=== PATIENT | female | born 1995 | race Caucasian/White ===

== ENCOUNTER 2020-03-20 12:20 | Emergency (ER) | payer BC, SELFPAY ==
[2020-03-20 13:05] VITALS: BP 133/74; PULSE 72; RESP 18; TEMP 36.8; O2SAT 98; BMI 31.7
--- NOTE | 2020-03-20 13:59 | HMH.EDUTC ---
[facility] [place] Clinical Impression: Encounter for laboratory testing for COVID-19 virus Disposition: Home, Self-Care Condition on Discharge: Good Instructions: DI for COVID-19 (Suspected or Confirmed ), COVID-19 Viral Test, COVID-19: Testing and Tracing, Preventing the Spread of Coronavirus Discharge Instructions, Vitamin D, Vitamin C (Ascorbic Acid), Zinc Additional Instructions: *Monitor Temp, Over the counter Motrin or Tylenol as directed/as needed Tylenol every 4 hours and Motrin every 6 hours (as long as your family doctor has told you that you can take it) for fever or pain. and straight to ER if unable to lower temp less than 101.0 after medication given *Warm salt water gargles may help to soothe the throat *Throat Lozenges *Warm fluids like tea with honey may help to soothe the throat *Sleep elevated *Humidifier/Vaporizer *Bromfed may cause drowsiness. Know how it effects you (your child) before driving, caring for small child, or sending your child to school. Not other antihistamines/allergy medications while taking bromfed Follow up IMMEDIATELY for new or worsening symptoms or no Noticeable improvement over the next 48-72 hours. 911 for difficulty breathing or swallowing You were tested for today for COVID19 your test result should be back in the next 24-48 hours, you may call to the [facility] to see if your test results are back in the next 48 hours [phone] [facility] hours are 9am-9pm You was given a handout with instructions for Self Quarantine and Self isolation for while you wait on test results and what to do if they are positive If you are positive the Health Dept will be contacting you also Prescriptions: Brompheniramine/Pseudoephed/Dm [Bromfed Dm Cough Syrup] 5 - 10 ml PO Q46H PRN #150 ml PRN Reason: Cough Transmission Status: Pending to [id number] Referrals: PCP,No [Primary Care Provider] - As needed Forms: Work/School Release Time of Disposition: 14:03 Medical Decision Making - Michael Inquiry Pt receiving controlled substance: No Michael was queried for this patient: No Vital Signs: 03/20/20 13:05 Temperature 98.2 F Temperature Source Oral Pulse Rate [Left Brachial] 72 Respiratory Rate 18 Blood Pressure [Right Arm] 133/74 Blood Pressure Mean [Right Arm] 93 Blood Pressure Source [Right Arm] Automatic Cuff Blood Pressure Position [Right Arm] Sitting 02 Sat by Pulse Oximetry 98 Oxygen Delivery Method Room Air Orders (Tests/Meds): ORDERS Category Date Time Status Covid-19 Nasal PCR ([facility]) Routine Lab 03/20/20 13:00 Received [facility] [place] HPI - General Stated complaint: needs retest/covid Time Seen by Provider: 03/20/20 13:59 Mode of Arrival: Ambulatory Source of Information: Patient Limitations: No Limitations Description of Symptoms (Recalled from Triage Doc. by RN): PATIENT REQUESTING COVID TEST. SHE STATES SHE TESTED POSITIVE YESTERDAY, BUT WANTS RE-TESTED HEENT Symptoms (Recalled from RN notes): No Resp Symptoms (Recalled from RN notes): No Skin Symptoms (Recalled from RN notes): No MS Symptoms (Recalled from RN notes): No Functional Status (Recalled from RN notes): WNL - History of Present Illness Provider Complaint: Patient state that she needs to be tested for COVID States that she was tested yesterday and they emailed her and told her that it was negative and then called her last night and told her it was positive State that she talked with her PCP and they recommended that she come in and get retested again - Related Data Home Medications Medication Instructions Recorded Confirmed metronidazole 500 mg tablet PO 7 Days #14 tab 06/05/18 06/05/18 norgestimate 0.25 mg-ethinyl PO 84 Days #84 tab 06/05/18 06/05/18 estradiol 35 mcg tablet topiramate 25 mg tablet PO 30 Days #240 tab 06/05/18 06/05/18 Previous Rx's Medication Instructions Recorded Brompheniramine/Pseudoephed/Dm 5 - 10 ml PO Q46H PRN #150 ml 03/20/20 [Bromfed Dm Cough Syrup] All
[2020-03-20 14:09] VITALS: BP 133/74; PULSE 72; RESP 18; TEMP 36.8; O2SAT 98
[2020-03-21 10:55] LABS: Covid-19 Nasal PCR Sendout P&C POSITIVE
--- NOTE | 2020-03-21 11:09 | PC.NURSE ---
PATIENT NOTIFIED OF POSITIVE COVID TEST AT THIS TIME
== END 2020-03-20 14:10 | disposition home or self-care (01) ==
PROVIDERS: Emergency Provider Nurse Practitioner
DX: U07.1 COVID-19 (principal)
CPT/HCPCS: 99201; U0004

== ENCOUNTER 2020-10-03 00:28 | Emergency (ER) | payer BC, SELFPAY ==
[2020-10-03 00:29] VITALS: BP 96/75; RESP 18; TEMP 36.6; O2SAT 96; BMI 35.4
[2020-10-03 00:41] VITALS: BMI 25.8
--- NOTE | 2020-10-03 00:45 | CT_ITS ---
PROCEDURE INFORMATION: Exam: CT Abdomen And Pelvis With Contrast Exam date and time: 10/03/2020 12:45 AM Age: 25 years old Clinical indication: Abdominal pain; Patient HX: Rlq pain. N/v/d TECHNIQUE: Imaging protocol: Computed tomography of the abdomen and pelvis with contrast. Radiation optimization: All CT scans at this facility use at least one of these dose optimization techniques: automated exposure control; mA and/or kV adjustment per patient size (includes targeted exams where dose is matched to clinical indication); or iterative reconstruction. Contrast material: ISOVUE; Contrast volume: 75 ml; Contrast route: IV; COMPARISON: No relevant prior studies available. FINDINGS: Lungs: There is minimal dependent atelectasis within the lung bases. Heart: The visualized cardiac chambers appear normal. Liver: Mild hepatic steatosis. Gallbladder and bile ducts: Unremarkable without gallstones. No intra or extrahepatic ductal dilation. Pancreas: No peripancreatic inflammatory infiltration or fluid. No ductal dilation. Spleen: No splenomegaly or splenic mass. Adrenal glands: Normal. No mass. Kidneys and ureters: No nephrolithiasis, ureterolithiasis or hydronephrosis. Stomach and bowel: There is mild scattered diverticulosis but no diverticulitis identified. Appendix: No evidence of appendicitis. No appendicolith. Intraperitoneal space: No free fluid, free air or focal inflammatory infiltration. Vasculature: Punctate phleboliths are incidentally noted in the pelvis. Lymph nodes: No enlarged lymph nodes within the retroperitoneal space or mesentery. Urinary bladder: There is a punctate 1 mm calcification which appears to be lying within the bladder as seen on series 3, image 127. This may be a recently passed stone Reproductive: There is a hyperdense 2.8 cm left ovarian cyst (Hounsfield units: 22.4). The right ovary and uterus are grossly unremarkable. Bones/joints: Unremarkable. No acute fracture. No osteolytic or blastic bone lesions. Soft tissues: Paraspinous and extracorporeal soft tissues are unremarkable. IMPRESSION: 1. Punctate calcification within the dependent urinary bladder which may represent a recently passed stone.. 2. No evidence of appendicitis. 3. Diverticulosis without convincing evidence of diverticulitis. 4. Slightly hyperdense left ovarian cyst suggestive of a hemorrhagic cyst.
[2020-10-03 00:50] LABS: Basophils # 0.2 K/mm3 (0-0.2); Basophils % 1.3 % (0.1-2.0); Eosinophils # 2.3 K/mm3 (0.0-0.4); Eosinophils % 14.3 % (0.1-12.0); Hematocrit 37.4 % (37.0-47.0); Lymphocytes # 6.4 K/mm3 (0.7-4.5); Mean Corpuscular HGB Conc 34.7 g/dL (31.8-35.4); Mean Corpuscular Volume 86.5 fl (81-99); Mean Platelet Volume 8.4 fl (7.4-10.4); Monocytes # 0.8 K/mm3 (0.1-1.0); Neutrophils # 6.6 K/mm3 (1.8-7.8); Neutrophils % 40.4 % (37.0-80.0); Platelet Count 252 K/mm3 (142-424); Red Blood Count 4.33 M/mm3 (4.20-5.40); Red Cell Distribution Width 13.2 % (11.5-17.5); White Blood Count 16.3 K/mm3 (4.8-10.8)
[2020-10-03 01:02] LABS: Chloride 107 mmol/L (98-107); Sodium 141 mmol/L (136-145)
[2020-10-03 01:05] LABS: Alanine Aminotransferase 33 U/L (12-78); Albumin Level 4.4 g/dl (3.5-5.0); Albumin/Globulin Ratio 1.5 (1.1-1.8); Alkaline Phosphatase 94 U/L (38-126); Aspartate Amino Transferase 54 U/L (14-36); Bilirubin,Total 0.4 mg/dl (0.2-1.3); Blood Urea Nitrogen 12 mg/dl (7-17); Carbon Dioxide 24 mmol/L (22.0-30.0); Creatinine Clearance Estimated 136 mL/min (50-200); Estimated Glomerular Filt Rate 88 ml/min (>60); GFR (African American) 107 ML/MIN (>60); Globulin 2.9 g/dL (1.3-3.2); Total Protein,Serum 7.3 g/dl (6.3-8.2)
[2020-10-03 01:06] LABS: Calcium 9.4 mg/dl (8.4-10.2); Glucose 112 mg/dl (74-100); Lipase 111 U/L (23-300)
[2020-10-03 01:14] LABS: HCG Qualitative, Serum Negative (Negative)
--- NOTE | 2020-10-03 01:27 | HMH.EDGENADL ---
ED Disposition Clinical Impression: Kidney stone on right side, Acute abdominal pain Disposition: Home, Self-Care Condition on Discharge: Good Instructions: DI for Acute Abdominal Pain, DI for Kidney Stones Additional Instructions: You have been evaluated for right flank and lower abdominal pain. Appears that you recently passed a kidney stone. Please take anti-inflammatories like Tylenol and Motrin. Take Zofran for nausea. Follow-up with your primary care doctor. Return to the emergency department for any new or worsening symptoms. Prescriptions: Ondansetron [Zofran 4mg ODT] 4 mg PO Q6 PRN #12 tab PRN Reason: Nausea And Vomiting Transmission Status: Pending to [phone] Referrals: Provider,Referral, [Primary Care Provider] - Time of Disposition: 03:44 - Critical Care Critical Care Time: No Attestation: On 10/03/20, the high probability of a clinically significant, sudden or life threatening deterioration of the following system(s) required my full and direct attention, intervention and personal management. The time I documented below is in addition to time spent performing reported procedures but includes the following listed in this critical care notation. Medical Decision Making - Medical Records Medical records reviewed: Yes: I reviewed the patient's medical records. - Michael Inquiry Pt receiving controlled substance: No Vital Signs: 10/03/20 00:29 10/03/20 02:37 Temperature 97.9 F Temperature Source Oral Pulse Rate 83 Respiratory Rate 18 Blood Pressure 100/58 L Blood Pressure [Right Arm] 96/75 L Blood Pressure Mean [Right Arm] 82 02 Sat by Pulse Oximetry 96 100 Oxygen Delivery Method Room Air - Lab Data Lab Results 10/03/20 00:40: WBC 16.3 H, RBC 4.33, Hgb 13.0, Hct 37.4, MCV 86.5, MCH 30.0, MCHC 34.7, RDW 13.2, Plt Count 252, MPV 8.4, Neut % (Auto) 40.4, Lymph % (Auto) 39.0, [place] % (Auto) 5.0, Eos % (Auto) 14.3 H, Baso % (Auto) 1.3, Neut # (Auto) 6.6, Lymph # (Auto) 6.4 H, [place] # (Auto) 0.8, Eos # (Auto) 2.3 H, Baso # (Auto) 0.2 10/03/20 00:40: Sodium 141, Potassium 4.0, Chloride 107, Carbon Dioxide 24, Anion Gap 14.0, BUN 12, Creatinine 0.80, Estimated Creat Clear 136, Estimated GFR 88, Est GFR ( Amer) 107, Glucose 112 H, Calcium 9.4, Total Bilirubin 0.4, AST 54 H, ALT 33, Alkaline Phosphatase 94, Total Protein 7.3, Albumin 4.4, Globulin 2.9, Albumin/Globulin Ratio 1.5 10/03/20 00:40: Lipase 111 10/03/20 00:52: Serum HCG, Qual Negative 10/03/20 03:15: Urine Color Yellow, Urine Appearance Clear, Urine pH 7.0, Ur Specific [place] 1.010, Urine Protein Negative, Urine Glucose (UA) Negative, Urine Ketones Negative, Urine Blood 1+, Urine Nitrate Negative, Urine Bilirubin Negative, Urine Urobilinogen 0.2, Ur Leukocyte Esterase Negative Result diagrams: 10/03/20 00:40 10/03/20 00:40 Orders (Tests/Meds): ED MEDICATIONS Generic Name Dose Route Start Last Admin Trade Name Freq PRN Reason Stop Dose Admin Sodium Chloride 500 mls @ 999 mls/hr 10/03/20 00:45 10/03/20 00:43 Sod Chlor 0.9% 1000ml Bag IV 10/03/20 01:15 999 mls/hr .Q31M OSVALDO Administration Discontinued Medications Generic Name Dose Route Start Last Admin Trade Name Freq PRN Reason Stop Dose Admin Iopamidol 75 ml 10/03/20 02:06 10/03/20 02:07 Iopamidol-370 (76%);100ml Bottle IV 10/03/20 02:07 75 ml ONCE ONE Administration Ketorolac Tromethamine 15 mg 10/03/20 01:19 10/03/20 01:19 Ketorolac 30mg/Ml Vial IV 10/03/20 01:20 15 mg ONCE ONE Administration Ondansetron HCl 4 mg 10/03/20 00:41 10/03/20 01:18 Ondansetron 4mg/2ml Vial IV 10/03/20 00:42 4 mg ONCE ONE Administration Ondansetron HCl 4 mg 10/03/20 01:37 10/03/20 01:41 Ondansetron 4mg/2ml Vial IV 10/03/20 01:38 4 mg ONCE ONE Administration Sodium Chloride 10 ml 10/03/20 02:06 10/03/20 02:07 Sodium Chloride 0.9% 10ml Syr (Rad Only) IV 10/03/20 02:07 10 ml ONCE ONE Admini
--- NOTE | 2020-10-03 01:41 | PC.NURSE ---
pt requesting water to drink to clear mouth where she has been vomiting. mouth swab given
[2020-10-03 01:48] LABS: MANUAL DIFFERENTIAL MANUAL DIFFERENTIAL (MANUAL DIFF)
[2020-10-03 02:37] VITALS: BP 100/58; PULSE 83; O2SAT 100
[2020-10-03 03:21] LABS: Microscopic, Urine URINE MICROSCOPIC (MICROSCOPIC)
[2020-10-03 03:22] LABS: Appearance,Urine CLEAR (Clear); Bilirubin,Urine Negative (Negative); Blood, Urine 1+ (Negative); Color,Urine YELLOW (Yellow); Glucose,Urine (UA) Negative (Negative); Ketones,Urine Negative (Negative); Leukocyte Esterase,Urine Negative (Negative); Nitrate,Urine Negative (Negative); Protein,Urine Negative (Negative); Urobilinogen,Urine 0.2 EU/dl (0.2)
[2020-10-03 03:47] VITALS: BP 99/48; PULSE 78; RESP 15; TEMP 36.6; O2SAT 99
[2020-10-03 05:34] LABS: Eosinophils % 20 % (0-3); Lymphocytes % 34 % (10-50); Monocytes % 8 % (2-9); Neutrophils % 38 % (42-76); Nucleated Red Blood Cells 4; Total Cells Counted 100
[2020-10-03 05:35] LABS: Platelet Estimate Normal
[2020-10-03 05:36] LABS: Hypochromasia 2+
== END 2020-10-03 03:56 | disposition home or self-care (01) ==
PROVIDERS: Emergency Provider Emergency Medicine
DX: N20.0 Calculus of kidney (principal)
CPT/HCPCS: 74177; 80053; 81001; 83690; 84703; 85007; 85025; 96365; 96375; 96376; 99282; 99283; J2405; Q9967

== ENCOUNTER 2020-11-27 18:56 | Emergency (ER) | payer BC, SELFPAY ==
[2020-11-27 22:10] VITALS: BP 145/82; PULSE 77; RESP 18; TEMP 36.8; O2SAT 97; BMI 35.4
[2020-11-27 22:22] VITALS: BP 141/71; PULSE 81; RESP 18; TEMP 36.9; O2SAT 98
--- NOTE | 2020-11-27 22:45 | HMH.EDUTC ---
[facility] [place] Disposition Clinical Impression: Encounter for laboratory testing for COVID-19 virus Disposition: Home, Self-Care Condition on Discharge: Good Instructions: DI for COVID-19 (Suspected or Confirmed ), Coronavirus Disease 2019, Preventing the Spread of Coronavirus Discharge Instructions Additional Instructions: *Monitor Temp, Over the counter Motrin or Tylenol as directed/as needed Tylenol every 4 hours and Motrin every 6 hours (as long as your family doctor has told you that you can take it) for fever or pain. and straight to ER if unable to lower temp less than 101.0 after medication given Follow up IMMEDIATELY for new or worsening symptoms or no Noticeable improvement over the next 48-72 hours. 911 for difficulty breathing or swallowing You were tested for today for COVID19 your test result should be back in the next 24-48 hours, you may call to the [facility] to see if your test results are back in the next 48 hours [phone] [facility] hours are 9am-9pm You was given a handout with instructions for Self Quarantine and Self isolation for while you wait on test results and what to do if they are positive If you are positive the Health Dept will be contacting you also Make sure to take your Vitamins Vit. C Vit D and Zinc if you can take them Referrals: Mee Matt MD [Primary Care Provider] - As needed Forms: Work/School Release Medical Decision Making - Michael Inquiry Pt receiving controlled substance: No Michael was queried for this patient: No Vital Signs: 11/27/20 22:10 Temperature 98.3 F Temperature Source Oral Pulse Rate [Right] 77 Respiratory Rate 18 Blood Pressure [Right Arm] 145/82 H Blood Pressure Mean [Right Arm] 103 02 Sat by Pulse Oximetry 97 Oxygen Delivery Method Room Air Orders (Tests/Meds): ORDERS Category Date Time Status Covid-19 Nasal PCR ([facility]) Routine Lab 11/27/20 22:14 Received [facility] [place] HPI - General Stated complaint: covid test Time Seen by Provider: 11/27/20 22:45 Mode of Arrival: Family Vehicle Source of Information: Patient Limitations: No Limitations Description of Symptoms (Recalled from Triage Doc. by RN): Patient reports exposure to COVID and wants a COVID test. HEENT Symptoms (Recalled from RN notes): No Resp Symptoms (Recalled from RN notes): No Skin Symptoms (Recalled from RN notes): No MS Symptoms (Recalled from RN notes): No Functional Status (Recalled from RN notes): na - History of Present Illness Provider Complaint: Patient states that she was recently around several coworkers that tested positive for COVID States that she is not having any symptoms but wanted to get tested due to close exposure - Related Data Home Medications Medication Instructions Recorded Confirmed Zinc 50 mg PO BID 10/03/20 10/03/20 Previous Rx's Medication Instructions Recorded Ondansetron [Zofran 4mg ODT] 4 mg PO Q6 PRN #12 tab 10/03/20 Allergies Allergy/AdvReac Type Severity Reaction Status Date / Time No Known Allergies Allergy Verified 03/20/20 13:17 - Worker's Comp Is this a Worker's Comp case?: No Is this an H Worker's Comp?: No Is this a [place] Worker's Comp?: No [facility] History - Hepatitis A Screen Drug use history?: No High risk sexual behaviors?: No History of sexually transmitted infection?: No Currently employed?: No Childcare worker?: No Do you have indoor plumbing?: Yes Do you have electricity?: Yes Attestation statement:: This patient has been screened for Hepatitis A risk factors. I have reviewed the patient's past medical history: Yes Medical History: Reports:: Migraine Laterality Cases: Bilateral: Myringotomy (Ear Tubes), Tonsillectomy - Social History Smoking Status: Never smoker Alcohol Intake: never Occupational Status: other Housing: house Household Members: family Family Hx:: Non-contributory ROS Obtained: Yes All systems reviewed & no additional complaints, Yes Systems reviewed as appropriate & no additional com
== END 2020-11-27 23:55 | disposition home or self-care (01) ==
PROVIDERS: Emergency Provider Nurse Practitioner; PCP Internal Medicine
DX: Z20.822 Contact with and (suspected) exposure to COVID-19 (principal)
CPT/HCPCS: 99202; G0463; U0003

== ENCOUNTER → 2021-04-17 10:23 | Outpatient (CLI) | payer BC, SELFPAY | PROVIDERS: Visit Provider Nurse Practitioner | DX: Z20.822 Contact with and (suspected) exposure to COVID-19 (principal) | CPT/HCPCS: C9803; U0003; U0005 ==

== ENCOUNTER → 2021-04-27 15:44 | Outpatient (CLI) | payer BC, SELFPAY | PROVIDERS: Visit Provider Nurse Practitioner | DX: Z20.822 Contact with and (suspected) exposure to COVID-19 (principal) | CPT/HCPCS: C9803; U0003; U0005 ==

== ENCOUNTER 2024-07-19 12:51 | Outpatient (CLI) | payer OTHER, SELFPAY ==
--- NOTE | 2024-07-19 13:00 | US_ITS ---
PROCEDURE: US OB >= 14 WEEKS FETUS CLINICAL INDICATION: schedule for 4 weeks; 20wk anatomy COMPARISON: No exams were available for comparison FINDINGS: Transabdominal sonographic images of the pelvis were obtained. From her established due date she is 19 weeks 6 days. Single viable intrauterine gestation. Cephalic position. Placenta: Anteriorplacenta grade 1. There is an average amount of fluid. The cervix appears satisfactory. Closed and measuring 3.07 cm in length. Complete survey performed and was unremarkable on the submitted images as in PACS. No discrete anomalies identified on survey imaging by technologist. Active fetus. Three-vessel cord with satisfactory umbilical cord insertion. 4- chamber heart noted. Situs, aortic arch, LVOT, RVOT, three-vessel view appear normal. Survey of brain & ventricles Unremarkable. Cerebellum, thalamus, choroid plexus, cisterna magna appear normal. Face and neck survey unremarkable. Profile, nasion, lips and nose appeared normal. Diaphragm and chest views unremarkable. Abdomen: Both kidneys noted and unremarkable. Stomach and bladder noted and satisfactory. Spine: Survey of the spine satisfactory with no anomalies identified nor imaged. Cervical, thoracic, lower spine appear normal. Both arms and legs noted. Amniotic Fluid: Adequate. MVP 3.47 cm Measurements: Average ultrasound age 19weeks 6days. Estimated due date by ultrasound age 0912/07/2024. Estimated weight 309g BPD = 20weeks 0 days HC = 19weeks 6days AC = 19weeks 2days FL = 20weeks 2days Growth Percentile= 38 Heart Rate = 152bpm Cerebellum = 19weeks Humerus = 20weeks 1day HC/AC is 1.25 FL/BPD is 0.71 FL/AC is 0.24 IMPRESSION: 1. Viable fetus in the cephalic presentation with an anterior placenta grade 1. 2. The fluid is within normal limits with an MVP 3.47 cm. 3. Anatomical scan appears normal. 4. biometry is consistent with the dates. Dictated by: Crispin Marks MD 07/19/2024 17:33 Crispin Marks MD in OV 07/19/2024 17:33
== END 2024-07-19 23:59 | disposition home or self-care (01) ==
LOC: RAD 12:53
PROVIDERS: PCP Family Medicine; Visit Provider Obstetrics & Gynecology
DX: Z36.3 Encounter for antenatal screening for malformations (principal); Z3A.19 19 weeks gestation of pregnancy
CPT/HCPCS: 76805

== ENCOUNTER 2024-08-06 08:01 | Emergency (ER) | payer OTHER, SELFPAY ==
--- NOTE | 2024-08-06 08:15 | PC.NURSE ---
unable to get a quality heart tone with portable doppler. MD aware and is ordering POCUS
[2024-08-06 08:21] VITALS: BP 132/76; PULSE 91; RESP 17; TEMP 37; O2SAT 98; BMI 34.2
--- NOTE | 2024-08-06 08:23 | PC.NURSE ---
at bedside for POCUS
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
[2024-08-06 08:39] VITALS: BP 132/76; PULSE 91; RESP 17; TEMP 37; O2SAT 98
== END 2024-08-06 08:40 | disposition home or self-care (01) ==
PROVIDERS: Emergency Provider Student in an Organized Health Care Education/Training Program; PCP Family Medicine
DX: O9A.212 Injury, poisoning and certain other consequences of external causes complicating pregnancy, second trimester (principal); R07.89 Other chest pain; V49.40XA Driver injured in collision with unspecified motor vehicles in traffic accident, initial encounter; Z3A.22 22 weeks gestation of pregnancy
CPT/HCPCS: 99284

== ENCOUNTER 2024-08-27 10:55 | Outpatient (CLI) | payer OTHER, SELFPAY ==
[2024-08-27 11:02] VITALS: BMI 34.9
[2024-08-27 11:17] VITALS: BP 122/69; PULSE 82; RESP 17; TEMP 36.8; O2SAT 98; BMI 34.9
[2024-08-27 11:21] LABS: Microscopic, Urine URINE MICROSCOPIC (MICROSCOPIC)
[2024-08-27 11:23] LABS: Appearance,Urine CLEAR (Clear); Bilirubin,Urine Negative (Negative); Blood, Urine Negative (Negative); Color,Urine YELLOW (Yellow); Glucose,Urine (UA) Negative (Negative); Ketones,Urine Negative (Negative); Leukocyte Esterase,Urine Negative (Negative); Nitrate,Urine Negative (Negative); PH,Urine 7.5 (5.0-8.5); Protein,Urine Negative (Negative); Urobilinogen,Urine 0.2 EU/dl (0.2)
[2024-08-27 11:31] LABS: Bacteria,Urine Trace /lpf; WBC,Urine Occasional #/hpf (0-3)
[2024-08-27] MEDS: ACETAMINOPHEN 325MG TAB 650 MG PO (11:44)
[2024-08-27] MEDS: LACTATED RINGERS 1000ML 1,000 ML 999 ML IV (11:45)
== END 2024-08-27 13:30 | disposition home or self-care (01) ==
LOC: OBOUT 10:57 → OB 10:58
PROVIDERS: PCP Family Medicine; Visit Provider Nurse Practitioner Obstetrics & Gynecology
DX: Z34.92 Encounter for supervision of normal pregnancy, unspecified, second trimester (principal); Z3A.24 24 weeks gestation of pregnancy
CPT/HCPCS: 81001; 96360; 99212; G0463; J7120

== ENCOUNTER 2024-09-14 10:40 | Outpatient (CLI) | payer OTHER, SELFPAY ==
--- NOTE | 2024-09-14 10:45 | US_ITS ---
PROCEDURE: US OB FOLLOW UP CLINICAL INDICATION: GDM and Growth COMPARISON: US US OB >= 14 WEEKS FETUS from 07/19/2024 FINDINGS: Transabdominal sonographic images of the pelvis were obtained. The following parameters are obtained: From her established due date she is 28weeks 0 days Viable fetus in the cephalic presentation with an anterior placenta grade 1. heart rate: 142bpm bpm. Average ultrasound age 28 weeks 3 days Estimated weight 1154 grams, 2 lb 9 oz BPD: 29weeks 1day, 73 percentile HC: 28weeks 4days, 33 percentile AC: 28weeks 2days, 48 percentile FL: 27weeks 2days, 17 percentile HC/AC: 1.09 FL/BPD: 0.7 FL/AC: 0.21 Growth percentile: 36 Amniotic fluid: MVP 5.37 cm No obvious anomalies evident. Stomach, bladder, kidneys, three-vessel cord, four chamber heart appear normal. IMPRESSION: 1. Viable fetus in the cephalic presentation with an anterior placenta grade 1. 2. The fluid is within normal limits with an MVP 5.37 cm. 3. There has been good interval growth with the fetus currently 36 percentile. No evidence of accelerated growth. 4. Limited anatomical scan appears normal. 5. Fetus is active. Dictated by: Crispin Marks MD 09/15/2024 04:09 Crispin Marks MD in OV 09/15/2024 04:09
--- OUTSIDE RECORDS SUMMARY | 2024-09-14 10:45 | XMS_ITS | Clinical Summary ---
Author Organization Healthcare Address [address] [place] [address] Care Team Providers Care Hand Umbrella Tipper Name Role Phone Mee Matt MD Primary Care Provider [phone] Allergies No known active allergies Medications * This document contains information received from the source organization and may not represent a complete record from that organization. topiramate (Topamax) 100 MG tablet Take 1 tablet (100 mg total) by mouth 2 (two) times a day. 30 tablet 6 09/11/2021 Active Active Problems Problem Noted Date Diagnosed Date Migraine without aura and wi thout status migrainosus, not intractable 11/03/2020 Chronic daily headache 10/28/2020 Immunizations Immunization Administration Dates Next Due DTaP, Unspecified 02/29/2000,01/09/1998,06/04/18 98 HPV 9-Valent 10/28/2017,08/26/2017 HPV, Unspecified 10/28/2017,08/26/2017 Hep A, Adult 03/14/2019,01/18/2018 Hep B, Adolescent or Pediatric 06/04/1997 Hep B, adult 06/21/2017 HiB, unspecified 06/04/1997 IPV 02/29/2000 Influenza, Unspecified 06/14/2017 Influenza, injectable, quadr ivalent, preservative free 02/21/2019,01/12/2018,01/26/2016 MMR 02/29/2000,06/04/1997 OPV 06/04/1997 Tdap 05/03/2016 Family History Medical History Relation Name Comments Hyperlipidemia Father Diabetes Maternal Grandmother Cardiac disorder Mother Diabetes Mother Heart attack Mother Hypertension Mother Valvular heart disease Mother Heart attack Paternal Grandfather Relation Name Status Comments Father Maternal Grandmother Mother Paternal Grandfather Social History Tobacco Use Types Packs/Day Years Used Date Smoking Tobacco: Never Smokeless Tobacco: Never Tobacco Cessation:Counseling Given: Not Answered Alcohol Use Standard Drinks/Week Comments Yes 0 (1 standard drink = 0.6 oz pure alcohol) Alcoholic Drinks/day: Social alcohol use 1 to 2 PHQ-2 Answer Date Recorded Patient Health Questionnaire-2 Score 0 09/17/2022 PHQ-2A Answer Date Recorded Patient Health Questionnaire-2 Score 0 09/17/2022 Comments No Sex and Gender Information Value Date Recorded Sex Assigned at Not on file Legal Sex Female 6:02 PM EDT Gender Identity Not on file Sexual Orientation Not on file Last Filed Vital Signs Vital Sign Reading Time Taken Comments Blood Pressure 135/78 09/17/2022 9:18 AM EDT Pulse 81 09/17/2022 9:18 AM EDT Temperature 36.7 C (98 F) 02/12/2022 10:57 AM EST Respiratory Rate 18 09/17/2022 9:18 AM EDT Oxygen Saturation 98% 09/17/2022 9:18 AM EDT Inhaled Oxygen Concentration - - Weight 97.8 kg (215 lb 9.8 oz) 09/17/2022 9:18 A M EDT Height 175.3 cm (5' 9 ) 09/17/2022 9:18 AM EDT Body Mass Index 31.84 09/17/2022 9:18 AM EDT Plan of Treatment Health Maintenance Due Date Last Done Comments [facility]-Infant/Child/Adol SDOH Screenings 1996 [facility]-IPV Vaccines (3 of 3 - 4-dose series) 08/28/2000 02/29/2000, 06/04/1997 [facility]-Varicella Vaccines (1 of 2 - 13+ 2-dose series) 02/15/2009 [facility]- SDOH Screenings 02/15/2014 [facility]-Adult SDOH Screenings 02/15/2014 [facility]-Hepatitis B Vaccines (3 of 3 - 3-dose series) 08/16/2017 06/21/2017, 06/04/1997 HPV Vaccines (3 - 3-dose series) 02/26/2018 10/28/2017, 10/28/2017, 08/26/2017, Additional history exists [facility]-Depression Screening 09/18/2023 09/17/2022 [id number] Vaccine ( season) 2023 [facility]-Influenza Vaccine (Season Ended) 2024 02/21/2019, 01/12/2018, 06/14/2017, Additional history exists [facility]-Pap Smear 09/17/2025 09/17/2022, 09/2021, 07/10/2020, Additional history exists [facility]-DTaP,Tdap,and Td Vaccines (5 - Td or Tdap) 05/03/2026 05/03/2016, 02/29/2000, 01/09/1998, Additional history exists [facility]-Zoster Vaccines (1 of 2) 02/15/2046 [facility]-HIB Vaccines Completed 06/04/1997 [facility]-Hepatitis A Vaccines Aged Out 03/14/2019, 01/02 No longer eligible based on patient's age to complete this topic [facility]-HIV Screening Completed 09/17/2022, , 12/17/2016 [facility]-Hepatitis C Screening Completed 09/17/2022, [facility]-Obesity Intervention Completed 023, 02/12/2022, 02/12/2022, Additional history exists [facility]-Pneumococcal Vaccine: Pediatrics (0 to 5 Years) and At-Risk Patients (6 to 49 Years) Aged Out No longer eligible based on patient's age to complete this topic [facility]-Rotavirus Vaccines Aged Out No lo nger eligible based on patient's age to complete this topic Procedures Procedure Name Priority Date/Time Associated Diagnosis Comments ACUTE HEPATITIS PANEL Routine 09/17/2022 10:22 AM EDT Routine screening for STI (sexually transmitted infection) HIV 1/2 ANTIBODY/ANTIGEN SCREEN WITH REFLEX TO HIV I/II DIFFERENTIATION Routine 09/17/2022 10:22 AM EDT Routine screening for STI (sexually transmitted infection) PAP TEST - CYTOLOGY Routine 09/17/2022 9 :47 AM EDT Well woman exam Mild dysplasia of cervix (THOR I) from Last 3 Months or Most Recently Relevant to Health Maintenance Results * HIV 1 & 2 Antibody/Antigen Screen (09/17/2022 10:22 AM EDT) Pathologist [facility] HIV 1 & 2 Antibody/Antigen Screen Non Reactive Non Reactive 09/17/2022 11:53 AM EDT [facility] Comment:Screening for HIV 1 & 2 antibodies, and P24 antigen is NONREACTIVE. No confirmatory testing is required. Blood Venous blood specimen / Unknown Venipuncture / Unknown 09/17/2022 10:22 AM EDT 09/17/2022 10:22 AM EDT Karma Stevenson APRN LAB BLOOD ORDERABLES Final Re sult Performing Organization Address [facility] Co de Phone Number [facility] [address] [place] [address] * Acute Hepatitis Panel (09/17/2022 10:22 AM EDT) [facility] Hepatitis B Surf Antigen Negative Negative 09/17/2022 2:38 PM EDT [facility] Hepatitis C Antibody Negative Negative 09/17/2022 2:38 PM EDT [facility] Hepatitis A Antibody IgM Negative Negative 09/17/2022 2:38 PM EDT [facility] Hepatitis B Core Antibody IgM Negative Negative 09/17/2022 2:38 PM EDT [facility] Blood Venous blood specimen / Unknown Venipuncture / Unknown 09/17/2022 10:22 AM EDT 09/17/2022 10:22 AM EDT Karma Stevenson APRN LAB BLOOD ORDERABLES Final Re sult Performing Organization Address [facility] Co de Phone Number [facility] [address] [place] [address] * Pap Test (09/17/2022 9:47 AM EDT) [facility] Case Report Cytology Case: [id number] Authorizing Provider: Karma Stevenson APRN Collected: 09/17/2022 0947 Ordering Location: Medical Office Building Received: 09/17/2022 1310 Obstetrics and Gynecology First Screen: Oh Squires Rescreen: So Yang Specimen: ThinPrep Pap Test, Liquid-Based Cervical/Vaginal 10/04/2022 10:27 AM EDT [facility] Interpretation NEGATIVE FOR INTRAEPITHELIAL LESION OR MALIGNANCY 10/04/2022 10:27 AM EDT [facility] at 1026 EDT Other Findings Shift in reji suggestive of bacterial vaginosis. 10/04/2022 10:27 AM EDT [facility] Specimen Adequacy Satisfactory for evaluation; endocervical/chin sformation zone component present. Slide imaged by the ThinPrep Imaging system and selected 22 arango reviewed then full manual screening. 10/04/2022 10:27 AM EDT [facility] Cervical cytology is a screening test primarily for squamous cancers and precursors and has associated false negative and positive results. New technologies such as liquid based sampling may decrease but will not eliminate all false negative results. Regular screening and follow-up of unexplained clinical signs and symptoms are recommended to minimize false negative results. Please see the ASCCP website (www.asccp.org)fo r followup recommendations. If HPV testing was requested, correlation with the results is suggested (please call Microbiology at [phone] for results). 10/04/2022 10:27 AM EDT [facility] Menstrual Status Cyclic 10/05/19 10:27 AM EDT [facility] History of Hysterectomy Not Applicable 10/04/2022 10:27 AM EDT [facility] Contraceptive History Not Applicable 10/04/2022 10:27 AM EDT [facility] Screening Type Previous or Suspected Abnormality 10/04/2022 10:27 AM EDT [facility] HPV Testing Requested? Request HPV Testing Regardless of Pap Test Findings 10/04/2022 10:27 AM EDT [facility] Infection History Human Papillomavirus 10/04/2022 10:27 AM EDT [facility] Previous Cancer History No 10/04/2022 10:27 AM EDT [facility] Previous or Suspected Abnormality Previous Abnormal Pap 10/04/2022 10:27 AM EDT [facility] Clinical Information Z01.419 - Well woman exam [ICD-10-CM] N87.0 - Mild dysplasia of cervix (THOR I) [ICD-10-CM] 10/04/2022 10:27 AM EDT [facility] Last Menstrual Period 09/02/2022 10/04/2022 10:27 AM EDT [facility] Swab Vaginal and cervical cytologic material / Unknown Non-blood Collection / Unknown 09/17/2022 9:47 AM EDT 09/17/2022 1:10 PM EDT us Karma Gottlieb Graham [employer]OYEE [employer]PERATIONS EXAMINER LAB CYTOLOGY ORDERABLES Final Result [facility] [address] [place] [address] from Last 3 Months or Most Recently Relevant to Health Maintenance Insurance Care Teams Hand Umbrella Tipper Relationship Specialty Start Date End Date Mee Matt MD [address] [facility] [address] [place] [address] PCP - General 08/15/20
--- OUTSIDE RECORDS SUMMARY | 2024-09-14 10:45 | XMS_ITS | Patient Health Record ---
Author Organization [facility] Address [address] [place] [address] Care Team Providers Care Janitor Caretaker Name Role Phone Mee García Unavailable [phone] Reason For Referral No Information Social History Sex Assigned At : Social History Observation Description Sex Assigned At Female Social History Sexual History: Social Info Question Answer Notes Sexual History Had sex in the past 12 months (vaginal, oral, or anal)? Yes Drugs/Alcohol: Social Info Question Answer Notes Drugs Have you used drugs other than those for medical reasons in the past 12 months? No Alcohol Screen Did you have a drink containing alcohol in the past year? Yes Points 0 Interpretation Negative Tobacco Use: Social Info Question Answer Notes Tobacco Use/Smoking Are you a former smoker Tobacco use other than smoking: Are you an other tobac co user? No Encounters Encounter Location Date Provider Diagnosis [facility] [address] [place] [address] 05/04/2024 Mee García Early stage of Z34.90 Assessments Encounter Date Diagnosis (ICD Code) Assessment Notes Treatment Notes Treatment Clinical Notes Section Notes 05/04/2024 Early stage of (ICD-10 - Z34.90) Plan Of Treatment Future Test Test Name Order Date *US OB Complete Transabdominal/Vaginal 0 05/04/2024 Insurance Providers Payer Name Payer Address Payer Phone Subscriber Number Group Number Insured Name Patient Relationship to Insured Coverage Start Date Coverage End Date [facility] [address] [place], [place] [id number] Sena Robles Self - patient is the insured
== END 2024-09-14 23:59 | disposition home or self-care (01) ==
LOC: RAD 10:40
PROVIDERS: PCP Family Medicine; Visit Provider Obstetrics & Gynecology
DX: O24.419 Gestational diabetes mellitus in pregnancy, unspecified control (principal); O99.213 Obesity complicating pregnancy, third trimester; E66.9 Obesity, unspecified; Z87.898 Personal history of other specified conditions; Z3A.28 28 weeks gestation of pregnancy
CPT/HCPCS: 76816

== ENCOUNTER 2024-09-14 13:55 | Outpatient (CLI) | payer OTHER, SELFPAY ==
--- OUTSIDE RECORDS SUMMARY | 2024-09-14 13:57 | XMS_ITS | Clinical Summary ---
Author Organization Healthcare Address [address] [place] [address] Care Team Providers Care Production Zone Leader Name Role Phone Mee Matt MD Primary Care Provider [phone] Allergies No known active allergies Medications * [...] Additional history exists [facility]-Depression Screening 09/18/2023 09/17/2022 [id number] Vaccine ( season) 2023 [facility]-Influenza Vaccine (Season [...] Antibody/Antigen Screen (09/17/2022 10:22 AM EDT) Pathologist [facility] HIV 1 & 2 Antibody/Antigen Screen Non Reactive Non Reactive 09/17/2022 11:53 AM EDT [facility] Comment:Screening for HIV 1 & 2 antibodies, and P24 antigen is NONREACTIVE. No confirmatory testing is required. Blood Venous blood specimen / Unknown Venipuncture / Unknown 09/17/2022 10:22 AM EDT 09/17/2022 10:22 AM EDT Karma Stevenson APRN LAB BLOOD ORDERABLES Final Re sult Performing Organization Address [facility] Co de Phone Number [facility] [address] [place] [address] * Acute Hepatitis Panel (09/17/2022 10:22 AM EDT) [facility] Hepatitis B Surf Antigen Negative Negative 09/17/2022 2:38 PM EDT [facility] Hepatitis C Antibody Negative Negative 09/17/2022 2:38 PM EDT [facility] Hepatitis A Antibody IgM Negative Negative 09/17/2022 2:38 PM EDT [facility] Hepatitis B Core Antibody IgM Negative Negative 09/17/2022 2:38 PM EDT [facility] Blood Venous blood specimen / Unknown Venipuncture / Unknown 09/17/2022 10:22 AM EDT 09/17/2022 10:22 AM EDT Karma Stevenson APRN LAB BLOOD ORDERABLES Final Re sult Performing Organization Address [facility] Co de Phone Number [facility] [address] [place] [address] * Pap Test (09/17/2022 9:47 AM EDT) [facility] Case Report Cytology Case: [id number] Authorizing Provider: Karma Stevenson APRN Collected: 09/17/2022 0947 Ordering Location: Medical Office Building Received: 09/17/2022 1310 Obstetrics and Gynecology First Screen: Oh Squires Rescreen: So Yang Specimen: ThinPrep Pap Test, Liquid-Based Cervical/Vaginal 10/04/2022 10:27 AM EDT [facility] Interpretation NEGATIVE FOR INTRAEPITHELIAL LESION OR MALIGNANCY 10/04/2022 10:27 AM EDT [facility] at 1026 EDT Other Findings Shift in reji suggestive of bacterial vaginosis. 10/04/2022 10:27 AM EDT [facility] Specimen Adequacy Satisfactory for evaluation; endocervical/chin sformation zone component present. Slide imaged by the ThinPrep Imaging system and selected 22 arango reviewed then full manual screening. 10/04/2022 10:27 AM EDT [facility] Cervical cytology is a [...] results is suggested (please call Microbiology at [phone] for results). 10/04/2022 10:27 AM EDT [facility] Menstrual Status Cyclic 10/05/19 10:27 AM EDT [facility] History of Hysterectomy Not Applicable 10/04/2022 10:27 AM EDT [facility] Contraceptive History Not Applicable 10/04/2022 10:27 AM EDT [facility] Screening Type Previous or Suspected Abnormality 10/04/2022 10:27 AM EDT [facility] HPV Testing Requested? Request HPV Testing Regardless of Pap Test Findings 10/04/2022 10:27 AM EDT [facility] Infection History Human Papillomavirus 10/04/2022 10:27 AM EDT [facility] Previous Cancer History No 10/04/2022 10:27 AM EDT [facility] Previous or Suspected Abnormality Previous Abnormal Pap 10/04/2022 10:27 AM EDT [facility] Clinical Information Z01.419 - Well woman exam [ICD-10-CM] N87.0 - Mild dysplasia of cervix (THOR I) [ICD-10-CM] 10/04/2022 10:27 AM EDT [facility] Last Menstrual Period 09/02/2022 10/04/2022 10:27 AM EDT [facility] Swab Vaginal and cervical cytologic material / Unknown Non-blood Collection / Unknown 09/17/2022 9:47 AM EDT 09/17/2022 1:10 PM EDT us Karma Gottlieb Graham [employer] S[employer]ICER LAB CYTOLOGY ORDERABLES Final Result [facility] [address] [place] [address] from Last 3 Months or Most Recently Relevant to Health Maintenance Insurance Care Teams Production Zone Leader Relationship Specialty Start Date End Date Mee Matt MD [address] [facility] [address] [place] [address] PCP - General 08/15/20
[2024-09-14 15:00] LABS: Basophils # 0.1 K/mm3 (0-0.2); Basophils % 0.4 % (0.1-2.0); Eosinophils # 0.1 Kmm3 (0.0-0.4); Eosinophils % 0.6 % (0.1-12.0); Hematocrit 35.7 % (37.0-47.0); Hemoglobin 11.8 g/dL (12.2-16.2); Immature Granulocytes % 0.8 %; Lymphocytes # 2.3 K/mm3 (0.7-4.5); Mean Corpuscular HGB Conc 33.1 g/dL (31.8-35.4); Mean Corpuscular Hemoglobin 29.9 pg (27.0-31.2); Mean Corpuscular Volume 90.4 fl (81-99); Mean Platelet Volume 11.9 fl (7.4-10.4); Monocytes # 0.8 K/mm3 (0.1-1.0); Monocytes % 5.9 % (1.7-9.3); Neutrophils # 9.5 K/mm3 (1.8-7.8); Neutrophils % 74.3 % (37.0-80.0); Nucleated Red Blood Cells # 0 10^3/uL; Nucleated Red Blood Cells % 0 %; Platelet Count 231 K/mm3 (142-424); Red Blood Count 3.95 M/mm3 (4.20-5.40); Red Cell Distribution Width 13.4 % (11.5-17.5); Red Cell Distribution Width-SD 44.3 fL; White Blood Count 12.8 K/mm3 (4.8-10.8)
[2024-09-15 05:13] LABS: RPR W/RFX Titers Nonreactive (Nonreactive)
== END 2024-09-14 23:59 | disposition home or self-care (01) ==
LOC: LAB 13:55
PROVIDERS: PCP Family Medicine; Visit Provider Obstetrics & Gynecology
DX: O99.210 Obesity complicating pregnancy, unspecified trimester (principal); O24.419 Gestational diabetes mellitus in pregnancy, unspecified control; Z3A.00 Weeks of gestation of pregnancy not specified
CPT/HCPCS: 36415; 85025; 86592

== ENCOUNTER 2024-10-12 09:09 | Outpatient (CLI) | payer OTHER, SELFPAY ==
--- OUTSIDE RECORDS SUMMARY | 2024-10-12 09:12 | XMS_ITS | Patient Health Record ---
Author Organization [facility] Address [address] [place] [address] Care Team Providers Care Spool Hauler Name Role Phone Mee García Unavailable [phone] Reason For Referral No Information Social History [...] No Encounters Encounter Location Date Provider Diagnosis [facility] [address] [place] [address] 05/04/2024 Mee García Early stage of Z34.90 [...] Insured Coverage Start Date Coverage End Date [facility] [address] [place], [place] [id number] Sena Robles Self - patient is the insured
--- OUTSIDE RECORDS SUMMARY | 2024-10-12 09:13 | XMS_ITS | Clinical Summary ---
Author Organization Healthcare Address [address] [place] [address] Care Team Providers Care Mitten Stitcher Name Role Phone Mee Matt MD Primary Care Provider [phone] Allergies No known active allergies Medications * [...] Additional history exists [facility]-Depression Screening 09/18/2023 09/17/2022 [id number] Vaccine ( season) 2023 [facility]-Influenza Vaccine (#1) 12/03/202402/21, 01/12/2018, 06/14/2017, Additional history exists [facility]-Pap Smear [...] Antibody/Antigen Screen (09/17/2022 10:22 AM EDT) Pathologist [facility] HIV 1 & 2 Antibody/Antigen Screen Non Reactive Non Reactive 09/17/2022 11:53 AM EDT [facility] Comment:Screening for HIV 1 & 2 antibodies, and P24 antigen is NONREACTIVE. No confirmatory testing is required. Blood Venous blood specimen / Unknown Venipuncture / Unknown 09/17/2022 10:22 AM EDT 09/17/2022 10:22 AM EDT Karma Stevenson APRN LAB BLOOD ORDERABLES Final Re sult Performing Organization Address [facility] Co de Phone Number [facility] [address] [place] [address] * Acute Hepatitis Panel (09/17/2022 10:22 AM EDT) [facility] Hepatitis B Surf Antigen Negative Negative 09/17/2022 2:38 PM EDT [facility] Hepatitis C Antibody Negative Negative 09/17/2022 2:38 PM EDT [facility] Hepatitis A Antibody IgM Negative Negative 09/17/2022 2:38 PM EDT [facility] Hepatitis B Core Antibody IgM Negative Negative 09/17/2022 2:38 PM EDT [facility] Blood Venous blood specimen / Unknown Venipuncture / Unknown 09/17/2022 10:22 AM EDT 09/17/2022 10:22 AM EDT Karma Stevenson APRN LAB BLOOD ORDERABLES Final Re sult Performing Organization Address [facility] Co de Phone Number [facility] [address] [place] [address] * Pap Test (09/17/2022 9:47 AM EDT) [facility] Case Report Cytology Case: [id number] Authorizing Provider: Karma Stevenson APRN Collected: 09/17/2022 0947 Ordering Location: Medical Office Building Received: 09/17/2022 1310 Obstetrics and Gynecology First Screen: Oh Squires Rescreen: So Yang Specimen: ThinPrep Pap Test, Liquid-Based Cervical/Vaginal 10/04/2022 10:27 AM EDT [facility] Interpretation NEGATIVE FOR INTRAEPITHELIAL LESION OR MALIGNANCY 10/04/2022 10:27 AM EDT [facility] at 1026 EDT Other Findings Shift in reji suggestive of bacterial vaginosis. 10/04/2022 10:27 AM EDT [facility] Specimen Adequacy Satisfactory for evaluation; endocervical/chin sformation zone component present. Slide imaged by the ThinPrep Imaging system and selected 22 arango reviewed then full manual screening. 10/04/2022 10:27 AM EDT [facility] Cervical cytology is a screening test [...] results is suggested (please call Microbiology at [phone] for results). 10/04/2022 10:27 AM EDT [facility] Menstrual Status Cyclic 10/05/19 10:27 AM EDT [facility] History of Hysterectomy Not Applicable 10/04/2022 10:27 AM EDT [facility] Contraceptive History Not Applicable 10/04/2022 10:27 AM EDT [facility] Screening Type Previous or Suspected Abnormality 10/04/2022 10:27 AM EDT [facility] HPV Testing Requested? Request HPV Testing Regardless of Pap Test Findings 10/04/2022 10:27 AM EDT [facility] Infection History Human Papillomavirus 10/04/2022 10:27 AM EDT [facility] Previous Cancer History No 10/04/2022 10:27 AM EDT [facility] Previous or Suspected Abnormality Previous Abnormal Pap 10/04/2022 10:27 AM EDT [facility] Clinical Information Z01.419 - Well woman exam [ICD-10-CM] N87.0 - Mild dysplasia of cervix (THOR I) [ICD-10-CM] 10/04/2022 10:27 AM EDT [facility] Last Menstrual Period 09/02/2022 10/04/2022 10:27 AM EDT [facility] Swab Vaginal and cervical cytologic material / Unknown Non-blood Collection / Unknown 09/17/2022 9:47 AM EDT 09/17/2022 1:10 PM EDT us Karma Gottlieb Graham STATISTICS MANAGER LAB CYTOLOGY ORDERABLES Final Result [facility] [address] [place] [address] from Last 3 Months or Most Recently Relevant to Health Maintenance Insurance Care Teams Mitten Stitcher Relationship Specialty Start Date End Date Mee Matt MD [address] [place] [address] PCP - General 08/15/20
--- NOTE | 2024-10-12 09:15 | US_ITS ---
PROCEDURE: US OB FOLLOW UP CLINICAL INDICATION: GDM, Class A2 COMPARISON: US US OB >= 14 WEEKS FETUS from 07/19/2024 US US OB FOLLOW UP from 09/14/2024 FINDINGS: Transabdominal sonographic images of the pelvis were obtained. The following parameters are obtained: From her established due date she is 32weeks 0 days Viable fetus in the cephalic presentation with an anterior placenta grade 2. The cervix measures 3.62 cm heart rate: 130bpm bpm. Average ultrasound age 32 weeks 5 days Estimated weight 1976 grams, 4 lb 6 oz BPD: 33weeks 0 days, 68 percentile HC: 32weeks 2days, 18 percentile AC: 32weeks 2days, 54 percentile FL: 33weeks 0 days, 62 percentile HC/AC: 1.04 FL/BPD: 0.78 FL/AC: 0.23 Growth percentile: 54 Amniotic fluid index: 9.01cm MVP 3.86 cm No obvious anomalies evident. profile seen, stomach, bladder, kidneys, three-vessel cord, four chamber heart appear normal. IMPRESSION: 1. Viable fetus in the cephalic presentation with an anterior placenta grade 2. 2. The fluid is within normal limits with an amniotic fluid index 9.01 cm, MVP 3.86 cm. 3. There has been good interval growth with the fetus currently 54th percentile. 4. Limited anatomical scan appears normal. Dictated by: Crispin Marks MD 10/13/2024 08:23 Crispin Marks MD in OV 10/13/2024 08:23
== END 2024-10-12 23:59 | disposition home or self-care (01) ==
LOC: RAD 09:10
PROVIDERS: PCP Family Medicine; Visit Provider Obstetrics & Gynecology
DX: O24.419 Gestational diabetes mellitus in pregnancy, unspecified control (principal); Z3A.32 32 weeks gestation of pregnancy; O99.213 Obesity complicating pregnancy, third trimester; E66.9 Obesity, unspecified
CPT/HCPCS: 76816

== ENCOUNTER 2024-10-19 12:56 | Outpatient (CLI) | payer OTHER, SELFPAY ==
--- OUTSIDE RECORDS SUMMARY | 2024-05-17 10:11 | XMS_ITS | Encounter Summary ---
Author Organization [facility] Address [address] [place] [address] Care Team Providers Care Base Ply Hand Name Role Phone Elisa Valdes DO Primary Care Provider +1- [phone] Reason for Referral * Diagnostic Imaging (Routine) - Closed Specialty Diagnoses / Procedures Referred By Contac t Referred To Contact Radiology Diagnoses Encounter to determine viability of , single or unspecified fetus Procedures US Ob Transvaginal Napoleon Mcginnis MD [address] [place] [address] Phone: tel: fax: [facility] Phone: tel: Referral ID Status Reason Start Date Expiration Date Visits Re quested Visits Authorized [id number] Closed 05/10/2024 05/10/2025 1 1 Reason for Visit * Consultation (Routine) - Closed Specialty Diagnoses / Procedures Referred By Contact Referred To Contact Obstetrics and Gynecology Diagnoses Referring, [place] [address] [facility] [address] [place] [address] Phone: tel: fax: Referral ID Status Reason Start Date Expiration Date Visits Re quested Visits Authorized [id number] Closed 04/25/2024 04/25/2025 1 1 Encounter Details Date Type Department Care Team (Latest Contact Info) Description 05/17/2024 9:11 AM EST Hospital Encounter [facility] [phone] Encounter to determine viability of , single [...] as of this encounter Plan of Treatment Upcoming Encounters Date Type Department Care Team (Late st Contact Info) Description 10/26/2024 8:00 AM EDT Office Visit [facility] [address] [facility] [address] [place] [address] 10/26/2024 8:00 AM EDT Appointment [facility] [address] [place] [address] documented as of this encounter Procedures Procedure [...] EST PAT NAME: SENA BENOIT MED REC#: [id number] DA: 1995 PAT GEND: F PAT TYPE: O EXAM ANIRUDH: [id number] REF PHYS NAPOLEON MCGINNIS Indication ======== viability [...] in the menstrual and sonographic dating criteria Inflatable Buildings Laminator: Ekaterina Gaston RDMS Physician: Napoleon Mcginnis MD Electronically signed by: Napoleon Mcginnis MD at: 14:08 Procedure Note Napoleon Mcginnis MD - 05/17/2024 PAT NAME: SENA BENOIT [facility] REC#: [id number] DA: 1995 PAT GEND: F PAT TYPE: O EXAM ANIRUDH: [id number] REF PHYS NAPOLEON MCGINNIS Indication ======== viability [...] GA10 w + 6 d Assigned VINICIUS:12/07/2024 [id number] d Assessment Gestational sac:visualized Location:intrauterine Yolk sac:visualized Embryo:visualized CRL39.0 mm 10w 6d 22% Hadlock Cardiac activity:present [id number] bpm 93% Nicolaides Placenta:Too early to evaluate [...] discrepancy in the menstrual andsonographic dating criteria Inflatable Buildings Laminator: Ekaterina Gaston RDIA Physician: Napoleon Mcginnis MD Electronically signed by: Napoleon Mcginnis MD at: 14:08 us Napoleon Mcginnis MD [facility] US ORDERABLES Final Result documented in this encounter Visit Diagnoses Diagnosis Encounter to determine viability of , single or unspecified fetus documented in this encounter Care Teams Base Ply Hand Relationship Specialty Start Date End Date Elisa Valdes DO [address] [facility] [place] [address] PCP - General Family Medicine 01/09/21 documented as of this encounter
--- OUTSIDE RECORDS SUMMARY | 2024-09-20 12:50 | XMS_ITS | Encounter Summary ---
Author Organization [facility] yste Address [address] [place] [address] Care Team Providers Care Switch Inspector Name Role Phone KeishaElisa DO Primary Care Provider [phone] Encounter Details Date Type Department Care Team (Late st Contact Info) Description 09/20/2024 12:50 PM EDT - 09/20/2024 11:59 PM EDT Hospital Encounter [facility] DIABETES ED [address] [place] [phone] Tye Leung MD [address] [place] [address] Discharge Disposition: Home or Self Care Social [...] by mouth Daily. 30 tablet 2 05/17/2024 NovoLIN N ReliOn 100 UNIT/ML injection Inject 5 Units under the skin into the appropriate area as directed Every Night. 09/06/2024 Vit-Fe Fumarate-FA ( vitamin 27-0.8) 27-0.8 MG tablet tablet Take by mouth Daily. documented as of this encounter Consult Notes * Gilbert Souza RN - 09/20/2024 1:00 PM EDT Patient attended their scheduled 2 hour diabetes education visit. Please see media tab for assessment and notes if you use [employer]. If you are not an [employer] user a copy of patient's assessment and notes will be sent per routine. Thank you. documented in this encounter Plan of Treatment Upcoming Encounters Date Type Department Care Team (Late st Contact Info) Description 10/26/2024 8:00 AM EDT Office Visit [facility] [address] [facility] [address] [place] [address] 10/26/2024 8:00 AM EDT Appointment [facility] [address] [place] [address] documented as of this encounter Visit Diagnoses Not on filedocumented in this encounter Care Teams Switch Inspector Relationship Specialty Start Date End Date Elisa Valdes DO [address] [place] [address] PCP - General Family Medicine 10/8/21 documented as of this encounter
--- OUTSIDE RECORDS SUMMARY | 2024-09-27 13:48 | XMS_ITS | Encounter Summary ---
[facility] Address [address] [place] [address] Care Team Providers Care Dental Equipment Technician Name Role Phone Elisa Valdes DO Primary Care Provider [phone]- [phone] Reason for Referral * Diagnostic Imaging (Routine) - Closed Specialty Diagnoses / Procedures Referred By Contac t Referred To Contact Radiology Diagnoses Gestational diabetes mellitus (GDM) in third trimester, gestational diabetes method of control unspecified Obesity in , antepartum Procedures [facility] Diagnostic [place] Gabriella Daniels DO [address] [place] [address] Phone: tel: fax: [facility] US PER DIAG CTR [address] [place] [address] Phone: tel: Referral ID Status Reason Start Date Expiration Date Visits Re quested Visits Authorized [id number] Closed 09/12/2024 12/12/2025 1 1 Reason for Visit * Diagnostic Imaging (Routine) - Closed Specialty Diagnoses / Procedures Referred By Contac t Referred To Contact Radiology Diagnoses Gestational diabetes mellitus (GDM) in third trimester, gestational diabetes method of control unspecified Obesity in , antepartum Procedures [facility] Diagnostic [place] Gabriella Daniels DO [address] [place] [address] Phone: tel: fax: [facility] US PER DIAG CTR [address] [place] [address] Phone: tel: Referral ID Status Reason Start Date Expiration Date Visits Re quested Visits Authorized [id number] Closed 09/12/2024 12/12/2025 1 1 Encounter Details Date Type Department Care Team (Latest Contact Info) Description 09/27/2024 1:48 PM EDT - 09/27/2024 11:59 PM EDT Hospital Encounter [facility] PER DIAG CTR [address] [place] [address] aGbriella Daniels DO [address] [facility] [address] [place] [address] Gestational diabetes mellitus (GDM) in third trimester, [...] Description 10/26/2024 8:00 AM EDT Office Visit [facility] [address] [facility] [address] [place] [address] 10/26/2024 8:00 AM EDT Appointment [facility] PER DIAG CTR [address] [place] [address] documented as of this encounter Procedures Procedure Name Priority Date/Time Associated Diagnosis Comments [facility] Routine 09/27/2024 2:43 PM EDT Gestational diabetes mellitus (GDM) in third trimester, gestational diabetes method of control unspecified Obesity in , antepartum documented in this encounter Results * [facility] (09/27/2024 2:43 PM EDT) Anatomical Region Laterality Modality Ultrasound 09/27/2024 2:12 PM EDT Narrative 09/27/2024 2:55 PM EDT PAT NAME: SENA BENOIT MED REC#: [id number] DA: [id number] PAT GEND: F PAT TYPE: O EXAM ANIRUDH: [id number] REF PHYS GABRIELLA DANIELS Comparison Studies There [...] EFW (oz) 3 oz EFW by: Hadlock (MXI-UT-GH-FL) Extended Tibia 49.5 mm 29w 5d 46% Rut Fibula 46.7 mm 28w 6d 29% Rut Foot 58.1 mm 29% Chitty Radius 43.7 mm 30w 5d 58% Rut Ulna 46.1 mm 29w 3d 23% Rut Cav. septi pel. tr 8.4 mm Hair Spinner 8.0 mm CM 8.7 mm 90% Nicolaides [...] normal IVC: normal 3-vessel view: Appears normal 8-edzzws-rynawzf view: Appears normal Cardiac axis: Normal Rt [...] view: Appears normal 3-vessel view: Appears normal 3-tggqqb-ceutmsm view: Appears normal Aortic arch view: Appears [...] 4 week follow up Coding ====== Description: 65658-36 Detailed Ultrasound Description: 82187-26 Echo 2D, heart - initial Description: 03618-94 Doppler echo color flow Bow String Maker: Lisset Hyatt RDMS Physician: Tye Leung MD, FACOG Electronically signed by: Tye Leung MD, FACOG at: 15:38 Procedure Note Tye Leung MD - 09/27/2024 PAT NAME: SENA BENOIT MED REC#: [id number] DA: [id number] PAT GEND: F PAT TYPE: O EXAM ANIRUDH: [id number] REF PHYS GABRIELLA DANIELS Comparison Studies There are no relevant prior studies to which this study is beingcompared Patient Status Outpatient Indication ======== GDM diagnosed at 18 weeks, Obesity History ====== General History Axbefn101 cm Height (ft)5 ft Height (in)8 in Previous Outcomes Gravida1 Maternal Assessment Mrhnfq530 cm Height (ft)5 ft Height (in)8 in Adhjea411 kg Weight (lb)240 lb BMI36.84 kg/m Method ======= Transabdominal ultrasound examination. View: Adequate view ========= Almodovar . Number of fetuses: 1 Dating ====== LMP on:03/13/2024 GA by [email or web address] w + 2 d VINICIUS by LMP:12/18/2024 GA by prior [email or web address] w + 6 d VINICIUS by prior [...] GA29 w + 6 d Assigned VINICIUS:12/07/2024 hxpsni225 d Biometry Standard BPD77.6 mm 31w 1d 77% Hadlock OFD94.6 mm 30w 4d 68% Rut HC279.2 mm 30w 4d 35% Hadlock Cerebellum tr36.1 mm 29w 6d 41% Hill AC257.9 mm 30w 0d 48% Hadlock Femur54.3 mm 28w 5d 10% Hadlock Cdurkag24.9 mm 30w 6d 76% Rut HC / AC1.08 EFW1,439 g 29w 2d 32% Hadlock EFW (lb)3 lb EFW (oz)3 oz EFW by:Hadlock (UJM-BE-JN-FL) Extended Tibia49.5 mm 29w 5d 46% Rut Chjpus74.7 mm 28w 6d 29% Rut Foot58.1 mm 29% Chitty Tizfaz61.7 mm 30w 5d 58% Rut Ulna46.1 mm 29w 3d 23% Rut Cav. septi pel. tr8.4 mm Vp8.0 mm CM8.7 mm 90% Nicolaides Nasal bone8.7 mm Head / Face / Neck Cephalic index0.82 79% Nicolaides Thorax / Lungs Thoracic rkka122.3 mm 10% [place] Thoracic area30.2 cm ThC / AC0.76 Heart / Great Vessels Cardiac axis52 Cardiac intg779.6 mm Cardiac area10.3 cm CC / ThC0.59 [...] / HC0.19 FL / AC0.21 Other Structures OOS703 bpm General Evaluation Cardiac activity present. FHR [...] view:Appears normal SVC:normal IVC:normal 3-vessel view:Appears normal 1-qfhssi-yhoigta view:Appears normal Cardiac axis:Normal Rt lung:Appears normal [...] normal RVOT view:Appears normal 3-vessel view:Appears normal 9-frupni-igetkoj view:Appears normal Aortic arch view:Appears normal Ductal [...] pulmonary artery B and M-Mode Measurements Thoracic mysj697.3 mm 10% [place] Thoracic area30.2 cm ThC / AC0.76 Cardiac axis52 Cardiac uffu390.6 mm Cardiac area10.3 cm CC / ThC0.59 [...] Recommendation 4 week follow up Coding ====== Description:54168-95 Detailed Ultrasound Description:60505-96 Echo 2D, heart - initial Description:80000-32 Doppler echo color flow Bow String Maker: Lisset Hyatt RDMS Physician: Tye Leung MD, [...] complication documented in this encounter Care Teams Dental Equipment Technician Relationship Specialty Start Date End Date Elisa [place] [address] PCP - General Family Medicine 01/09/21 documented as of this encounter
--- OUTSIDE RECORDS SUMMARY | 2024-09-27 14:00 | XMS_ITS | Encounter Summary ---
Author Organization [facility] Address [address] [place] [address] Care Team Providers Care Consulting Application Engineer Name Role Phone Elisa Valdes DO Primary Care Provider +1- [phone] Reason for Referral * Diagnostic Imaging (Routine) - Authorized Specialty Diagnoses / Procedures Referred By Contac t Referred To Contact Radiology Diagnoses Insulin controlled gestational diabetes mellitus (GDM) in third trimester Procedures [facility] Rodney Leung MD [address] [facility] [address] [place] [address] Phone: tel: fax: [facility] US PER DIAG CTR [address] [place] [address] Phone: tel: Referral ID Status Reason Start Date Expiration Date V isits Requested Visits Authorized [id number] Authorized 09/27/2024 12/27/2025 1 1 Reason for Visit * Reason Comments GDM; obesity Encounter Details Date Type Department Care Team (Late st Contact Info) Description 09/27/2024 2:00 PM EDT Office Visit [facility] MATERNAL MEDICINE [address] [facility] [address] [place] [address] Rodney Leung MD [address] [facility] [address] [place] [address] Insulin controlled gestational diabetes mellitus [...] MD - 09/27/2024 2:14 PM EDTAssociated Problem(s): GDM (gestational diabetes mellitus), class A1 GLUCOSE MONITORING Target plasma blood glucose values [...] NPH at night previously prescribed by primary PLODDER OPERATOR. Will continue NPH at this time though [...] Medicine Consult Note Date: 09/27/2024 Name: Sena Robles : 1995 Referring Provider: Gabriella Daniels DO Chief Complaint GDM; obesity Subjective History of Present Illness: Sena Robles is a 29 y.o. 29w6d who presents [...] Impression: See Viewpoint Assessment and Plan Sena Robles is a 29 y.o. 29w6d who presents [...] NPH at night previously prescribed by primary PLODDER OPERATOR. Will continue NPH at this time though [...] [facility]S. Rodney Leung MD, FACOG Maternal Medicine, [facility] documented in this encounter Plan of Treatment Upcoming Encounters Date Type Department Care Team (Late st Contact Info) Description 10/26/2024 8:00 AM EDT Office Visit [facility] MATERNAL MEDICINE [address] [facility] [address] [place] [address] 10/26/2024 8:00 AM EDT Appointment [facility] PER DIAG CTR [address] [facility] [address] Scheduled Orders Name Type Priority Associated Diagnoses Orde r Schedule [facility] Imaging Routine Insulin controlled gestational diabetes mellitus (GDM) in third trimester Expected: 10/26/2024 (Approximate), Expires: 09/27/2025 documented as of this encounter Visit Diagnoses Diagnosis Insulin controlled gestational diabetes mellitus (GDM) in third trimester- Primary documented in this encounter Care Teams Consulting Application Engineer Relationship Specialty Start Date End Date Elisa Valdes DO [address] [place] [address] PCP - General Family Medicine 01/09/21 documented as of this encounter
--- OUTSIDE RECORDS SUMMARY | 2024-10-01 11:30 | XMS_ITS | Encounter Summary ---
[facility] Address [address] [place] [address] Care Team Providers Care Wood Stainer Name Role Phone Elisa Valdes DO Primary Care Provider +1- [phone] Encounter Details Date Type Department Care Team (Latest Contact Info) Description 10/01/2024 11:30 AM EDT - 10/01/2024 11:59 PM EDT Hospital Encounter [facility] DIABETES ED [address] [facility] [address] [place] [address] Discharge Disposition: Home or Self Care Social [...] as of this encounter Consult Notes * Elizabeth Armendariz RD LD CDE - 10/01/2024 11:30 AM EDTSummary: Phone follow up call for GDM Approximately 15 minute phone call with patient for follow up on GDM education class. Patient seeing Dr. Leung for diabetes management, states she is taking 5 units of insulin at night and on CGMS device for tracking blood glucose. She states she has planned communication with provider tomorrow asshe has had some hypoglycemia which they are aware of she said, advised to communicate, also encouraged her to clarify when she is to take her insulin, she states she will. Encouraged meals and snacks, encouraged evening snack and mid-sleep snack for hypo prevention until can speak with MD. No education needs verbalized today, see full note in Media tab in [facility] after chart processing. SCHUYLER Ramirez RD MSED BCADM MLDE documented in this encounter Plan of Treatment Upcoming Encounters Date Type Department Care Team (Late st Contact Info) Description 10/26/2024 8:00 AM EDT Office Visit [facility] MATERNAL MEDICINE [address] [place] [address] 10/26/2024 8:00 AM EDT Appointment [facility] US PER DIAG CTR [address] [place] [address] documented as of this encounter Visit Diagnoses Not on filedocumented in this encounter Care Teams Wood Stainer Relationship Specialty Start Date End Date Elisa Valdes DO [address] [place] [address] PCP - General Family Medicine 01/09/21 documented as of this encounter
--- NOTE | 2024-10-19 13:00 | US_ITS ---
PROCEDURE: US OB BIOPHYSICAL PROFILE CLINICAL INDICATION: GDM.Class A2 COMPARISON: US US OB >= 14 WEEKS FETUS from 07/19/2024 US US OB FOLLOW UP from 09/14/2024 US US OB FOLLOW UP from 10/12/2024 FINDINGS: Transabdominal sonographic images of the uterus were obtained. From her established due date she is 33weeks 0 days. The following parameters are obtained: Viable Fetus in the cephalic presentation with an anterior placenta grade 2. Cervix measures 3.54 cm Measurements: heart Rate = 104bpm Amniotic fluid index: 10.12cm, MVP 3.82 cm Qualitative AFV:2 Breathing movements: 2 Gross Body Movements: 2 Tone: 2 Biophysical profile score: 8 No obvious anomalies evident.Kidneys, profile, stomach, bladder, three-vessel cord appear normal. IMPRESSION: 1. Viable fetus in the cephalic presentation with anterior placenta grade 2. 2. The fluid is within normal limits with an amniotic fluid index 10.12 cm, MVP 3.82 cm. 3. Biophysical profile is 8/8 with good breathing movement and movement seen. 4. Limited anatomical scan appears normal. Dictated by: Crispin Marks MD 10/20/2024 06:40 Crispin Marks MD in OV 10/20/2024 06:40
--- OUTSIDE RECORDS SUMMARY | 2024-10-19 13:00 | XMS_ITS | Clinical Summary ---
Author Organization [facility] Address [address] [place] [address] Care Team Providers Care Dry Chain Operator Name Role Phone Mee Matt MD Primary Care Provider [phone] Allergies No known active allergies Medications * [...] Additional history exists [facility]-Depression Screening 09/18/2023 09/17/2022 [id number] Vaccine ( season) 2023 [facility]-Influenza Vaccine (#1) [...] Screen (09/17/2022 10:22 AM EDT) Pathologist [facility] HIV 1 & 2 Antibody/Antigen Screen Non Reactive Non Reactive 09/17/2022 11:[address] [facility] Comment:Screening for HIV 1 & 2 antibodies, and P24 antigen is NONREACTIVE. No confirmatory testing is required. Blood Venous blood specimen / Unknown Venipuncture / Unknown 09/17/2022 10:22 AM EDT 09/17/2022 10:22 AM EDT Karma Stevenson APRN LAB BLOOD ORDERABLES Final Re sult Performing Organization Address [facility] Co de Phone Number [facility] [address] [place] [address] * Acute Hepatitis Panel (09/17/2022 10:22 AM EDT) [facility] Hepatitis B Surf Antigen Negative Negative 09/17/2022 2:[address] [facility] Hepatitis C Antibody Negative Negative 09/17/2022 2:[address] [facility] Hepatitis A Antibody IgM Negative Negative 09/17/2022 2:[address] [facility] Hepatitis B Core Antibody IgM Negative Negative 09/17/2022 2:[address] [facility] Blood Venous blood specimen / Unknown Venipuncture / Unknown 09/17/2022 10:22 AM EDT 09/17/2022 10:22 AM EDT Karma Stevenson APRN LAB BLOOD ORDERABLES Final Re sult Performing Organization Address [facility] Co de Phone Number [facility] [address] [place] [address] * Pap Test (09/17/2022 9:47 AM EDT) [facility] Case Report Cytology Case: [id number] Authorizing Provider: Karma Stevenson APRN Collected: 09/17/2022 0947 Ordering Location: Medical Office Building Received: 09/17/2022 1310 Obstetrics and Gynecology First Screen: Oh Squires Rescreen: So Yang Specimen: ThinPrep Pap Test, Liquid-Based Cervical/Vaginal 10/04/2022 10:[address] [facility] Interpretation NEGATIVE FOR INTRAEPITHELIAL LESION OR MALIGNANCY 10/04/2022 10:[address] [facility] at 1026 EDT Other Findings Shift in reji suggestive of bacterial vaginosis. 10/04/2022 10:[address] [facility] Specimen Adequacy Satisfactory for evaluation; endocervical/chin sformation zone component present. Slide imaged by the ThinPrep Imaging system and selected 22 arango reviewed then full manual screening. 10/04/2022 10:[address] [facility] Cervical cytology is a screening test [...] results is suggested (please call Microbiology at [phone] for results). 10/04/2022 10:[address] [facility] Menstrual Status Cyclic 10/05/19 10:[address] [facility] History of Hysterectomy Not Applicable 10/04/2022 10:[address] [facility] Contraceptive History Not Applicable 10/04/2022 10:[address] [facility] Screening Type Previous or Suspected Abnormality 10/04/2022 10:[address] [facility] HPV Testing Requested? Request HPV Testing Regardless of Pap Test Findings 10/04/2022 10:[address] [facility] Infection History Human Papillomavirus 10/04/2022 10:[address] [facility] Previous Cancer History No 10/04/2022 10:[address] [facility] Previous or Suspected Abnormality Previous Abnormal Pap 10/04/2022 10:[address] [facility] Clinical Information Z01.419 - Well woman exam [ICD-10-CM] N87.0 - Mild dysplasia of cervix (THOR I) [ICD-10-CM] 10/04/2022 10:[address] [facility] Last Menstrual Period 09/02/2022 10/04/2022 10:27 AM EDT [facility] Swab Vaginal and cervical cytologic material / Unknown Non-blood Collection / Unknown 09/17/2022 9:47 AM EDT 09/17/2022 1:10 PM EDT us Karma Gottlieb Graham TECHNICAL SUPPORT PROFESSIONAL LAB CYTOLOGY ORDERABLES Final Result [facility] [address] [place] [address] from Last 3 Months or Most Recently Relevant to Health Maintenance Insurance Care Teams Dry Chain Operator Relationship Specialty Start Date End Date Mee Matt MD [address] [facility] [address] [place] [address] PCP - General 08/15/20
--- OUTSIDE RECORDS SUMMARY | 2024-10-19 13:00 | XMS_ITS | Encounter Summary ---
Author Organization [facility] Address [address] [place] [address] Care Team Providers Care Recovery Specialist Name Role Phone Keisha Elisasalome Sue DO Primary Care Provider [phone] Reason for Visit * Reason Onset Date Comments Advice Only 10/12/2024 Encounter Details Date Type Department Care Team (Late st Contact Info) Description 10/12/2024 Telephone [facility] MATERNAL MEDICINE [address] [facility] [address] [place] [phone] Mell Silvestre, strike operations officer Only Social History Tobacco Use Types Packs/Day Years [...] on file documented as of this encounter Miscellaneous Notes * Telephone Encounter - Mell Silvestre, RN - 10/12/2024 8:45 AM EDT Patient called reporting she is having low blood sugars overnight. She reports readings in the 60s and a few in the 50s. Patient is asleep during these episodes. She reports she had a grilled chickensalad for dinner so she did not eat any carbs. She sked if she is required to eat 60g of carbs withdinner. Discussed with Dr. Awad. Informed patient she is not required to eat 60g of carbs, butwe do recommend eating some. Also suggested patient eat a high protein snack before bed. Patient states she usually does that and did so last night as well. Advised her to be sure she is eating at least a few carbs with dinner. Patient verbalized understanding. Instructed patient to reach back out if she has other concerns or if the hypoglycemia continues to occur. documented in this encounter Plan of Treatment Upcoming Encounters Date Type Department Care Team (Late st Contact Info) Description 10/26/2024 8:00 AM EDT Office Visit [facility]NAL MEDICINE [address] [facility] [address] [place] [address] 10/26/2024 8:00 AM EDT Appointment [facility] [address] [place] [phone] documented as of this encounter Visit Diagnoses Not on filedocumented in this encounter Care Teams Recovery Specialist Relationship Specialty Start Date End Date Elisa Valdes DO [address] [place] [address] PCP - General Family Medicine 01/09/21 documented as of this encounter
--- OUTSIDE RECORDS SUMMARY | 2024-10-19 13:00 | XMS_ITS | Encounter Summary ---
Author Organization [facility] Address [address] [place] [address] Care Team Providers Care Program Mgr Name Role Phone Keisha Elisa Linette MONGE Primary Care Provider [phone]- [phone] Encounter Details Date Type Department Care Team (Late st Contact Info) Description 09/26/2024 Telephone [facility] MATERNAL MEDICINE [address] [facility] [address] [place] [address] Mell Silvestre, RN Social History Tobacco Use Types Packs/Day Years [...] Telephone Encounter - Mell Silvestre, RN - 09/26/2024 11:27 AM EDT Called [facility] [place] [facility] OB and left voicemail requesting NIPT results if done. Fax number given in voicemail. documented in this encounter Plan of Treatment Upcoming Encounters Date Type Department Care Team (Late st Contact Info) Description 10/26/2024 8:00 AM EDT Office Visit [facility] MATERNAL MEDICINE [address] [place] [address] 10/26/2024 8:00 AM EDT Appointment [facility] [address] [place] [address] documented as of this encounter Visit Diagnoses Not on filedocumented in this encounter Care Teams Program Mgr Relationship Specialty Start Date End Date Elisa Valdes DO [address] [place] [address] PCP - General Family Medicine 01/09/21 documented as of this encounter
--- OUTSIDE RECORDS SUMMARY | 2024-10-19 13:00 | XMS_ITS | Encounter Summary ---
Author Organization [facility] Address [address] [place] [address] Care Team Providers Care Furnace Unloader Name Role Phone Elisa Valdes DO Primary Care Provider [phone] Encounter Details Date Type Department Care Team (Latest Contact Info) Description 09/20/2024 Travel Social History Tobacco Use Types Packs/Day Years [...] Description 10/26/2024 8:00 AM EDT Office Visit [facility] MATERNAL MEDICINE [address] [facility] [address] [place] [address] 10/26/2024 8:00 AM EDT Appointment [facility] [address] [place] [address] documented as of this encounter Visit Diagnoses Not on filedocumented in this encounter Care Teams Furnace Unloader Relationship Specialty Start Date End Date Elisa Valdes DO [address] [place], [place] [id number] PCP - General Family Medicine 01/09/21 documented as of this encounter
--- OUTSIDE RECORDS SUMMARY | 2024-10-19 13:00 | XMS_ITS | Clinical Summary ---
Author Organization [facility] Address [address] [place] [address] Care Team Providers Care Boiler Water Tester Name Role Phone Keisha Elisa Linette MONGE Primary Care Provider Allergies No known active allergies Medications Vit-Fe Fumarate-FA ( vitamin 27-0.8) 27-0.8 MG tablet tablet Take by mouth Daily. Active docusate sodium (Colace) 100 MG capsule Take 1 capsule by mouth 2 (Two) Times a Day. 60 capsule 1 5 Active Additional Information Patient not taking.Reported on 09/27/2024 magnesium oxide (MAG-OX) 400 MG tablet Take 1 tablet by mouth Daily. 30 tablet 2 5 Active Additional Information Patient not taking.Reported on 09/27/2024 cetirizine (zyrTEC) 10 MG tabletIndicatio ns:Viral URI with cough Take 1 tablet by mouth Daily. 30 tablet 1 Active fluticasone (FLONASE) 50 MCG/ACT nasal sprayIndication s:Viral URI with cough Administer 2 sprays into the nostril(s) as directed by provider Daily. 15.8 g 5 Active Additional Information Patient not taking.Reported on 09/27/2024 Continuous Glucose Sensor (FreeStyle Dania 3 Plus Sensor) USE DIRECTED AND CHANGE EVERY 15 DAYS Active NovoLIN N ReliOn 100 UNIT/ML injection Inject 5 Units under the skin into the appropriate area as directed Every Night. 5 Active Active Problems Problem Noted Date Diagnosed Date GDM (gestational diabetes mellitus), class A1 Assessment & Plan (09/27/2024 2:36 PM EDT): GLUCOSE MONITORING Target plasma blood glucose values [...] metformin or insulin therapy. We discussed insulin treatment as the gold standard. MATERNAL RISKS Insulin resistance [...] obesity. Glycemic control is important to reducing these risks. morbidities among infants of diabetic mothers include [...] NPH at night previously prescribed by primary THIRD RAIL INSTALLER. Will continue NPH at this time though will likely transition to Lantus for better control. We will add to [...] of type 2 DM in the future. THOR I (cervical intraepithelial neoplasia I) Prediabetes 05/17/2024 Periodic headache syndrome, not intractable 05/05 Estimated Date of Delivery Comme nts Yes 12/07/2024 Based on Ultraso und Encounters Date Type Department Care Team Description 10/12/2024 Telephone [facility] MATERNAL MEDICINE [address] [place] [phone] Mell Silvestre, reed maker Only 10/01/2024 11:30 AM EDT - 10/01/2024 11:59 PM EDT Hospital Encounter [facility] [address] [place] [address] Discharge Disposition: Home or Self Care 10/01/2024 Telephone [facility] MATERNAL MEDICINE [address] [facility] [facility] [place] [phone] Georgia Booth, RN Med Management 10/01/2024 Travel 09/27/2024 2:00 PM EDT Office Visit [facility] MATERNAL MEDICINE [address] [place] [phone] Tye Leung MD Insulin controlled gestational diabetes mellitus (GDM) in third trimester (Primary Dx) 09/27/2024 1:48 PM EDT - 09/27/2024 11:59 PM EDT Hospital Encounter [facility] DI[facility] [address] [place] [address] Gabriella Daniels DO Gestational diabetes mellitus (GDM) in third trimester, gestational diabetes method of control unspecified; Obesity in , antepartum Discharge Disposition: Home or Self Care 09/27/2024 Documentation [facility] MATERNAL MEDICINE [address] [facility] [place] [address] Alanna Walker RN 09/27/2024 Travel 09/26/2024 Telephone [facility] MATERNAL MEDICINE [address] [place] [address] Mell Silvestre RN 09/20/2024 12:50 PM EDT - 09/20/2024 11:59 PM EDT Hospital Encounter [facility] [address] [place] [address] Leung, Tye Greer MD Discharge Disposition: Home or Self Care 09/20/2024 Travel from Last 3 Months Immunizations Immunization Administration Dates Next Due DTaP, Unspecified 02/29/2000,01/09/1998,06/04/18 98 Flu Vaccine Quad PF >36MO 02/21/2019,01/12/2018, 01/26/2016 HPV, Unspecified 10/28/2017,08/26/2017 Hep B, Adolescent or Pediatric 06/04/1997 Hepatitis A 03/14/2019,01/18/2018 Hepatitis B Adult/Adolescent IM 06/21/2017 HiB 06/04/1997 IPV 02/29/2000 Influenza, Unspecified 06/14/2017 MMR 02/29/2000,06/04/1997 OPV 06/04/1997 Tdap 05/03/2016 Family History Medical History Relation Name Comments Hypertension Father Abiodun Diabetes Mother Kera Heart attack Mother Kera Breast cancer Neg Hx Colon cancer Neg Hx Osteoporosis Neg Hx Ovarian cancer Neg Hx Uterine cancer Neg Hx Relation Name Status Comments Father Abiodun Mother Kera Social History Tobacco Use Types Packs/Day Years Used Date Smoking Tobacco: Never Smokeless Tobacco: Never Tobacco Cessation:Counseling Given: No Alcohol Use Standard Drinks/Week Comments Not Currently [...] Pressure 125/63 09/27/2024 2:06 PM EDT Pulse 77 07/03/2024 10:30 AM EDT Temperature 36.6 C (97.8 F) 07/03/2024 10:30 AM EDT Respiratory Rate 16 07/03/2024 10:30 AM EDT Oxygen Saturation 98% 07/03/2024 10:30 AM EDT Inhaled Oxygen Concentration - - Weight 109 kg (240 lb) 09/27/2024 2:06 PM EDT Height 172.7 cm (5' 8 ) 09/27/2024 2:08 PM EDT Body Mass Index 36.49 09/27/2024 2:06 PM EDT Plan of Treatment Upcoming Encounters Date Type Department Care Team (Late st Contact Info) Description 10/26/2024 8:00 AM EDT Office Visit [facility] MAT[facility]NAL MEDICINE [address] [facility] [address] [place] [address] 10/26/2024 8:00 AM EDT Appointment [facility] [address] [place] [address] Health Maintenance Due Date Last Done Comments Annual Gynecologic Pelvic and Breast Exam 1996 PAP SMEAR 02/15/2017 COVID-19 Vaccine ( season) 2023 ANNUAL PHYSICAL 07/07/2024 07/08/2023, 06/22/2022 INFLUENZA VACCINE 01/02/2025 02/21/2019, , 06/14/2017, Additional history exists TDAP/TD VACCINES (2 - Td or Tdap) 05/03/2026 05/03/2016 CHLAMYDIA SCREENING Discontinued 05/17/2024, 03/15/2023, 09/17/2022, Additional history exists HEPATITIS C SCREENING Completed 05/17/2024 , 03/15/2023, 09/17/2022 Pneumococcal Vaccine 0-49 Aged Out No longer eligible based on patient's age to complete this topic RSV Vaccine - Adults (No Doses Required) Completed Procedures Procedure Name Priority Date/Time Associated Diagnosis Comments SCANNED - IMAGING 10/12/2024 [facility] Routine 09/27/2024 2:43 PM EDT Gestational diabetes mellitus (GDM) in third trimester, gestational diabetes method of control unspecified Obesity in , antepartum SCANNED - LABS 09/14/2024 SCANNED - LABS 09/14/2024 SCANNED - IMAGING 09/14/2024 SCANNED - LABS 08/27/2024 HEPATITIS C ANTIBODY Routine 05/17/2024 11:41 AM EST Encounter for supervision of low-risk , antepartum ONESWAB Routine 05/17/2024 Encounter for supervision of low-risk , antepartum from Last 3 Months or Most Recently Relevant to Health Maintenance Results * IMAGING SCANNED (10/12/2024) Only the most recent of2 resultswithin the time period is included. Anatomical Region Laterality Modality Radiographic Donna ging Elisa Valdes DO IMG DIAGNOSTIC IMAGING ORDE NAZARIO Final Result * [facility] (09/27/2024 2:43 PM EDT) Anatomical Region Laterality Modality Ultrasound 09/27/2024 2:12 PM EDT Narrative 09/27/2024 2:55 PM EDT PAT NAME: SENA BENOIT MED REC#: [id number] DA: [id number] PAT GEND: F PAT TYPE: O EXAM ANIRUDH: [id number] REF PHYS GABRIELLA DANIELS Comparison Studies There [...] EFW (oz) 3 oz EFW by: Hadlock ([id number]) Extended Tibia 49.5 mm 29w 5d 46% Rut Fibula 46.7 mm 28w 6d 29% Rut Foot 58.1 mm 29% Chitty Radius 43.7 mm 30w 5d 58% Rut Ulna 46.1 mm 29w 3d 23% Rut Cav. septi pel. tr 8.4 mm Boat Repairer 8.0 mm CM 8.7 mm 90% Nicolaides [...] normal IVC: normal 3-vessel view: Appears normal 2-cmfigs-oaynqlo view: Appears normal Cardiac axis: Normal Rt [...] view: Appears normal 3-vessel view: Appears normal 9-tirsav-pzthpwz view: Appears normal Aortic arch view: Appears [...] 4 week follow up Coding ====== Description: 10568-28 Detailed Ultrasound Description: 31751-60 Echo 2D, heart - initial Description: 78295-02 Doppler echo color flow Carburizing Furnace Operator: Lisset Hyatt RDMS Physician: Tye Leung MD, FACOG Electronically signed by: Tye Leung MD, FACOG at: 15:38 Procedure Note Tye Leung MD - 09/27/2024 PAT NAME: SENA BENOIT MED REC#: [id number] DA: [id number] PAT GEND: F PAT TYPE: O EXAM ANIRUDH: [id number] REF PHYS GABRIELLA DANIELS Comparison Studies There are no relevant prior studies to which this study is beingcompared Patient Status Outpatient Indication ======== GDM diagnosed at 18 weeks, Obesity History ====== General History Zxkpor921 cm Height (ft)5 ft Height (in)8 in Previous Outcomes Gravida1 Maternal Assessment Lkwjfw495 cm Height (ft)5 ft Height (in)8 in Cmonuk643 kg Weight (lb)240 lb BMI36.84 kg/m Method ======= Transabdominal ultrasound examination. View: Adequate view ========= Almodovar . Number of fetuses: 1 Dating ====== LMP on:03/13/2024 GA by LMP28 w + 2 d VINICIUS by LMP:12/18/2024 GA by prior proojufxvw67 w + 6 d VINICIUS by prior [...] GA29 w + 6 d Assigned VINICIUS:12/07/2024 [id number] d Biometry Standard BPD77.6 mm 31w 1d 77% Hadlock OFD94.6 mm 30w 4d 68% Rut HC279.2 mm 30w 4d 35% Hadlock Cerebellum tr36.1 mm 29w 6d 41% Hill AC257.9 mm 30w 0d 48% Hadlock Femur54.3 mm 28w 5d 10% Hadlock Xbrjgvm85.9 mm 30w 6d 76% Rut HC / AC1.08 EFW1,439 g 29w 2d 32% Hadlock EFW (lb)3 lb EFW (oz)3 oz EFW by:Hadlock ([id number]) Extended Tibia49.5 mm 29w 5d 46% Rut Oesufq25.7 mm 28w 6d 29% Rut Foot58.1 mm 29% Chitty Yyohvo12.7 mm 30w 5d 58% Rut Ulna46.1 mm 29w 3d 23% Rut Cav. septi pel. tr8.4 mm Vp8.0 mm CM8.7 mm 90% Nicolaides Nasal bone8.7 mm Head / Face / Neck Cephalic index0.82 79% Nicolaides Thorax / Lungs Thoracic ahaq518.3 mm 10% [place] Thoracic area30.2 cm ThC / AC0.76 Heart / Great Vessels Cardiac axis52 Cardiac lggb560.6 mm Cardiac area10.3 cm CC / ThC0.59 [...] / HC0.19 FL / AC0.21 Other Structures UQK947 bpm General Evaluation Cardiac activity present. FHR [...] view:Appears normal SVC:normal IVC:normal 3-vessel view:Appears normal 7-mjybwd-blttmvx view:Appears normal Cardiac axis:Normal Rt lung:Appears normal [...] normal RVOT view:Appears normal 3-vessel view:Appears normal 4-cnpenm-vhlagbz view:Appears normal Aortic arch view:Appears normal Ductal [...] pulmonary artery B and M-Mode Measurements Thoracic webv681.3 mm 10% [place] Thoracic area30.2 cm ThC / AC0.76 Cardiac axis52 Cardiac exgh601.6 mm Cardiac area10.3 cm CC / ThC0.59 [...] Recommendation 4 week follow up Coding ====== Description:48679-23 Detailed Ultrasound Description:84214-76 Echo 2D, heart - initial Description:68786-69 Doppler echo color flow Carburizing Furnace Operator: Lisset Hyatt RDWV Physician: Tye Leung MD, FACOG Electronically signed by: Tye Leung MD, FACOG at: 15:38 Gabriella Daniels DO [facility] US ORDERABLES Edited Resul t - Final * LABS SCANNED (09/14/2024) Only the most recent of3 resultswithin the time period is included. Elisa Valdes DO LAB BLOOD ORDERABLES Final Result * Hepatitis C Antibody (05/17/2024 11:41 AM EST) Hepatitis C Ab Non-Reacti ve Non-Reacti ve 05/17/2024 2:42 PM EST [facility] Blood Venipuncture / Unknown 05/17/2024 11:41 AM EST 05/17/2024 11:44 AM EST Melody Ordonez MD LAB BLOOD ORDERABLES Final Resul t [facility]
[address] [place] [address], [place] [phone] * OneSwab - Kit, Vagina (05/17/2024) Kit Vaginal structure / Unknown us Melody Ordonez MD MICROBIOLOGY - GENERAL ORDERABLE S Final Result [facility] [address] [place] [address] from Last 3 Months or Most Recently Relevant to Health Maintenance Insurance [facility] [id number] [facility] Care Teams Boiler Water Tester Relationship Specialty Start Date End Date Elisa Valdes DO [address] [place] [address] PCP - General Family Medicine 01/09/21
--- OUTSIDE RECORDS SUMMARY | 2024-10-19 13:00 | XMS_ITS | Encounter Summary ---
Author Organization [facility] Address [address] [place] [address] Care Team Providers Care International Trade Specialist Name Role Phone Elisa Valdes DO Primary Care Provider [phone]- [phone] Encounter Details Date Type Department Care Team (Latest Contact Info) Description 09/27/2024 Travel Social History Tobacco Use Types Packs/Day [...] Description 10/26/2024 8:00 AM EDT Office Visit [facility] MAT[facility]INE [address] [facility] [address] [place] [address] 10/26/2024 8:00 AM EDT Appointment [facility] DI[facility] [address] [place] [address] documented as of this encounter Visit Diagnoses Not on filedocumented in this encounter Care Teams International Trade Specialist Relationship Specialty Start Date End Date Elisa Valdes DO [address] [place], [place] [id number] PCP - General Family Medicine 01/09/21 documented as of this encounter
--- OUTSIDE RECORDS SUMMARY | 2024-10-19 13:00 | XMS_ITS | Encounter Summary ---
Author Organization [facility] Address [address] [place] [address] Care Team Providers Care Skin Specialist Name Role Phone Elisa Valdes DO Primary Care Provider [phone]- [phone] Encounter Details Date Type Department Care Team (Latest Contact Info) Description 10/01/2024 Travel Social History Tobacco Use Types Packs/Day [...] Description 10/26/2024 8:00 AM EDT Office Visit [facility] MAT[facility]ICINE [address] [facility] [address] [place] [address] 10/26/2024 8:00 AM EDT Appointment [facility] [address] [place] [address] documented as of this encounter Visit Diagnoses Not on filedocumented in this encounter Care Teams Skin Specialist Relationship Specialty Start Date End Date Elisa Valdes DO [address] [place], [place] [id number] PCP - General Family Medicine 01/09/21 documented as of this encounter
--- OUTSIDE RECORDS SUMMARY | 2024-10-19 13:00 | XMS_ITS | Encounter Summary ---
Author Organization [facility] Address [address] [place] [address] Care Team Providers Care Burglar Alarm Inspector Name Role Phone KeishaElisa inman Linette MONGE Primary Care Provider [phone]- [phone] Encounter Details Date Type Department Care Team (Late st Contact Info) Description 09/27/2024 Documentation [facility] MATERNAL MEDICINE [address] [facility] [address] [place] [address] Alanna Walker, RN Social History Tobacco Use Types Packs/Day [...] on file documented as of this encounter Progress Notes * Alanna Walker RN - 09/27/2024 3:08 PM EDT Spoke with patient in person. Diabetic folder given and reviewed. Informed patient email has been sent to accept our clinic to share through [employer] App. Instructed patient to keep log until we can seeher data. Reviewed folder with office hours, how to contact, how to send in blood sugar log and when to keep if Dania sensor fails. Reviewed diet the importance of protein with meals and snacks. Patient voices understanding. Alanna Walker RN documented in this encounter Plan of Treatment Upcoming Encounters Date Type Department Care Team (Late st Contact Info) Description 10/26/2024 8:00 AM EDT Office Visit [facility]NAL MEDICINE [address] [facility] [address] [place] [address] 10/26/2024 8:00 AM EDT Appointment [facility] [address] [place] [address] documented as of this encounter Visit Diagnoses Not on filedocumented in this encounter Care Teams Burglar Alarm Inspector Relationship Specialty Start Date End Date Elisa Valdes DO [address] [place] [address] PCP - General Family Medicine 01/09/21 documented as of this encounter
--- OUTSIDE RECORDS SUMMARY | 2024-10-19 13:00 | XMS_ITS | Encounter Summary ---
Author Organization [facility] Address [address] [place] [address] Care Team Providers Care Wall Mirror Department Supervisor Name Role Phone Keisha Elisa Linette MONGE Primary Care Provider [phone]- [phone] Reason for Visit * Reason Onset Date Comments Med Management 10/01/2024 Encounter Details Date Type Department Care Team (Late st Contact Info) Description 10/01/2024 Telephone [facility] MATERNAL MEDICINE [address] [facility] [address] [place] [address] Georgia Booth, RN Med Management Social History Tobacco Use Types Packs/Day Years [...] encounter Miscellaneous Notes * Telephone Encounter - Georgia Booth RN - 10/01/2024 11:49 AM EDT Pt called to see if there is a certain time she should be taking her evening insulin. States right now she is taking it around 2100 and has had a couple of glucose drops during the night. She had herdiabetic nutrition consult earlier today. Pt state she will plan on continuing to take her NPH at 2100 and wait to see if Dr Awad recommends any adjustments once she reviews this week's glucose log. Pt states she is eating a good protein snack at bedtime. documented in this encounter Plan of Treatment Upcoming Encounters Date Type Department Care Team (Late st Contact Info) Description 10/26/2024 8:00 AM EDT Office Visit [facility] MATERNAL MEDICINE [address] [facility] [address] [place] [address] 10/26/2024 8:00 AM EDT Appointment [facility] [address] [place] [address] documented as of this encounter Visit Diagnoses Not on filedocumented in this encounter Care Teams Wall Mirror Department Supervisor Relationship Specialty Start Date End Date Elisa Valdes DO [address] [place] [address] PCP - General Family Medicine 01/09/21 documented as of this encounter
--- OUTSIDE RECORDS SUMMARY | 2024-10-19 13:00 | XMS_ITS | Patient Health Record ---
Author Organization [facility] Address [address] [place] [address] Care Team Providers Care Quality Assurance Coach Name Role Phone Mee García Unavailable [phone] Reason For Referral No Information Social History [...] No Encounters Encounter Location Date Provider Diagnosis [facility] [address] [place] [address] 05/04/2024 Mee García Early stage of Z34.90 [...] Insured Coverage Start Date Coverage End Date [facility] [address] [place], [place] [id number] Sena Robles Self - patient is the insured
== END 2024-10-19 23:59 | disposition home or self-care (01) ==
LOC: RAD 12:57
PROVIDERS: PCP Obstetrics & Gynecology; Visit Provider Obstetrics & Gynecology
DX: O24.419 Gestational diabetes mellitus in pregnancy, unspecified control (principal); O99.213 Obesity complicating pregnancy, third trimester; Z3A.33 33 weeks gestation of pregnancy
CPT/HCPCS: 76819

== ENCOUNTER 2024-11-02 12:52 | Outpatient (CLI) | payer OTHER, SELFPAY ==
--- OUTSIDE RECORDS SUMMARY | 2024-05-17 10:11 | XMS_ITS | Encounter Summary ---
Author Organization [facility] Address [address] [place] [address] Care Team Providers Care Potash Flaker Name Role Phone Elisa Valdes DO Primary Care Provider [phone] Reason for Referral * Diagnostic Imaging (Routine) - Closed Specialty Diagnoses / Procedures Referred By Contac t Referred To Contact Radiology Diagnoses Encounter to determine viability of , single or unspecified fetus Procedures US Ob Transvaginal Napoleon Mcginnis MD [address] [place] [address] Phone: tel: fax: [facility] Phone: tel: Referral ID Status Reason Start Date Expiration Date Visits Re quested Visits Authorized [id number] Closed 05/10/2024 05/10/2025 1 1 Reason for Visit * Consultation (Routine) - Closed Specialty Diagnoses / Procedures Referred By Contact Referred To Contact Obstetrics and Gynecology Diagnoses Referring, [place] [address] [facility] [address] [place] [address] Phone: tel: fax: Referral ID Status Reason Start Date Expiration Date Visits Re quested Visits Authorized [id number] Closed 04/25/2024 04/25/2025 1 1 Encounter Details Date Type Department Care Team (Latest Contact Info) Description 05/17/2024 9:11 AM EST Hospital Encounter [facility] [place] [phone] Encounter to determine viability of , single [...] EST PAT NAME: SENA BENOIT MED REC#: [id number] DA: [id number] PAT GEND: F PAT TYPE: O EXAM ANIRUDH: [id number] REF PHYS NAPOLEON MCGINNIS Indication ======== viability [...] by U/S 10 w + 6 d VIINCIUS by U/S: 12/07/2024 Assigned: based on ultrasound [...] in the menstrual and sonographic dating criteria Stamping Die Maker: Ekaterina Gaston RDMS Physician: Napoleon Mcginnis MD Electronically signed by: Napoleon Mcginnis MD at: 14:08 Procedure Note Napoleon Mcginnis MD - 05/17/2024 PAT NAME: SENA BENOIT MED REC#: [id number] DA: 1995 PAT GEND: F PAT TYPE: O EXAM ANIRUDH: [id number] REF PHYS NAPOLEON MCGINNIS Indication ======== viability [...] GA10 w + 6 d Assigned VINICIUS:12/07/2024 d Assessment Gestational sac:visualized Location:intrauterine Yolk sac:visualized Embryo:visualized CRL39.0 mm 10w 6d 22% Hadlock Cardiac activity:present JGL112 bpm 93% Nicolaides Placenta:Too early to evaluate [...] discrepancy in the menstrual andsonographic dating criteria Stamping Die Maker: Ekaterina Gaston RDMS Physician: Napoleon Mcginnis MD Electronically signed by: Napoleon Mcginnis MD at: 14:08 us Napoleon Mcginnis MD IMG US ORDERABLES Final Result documented in this encounter Visit Diagnoses Diagnosis Encounter to determine viability of , single or unspecified fetus documented in this encounter Care Teams Potash Flaker Relationship Specialty Start Date End Date Elisa Valdes DO [address] [place] [address] PCP - General Family Medicine 01/09/21 documented as of this encounter
--- OUTSIDE RECORDS SUMMARY | 2024-09-20 12:50 | XMS_ITS | Encounter Summary ---
Author Organization [facility] yste Address [address] [place] [address] Care Team Providers Care Manager Story Name Role Phone KeishaElisa DO Primary Care Provider [phone] Encounter Details Date Type Department Care Team (Late st Contact Info) Description 09/20/2024 12:50 PM EDT - 09/20/2024 11:59 PM EDT Hospital Encounter [facility] DIABETES ED [address] [place] [phone] Tye Leung MD [address] [place] [address] Discharge Disposition: Home or Self Care Social [...] for assessment and notes if you use [employer]. If you are not an [employer] user a copy of patient's assessment and notes will be sent per routine. Thank you. documented in this encounter Plan of Treatment Not on file documented as of this encounter Visit Diagnoses Not on filedocumented in this encounter Care Teams Manager Story Relationship Specialty Start Date End Date Elisa [place] [address] PCP - General Family Medicine 01/09/21 documented as of this encounter
--- OUTSIDE RECORDS SUMMARY | 2024-09-27 13:48 | XMS_ITS | Encounter Summary ---
[facility] Address [address] [place] [address] Care Team Providers Care Flash Developer Name Role Phone Elisa Valdes DO Primary Care Provider [phone]- [phone] Reason for Referral * Diagnostic Imaging (Routine) - Closed Specialty Diagnoses / Procedures Referred By Contac t Referred To Contact Radiology Diagnoses Gestational diabetes mellitus (GDM) in third trimester, gestational diabetes method of control unspecified Obesity in , antepartum Procedures [facility] [place] Gabriella Daniels DO [address] [place] [address] Phone: tel: fax: [facility] US PER DIAG CTR [address] [place] [address] Phone: tel: Referral ID Status Reason Start Date Expiration Date Visits Re quested Visits Authorized [id number] Closed 09/12/2024 12/12/2025 1 1 Reason for Visit * Diagnostic Imaging (Routine) - Closed Specialty Diagnoses / Procedures Referred By Contac t Referred To Contact Radiology Diagnoses Gestational diabetes mellitus (GDM) in third trimester, gestational diabetes method of control unspecified Obesity in , antepartum Procedures [facility] Diagnostic [place] Gabriella Daniels DO [address] [place] [address] Phone: tel: fax: [facility] US PER DIAG CTR [address] [place] [address] Phone: tel: Referral ID Status Reason Start Date Expiration Date Visits Re quested Visits Authorized [id number] Closed 09/12/2024 12/12/2025 1 1 Encounter Details Date Type Department Care Team (Latest Contact Info) Description 09/27/2024 1:48 PM EDT - 09/27/2024 11:59 PM EDT Hospital Encounter [facility] PER DIAG CTR [address] [place] [address] Gabriella Daniels DO [address] [place] [address] Gestational diabetes mellitus (GDM) in third trimester, [...] mouth Daily. documented as of this encounter Plan of Treatment Not on file documented as of this encounter Procedures Procedure Name Priority Date/Time Associated Diagnosis Comments [facility] Routine 09/27/2024 2:43 PM EDT Gestational diabetes mellitus (GDM) in third trimester, gestational diabetes method of control unspecified Obesity in , antepartum documented in this encounter Results * [facility] (09/27/2024 2:43 PM EDT) Anatomical Region Laterality Modality Ultrasound 09/27/2024 2:12 PM EDT Narrative 09/27/2024 2:55 PM EDT PAT NAME: SENA BENOIT MED REC#: [id number] DA: [id number] PAT GEND: F PAT TYPE: O EXAM ANIRUDH: [id number] REF PHYS GABRIELLA DANIELS Comparison Studies There [...] EFW (oz) 3 oz EFW by: Hadlock (GEV-UI-AC-FL) Extended Tibia 49.5 mm 29w 5d 46% Rut Fibula 46.7 mm 28w 6d 29% Rut Foot 58.1 mm 29% Chitty Radius 43.7 mm 30w 5d 58% Rut Ulna 46.1 mm 29w 3d 23% Rut Cav. septi pel. tr 8.4 mm Switcher 8.0 mm CM 8.7 mm 90% Nicolaides [...] normal IVC: normal 3-vessel view: Appears normal 8-uawlij-ltbrsqz view: Appears normal Cardiac axis: Normal Rt [...] view: Appears normal 3-vessel view: Appears normal 8-bdyvbw-hqkaeah view: Appears normal Aortic arch view: Appears [...] by: Dane MV annulus diast Zscore by: Daen PV annulus syst Zscore by: Dane AoV [...] 4 week follow up Coding ====== Description: 57732-57 Detailed Ultrasound Description: 03173-37 Echo 2D, heart - initial Description: 44541-82 Doppler echo color flow Nutrition Partner: Lisset Hyatt RDMS Physician: Tye Leung MD, FACOG Electronically signed by: Tye Leung MD, FACOG at: 15:38 Procedure Note Tye Leung MD - 09/27/2024 PAT NAME: SENA BENOIT MED REC#: [id number] DA: [id number] PAT GEND: F PAT TYPE: O EXAM ANIRUDH: [id number] REF PHYS GABRIELLA DANIELS Comparison Studies There are no relevant prior studies to which this study is beingcompared Patient Status Outpatient Indication ======== GDM diagnosed at 18 weeks, Obesity History ====== General History Xkcmrm229 cm Height (ft)5 ft Height (in)8 in Previous Outcomes Gravida1 Maternal Assessment Tisogr588 cm Height (ft)5 ft Height (in)8 in Ditlvn493 kg Weight (lb)240 lb BMI36.84 kg/m Method ======= Transabdominal ultrasound examination. View: Adequate view ========= Almodovar . Number of fetuses: 1 Dating ====== LMP on:03/13/2024 GA by [id number] w + 2 d VINICIUS by LMP:12/18/2024 GA by prior [id number] w + 6 d VINICIUS by prior [...] GA29 w + 6 d Assigned VINICIUS:12/07/2024 d Biometry Standard BPD77.6 mm 31w 1d 77% Hadlock OFD94.6 mm 30w 4d 68% Rut HC279.2 mm 30w 4d 35% Hadlock Cerebellum tr36.1 mm 29w 6d 41% Hill AC257.9 mm 30w 0d 48% Hadlock Femur54.3 mm 28w 5d 10% Hadlock Cnfeuoy25.9 mm 30w 6d 76% Rut HC / AC1.08 EFW1,439 g 29w 2d 32% Hadlock EFW (lb)3 lb EFW (oz)3 oz EFW by:Hadlock (ERW-BI-QG-FL) Extended Tibia49.5 mm 29w 5d 46% Rut Hhrjdk32.7 mm 28w 6d 29% Rut Foot58.1 mm 29% Chitty Rkvfwp22.7 mm 30w 5d 58% Rut Ulna46.1 mm 29w 3d 23% Rut Cav. septi pel. tr8.4 mm Vp8.0 mm CM8.7 mm 90% Nicolaides Nasal bone8.7 mm Head / Face / Neck Cephalic index0.82 79% Nicolaides Thorax / Lungs Thoracic caur979.3 mm 10% [place] Thoracic area30.2 cm ThC / AC0.76 Heart / Great Vessels Cardiac axis52 Cardiac mgxp045.6 mm Cardiac area10.3 cm CC / ThC0.59 [...] / HC0.19 FL / AC0.21 Other Structures TIF351 bpm General Evaluation Cardiac activity present. FHR [...] view:Appears normal SVC:normal IVC:normal 3-vessel view:Appears normal 6-tivipo-heoeast view:Appears normal Cardiac axis:Normal Rt lung:Appears normal [...] normal RVOT view:Appears normal 3-vessel view:Appears normal 4-pbbzgj-oxjpaal view:Appears normal Aortic arch view:Appears normal Ductal [...] pulmonary artery B and M-Mode Measurements Thoracic migx226.3 mm 10% [place] Thoracic area30.2 cm ThC / AC0.76 Cardiac axis52 Cardiac fvnr811.6 mm Cardiac area10.3 cm CC / ThC0.59 [...] Recommendation 4 week follow up Coding ====== Description:22995-43 Detailed Ultrasound Description:64272-57 Echo 2D, heart - initial Description:03385-08 Doppler echo color flow Nutrition Partner: Lisset Hyatt RDMS Physician: Tye Leung MD, [...] complication documented in this encounter Care Teams Flash Developer Relationship Specialty Start Date End Date Elisa Valdes DO [address] [place] [address] PCP - General Family Medicine 01/09/21 documented as of this encounter
--- OUTSIDE RECORDS SUMMARY | 2024-09-27 14:00 | XMS_ITS | Encounter Summary ---
Author Organization [facility] Address [address] [place] [address] Care Team Providers Care Supervisor Motorcycle Repair [employer] Name Role Phone Elisa Valdes DO Primary Care Provider +1- [phone] Reason for Referral * Diagnostic Imaging (Routine) - Closed Specialty Diagnoses / Procedures Referred By Contac t Referred To Contact Radiology Diagnoses Insulin controlled gestational diabetes mellitus (GDM) in third trimester Procedures [facility] Rodney Leung MD [address] [facility] [address] [place] [address] Phone: tel: fax: [facility] US PER DIAG CTR [address] [place] [address] Phone: tel: Referral ID Status Reason Start Date Expiration Date Visits Re quested Visits Authorized [id number] Closed 09/27/2024 12/27/2025 1 1 Reason for Visit * Reason Comments GDM; obesity Encounter Details Date Type Department Care Team (Late st Contact Info) Description 09/27/2024 2:00 PM EDT Office Visit [facility] MATERNAL MEDICINE [address] [facility] [address] [place] [address] Rodney Leung MD [address] [facility] [address] [place] [address] Insulin controlled gestational diabetes mellitus [...] documented in this encounter Progress Notes * Rodnye Leung MD - 09/27/2024 2:14 PM EDTAssociated [...] NPH at night previously prescribed by primary CHOCOLATE TEMPERER. Will continue NPH at this time though [...] NPH at night previously prescribed by primary CHOCOLATE TEMPERER. Will continue NPH at this time though [...] [facility]. Rodney Leung MD, FACOG Maternal Medicine, [facility] documented in this encounter Plan of Treatment Not on file documented as of this encounter Results * [facility] (10/26/2024 8:24 AM EDT) Anatomical Region Laterality Modality Ultrasound 10/26/2024 8:09 AM EDT Narrative 10/26/2024 8:36 AM EDT PAT NAME: SENA BENOIT MED REC#: [id number] DA: [id number] PAT GEND: F PAT TYPE: O EXAM ANIRUDH: [id number] REF PHYS GABRIELLA DANIELS Comparison Studies The [...] EFW (oz) 2 oz EFW by: Hadlock (RUT-RU-EP-FL) Extended Cav. septi pel. tr 5.6 mm [...] delivery. Twice weekly testing. Coding ======= Description: 87238-97 Follow Up Ultrasound Description: 05787-33 BPP without NST Adobe Developer: Arin Pryor RDMS Physician: Rodney Leung MD, FACOG Electronically signed by: Rodney Leung MD, FACOG at: 08:36 Procedure Note Rodney Leung MD - 10/26/2024 PAT NAME: SENA BENOIT MED REC#: [id number] DA: 1995 PAT GEND: F PAT TYPE: O EXAM ANIRUDH: [id number] REF PHYS GABRIELLA DANIELS Comparison Studies The findings of this study are compared to the prior ultrasound studydated 09/27/24 Patient Status Outpatient Indication ======== Gestational diabetes. Obesity BMI 36. Maternal Assessment Yvjctm157 cm Height (ft)5 ft Height (in)8 in Bvmywd428 kg Weight (lb)239 lb BMI36.64 kg/m Method ======= Transabdominal ultrasound examination. View: Adequate view ========= Almodovar . Number of fetuses: 1 Dating ====== LMP on:03/13/2024 GA by LMP32 w + 3 d VINICIUS by LMP:12/18/2024 Method of dating:based on stated VINICIUS GA by prior xtsukrhcvx38 w + 0 d VINICIUS by prior assessment:12/07/2024 Ultrasound examination on:10/26/2024 GA by U/S based upon:AC, BPD, Femur, HC GA by U/S34 w + 4 d VINICIUS by U/S:12/03/2024 Previous dating:based on ultrasound (CRL), selected on 05/17/2024 Agreed VINICIUS of previous datin12/07/2024 Assigned:based on stated VINICIUS, selected on 10/26/2024 Assigned GA34 w + 0 d Assigned VINICIUS:12/07/2024 cemqok400 d Biometry Standard BPD85.5 mm 34w 3d 61% Hadlock IDA302.8 mm 38w 3d 98% Rut HC321.9 mm 36w 2d 74% Hadlock Cerebellum tr46.0 mm 35w 0d 50% Hill AC291.8 mm 33w 1d 29% Hadlock Femur66.9 mm 34w 3d 52% Hadlock Jlzbbmf49.5 mm 34w 4d 73% Rut HC / AC1.10 EFW2,320 g 33w 5d 43% Hadlock EFW (lb)5 lb EFW (oz)2 oz EFW by:Hadlock (HHM-OU-ML-FL) Extended Cav. septi pel. tr5.6 mm CM8.9 mm 85% Nicolaides Head / Face / Neck Cephalic index0.76 9% Nicolaides Extremities / Bony Struc FL / BPD0.78 FL / HC0.21 FL / AC0.23 Other Structures FVE117 bpm General Evaluation Cardiac activity present. FHR [...] week delivery. Twice weekly testing. Coding ======= Description:34476-72 Follow Up Ultrasound Description:94274-39 BPP without NST Adobe Developer: Arin Pryor RDMS Physician: Rodney Leung MD, FACOG Electronically signed by: Rodney Leung MD, FACOG at: 08:36 us Rodney Leung MD IMG US ORDERABLES Final Result documented in this encounter Visit Diagnoses Diagnosis Insulin controlled gestational diabetes mellitus (GDM) in third trimester- Primary Insulin controlled gestational diabetes mellitus (GDM) in third trimester documented in this encounter Care Teams Supervisor Motorcycle Repair Shop Relationship Specialty Start Date End Date Elisa Valdes DO [address] [place] [address] PCP - General Family Medicine 01/09/21 documented as of this encounter
--- OUTSIDE RECORDS SUMMARY | 2024-10-01 11:30 | XMS_ITS | Encounter Summary ---
[facility] [address] [place] [address] Care Team Providers Care Lead Oracle Developer Name Role Phone Elisa Valdes DO Primary Care Provider +1- [phone] Encounter Details Date Type Department Care Team (Latest Contact Info) Description 10/01/2024 11:30 AM EDT - 10/01/2024 11:59 PM EDT Hospital Encounter [facility] DIABETES ED [address] [facility] [address] [place] [address] Discharge Disposition: Home or Self Care Social [...] see full note in Media tab in [facility] after chart processing. SCHUYLER Ramirez RD MSED BCADM MLDE documented in this encounter Plan of Treatment Not on file documented as of this encounter Visit Diagnoses Not on filedocumented in this encounter Care Teams Lead Oracle Developer Relationship Specialty Start Date End Date Elisa Valdes DO [address] [place] [address] PCP - General Family Medicine 01/09/21 documented as of this encounter
--- OUTSIDE RECORDS SUMMARY | 2024-10-26 08:00 | XMS_ITS | Encounter Summary ---
Author Organization [facility] Address [address] [place] [address] Care Team Providers Care Tinter Photograph Name Role Phone Keisha Elisa Linette MONGE Primary Care Provider [phone]- [phone] Reason for Visit * Reason Comments GDM; obesity; pre-diabetes prior to preg yi Encounter Details Date Type Department Care Team (Late st Contact Info) Description 10/26/2024 8:00 AM EDT Office Visit [facility] [address] [place] [address] [place] [id number] Tye Leung MD [address] [place] [address] Insulin controlled gestational diabetes mellitus (GDM) in [...] Sign Reading Time Taken Comments Blood Pressure 122/60 10/26/2024 8:05 AM EDT Pulse - - Temperature - - Respiratory Rate - - Oxygen Saturation - - Inhaled Oxygen Concentration - - Weight 109 kg (239 lb 12.8 oz) 10/26/2024 8:05 A M EDT Height - - Body Mass Index 36.46 09/27/2024 2:08 PM EDT documented in this encounter Progress Notes * Tye Leung MD - 10/26/2024 8:21 AM EDTAssociated Problem(s): Insulin controlled gestational diabetes mellitus (GDM) in third trimester Patient presents for follow-up growth ultrasound secondary to gestational diabetes. Glucose values were reviewed this week with increase of long-acting insulin to 6 units at night. Today's ultrasoundshows normal growth with normal amniotic fluid. Given overall good control would recommend deliveryduring the 38th or 39th week of . Recommend continue twice-weekly testing in your office. * Mell Silvestre RN - 10/26/2024 8:00 AM EDT Patient denies any leaking of fluid, vaginal bleeding, or contractions. NIPT declined. Patient reports next follow-up appointment with Dr. Daneils's office is 10/30. * Tye Leung MD - 10/26/2024 8:00 AM EDT Maternal/ Medicine Consult Note Date: 10/26/2024 Name: Sena Robles : 1995 Referring Provider: Gabriella Daniels DO Chief Complaint GDM; obesity; pre-diabetes prior to Subjective History of Present Illness: Sena Robles is a 29 y.o. 34w0d who presents today for gestational diabetes VINICIUS: Estimated Date of Delivery: 12/07/24 ROS: Otherwise Noted in HPI Current Outpatient Medications: Continuous Glucose Sensor (FreeStyle Dania 3 Plus Sensor), USE DIRECTED AND CHANGE EVERY 15 DAYS, Disp: , Rfl: NovoLIN N ReliOn 100 UNIT/ML injection, Inject 6 Units under the skin into the appropriate area as directed Every Night., Disp: , Rfl: Vit-Fe Fumarate-FA ( vitamin 27-0.8) 27-0.8 MG tablet tablet, Take by mouth Daily., Disp: , Rfl: cetirizine (zyrTEC) 10 MG tablet, Take 1 tablet by mouth Daily. (Patient not taking: Reported on 10/26/2024), Disp: 30 tablet, Rfl: 1 docusate sodium (Colace) 100 MG capsule, Take 1 capsule by mouth 2 (Two) Times a Day. (Patient not taking: Reported on 10/26/2024), Disp: 60 capsule, Rfl: 1 fluticasone (FLONASE) 50 MCG/ACT nasal spray, Administer 2 sprays into the nostril(s) as directed by provider Daily. (Patient not taking: Reported on 10/26/2024), Disp: 15.8 g, Rfl: 0 magnesium oxide (MAG-OX) 400 MG tablet, Take 1 tablet by mouth Daily. (Patient not taking: Reportedon 10/26/2024), Disp: 30 tablet, Rfl: 2 Objective Vital Signs BP 122/60 Wt 109 kg (239 lb 12.8 oz) LMP 03/13/2024 (Exact Date) Estimated body mass index is 36.46 kg/m?? as calculated from the following: Height as of 09/27/24: 172.7 cm (68 ). Weight as of this encounter: 109 kg (239 lb 12.8 oz). Ultrasound Impression: See Viewpoint Assessment and Plan Sena Robles is a 29 y.o. 34w0d who presents today for gestational diabetes Diagnoses and all orders for this visit: 1. Insulin controlled gestational diabetes mellitus (GDM) in third trimester (Primary) Assessment & Plan: Patient presents for follow-up growth ultrasound secondary to gestational diabetes. Glucose values were reviewed this week with increase of long-acting insulin to 6 units at night. Today's ultrasoundshows normal growth with normal amniotic fluid. Given overall good control would recommend deliveryduring the 38th or 39th week of . Recommend continue twice-weekly testing in your office. Follow Up No follow-ups on file. I spent 10 minutes caring for the patient on the [...] other procedures such as amniocentesis or CVS. Tye Leung MD, FACOG Maternal Medicine, [facility] [place] documented in this encounter Plan of Treatment Not on file documented as of this encounter Visit Diagnoses Diagnosis Insulin controlled gestational diabetes mellitus (GDM) in third trimester- Primary documented in this encounter Care Teams Tinter Photograph Relationship Specialty Start Date End Date Elisa Valdes DO [address] [place] [address] PCP - General Family Medicine 01/09/21 documented as of this encounter
--- OUTSIDE RECORDS SUMMARY | 2024-10-26 08:00 | XMS_ITS | Encounter Summary ---
Author Organization [facility] Address [address] [place] [id number] Care Team Providers Care Patient Support Associate Name Role Phone Elisa Valdes DO Primary Care Provider [phone]- [phone] Reason for Referral * Diagnostic Imaging (Routine) - Closed Specialty Diagnoses / Procedures Referred By Contac t Referred To Contact Radiology Diagnoses Insulin controlled gestational diabetes mellitus (GDM) in third trimester Procedures [facility] [place] Tye Leung MD [address] [place] [address] Phone: tel: fax: [facility] [address] [place] [address] Phone: tel: Referral ID Status Reason Start Date Expiration Date Visits Re quested Visits Authorized [id number] Closed 09/27/2024 12/27/2025 1 1 Reason for Visit * Diagnostic Imaging (Routine) - Closed Specialty Diagnoses / Procedures Referred By Contac t Referred To Contact Radiology Diagnoses Insulin controlled gestational diabetes mellitus (GDM) in third trimester Procedures [facility] Diagnostic [place] Tye Leung MD [address] [place] [address] Phone: tel: fax: [facility] [address] [facility] [place] [address] Phone: tel: Referral ID Status Reason Start Date Expiration Date Visits Re quested Visits Authorized [id number] Closed 09/27/2024 12/27/2025 1 1 Encounter Details Date Type Department Care Team (Late st Contact Info) Description 10/26/2024 8:00 AM EDT - 10/26/2024 11:59 PM EDT Hospital Encounter [facility] [address] [place] [id number] Tye Leung MD [address] [place] [address] Insulin controlled gestational diabetes mellitus (GDM) in [...] Procedure Name Priority Date/Time Associated Diagnosis Comments [facility] Routine 10/26/2024 8:24 AM EDT Insulin controlled gestational diabetes mellitus (GDM) in third trimester documented in this encounter Results * [facility] (10/26/2024 8:24 AM EDT) Anatomical Region Laterality Modality Ultrasound 10/26/2024 8:09 AM EDT Narrative 10/26/2024 8:36 AM EDT PAT NAME: SENA BENOIT MED REC#: [id number] DA: [id number] PAT GEND: F PAT TYPE: O EXAM ANIRUDH: [id number] REF PHYS KAROLINA ORTIZ Comparison Studies The [...] EFW (oz) 2 oz EFW by: Hadlock (PSY-QN-XM-FL) Extended Cav. septi pel. tr 5.6 mm [...] delivery. Twice weekly testing. Coding ======= Description: 26807-31 Follow Up Ultrasound Description: 18160-55 BPP without NST Felled Seam Operator Chainstitch: Arin Pryor RDMS Physician: Tye Leung MD, FACOG Electronically signed by: Tye Leung MD, FACOG at: 08:36 Procedure Note Tye Leung MD - 10/26/2024 PAT NAME: SENA BENOIT MED REC#: [id number] DA: [id number] PAT GEND: F PAT TYPE: O EXAM ANIRUDH: [id number] REF PHYS QIANKAROLINA JORDAN Comparison Studies The findings of this study are compared to the prior ultrasound studydated 09/27/24 Patient Status Outpatient Indication ======== Gestational diabetes. Obesity BMI 36. Maternal Assessment Cbwkgl715 cm Height (ft)5 ft Height (in)8 in Pfadse806 kg Weight (lb)239 lb BMI36.64 kg/m Method [...] GA34 w + 0 d Assigned VINICIUS:12/07/2024 [id number] d Biometry Standard BPD85.5 mm 34w 3d 61% Hadlock GNK278.8 mm 38w 3d 98% Rut HC321.9 mm 36w 2d 74% Hadlock Cerebellum tr46.0 mm 35w 0d 50% Hill AC291.8 mm 33w 1d 29% Hadlock Femur66.9 mm 34w 3d 52% Hadlock Knszivr37.5 mm 34w 4d 73% Rut HC / AC1.10 EFW2,320 g 33w 5d 43% Hadlock EFW (lb)5 lb EFW (oz)2 oz EFW by:Hadlock (UGT-LS-CZ-FL) Extended Cav. septi pel. tr5.6 mm CM8.9 mm 85% Nicolaides Head / Face / Neck Cephalic index0.76 9% Nicolaides Extremities / Bony Struc FL / BPD0.78 FL / HC0.21 FL / AC0.23 Other Structures JQP559 bpm General Evaluation Cardiac activity present. FHR [...] movements 2: tone 2: Amniotic fluid volume 8 Biophysical profile score Consultation / Office Visit Office note to follow Impression Today's exam reveals a SIUP in cephalic presentation with biometryconsistent with dates. Limited anatomic survey appears normal. TheAFI and BPP are normal. Recommendation 38 or 39 week delivery. Twice weekly testing. Coding ======= Description:41972-74 Follow Up Ultrasound Description:22427-60 BPP without NST Felled Seam Operator Chainstitch: Arin Pryor RDMS Physician: Tye Leung MD, FACOG Electronically signed by: Tye Leung MD, FACOG at: 08:36 us Tye Leung MD IMG US ORDERABLES Final Result documented in this encounter Visit Diagnoses Diagnosis Insulin controlled gestational diabetes mellitus (GDM) in third trimester documented in this encounter Care Teams Patient Support Associate Relationship Specialty Start Date End Date Elisa Valdes DO [address] [place] [address] PCP - General Family Medicine 01/09/21 documented as of this encounter
--- OUTSIDE RECORDS SUMMARY | 2024-11-02 12:56 | XMS_ITS | Encounter Summary ---
Author Organization [facility] Address [address] [place] [address] Care Team Providers Care Procedures Tech Name Role Phone Keisha Elisasalome Sue DO Primary Care Provider +1- [phone] Reason for Visit * Reason Onset Date Comments Advice Only 10/12/2024 Encounter Details Date Type Department Care Team (Late st Contact Info) Description 10/12/2024 Telephone [facility] MATERNAL MEDICINE [address] [facility] [address] [place] [address] Mell Silvestre, monotype setter Only Social History Tobacco Use Types Packs/Day [...] on filedocumented in this encounter Care Teams Procedures Tech Relationship Specialty Start Date End Date Elisa Valdes DO [address] [place] [address] PCP - General Family Medicine 01/09/21 documented as of this encounter
--- OUTSIDE RECORDS SUMMARY | 2024-11-02 12:56 | XMS_ITS | Clinical Summary ---
Author Organization [facility] Address [address] [place] [address] Care Team Providers Care Physics Faculty Member Name Role Phone Keisha Elisasalome Sue DO Primary Care Provider Allergies No known active allergies Medications Vit-Fe Fumarate-FA ( vitamin 27-0.8) 27-0.8 MG tablet tablet Take by mouth Daily. Active docusate sodium (Colace) 100 MG capsule Take 1 capsule by mouth 2 (Two) Times a Day. 60 capsule 1 Active Additional Information Patient not taking.Reported on 10/26/2024 magnesium oxide (MAG-OX) 400 MG tablet Take 1 tablet by mouth Daily. 30 tablet 2 Active Additional Information Patient not taking.Reported on 10/26/2024 cetirizine (zyrTEC) 10 MG tabletIndicatio ns:Viral URI with cough Take 1 tablet by mouth Daily. 30 tablet 1 Active Additional Information Patient not taking.Reported on 10/26/2024 fluticasone (FLONASE) 50 MCG/ACT nasal sprayIndication s:Viral URI with cough Administer 2 sprays into the nostril(s) as directed by provider Daily. 15.8 g 5 Active Additional Information Patient not taking.Reported on 10/26/2024 Continuous Glucose Sensor (FreeStyle Dania 3 Plus Sensor) USE DIRECTED AND CHANGE EVERY 15 DAYS Active NovoLIN N ReliOn 100 UNIT/ML injection Inject 6 Units under the skin into the appropriate area as directed Every Night. Active Active Problems Problem Noted Date Diagnosed Date Insulin controlled gestation al diabetes mellitus (GDM) in third trimester 09/12/2024 Assessment & Plan (10/26/2024 8:35 AM EDT): Patient presents for follow-up growth ultrasound secondary to gestational diabetes. Glucose values were reviewed this week with increase of long-acting insulin to 6 units at night. Today's ultrasound shows normal growth with normal amniotic fluid. Given overall good control would recommend delivery during the 38th or 39th week of . Recommend continue twice-weekly testing in your office. Assessment & Plan (09/27/2024 2:36 PM EDT): [...] NPH at night previously prescribed by primary BARREL CUTTER. Will continue NPH at this time though [...] Encounters Date Type Department Care Team Description 10/26/2024 8:00 AM EDT - 10/26/2024 11:59 PM EDT [facility] [address] [place] [address] Tey Leung MD Insulin controlled gestational diabetes mellitus (GDM) in third trimester Discharge Disposition: Home or Self Care 10/26/2024 8:00 AM EDT Office Visit [facility] MATERNAL MEDICINE [address] [facility] [address] [place] [address] Tye Leung MD Insulin controlled gestational diabetes mellitus (GDM) in third trimester (Primary Dx) 10/26/2024 Travel 10/25/2024 Medication Therapy Management [facility]ERNAL MEDICINE [address] [facility] [address] [place] [phone] Abiola Awad MD 10/12/2024 Telephone [facility] MATERNAL MEDICINE [address] [facility] [address] [place] [address] Mell Silvestre, transfer iron operator Only 10/01/2024 11:30 AM EDT - 10/01/2024 11:59 PM EDT Hospital Encounter [facility] DIABETES ED [address] [facility] [address] [place] [phone] Discharge Disposition: Home or Self Care 10/01/2024 Telephone [facility] MATERNAL MEDICINE [address] [facility] [address] [place] [address] Georgia Booth, JORDIN Med Management 10/01/2024 Travel 09/27/2024 2:00 PM EDT Office Visit [facility] MATERNAL MEDICINE [address] [facility] [address] [place] [phone] Tye Leung MD Insulin controlled gestational diabetes mellitus (GDM) in third trimester (Primary Dx) 09/27/2024 1:48 PM EDT - 09/27/2024 11:59 PM EDT Hospital Encounter [facility] US PER DIAG CTR [address] [place] [phone] Gabriella Daniels DO Gestational diabetes mellitus (GDM) in third trimester, gestational diabetes method of control unspecified; Obesity in , antepartum Discharge Disposition: Home or Self Care 09/27/2024 Documentation [facility] MATERNAL MEDICINE [address] [facility] [address] [place] [address] Alanna Walker RN 09/27/2024 Travel 09/26/2024 Telephone [facility] MATERNAL MEDICINE [address] [facility] [address] [place] [address] Mell Silvestre RN 09/20/2024 12:50 PM EDT - 09/20/2024 11:59 PM EDT Hospital Encounter [facility] ED [address] [facility] [address] [place] [address] Tye Leung MD Discharge Disposition: Home or Self Care [...] Pressure 122/60 10/26/2024 8:05 AM EDT Pulse 77 07/03/2024 10:30 AM EDT Temperature 36.6 C (97.8 F) 07/03/2024 10:30 AM EDT Respiratory Rate 16 07/03/2024 10:30 AM EDT Oxygen Saturation 98% 07/03/2024 10:30 AM EDT Inhaled Oxygen Concentration - - Weight 109 kg (239 lb 12.8 oz) 10/26/2024 8:05 A M EDT Height 172.7 cm (5' 8 ) 09/27/2024 2:08 PM EDT Body Mass Index 36.46 09/27/2024 2:08 PM EDT Plan of Treatment Health Maintenance Due [...] Procedure Name Priority Date/Time Associated Diagnosis Comments [facility] Routine 10/26/2024 8:24 AM EDT Insulin controlled gestational diabetes mellitus (GDM) in third trimester SCANNED - IMAGING 10/12/2024 [facility] Routine 09/27/2024 2:43 PM [...] Recently Relevant to Health Maintenance Results * [facility] (10/26/2024 8:24 AM EDT) Only the most recent of2 resultswithin the time period is included. Anatomical Region Laterality Modality Ultrasound 10/26/2024 8:09 AM EDT Narrative 10/26/2024 8:36 AM EDT PAT NAME: SENA BENOIT MED REC#: [id number] DA: 1995 PAT GEND: F PAT TYPE: O EXAM ANIRUDH: [id number] REF PHYS GABRIELLA DANIELS Comparison Studies The [...] EFW (oz) 2 oz EFW by: Hadlock ([id number]) Extended Cav. septi pel. tr 5.6 mm [...] delivery. Twice weekly testing. Coding ======= Description: 50217-47 Follow Up Ultrasound Description: 64964-05 BPP without NST Supply Chain Design Manager: Arin Pryor RDMS Physician: Tye Leung MD, FACOG Electronically signed by: Tye Leung MD, FACOG at: 08:36 Procedure Note Tye Leung MD - 10/26/2024 PAT NAME: SENA BENOIT MED REC#: [id number] DA: [id number] PAT GEND: F PAT TYPE: O EXAM ANIRUDH: [id number] REF PHYS GABRIELLA DANIELS Comparison Studies The findings of this study are compared to the prior ultrasound studydated 09/27/24 Patient Status Outpatient Indication ======== Gestational diabetes. Obesity BMI 36. Maternal Assessment Uppatw668 cm Height (ft)5 ft Height (in)8 in Nxxgea793 kg Weight (lb)239 lb BMI36.64 kg/m Method ======= Transabdominal ultrasound examination. View: Adequate view ========= Almodovar . Number of fetuses: 1 Dating ====== LMP on:03/13/2024 GA by [id number] w + 3 d VINICIUS by LMP:12/18/2024 Method of dating:based on stated VINICIUS GA by prior [id number] w + 0 d VINICIUS by prior assessment:12/07/2024 Ultrasound examination on:10/26/2024 GA by U/S based upon:AC, BPD, Femur, HC GA by U/S34 w + 4 d VINICIUS by U/S:12/03/2024 Previous dating:based on ultrasound (CRL), selected on 05/17/2024 Agreed VINICIUS of previous datin12/07/2024 Assigned:based on stated VINICIUS, selected on 10/26/2024 Assigned GA34 w + 0 d Assigned VINICIUS:12/07/2024 [id number] d Biometry Standard BPD85.5 mm 34w 3d 61% Hadlock TIJ725.8 mm 38w 3d 98% Rut HC321.9 mm 36w 2d 74% Hadlock Cerebellum tr46.0 mm 35w 0d 50% Hill AC291.8 mm 33w 1d 29% Hadlock Femur66.9 mm 34w 3d 52% Hadlock Koioakg95.5 mm 34w 4d 73% Rut HC / AC1.10 EFW2,320 g 33w 5d 43% Hadlock EFW (lb)5 lb EFW (oz)2 oz EFW by:Hadlock ([id number]-FU-KA-FL) Extended Cav. septi pel. tr5.6 mm CM8.9 mm 85% Nicolaides Head / Face / Neck Cephalic index0.76 9% Nicolaides Extremities / Bony Struc FL / BPD0.78 FL / HC0.21 FL / AC0.23 Other Structures RGW505 bpm General Evaluation Cardiac activity present. FHR [...] week delivery. Twice weekly testing. Coding ======= Description:39892-20 Follow Up Ultrasound Description:40347-14 BPP without NST Supply Chain Design Manager: Arin Pryor RDMS Physician: Tye Leung MD, FACOG Electronically signed by: Tye Leung MD, FACOG at: 08:36 Tye Leung MD [facility] US ORDERABLES Final Result * IMAGING SCANNED (10/12/2024) Only the most recent of2 resultswithin the time period is included. Anatomical Region Laterality Modality Radiographic Donna ging Elisa Valdes DO [facility] DIAGNOSTIC IMAGING ORDE RABLES Final Result * LABS SCANNED (09/14/2024) Only the most recent of3 resultswithin the time period is included. Elisa Valdes DO LAB BLOOD ORDERABLES Final Result * Hepatitis C Antibody (05/17/2024 11:41 AM EST) Hepatitis C Ab Non-Reacti ve Non-Reacti ve 05/17/2024 2:42 PM EST [facility] Blood Venipuncture / Unknown 05/17/2024 11:41 AM EST 05/17/2024 11:44 AM EST Melody Ordonez MD LAB BLOOD ORDERABLES Final Resul t [facility]
[address] [place] [address], * OneSwab - Kit, Vagina (05/17/2024) Kit Vaginal structure / Unknown Melody Ordonez MD MICROBIOLOGY - GENERAL ORDERABLE S Final Result Performing Organization Address City/[facility]/ZIP Co de Phone Number [facility] [address] [place] [address] from Last 3 Months or Most Recently Relevant to Health Maintenance Insurance [facility] Care Teams Physics Faculty Member Relationship Specialty Start Date End Date Elisa [place] [address] PCP - General Family Medicine 01/09/21
--- OUTSIDE RECORDS SUMMARY | 2024-11-02 12:56 | XMS_ITS | Encounter Summary ---
Author Organization [facility] Address [address] [place] [address] Care Team Providers Care Annealing Torch Operator Name Role Phone Elisa Valdes DO Primary Care Provider +1- [phone] Encounter Details Date Type Department Care Team [...] on filedocumented in this encounter Care Teams Annealing Torch Operator Relationship Specialty Start Date End Date Elisa [place] [address] PCP - General Family Medicine 01/09/21 documented as of this encounter
--- OUTSIDE RECORDS SUMMARY | 2024-11-02 12:56 | XMS_ITS | Encounter Summary ---
Author Organization [facility] Address [address] [place] [address] Care Team Providers Care Resourcing Advisor Name Role Phone Keisha Elisa Linette MONGE Primary Care Provider +1- [phone] Reason for Visit * Reason Onset Date Comments Med Management 10/01/2024 Encounter Details Date Type Department Care Team (Late st Contact Info) Description 10/01/2024 Telephone [facility] MAT[facility] MEDICINE [address] [facility] [address] [place] [address] Georgia Booth, RN Med Management Social History [...] on filedocumented in this encounter Care Teams Resourcing Advisor Relationship Specialty Start Date End Date Elisa Valdes DO [address] [place] [address] PCP - General Family Medicine 01/09/21 documented as of this encounter
--- OUTSIDE RECORDS SUMMARY | 2024-11-02 12:56 | XMS_ITS | Encounter Summary ---
Author Organization [facility] Address [address] [place] [address] Care Team Providers Care Advanced Manufacturing Technician Name Role Phone Elisa Valdes DO Primary Care Provider +1- [phone] Encounter Details Date Type Department Care Team (Latest Contact Info) Description 10/26/2024 Travel Social History Tobacco Use Types Packs/Day [...] on filedocumented in this encounter Care Teams Advanced Manufacturing Technician Relationship Specialty Start Date End Date Elisa Val[place] [address] PCP - General Family Medicine 01/09/21 documented as of this encounter
--- OUTSIDE RECORDS SUMMARY | 2024-11-02 12:56 | XMS_ITS | Encounter Summary ---
Author Organization [facility] Address [address] [place] [address] Care Team Providers Care Highway Patrol Officer Name Role Phone KeishaElisa inman Linette MONGE Primary Care Provider +1- [phone] Encounter Details Date Type Department Care Team (Late st Contact Info) Description 09/27/2024 Documentation [facility] MATERNAL MEDICINE [address] [facility] [address] [place] [address] Alanna Walker, RN Social History [...] to accept our clinic to share through OLED-[employer]. Instructed patient to keep log until we [...] on filedocumented in this encounter Care Teams Highway Patrol Officer Relationship Specialty Start Date End Date Elisa Valdes DO [address] [place] [address] PCP - General Family Medicine 01/09/21 documented as of this encounter
--- OUTSIDE RECORDS SUMMARY | 2024-11-02 12:56 | XMS_ITS | Encounter Summary ---
Author Organization [facility] Address [address] [place] [address] Care Team Providers Care Route Sales Delivery Driver Name Role Phone Elisa Valdes DO Primary Care Provider +1- [phone] Encounter Details Date Type Department Care Team [...] on filedocumented in this encounter Care Teams Route Sales Delivery Driver Relationship Specialty Start Date End Date Elisa [place] [address] PCP - General Family Medicine 01/09/21 documented as of this encounter
--- OUTSIDE RECORDS SUMMARY | 2024-11-02 12:56 | XMS_ITS | Encounter Summary ---
Author Organization [facility] Address [address] [place] [address] Care Team Providers Care Area Development Manager Name Role Phone Elisa Valdes DO Primary Care Provider +1- [phone] Encounter Details Date Type Department Care Team (Late st Contact Info) Description 10/25/2024 Medication Therapy Management [facility] MATERNAL MEDICINE [address] [facility] [address] [place] [address] Abiola Awad MD [address] [facility] [address] [place] [address] Social History Tobacco Use Types Packs/Day Years [...] on filedocumented in this encounter Care Teams Area Development Manager Relationship Specialty Start Date End Date Elisa Valdes DO [address] [place] [address] PCP - General Family Medicine 01/09/21 documented as of this encounter
--- OUTSIDE RECORDS SUMMARY | 2024-11-02 12:56 | XMS_ITS | Encounter Summary ---
Author Organization [facility] Address [address] [place] [address] Care Team Providers Care Literature Professor Name Role Phone Elisa Valdes DO Primary Care Provider +1- [phone] Encounter Details Date Type Department Care Team [...] on filedocumented in this encounter Care Teams Literature Professor Relationship Specialty Start Date End Date Elisa [place] [address] PCP - General Family Medicine 01/09/21 documented as of this encounter
--- OUTSIDE RECORDS SUMMARY | 2024-11-02 12:56 | XMS_ITS | Clinical Summary ---
Author Organization Healthcare Address [address] [place] [address] Care Team Providers Care Victims Advocate Clerk/Specialist Name Role Phone Mee Matt MD Primary Care Provider [phone] Allergies No known active allergies Medications * [...] Health Maintenance Due Date Last Done Comments [facility]-/Child/Adol SDOH Screenings 1996 [facility]-IPV Vaccines (3 of 3 - 4-dose series) 08/28/2000 02/29/2000, 06/04/1997 [facility]-Varicella Vaccines (1 of 2 - 13+ 2-dose series) 02/15/2009 [facility]- SDOH Screenings 02/15/2014 [facility]-Adult SDOH Screenings 02/15/2014 [facility]-Hepatitis B Vaccines (3 of 3 - 3-dose series) 08/16/2017 06/21/2017, 06/04/1997 HPV Vaccines (3 - 3-dose series) 02/26/2018 10/28/2017, 10/28/2017, 08/26/2017, Additional history exists [facility]-Depression Screening 09/18/2023 09/17/2022 FDL-HUYAH-28 Vaccine ( season) 2023 [facility]-Influenza Vaccine (#1) [...] Antibody/Antigen Screen (09/17/2022 10:22 AM EDT) Pathologist [facility] HIV 1 & 2 Antibody/Antigen Screen Non Reactive Non Reactive 09/17/2022 11:53 AM EDT [facility] Comment:Screening for HIV 1 & 2 antibodies, and P24 antigen is NONREACTIVE. No confirmatory testing is required. Blood Venous blood specimen / Unknown Venipuncture / Unknown 09/17/2022 10:22 AM EDT 09/17/2022 10:22 AM EDT Karma Stevenson APRN LAB BLOOD ORDERABLES Final Re sult Performing Organization Address [facility] Co de Phone Number [facility] [address] [place] [address] * Acute Hepatitis Panel (09/17/2022 10:22 AM EDT) [facility] Hepatitis B Surf Antigen Negative Negative 09/17/2022 2:38 PM EDT [facility] Hepatitis C Antibody Negative Negative 09/17/2022 2:38 PM EDT [facility] Hepatitis A Antibody IgM Negative Negative 09/17/2022 2:38 PM EDT [facility] Hepatitis B Core Antibody IgM Negative Negative 09/17/2022 2:38 PM EDT [facility] Blood Venous blood specimen / Unknown Venipuncture / Unknown 09/17/2022 10:22 AM EDT 09/17/2022 10:22 AM EDT Karma Stevenson APRN LAB BLOOD ORDERABLES Final Re sult Performing Organization Address [facility] Co de Phone Number [facility] [address] [place] [address] * Pap Test (09/17/2022 9:47 AM EDT) [facility] Case Report Cytology Case: [id number] Authorizing Provider: Karma Stevenson APRN Collected: 09/17/2022 0947 Ordering Location: Medical Office Building Received: 09/17/2022 1310 Obstetrics and Gynecology First Screen: Oh Squires Rescreen: So Yang Specimen: ThinPrep Pap Test, Liquid-Based Cervical/Vaginal 10/04/2022 10:27 AM EDT [facility] Interpretation NEGATIVE FOR INTRAEPITHELIAL LESION OR MALIGNANCY 10/04/2022 10:27 AM EDT [facility] at 1026 EDT Other Findings Shift in reji suggestive of bacterial vaginosis. 10/04/2022 10:27 AM EDT [facility] Specimen Adequacy Satisfactory for evaluation; endocervical/chin sformation zone component present. Slide imaged by the ThinPrep Imaging system and selected 22 arango reviewed then full manual screening. 10/04/2022 10:27 AM EDT [facility] Cervical cytology is a [...] results is suggested (please call Microbiology at [phone] for results). 10/04/2022 10:27 AM EDT [facility] Menstrual Status Cyclic 10/05/19 10:27 AM EDT [facility] History of Hysterectomy Not Applicable 10/04/2022 10:27 AM EDT [facility] Contraceptive History Not Applicable 10/04/2022 10:27 AM EDT [facility] Screening Type Previous or Suspected Abnormality 10/04/2022 10:27 AM EDT [facility] HPV Testing Requested? Request HPV Testing Regardless of Pap Test Findings 10/04/2022 10:27 AM EDT [facility] Infection History Human Papillomavirus 10/04/2022 10:27 AM EDT [facility] Previous Cancer History No 10/04/2022 10:27 AM EDT [facility] Previous or Suspected Abnormality Previous Abnormal Pap 10/04/2022 10:27 AM EDT [facility] Clinical Information Z01.419 - Well woman exam [ICD-10-CM] N87.0 - Mild dysplasia of cervix (THOR I) [ICD-10-CM] 10/04/2022 10:27 AM EDT [facility] Last Menstrual Period 09/02/2022 10/04/2022 10:27 AM EDT [facility] Swab Vaginal and cervical cytologic material / Unknown Non-blood Collection / Unknown 09/17/2022 9:47 AM EDT 09/17/2022 1:10 PM EDT us Karma Gottlieb Graham [employer] INSTALLER LAB CYTOLOGY ORDERABLES Final Result [facility] [address] [place] [address] from Last 3 Months or Most Recently Relevant to Health Maintenance Insurance Care Teams Victims Advocate Clerk/Specialist Relationship Specialty Start Date End Date Mee Matt MD [address] [facility] [address] [place] [address] PCP - General 08/15/20
--- OUTSIDE RECORDS SUMMARY | 2024-11-02 12:56 | XMS_ITS | Encounter Summary ---
Author Organization [facility] Address [address] [place] [address] Care Team Providers Care Quarter Backer Name Role Phone Keisha Elisa Linette MONGE Primary Care Provider [phone] Encounter Details Date Type Department Care Team (Late st Contact Info) Description 09/26/2024 Telephone [facility] MATERNAL MEDICINE [address] [facility] [address] [place] [address] Mell Silvestre, RN Social History [...] RN - 09/26/2024 11:27 AM EDT Called [facility] and left voicemail requesting NIPT results if done. Fax number given in voicemail. documented in this encounter Plan of Treatment Not on file documented as of this encounter Visit Diagnoses Not on filedocumented in this encounter Care Teams Quarter Backer Relationship Specialty Start Date End Date Elisa Valdes DO [address] [place] [address] PCP - General Family Medicine 01/09/21 documented as of this encounter
--- OUTSIDE RECORDS SUMMARY | 2024-11-02 12:56 | XMS_ITS | Patient Health Record ---
Author Organization [facility] Address [address] [place] [address] Care Team Providers Care Lockstitch Waistline Joiner Name Role Phone Mee García Unavailable [phone] Reason For Referral No Information Social History [...] No Encounters Encounter Location Date Provider Diagnosis [facility] [address] [place] [address] 05/04/2024 Mee García Early stage of Z34.90 [...] Insured Coverage Start Date Coverage End Date [facility] [address] [place], [place] [id number] Sena Robles Self - patient is the insured
--- NOTE | 2024-11-02 13:00 | US_ITS ---
PROCEDURE: US OB BIOPHYSICAL PROFILE CLINICAL INDICATION: GDM,Class A2 COMPARISON: US US OB >= 14 WEEKS FETUS from 07/19/2024 US US OB FOLLOW UP from 09/14/2024 US US OB FOLLOW UP from 10/12/2024 US US OB BIOPHYSICAL PROFILE from 10/19/2024 FINDINGS: Transabdominal sonographic images of the uterus were obtained. From her established due date she is 35weeks. The following parameters are obtained: Viable Fetus in the cephalic presentation with an anterior placenta grade 2-3. Measurements: heart Rate = 147bpm Amniotic fluid index: 8.4cm, MVP 3.32 cm Qualitative AFV:2 Breathing movements: 2 Gross Body Movements: 2 Tone: 2 Biophysical profile score: 8 No obvious anomalies evident.Kidneys, bladder, stomach, four-chamber heart, three-vessel cord appear normal. IMPRESSION: 1. Viable fetus in the cephalic presentation with an anterior placenta grade 2-3. 2. The fluid is within normal limits with an amniotic fluid index 8.4 cm, MVP 3.32 cm. 3. Biophysical profile is 8/8 with good breathing movement and movement seen. 4. Limited anatomical scan appears normal. Dictated by: Crispin Marks MD 11/03/2024 19:02 Crispin Marks MD in OV 11/03/2024 19:02
== END 2024-11-02 23:59 | disposition home or self-care (01) ==
PROVIDERS: PCP Family Medicine; Visit Provider Obstetrics & Gynecology
DX: O24.419 Gestational diabetes mellitus in pregnancy, unspecified control (principal); O99.210 Obesity complicating pregnancy, unspecified trimester; Z87.898 Personal history of other specified conditions; Z3A.35 35 weeks gestation of pregnancy
CPT/HCPCS: 76819

== ENCOUNTER 2024-11-09 12:51 | Outpatient (CLI) | payer OTHER, SELFPAY ==
--- OUTSIDE RECORDS SUMMARY | 2024-05-17 10:11 | XMS_ITS | Encounter Summary ---
Author Organization [facility] Address [address] [place] [address] Care Team Providers Care Deputy [place] Marshal Name Role Phone Elisa Valdes DO Primary Care Provider +1- [phone] Reason for Referral * Diagnostic Imaging (Routine) - Closed Specialty Diagnoses / Procedures Referred By Contac t Referred To Contact Radiology Diagnoses Encounter to determine viability of , single or unspecified fetus Procedures US Ob Transvaginal Napoleon Mcginnis MD [address] [place] [address] Phone: tel: fax: [facility] Phone: tel: Referral ID Status Reason Start Date Expiration Date Visits Re quested Visits Authorized [id number] Closed 05/10/2024 05/10/2025 1 1 Reason for Visit * Consultation (Routine) - Closed Specialty Diagnoses / Procedures Referred By Contact Referred To Contact Obstetrics and Gynecology Diagnoses Referring, [place] [address] [facility] [address] [place] [address] Phone: tel: fax: Referral ID Status Reason Start Date Expiration Date Visits Re quested Visits Authorized [id number] Closed 04/25/2024 04/25/2025 1 1 Encounter Details Date Type Department Care Team (Latest Contact Info) Description 05/17/2024 9:11 AM EST Hospital Encounter [facility] [place] [phone] Encounter to determine viability of , single [...] Recorded Patient Health Questionnaire-2 Score 0 07/03/2024 Estimated Date of Delivery Comme nts Yes 12/07/2024 Based on Ultraso und Sex and Gender Information Value Date Recorded Sex Assigned at Not on file Legal Sex Female 10:58 AM EDT Gender Identity Not on file Sexual Orientation Not on file documented as of this encounter Functional Status documented as of this encounter Plan of [...] EST PAT NAME: SENA BENOIT MED REC#: [id number] DA: [id number] PAT GEND: F PAT TYPE: O EXAM ANIRUDH: [id number] REF PHYS NAPOLEON MCGINNIS Indication ======== viability [...] in the menstrual and sonographic dating criteria Health Actuary: Ekaterina Gaston RDMS Physician: Napoleon Mcginnis MD Electronically signed by: Napoleon Mcginnis MD at: 14:08 Procedure Note Napoleon Mcginnis MD - 05/17/2024 PAT NAME: SENA BENOIT MED REC#: [id number] DA: 1995 PAT GEND: F PAT TYPE: O EXAM ANIRUDH: [id number] REF PHYS NAPOLEON MCGINNIS Indication ======== viability [...] GA10 w + 6 d Assigned VINICIUS:12/07/2024 [id number] d Assessment Gestational sac:visualized Location:intrauterine Yolk sac:visualized Embryo:visualized CRL39.0 mm 10w 6d 22% Hadlock Cardiac activity:present CTQ099 bpm 93% Nicolaides Placenta:Too early to evaluate [...] discrepancy in the menstrual andsonographic dating criteria Health Actuary: Ekaterina Gaston RDMS Physician: Napoleon Mcginnis MD Electronically signed by: Napoleon Mcginnis MD at: 14:08 us Napoleon Mcginnis MD IMG US ORDERABLES Final Result documented in this encounter Visit Diagnoses Diagnosis Encounter to determine viability of , single or unspecified fetus documented in this encounter Care Teams Deputy United [place] Marshal Relationship Specialty Start Date End Date Elisa Valdes DO [address] [place] [address] PCP - General Family Medicine 01/09/21 documented as of this encounter
--- OUTSIDE RECORDS SUMMARY | 2024-09-20 12:50 | XMS_ITS | Encounter Summary ---
Author Organization [facility] yste Address [address] [place] [address] Care Team Providers Care Top Lift Compresser Name Role Phone KeishaElisa DO Primary Care Provider [phone] Encounter Details Date Type Department Care Team (Late st Contact Info) Description 09/20/2024 12:50 PM EDT - 09/20/2024 11:59 PM EDT Hospital Encounter [facility] DIABETES ED [address] [place] [id number] Tye Leung MD [address] [place] [address] Discharge Disposition: Home or Self Care Social History Tobacco Use Types Packs/Day Years [...] on file documented as of this encounter Medications at Time of Discharge cetirizine (zyrTEC) 10 MG tabletIndication s:Viral URI with cough Take 1 tablet by mouth Daily. 30 tablet 1 07/03/2024 docusate sodium (Colace) 100 MG capsule Take 1 capsule by mouth 2 (Two) Times a Day. 60 capsule 1 05/17/2024 fluticasone (FLONASE) 50 MCG/ACT nasal sprayIndications :Viral URI with cough Administer 2 sprays into the nostril(s) as directed by provider Daily. 15.8 g 07/03/2024 magnesium oxide (MAG-OX) 400 MG tablet Take 1 tablet by mouth Daily. 30 tablet 2 05/17/2024 Vit-Fe Fumarate-FA ( vitamin 27-0.8) 27-0.8 MG tablet tablet Take by mouth Daily. NovoLIN N ReliOn 100 UNIT/ML injection Inject 6 Units under the skin into the appropriate area as directed Every Night. 09/06/2024 documented as of this encounter Consult Notes * Gilbert Souaz RN - 09/20/2024 1:00 PM EDT Patient attended their scheduled 2 hour diabetes education visit. Please see media tab for assessment and notes if you use [employer]. If you are not an [employer] user a copy of patient's assessment and notes will be sent per routine. Thank you. documented in this encounter Plan of Treatment Not on file documented as of this encounter Visit Diagnoses Not on filedocumented in this encounter Care Teams Top Lift Compresser Relationship Specialty Start Date End Date [place] [address] PCP - General Family Medicine 01/09/21 documented as of this encounter
--- OUTSIDE RECORDS SUMMARY | 2024-09-27 13:48 | XMS_ITS | Encounter Summary ---
[facility] Address [address] [place] [address] Care Team Providers Care Bronzer Name Role Phone Elisa Valdes DO Primary Care Provider [phone]- [phone] Reason for Referral * Diagnostic Imaging (Routine) - Closed Specialty Diagnoses / Procedures Referred By Contac t Referred To Contact Radiology Diagnoses Gestational diabetes mellitus (GDM) in third trimester, gestational diabetes method of control unspecified Obesity in , antepartum Procedures [facility] Diagnostic [place] Gabriella Daniels DO [address] [place] [address] Phone: tel: fax: [facility] US PER DIAG CTR [address] [place] [address] Phone: tel: Referral ID Status Reason Start Date Expiration Date Visits Re quested Visits Authorized [id number] Closed 09/12/2024 12/12/2025 1 1 Reason for Visit * Diagnostic Imaging (Routine) - Closed Specialty Diagnoses / Procedures Referred By Contac t Referred To Contact Radiology Diagnoses Gestational diabetes mellitus (GDM) in third trimester, gestational diabetes method of control unspecified Obesity in , antepartum Procedures [facility] Diagnostic [place] Gabriella Daniels DO [address] [place] [address] Phone: tel: fax: [facility] US PER DIAG CTR [address] [place] [address] Phone: tel: Referral ID Status Reason Start Date Expiration Date Visits Re quested Visits Authorized [id number] Closed 09/12/2024 12/12/2025 1 1 Encounter Details Date Type Department Care Team (Latest Contact Info) Description 09/27/2024 1:48 PM EDT - 09/27/2024 11:59 PM EDT Hospital Encounter [facility] PER DIAG CTR [address] [place] [address] Gabriella Daniels DO [address] [facility] [address] [place] [address] Gestational diabetes mellitus (GDM) in third trimester, [...] Name Priority Date/Time Associated Diagnosis Comments [facility] Routine 09/27/2024 2:43 PM EDT Gestational diabetes mellitus (GDM) in third trimester, gestational diabetes method of control unspecified Obesity in , antepartum documented in this encounter Results * [facility] (09/27/2024 2:43 PM EDT) Anatomical Region Laterality Modality Ultrasound 09/27/2024 2:12 PM EDT Narrative 09/27/2024 2:55 PM EDT PAT NAME: SENA BENOIT [facility] REC#: [id number] DA: [id number] PAT GEND: F PAT TYPE: O EXAM ANIRUDH: [id number] REF PHYS GABRIELLA DANIELS Comparison Studies There [...] EFW (oz) 3 oz EFW by: Hadlock (CTV-ES-IX-FL) Extended Tibia 49.5 mm 29w 5d 46% Rut Fibula 46.7 mm 28w 6d 29% Rut Foot 58.1 mm 29% Chitty Radius 43.7 mm 30w 5d 58% Rut Ulna 46.1 mm 29w 3d 23% Rut Cav. septi pel. tr 8.4 mm Pulp Bleacher 8.0 mm CM 8.7 mm 90% Nicolaides [...] normal IVC: normal 3-vessel view: Appears normal 1-klpnzp-jzqdggl view: Appears normal Cardiac axis: Normal Rt [...] view: Appears normal 3-vessel view: Appears normal 4-ccahcl-daxirny view: Appears normal Aortic arch view: Appears [...] 4 week follow up Coding ====== Description: 70585-49 Detailed Ultrasound Description: 56068-29 Echo 2D, heart - initial Description: 94065-83 Doppler echo color flow Green Feed Attendant: Lisset Hyatt RDMS Physician: Tye Leung MD, FACOG Electronically signed by: Tye Leung MD, FACOG at: 15:38 Procedure Note Tye Leung MD - 09/27/2024 PAT NAME: SENA BENOIT MED REC#: [id number] DA: [id number] PAT GEND: F PAT TYPE: O EXAM ANIRUDH: [id number] REF PHYS GABRIELLA DANIELS Comparison Studies There are no relevant prior studies to which this study is beingcompared Patient Status Outpatient Indication ======== GDM diagnosed at 18 weeks, Obesity History ====== General History Lvolna646 cm Height (ft)5 ft Height (in)8 in Previous Outcomes Gravida1 Maternal Assessment Gqzmqa787 cm Height (ft)5 ft Height (in)8 in Wspotb987 kg Weight (lb)240 lb BMI36.84 kg/m Method ======= Transabdominal ultrasound examination. View: Adequate view ========= [place]mod[place]ar . Number of fetuses: 1 Dating ====== LMP on:03/13/2024 GA by [id number] w + 2 d VINICIUS by LMP:12/18/2024 GA by prior [id number] w + 6 d VINICIUS by prior [...] GA29 w + 6 d Assigned VINICIUS:12/07/2024 [id number] d Biometry Standard BPD77.6 mm 31w 1d 77% Hadlock OFD94.6 mm 30w 4d 68% Rut HC279.2 mm 30w 4d 35% Hadlock Cerebellum tr36.1 mm 29w 6d 41% Hill AC257.9 mm 30w 0d 48% Hadlock Femur54.3 mm 28w 5d 10% Hadlock Mjrcrux45.9 mm 30w 6d 76% Rut HC / AC1.08 EFW1,439 g 29w 2d 32% Hadlock EFW (lb)3 lb EFW (oz)3 oz EFW by:Hadlock (TVH-SE-WI-FL) Extended Tibia49.5 mm 29w 5d 46% Rut Wcdsvh79.7 mm 28w 6d 29% Rut Foot58.1 mm 29% Chitty Tkziiv13.7 mm 30w 5d 58% Rut Ulna46.1 mm 29w 3d 23% Rut Cav. septi pel. tr8.4 mm Vp8.0 mm CM8.7 mm 90% Nicolaides Nasal bone8.7 mm Head / Face / Neck Cephalic index0.82 79% Nicolaides Thorax / Lungs Thoracic hyrt200.3 mm 10% [place] Thoracic area30.2 cm ThC / AC0.76 Heart / Great Vessels Cardiac axis52 Cardiac gbdr997.6 mm Cardiac area10.3 cm CC / ThC0.59 [...] / HC0.19 FL / AC0.21 Other Structures NSP382 bpm General Evaluation Cardiac activity present. FHR [...] view:Appears normal SVC:normal IVC:normal 3-vessel view:Appears normal 0-eadnvh-zibjxlv view:Appears normal Cardiac axis:Normal Rt lung:Appears normal [...] normal RVOT view:Appears normal 3-vessel view:Appears normal 2-mvikzc-olcbxds view:Appears normal Aortic arch view:Appears normal Ductal [...] pulmonary artery B and M-Mode Measurements Thoracic dyvf867.3 mm 10% [place] Thoracic area30.2 cm ThC / AC0.76 Cardiac axis52 Cardiac agvs467.6 mm Cardiac area10.3 cm CC / ThC0.59 [...] Recommendation 4 week follow up Coding ====== Description:59591-70 Detailed Ultrasound Description:84050-92 Echo 2D, heart - initial Description:34667-91 Doppler echo color flow Green Feed Attendant: Lisset Hyatt RDMS Physician: Tye Leung MD, [...] complication documented in this encounter Care Teams Bronzer Relationship Specialty Start Date End Date Elisa Valdes DO [address] [place] [address] PCP - General Family Medicine 01/09/21 documented as of this encounter
--- OUTSIDE RECORDS SUMMARY | 2024-09-27 14:00 | XMS_ITS | Encounter Summary ---
Author Organization [facility] Address [address] [place] [address] Care Team Providers Care Lead Janitor Name Role Phone Elisa Valdes DO Primary Care Provider +[phone]- [phone] Reason for Referral * Diagnostic Imaging (Routine) - Closed Specialty Diagnoses / Procedures Referred By Contac t Referred To Contact Radiology Diagnoses Insulin controlled gestational diabetes mellitus (GDM) in third trimester Procedures [facility] Rodney Leung MD [address] [facility] [address] [place] [address] Phone: tel: fax: [facility] US PER DIAG CTR [address] [place] [address] Phone: tel: Referral ID Status Reason Start Date Expiration Date Visits Re quested Visits Authorized [id number] Closed 09/27/2024 12/27/2025 1 1 Reason for Visit * Reason Comments GDM; obesity Encounter Details Date Type Department Care Team (Late st Contact Info) Description 09/27/2024 2:00 PM EDT Office Visit [facility] MATERNAL MEDICINE [address] [facility] [address] [place] [id number] Rodney Leung MD [address] [facility] [address] [place] [address] Insulin controlled gestational diabetes mellitus [...] NPH at night previously prescribed by primary BANANA LOADER. Will continue NPH at this time though [...] NPH at night previously prescribed by primary BANANA LOADER. Will continue NPH at this time though [...] CVS. Rodney Leung MD, FACOG Maternal Medicine, [facility] documented in this encounter Plan of Treatment Not on file documented as of this encounter Results * [facility] (10/26/2024 8:24 AM EDT) Anatomical Region Laterality Modality Ultrasound 10/26/2024 8:09 AM EDT Narrative 10/26/2024 8:36 AM EDT PAT NAME: SENA BENOIT MED REC#: [id number] DA: [id number] PAT GEND: F PAT TYPE: O EXAM ANIRUDH: [id number] REF PHYS GABRIELLA DANIELS Comparison Studies The [...] EFW (oz) 2 oz EFW by: Hadlock ([id number]-FL) Extended Cav. septi pel. tr 5.6 mm [...] delivery. Twice weekly testing. Coding ======= Description: 33863-95 Follow Up Ultrasound Description: 03110-74 BPP without NST Food And Beverage Assistant: Arin Pryor RDMS Physician: Rodney Leung MD, FACOG Electronically signed by: Rodney Leung MD, FACOG at: 08:36 Procedure Note Rodney Leung MD - 10/26/2024 PAT NAME: SENA BENOIT MED REC#: [id number] DA: 1995 PAT GEND: F PAT TYPE: O EXAM ANIRUDH: [id number] REF PHYS GABRIELLA DANIELS Comparison Studies The findings of this study are compared to the prior ultrasound studydated 09/27/24 Patient Status Outpatient Indication ======== Gestational diabetes. Obesity BMI 36. Maternal Assessment Dtuyvx783 cm Height (ft)5 ft Height (in)8 in Twhrzc046 kg Weight (lb)239 lb BMI36.64 kg/m Method ======= Transabdominal ultrasound examination. View: Adequate view ========= Almodovar . Number of fetuses: 1 Dating ====== LMP on:03/13/2024 GA by LMP32 w + 3 d VINICIUS by LMP:12/18/2024 Method of dating:based on stated VINICIUS GA by prior w + 0 d VINICIUS by prior assessment:12/07/2024 Ultrasound examination on:10/26/2024 GA by U/S based upon:AC, BPD, Femur, HC GA by U/S34 w + 4 d VINICIUS by U/S:12/03/2024 Previous dating:based on ultrasound (CRL), selected on 05/17/2024 Agreed VINICIUS of previous datin12/07/2024 Assigned:based on stated VINICIUS, selected on 10/26/2024 Assigned GA34 w + 0 d Assigned VINICIUS:12/07/2024 [id number] d Biometry Standard BPD85.5 mm 34w 3d 61% Hadlock APP277.8 mm 38w 3d 98% Rut HC321.9 mm 36w 2d 74% Hadlock Cerebellum tr46.0 mm 35w 0d 50% Hill AC291.8 mm 33w 1d 29% Hadlock Femur66.9 mm 34w 3d 52% Hadlock Lhgyftn83.5 mm 34w 4d 73% Rut HC / AC1.10 EFW2,320 g 33w 5d 43% Hadlock EFW (lb)5 lb EFW (oz)2 oz EFW by:Hadlock ([id number]-[id number]-FL) Extended Cav. septi pel. tr5.6 mm CM8.9 mm 85% Nicolaides Head / Face / Neck Cephalic index0.76 9% Nicolaides Extremities / Bony Struc FL / BPD0.78 FL / HC0.21 FL / AC0.23 Other Structures FRY942 bpm General Evaluation Cardiac activity present. FHR [...] week delivery. Twice weekly testing. Coding ======= Description:10459-51 Follow Up Ultrasound Description:55980-70 BPP without NST Food And Beverage Assistant: Arin Pryor RDMS Physician: Rodney Leung MD, FACOG Electronically signed by: Rodney Leung MD, FACOG at: 08:36 us Rodney Leung MD IMG US ORDERABLES Final Result documented in this encounter Visit Diagnoses Diagnosis Insulin controlled gestational diabetes mellitus (GDM) in third trimester- Primary Insulin controlled gestational diabetes mellitus (GDM) in third trimester documented in this encounter Care Teams Lead Janitor Relationship Specialty Start Date End Date Elisa Valdes DO [address] [place] [address] PCP - General Family Medicine 01/09/21 documented as of this encounter
--- OUTSIDE RECORDS SUMMARY | 2024-10-01 11:30 | XMS_ITS | Encounter Summary ---
[facility] [address] [place] [address] Care Team Providers Care Bridge Maintenance Worker Name Role Phone Elisa Valdes DO Primary Care Provider +1- [phone] Encounter Details Date Type Department Care Team (Latest Contact Info) Description 10/01/2024 11:30 AM EDT - 10/01/2024 11:59 PM EDT Hospital Encounter [facility] DIABETES ED [address] [facility] [address] [place] [address] Discharge Disposition: Home or Self Care Social [...] see full note in Media tab in Epic after chart processing. SCHUYLER Ramirez RD MSED BCADM MLDE documented in this encounter Plan of Treatment Not on file documented as of this encounter Visit Diagnoses Not on filedocumented in this encounter Care Teams Bridge Maintenance Worker Relationship Specialty Start Date End Date Elisa Valdes DO [address] [place] [address] PCP - General Family Medicine 01/09/21 documented as of this encounter
--- OUTSIDE RECORDS SUMMARY | 2024-10-26 08:00 | XMS_ITS | Encounter Summary ---
Author Organization [facility] Address [address] [place] [id number] Care Team Providers Care University Partnership Rep Name Role Phone Elisa Valdes DO Primary Care Provider [phone]- [phone] Reason for Referral * Diagnostic Imaging (Routine) - Closed Specialty Diagnoses / Procedures Referred By Contac t Referred To Contact Radiology Diagnoses Insulin controlled gestational diabetes mellitus (GDM) in third trimester Procedures [facility] Diagnostic [place] Tye Leung MD [address] [place] [address] Phone: tel: fax: [facility] PER DI[facility] [address] [facility] [place] [address] Phone: tel: Referral ID Status Reason Start Date Expiration Date Visits Re quested Visits Authorized [id number] Closed 09/27/2024 12/27/2025 1 1 Reason for Visit * Diagnostic Imaging (Routine) - Closed Specialty Diagnoses / Procedures Referred By Contac t Referred To Contact Radiology Diagnoses Insulin controlled gestational diabetes mellitus (GDM) in third trimester Procedures [facility] Diagnostic [place] Tye Leung MD [address] [place] [address] Phone: tel: fax: [facility] PER DI[facility] [address] [facility] [place] [address] Phone: tel: Referral ID Status Reason Start Date Expiration Date Visits Re quested Visits Authorized [id number] Closed 09/27/2024 12/27/2025 1 1 Encounter Details Date Type Department Care Team (Late st Contact Info) Description 10/26/2024 8:00 AM EDT - 10/26/2024 11:59 PM EDT Hospital Encounter [facility] [address] [place] [id number] Tye Leung MD [address] [place] [address] Insulin controlled gestational diabetes mellitus (GDM) in [...] Procedure Name Priority Date/Time Associated Diagnosis Comments [facility] Routine 10/26/2024 8:24 AM EDT Insulin controlled gestational diabetes mellitus (GDM) in third trimester documented in this encounter Results * [facility] (10/26/2024 8:24 AM EDT) Anatomical Region Laterality Modality Ultrasound 10/26/2024 8:09 AM EDT Narrative 10/26/2024 8:36 AM EDT PAT NAME: SENA BENOIT [facility] REC#: [id number] DA: [id number] PAT GEND: F PAT TYPE: O EXAM ANIRUDH: [id number] REF PHYS KAROLINA ORTIZ Comparison Studies The [...] EFW (oz) 2 oz EFW by: Hadlock (CNR-HU-OJ-FL) Extended Cav. septi pel. tr 5.6 mm [...] delivery. Twice weekly testing. Coding ======= Description: 20292-10 Follow Up Ultrasound Description: 38846-52 BPP without NST Marine Underwriter: Arin Pryor RDMS Physician: Tye Leung MD, FACOG Electronically signed by: Tye Leung MD, FACOG at: 08:36 Procedure Note Tye Leung MD - 10/26/2024 PAT NAME: SENA BENOIT MED REC#: [id number] DA: [id number] PAT GEND: F PAT TYPE: O EXAM ANIRUDH: [id number] REF PHYS KAROLINA ORTIZ Comparison Studies The findings of this study are compared to the prior ultrasound studydated 09/27/24 Patient Status Outpatient Indication ======== Gestational diabetes. Obesity BMI 36. Maternal Assessment Fmcksk278 cm Height (ft)5 ft Height (in)8 in Imhpwd114 kg Weight (lb)239 lb BMI36.64 kg/m Method ======= Transabdominal ultrasound examination. View: Adequate view ========= Almodovar . Number of fetuses: 1 Dating ====== LMP on:03/13/2024 GA by LMP32 w + 3 d VINICIUS by LMP:12/18/2024 Method of dating:based on stated VINICIUS GA by prior [id number] w + 0 d VINICIUS by prior assessment:12/07/2024 Ultrasound examination on:10/26/2024 GA by U/S based upon:AC, BPD, Femur, HC GA by U/S34 w + 4 d VINICIUS by U/S:12/03/2024 Previous dating:based on ultrasound (CRL), selected on 05/17/2024 Agreed VINICIUS of previous datin12/07/2024 Assigned:based on stated VINICIUS, selected on 10/26/2024 Assigned GA34 w + 0 d Assigned VINICIUS:12/07/2024 [id number] d Biometry Standard BPD85.5 mm 34w 3d 61% Hadlock KNV159.8 mm 38w 3d 98% Rut HC321.9 mm 36w 2d 74% Hadlock Cerebellum tr46.0 mm 35w 0d 50% Hill AC291.8 mm 33w 1d 29% Hadlock Femur66.9 mm 34w 3d 52% Hadlock Oxwpxun64.5 mm 34w 4d 73% Rut HC / AC1.10 EFW2,320 g 33w 5d 43% Hadlock EFW (lb)5 lb EFW (oz)2 oz EFW by:Hadlock (BSC-XV-EP-FL) Extended Cav. septi pel. tr5.6 mm CM8.9 mm 85% Nicolaides Head / Face / Neck Cephalic index0.76 9% Nicolaides Extremities / Bony Struc FL / BPD0.78 FL / HC0.21 FL / AC0.23 Other Structures ALZ988 bpm General Evaluation Cardiac activity present. FHR [...] week delivery. Twice weekly testing. Coding ======= Description:48807-36 Follow Up Ultrasound Description:11425-99 BPP without NST Marine Underwriter: Arin Pryor RDMS Physician: Tye Leung MD, FACOG Electronically signed by: Tye Leung MD, FACOG at: 08:36 us Tye Leung MD IMG ORDERABLES Final Result documented in this encounter Visit Diagnoses Diagnosis Insulin controlled gestational diabetes mellitus (GDM) in third trimester documented in this encounter Care Teams [employer] Partnership Rep Relationship Specialty Start Date End Date Elisa Valdes DO [address] [place] [address] PCP - General Family Medicine 01/09/21 documented as of this encounter
--- OUTSIDE RECORDS SUMMARY | 2024-10-26 08:00 | XMS_ITS | Encounter Summary ---
Author Organization [facility] Address [address] [place] [address] Care Team Providers Care Tape Controlled Machine Stitcher Name Role Phone Keisha Elisa Linette MONGE Primary Care Provider +1- [phone] Reason for Visit * Reason Comments GDM; obesity; pre-diabetes prior to preg yi Encounter Details Date Type Department Care Team (Late st Contact Info) Description 10/26/2024 8:00 AM EDT Office Visit [facility]ERNAL MEDICINE [address] [place] [phone] Tye Leung MD [address] [facility] [address] [place] [address] Insulin controlled gestational diabetes mellitus (GDM) in [...] CVS. Tye Leung MD, FACOG Maternal Medicine, [facility] Diagnostic [place] documented in this encounter Plan of Treatment Not on file documented as of this encounter Visit Diagnoses Diagnosis Insulin controlled gestational diabetes mellitus (GDM) in third trimester- Primary documented in this encounter Care Teams Tape Controlled Machine Stitcher Relationship Specialty Start Date End Date Elisa Valdes DO [address] [place] [address] PCP - General Family Medicine 01/09/21 documented as of this encounter
--- OUTSIDE RECORDS SUMMARY | 2024-11-09 12:54 | XMS_ITS | Encounter Summary ---
Author Organization [facility] Address [address] [place] [address] Care Team Providers Care Mold Preparer Name Role Phone Keisha Elisa Linette MONGE Primary Care Provider [phone]- [phone] Reason for Visit * Reason Onset Date Comments Advice Only 10/12/2024 Encounter Details Date Type Department Care Team (Late st Contact Info) Description 10/12/2024 Telephone [facility] MATERNAL MEDICINE [address] [facility] [address] [place] [address] Mell Silvestre, heel scorer Only Social History Tobacco Use Types Packs/Day [...] on filedocumented in this encounter Care Teams Mold Preparer Relationship Specialty Start Date End Date Elisa Valdes DO [address] [place] [address] PCP - General Family Medicine 01/09/21 documented as of this encounter
--- OUTSIDE RECORDS SUMMARY | 2024-11-09 12:54 | XMS_ITS | Encounter Summary ---
Author Organization [facility] Address [address] [place] [address] Care Team Providers Care Cad Manager Name Role Phone Elisa Valdes DO Primary Care Provider +[phone]- [phone] Encounter Details Date Type Department Care Team [...] on filedocumented in this encounter Care Teams Cad Manager Relationship Specialty Start Date End Date El[place] [address] PCP - General Family Medicine 01/09/21 documented as of this encounter
--- OUTSIDE RECORDS SUMMARY | 2024-11-09 12:54 | XMS_ITS | Encounter Summary ---
Author Organization [facility] Address [address] [place] [address] Care Team Providers Care Help Desk Coordinator Name Role Phone Keisha Elisa Linette MONGE Primary Care Provider +1- [phone] Encounter Details Date Type Department Care Team (Late st Contact Info) Description 09/26/2024 Telephone [facility] MATERNAL MEDICINE [address] [facility] [address] [place] [address] Mell Silvestre, RN Social History [...] RN - 09/26/2024 11:27 AM EDT Called [facility] and left voicemail requesting NIPT results if done. Fax number given in voicemail. documented in this encounter Plan of Treatment Not on file documented as of this encounter Visit Diagnoses Not on filedocumented in this encounter Care Teams Help Desk Coordinator Relationship Specialty Start Date End Date Elisa Valdes DO [address] [place] [address] PCP - General Family Medicine 01/09/21 documented as of this encounter
--- OUTSIDE RECORDS SUMMARY | 2024-11-09 12:54 | XMS_ITS | Encounter Summary ---
Author Organization [facility] Address [address] [place] [address] Care Team Providers Care Armhole Presser Name Role Phone Keisha Elisa Linette MONGE Primary Care Provider +1- [phone] Reason for Visit * Reason Onset Date Comments Med Management 10/01/2024 Encounter Details Date Type Department Care Team (Late st Contact Info) Description 10/01/2024 Telephone [facility] MATERNAL MEDICINE [address] [facility] [address] [place] [address] Georgia Booth, RN Med Management Social History [...] on filedocumented in this encounter Care Teams Armhole Presser Relationship Specialty Start Date End Date Elisa Valdes DO [address] [place] [address] PCP - General Family Medicine 01/09/21 documented as of this encounter
--- OUTSIDE RECORDS SUMMARY | 2024-11-09 12:54 | XMS_ITS | Clinical Summary ---
Author Organization [facility] Address [address] [place] [address] Care Team Providers Care Group Controller Name Role Phone Keisha Elisa Linette MONGE [...] taking.Reported on 10/26/2024 cetirizine (zyrTEC) 10 MG tabletIndicati ons:Viral URI with cough Take 1 tablet by mouth Daily. 30 tablet 1 Active Additional Information Patient not taking.Reported on 10/26/2024 fluticasone (FLONASE) 50 MCG/ACT nasal sprayIndicatio ns:Viral URI with cough Administer 2 sprays into the nostril(s) as directed by provider Daily. 15.8 g Active Additional Information Patient not taking.Reported on 10/26/2024 Continuous Glucose Sensor (FreeStyle Dania 3 Plus Sensor) USE DIRECTED AND CHANGE EVERY 15 DAYS Active NovoLIN N ReliOn 100 UNIT/ML injection Inject 7 Units under the skin into the appropriate area as directed Every Night. 10 mL 5 Active NovoLIN N ReliOn 100 UNIT/ML injection Inject 6 Units under the skin into the appropriate area as directed Every Night. 5 11/09/19 25 Discontin ued(Reord er) Active Problems Problem Noted Date Diagnosed Date [...] NPH at night previously prescribed by primary BLUEPRINT ASSEMBLER. Will continue NPH at this time though [...] Encounters Date Type Department Care Team Description 11/08/2024 Medication Therapy Management [facility] MATERNAL MEDICINE [address] [address] Abiola Awad MD 10/26/2024 8:00 AM EDT - 10/26/2024 11:59 PM EDT Hospital Encounter [facility] US PER DIAG CTR [address] [place] [address] Tye Leung MD Insulin controlled gestational diabetes mellitus (GDM) in third trimester Discharge Disposition: Home or Self Care 10/26/2024 8:00 AM EDT Office Visit [facility] MATERNAL MEDICINE [address] [place] [address] Tye Leung MD Insulin controlled gestational diabetes mellitus (GDM) in third trimester (Primary Dx) 10/26/2024 Travel 10/25/2024 Medication Therapy Management [facility] MATERNAL MEDICINE [address] [facility] [address] [place] [address] Abiola Awad MD 10/12/2024 Telephone [facility] MATERNAL MEDICINE [address] [facility] [address] [place] [address] Mell Silvestre, motor vehicle licence examiner Only 10/01/2024 11:30 AM EDT - 10/01/2024 11:59 PM EDT Hospital Encounter [facility] DIABETES ED [address] [facility] [address] [place] [address] Discharge Disposition: Home or Self Care 10/01/2024 Telephone [facility] MATERNAL MEDICINE [address] [facility] [address] [place] [address] Georgia Booth RN Med Management 10/01/2024 Travel 09/27/2024 2:00 PM EDT Office Visit [facility] MATERNAL MEDICINE [address] [facility] [address] [place] [address] Tye Leung MD Insulin controlled gestational diabetes mellitus (GDM) in third trimester (Primary Dx) 09/27/2024 1:48 PM EDT - 09/27/2024 11:59 PM EDT Hospital Encounter [facility] PER DIAG [facility] [address] [place] [address] Gabriella Daniels DO Gestational diabetes mellitus (GDM) in third trimester, gestational diabetes method of control unspecified; Obesity in , antepartum Discharge Disposition: Home or Self Care 09/27/2024 Documentation [facility] MATERNAL MEDICINE [address] [facility] [address] [place] [address] Alanna Walker RN 09/27/2024 Travel 09/26/2024 Telephone [facility] MATERNAL MEDICINE [address] [facility] [address] [place] [address] Mell Silvestre, JORDIN 09/20/2024 12:50 PM EDT - 09/20/2024 11:59 PM EDT Hospital Encounter [facility] DIABETES ED [address] [facility] [facility] [address] [place] [address] Leung, Tye Greer MD Discharge [...] Date/Time Associated Diagnosis Comments SCANNED - IMAGING 11/02/2024 [facility] Routine 10/26/2024 8:24 AM EDT Insulin controlled gestational diabetes mellitus (GDM) in third trimester SCANNED - IMAGING 10/12/2024 [facility] Routine 09/27/2024 2:43 PM [...] to Health Maintenance Results * IMAGING SCANNED (11/02/2024) Only the most recent of3 resultswithin the time period is included. Anatomical Region Laterality Modality Radiographic Donna ging us Elisa Valdes DO IMG DIAGNOSTIC IMAGING ORDE NAZARIO Final Result * US [facility] (10/26/2024 8:24 AM EDT) Only the most recent of2 resultswithin the time period is included. Anatomical Region Laterality Modality Ultrasound 10/26/2024 8:09 AM EDT Narrative 10/26/2024 8:36 AM EDT PAT NAME: SENA BENOIT MED REC#: [id number] DA: [id number] PAT GEND: F PAT TYPE: O EXAM ANIRUDH: [id number] REF PHYS GABRIELLA DANIELS Comparison Studies The [...] EFW (oz) 2 oz EFW by: Hadlock (SQA-GM-MO-FL) Extended Cav. septi pel. tr 5.6 mm [...] delivery. Twice weekly testing. Coding ======= Description: 72034-36 Follow Up Ultrasound Description: 99093-21 BPP without NST Supplier Diversity Director: Arin Pryor RDMS Physician: Tye Leung MD, FACOG Electronically signed by: Tye Leung MD, FACOG at: 08:36 Procedure Note Tye Leung MD - 10/26/2024 PAT NAME: SENA BENOIT MED REC#: [id number] DA: [id number] PAT GEND: F PAT TYPE: O EXAM ANIRUDH: [id number] REF PHYS GABRIELLA DANIELS Comparison Studies The findings of this study are compared to the prior ultrasound studydated 09/27/24 Patient Status Outpatient Indication ======== Gestational diabetes. Obesity BMI 36. Maternal Assessment Ciqyln463 cm Height (ft)5 ft Height (in)8 in Zhritw378 kg Weight (lb)239 lb BMI36.64 kg/m Method ======= Transabdominal ultrasound examination. View: Adequate view ========= Almodovar . Number of fetuses: 1 Dating ====== LMP on:03/13/2024 GA by [id number] w + 3 d VINICIUS by LMP:12/18/2024 Method of dating:based on stated VINICIUS GA by prior [id number] w + 0 d VINICIUS by prior assessment:12/07/2024 Ultrasound examination on:10/26/2024 GA by U/S based upon:AC, BPD, Femur, HC GA by U/S34 w + 4 d VINICIUS by U/S:12/03/2024 Previous dating:based on ultrasound (CRL), selected on 05/17/2024 Agreed VINICIUS of previous datin12/07/2024 Assigned:based on stated VINICIUS, selected on 10/26/2024 Assigned GA34 w + 0 d Assigned VINICIUS:12/07/2024 [id number] d Biometry Standard BPD85.5 mm 34w 3d 61% Hadlock GMT997.8 mm 38w 3d 98% Rut HC321.9 mm 36w 2d 74% Hadlock Cerebellum tr46.0 mm 35w 0d 50% Hill AC291.8 mm 33w 1d 29% Hadlock Femur66.9 mm 34w 3d 52% Hadlock Esqyihi19.5 mm 34w 4d 73% Rut HC / AC1.10 EFW2,320 g 33w 5d 43% Hadlock EFW (lb)5 lb EFW (oz)2 oz EFW by:Hadlock (WOM-GU-FL-FL) Extended Cav. septi pel. tr5.6 mm CM8.9 mm 85% Nicolaides Head / Face / Neck Cephalic index0.76 9% Nicolaides Extremities / Bony Struc FL / BPD0.78 FL / HC0.21 FL / AC0.23 Other Structures ZAI538 bpm General Evaluation Cardiac activity present. FHR [...] week delivery. Twice weekly testing. Coding ======= Description:68281-11 Follow Up Ultrasound Description:86076-19 BPP without NST Supplier Diversity Director: Arin Pryor RDMS Physician: Tye Leung MD, FACOG Electronically signed by: Tye Leung MD, FACOG at: 08:36 us Tye Leung MD [facility] US ORDERABLES Final Result * LABS SCANNED (09/14/2024) Only the most recent of3 resultswithin the time period is included. Elisa Valdes DO LAB BLOOD ORDERABLES Final Result * Hepatitis C Antibody (05/17/2024 11:41 AM EST) Hepatitis C Ab Non-Reacti ve Non-Reacti ve 05/17/2024 2:42 PM EST [facility] Blood Venipuncture / Unknown 05/17/2024 11:41 AM EST 05/17/2024 11:44 AM EST Melody Ordonez MD LAB BLOOD ORDERABLES Final Resul t [facility]
[address] [place] [address], * OneSwab - Kit, Vagina (05/17/2024) Kit Vaginal structure / Unknown Melody Ordonez MD MICROBIOLOGY - GENERAL ORDERABLE S Final Result [facility] [address] [place] [address] from Last 3 Months or Most Recently Relevant to Health Maintenance Insurance [facility] Care Teams Group Controller Relationship Specialty Start Date End Date Elisa Valdes DO [facility] [place] [address] PCP - General Family Medicine 01/09/21
--- OUTSIDE RECORDS SUMMARY | 2024-11-09 12:54 | XMS_ITS | Encounter Summary ---
Author Organization [facility] Address [address] [place] [address] Care Team Providers Care Sex Offender Treatment Professional Name Role Phone Elisa Valdes DO Primary Care Provider +1- [phone] Encounter Details Date Type Department Care Team [...] on filedocumented in this encounter Care Teams Sex Offender Treatment Professional Relationship Specialty Start Date End Date Elisa [place] [address] PCP - General Family Medicine 01/09/21 documented as of this encounter
--- OUTSIDE RECORDS SUMMARY | 2024-11-09 12:54 | XMS_ITS | Encounter Summary ---
Author Organization [facility] Address [address] [place] [address] Care Team Providers Care Real Estate Firm Manager Name Role Phone KeishaElisa inman Linette MONGE Primary Care Provider +1- [phone] Encounter Details Date Type Department Care Team (Late st Contact Info) Description 09/27/2024 Documentation [facility] MATERNAL MEDICINE [address] [facility] [address] [place] [address] Alanna Walker, RN Social History [...] to accept our clinic to share through [employer]. Instructed patient to keep log until we [...] on filedocumented in this encounter Care Teams Real Estate Firm Manager Relationship Specialty Start Date End Date Elisa Valdes DO [address] [place] [address] PCP - General Family Medicine 01/09/21 documented as of this encounter
--- OUTSIDE RECORDS SUMMARY | 2024-11-09 12:54 | XMS_ITS | Encounter Summary ---
Author Organization [facility] Address [address] [place] [address] Care Team Providers Care Oracle Database Manager Name Role Phone Elisa Valdes DO Primary Care Provider +1- [phone] Encounter Details Date Type Department Care Team [...] on filedocumented in this encounter Care Teams Oracle Database Manager Relationship Specialty Start Date End Date Elisa [place] [address] PCP - General Family Medicine 01/09/21 documented as of this encounter
--- OUTSIDE RECORDS SUMMARY | 2024-11-09 12:55 | XMS_ITS | Encounter Summary ---
Author Organization [facility] Address [address] [place] [address] Care Team Providers Care Slide Maker Name Role Phone Elisa Valdes DO Primary Care Provider +1- [phone] Encounter Details Date Type Department Care Team [...] on filedocumented in this encounter Care Teams Slide Maker Relationship Specialty Start Date End Date Elisa Valdes DO [place] [place] [address] PCP - General Family Medicine 01/09/21 documented as of this encounter
--- OUTSIDE RECORDS SUMMARY | 2024-11-09 12:55 | XMS_ITS | Encounter Summary ---
Author Organization [facility] Address [address] [place] [address] Care Team Providers Care Mold Carpenter Name Role Phone Elisa Valdes DO Primary Care Provider +1- [phone] Encounter Details Date Type Department Care Team (Late st Contact Info) Description 11/08/2024 Medication Therapy Management [facility] MATERNAL MEDICINE [address] [facility] [address] [place] [address] Abiola Awad MD [address] [place] [facility] [address] [place] [address] Social History Tobacco Use Types Packs/Day Years [...] filedocumented in this encounter Care Teams Mold Carpenter Relationship Specialty Start Date End Date Elisa Valdes DO [address] [place] [address] PCP - General Family Medicine 01/09/21 documented as of this encounter
--- OUTSIDE RECORDS SUMMARY | 2024-11-09 12:55 | XMS_ITS | Patient Health Record ---
Author Organization [facility] Address [address] [place] [address] Care Team Providers Care Space Systems Operations Manager Name Role Phone Mee García Unavailable [phone] Reason For Referral No Information Social History [...] No Encounters Encounter Location Date Provider Diagnosis [facility] [address] [place] [address] 05/04/2024 Mee García Early stage of Z34.90 [...] Insured Coverage Start Date Coverage End Date [facility] [address] [place], [place] [id number] Sena Robles Self - patient is the insured
--- OUTSIDE RECORDS SUMMARY | 2024-11-09 12:55 | XMS_ITS | Encounter Summary ---
Author Organization [facility] Address [address] [place] [address] Care Team Providers Care Analyst Programmer Name Role Phone Elisa Valdes DO Primary Care Provider +1- [phone] Encounter Details Date Type Department Care Team (Late st Contact Info) Description 10/25/2024 Medication Therapy Management [facility] MATERNAL MEDICINE [address] [facility] [address] [place] [address] Abiola Awad MD 1700 [facility] [address] [place] [address] Social History Tobacco Use Types Packs/Day Years [...] on filedocumented in this encounter Care Teams Analyst Programmer Relationship Specialty Start Date End Date Elisa Valdes DO [address] [place] [address] PCP - General Family Medicine 01/09/21 documented as of this encounter
--- OUTSIDE RECORDS SUMMARY | 2024-11-09 12:55 | XMS_ITS | Clinical Summary ---
Author Organization Healthcare Address [address] [place] [address] Care Team Providers Care Panel Raiser Operator Name Role Phone Mee Matt MD Primary Care Provider [phone] Allergies No known active allergies Medications * [...] Additional history exists [facility]-Depression Screening 09/18/2023 09/17/2022 [id number] Vaccine ( season) 2023 [facility]-Influenza Vaccine (#1) [...] Reactive Non Reactive 09/17/2022 11:53 AM EDT [facility] Comment:Screening for HIV 1 & 2 antibodies, and P24 antigen is NONREACTIVE. No confirmatory testing is required. Blood Venous blood specimen / Unknown Venipuncture / Unknown 09/17/2022 10:22 AM EDT 09/17/2022 10:22 AM EDT Karma Stevenson APRN LAB BLOOD ORDERABLES Final Re sult Performing Organization Address [facility] Co de Phone Number [facility] [address] [place] [address] * Acute Hepatitis Panel (09/17/2022 10:22 AM EDT) [facility] Hepatitis B Surf Antigen Negative Negative 09/17/2022 2:38 PM EDT [facility] Hepatitis C Antibody Negative Negative 09/17/2022 2:38 PM EDT [facility] Hepatitis A Antibody IgM Negative Negative 09/17/2022 2:38 PM EDT [facility] Hepatitis B Core Antibody IgM Negative Negative 09/17/2022 2:38 PM EDT [facility] Blood Venous blood specimen / Unknown Venipuncture / Unknown 09/17/2022 10:22 AM EDT 09/17/2022 10:22 AM EDT Karma Stevenson APRN LAB BLOOD ORDERABLES Final Re sult Performing Organization Address [facility] Co de Phone Number [facility] [address] [place] [address] * Pap Test (09/17/2022 9:47 AM EDT) [facility] Case Report Cytology Case: [id number] Authorizing Provider: Karma Stevenson APRN Collected: 09/17/2022 0947 Ordering Location: Medical Office Building Received: 09/17/2022 1310 Obstetrics and Gynecology First Screen: Oh Squires Rescreen: So Yang Specimen: ThinPrep Pap Test, Liquid-Based Cervical/Vaginal 10/04/2022 10:27 AM EDT [facility] Interpretation NEGATIVE FOR INTRAEPITHELIAL LESION OR MALIGNANCY 10/04/2022 10:27 AM EDT [facility] at 1026 EDT Other Findings Shift in reji suggestive of bacterial vaginosis. 10/04/2022 10:27 AM EDT [facility] Specimen Adequacy Satisfactory for evaluation; endocervical/chin sformation zone component present. Slide imaged by the ThinPrep Imaging system and selected 22 arango reviewed then full manual screening. 10/04/2022 10:27 AM EDT [facility] Cervical cytology is a [...] results is suggested (please call Microbiology at [phone] for results). 10/04/2022 10:27 AM EDT [facility] Menstrual Status Cyclic 10/05/19 10:27 AM EDT [facility] History of Hysterectomy Not Applicable 10/04/2022 10:27 AM EDT [facility] Contraceptive History Not Applicable 10/04/2022 10:27 AM EDT [facility] Screening Type Previous or Suspected Abnormality 10/04/2022 10:27 AM EDT [facility] HPV Testing Requested? Request HPV Testing Regardless of Pap Test Findings 10/04/2022 10:27 AM EDT [facility] Infection History Human Papillomavirus 10/04/2022 10:27 AM EDT [facility] Previous Cancer History No 10/04/2022 10:27 AM EDT [facility] Previous or Suspected Abnormality Previous Abnormal Pap 10/04/2022 10:27 AM EDT [facility] Clinical Information Z01.419 - Well woman exam [ICD-10-CM] N87.0 - Mild dysplasia of cervix (THOR I) [ICD-10-CM] 10/04/2022 10:27 AM EDT [facility] Last Menstrual Period 09/02/2022 10/04/2022 10:27 AM EDT [facility] Swab Vaginal and cervical cytologic material / Unknown Non-blood Collection / Unknown 09/17/2022 9:47 AM EDT 09/17/2022 1:10 PM EDT us Karma Gottlieb Graham OPEN CLAIMS REPRESENTATIVE LAB CYTOLOGY ORDERABLES Final Result [facility] [address] [place] [address] from Last 3 Months or Most Recently Relevant to Health Maintenance Insurance Care Teams Panel Raiser Operator Relationship Specialty Start Date End Date Mee Matt MD [address] [facility] [address] [place] [address] PCP - General 08/15/20
--- NOTE | 2024-11-09 13:00 | US_ITS ---
PROCEDURE: US OB BIOPHYSICAL PROFILE CLINICAL INDICATION: GDM, Class A2 COMPARISON: US US OB >= 14 WEEKS FETUS from 07/19/2024 US US OB FOLLOW UP from 09/14/2024 US US OB FOLLOW UP from 10/12/2024 US US OB BIOPHYSICAL PROFILE from 10/19/2024 US US OB BIOPHYSICAL PROFILE from 11/02/2024 FINDINGS: Transabdominal sonographic images of the uterus were obtained. From her established due date she is 36weeks 0 days. The following parameters are obtained: Viable Fetus in the cephalic presentation with an anterior placenta grade 3. Average ultrasound age is 36weeks 2days Estimated weight 2,857g, 6 lb 5 oz The cervix measures 3.93 cm in length Measurements: heart Rate = 132bpm BPD = 36weeks 1day, 59 percentile HC = 37weeks 0 days, 42 percentile AC = 36weeks 2days, 66 percentile FL = 35weeks 5days, 37 percentile HC/AC is 1.01 FL/BPD is 0.78 FL/AC is 0.22 55 percentile Amniotic fluid index: 8.17cm, MVP 5.50 cm Qualitative AFV:2 Breathing movements: 2 Gross Body Movements: 2 Tone: 2 Biophysical profile score: 8 No obvious anomalies evident.Kidneys, stomach, bladder, four-chamber heart, three-vessel cord appear normal. IMPRESSION: 1. Viable fetus in the cephalic presentation with an anterior placenta grade 3. 2. The fluid is within normal limits with an amniotic fluid index 8.17 cm, MVP 5.50 cm. 3. Biophysical profile is 8/8 with good breathing movement and movement seen. 4. There has been good interval growth with the fetus currently 55th percentile. 5. Limited anatomical scan appears normal. Dictated by: Crispin Marks MD 11/10/2024 08:56 Crispin Marks MD in OV 11/10/2024 08:56
== END 2024-11-09 23:59 | disposition home or self-care (01) ==
LOC: RAD 12:51
PROVIDERS: PCP Family Medicine; Visit Provider Obstetrics & Gynecology
DX: O24.419 Gestational diabetes mellitus in pregnancy, unspecified control (principal); O99.213 Obesity complicating pregnancy, third trimester; E66.9 Obesity, unspecified; Z87.898 Personal history of other specified conditions; Z3A.36 36 weeks gestation of pregnancy
CPT/HCPCS: 76816; 76819

== ENCOUNTER 2024-11-13 16:09 | Outpatient (CLI) | payer OTHER, SELFPAY ==
--- OUTSIDE RECORDS SUMMARY | 2024-05-17 10:11 | XMS_ITS | Encounter Summary ---
Author Organization [facility] Address [address] [place] [address] Care Team Providers Care Administrative Services Director Name Role Phone Elisa Valdes DO Primary Care Provider [phone]- [phone] Reason for Referral * Diagnostic Imaging (Routine) - Closed Specialty Diagnoses / Procedures Referred By Contac t Referred To Contact Radiology Diagnoses Encounter to determine viability of , single or unspecified fetus Procedures US Ob Transvaginal Napoleon Mcginnis MD [address] [place] [address] Phone: tel: fax: [facility] Phone: tel: Referral ID Status Reason Start Date Expiration Date Visits Re quested Visits Authorized [id number] Closed 05/10/2024 05/10/2025 1 1 Reason for Visit * Consultation (Routine) - Closed Specialty Diagnoses / Procedures Referred By Contact Referred To Contact Obstetrics and Gynecology Diagnoses Referring, [place] [address] [facility] OBGYN [address] [place] [address] Phone: tel: fax: Referral ID Status Reason Start Date Expiration Date Visits Re quested Visits Authorized [id number] Closed 04/25/2024 04/25/2025 1 1 Encounter Details Date Type Department Care Team (Latest Contact Info) Description 05/17/2024 9:11 AM EST Hospital Encounter [facility] [place] [phone] Encounter to determine viability of , single [...] EST PAT NAME: SENA BENOIT MED REC#: [id number] DA: [id number] PAT GEND: F PAT TYPE: O EXAM ANIRUDH: [id number] REF PHYS NAPOLEON MCGINNIS Indication ======== viability [...] in the menstrual and sonographic dating criteria Television Reporter: Ekaterina Gaston RDMS Physician: Napoleon Mcginnis MD Electronically signed by: Napoleon Mcginnis MD at: 14:08 Procedure Note Napoleon Mcginnis MD - 05/17/2024 PAT NAME: SENA BENOIT MED REC#: [id number] DA: 1995 PAT GEND: F PAT TYPE: O EXAM ANIRUDH: [id number] REF PHYS NAPOLEON MCGINNIS Indication ======== viability [...] GA10 w + 6 d Assigned VINICIUS:12/07/2024 [id number] d Assessment Gestational sac:visualized Location:intrauterine Yolk sac:visualized Embryo:visualized CRL39.0 mm 10w 6d 22% Hadlock Cardiac activity:present GAD333 bpm 93% Nicolaides Placenta:Too early to evaluate [...] discrepancy in the menstrual andsonographic dating criteria Television Reporter: Ekaterina Gaston RDMS Physician: Napoleon Mcginnis MD Electronically signed by: Napoleon Mcginnis MD at: 14:08 us Napoleon Mcginnis MD IMG US ORDERABLES Final Result documented in this encounter Visit Diagnoses Diagnosis Encounter to determine viability of , single or unspecified fetus documented in this encounter Care Teams Administrative Services Director Relationship Specialty Start Date End Date Elisa Valdes DO [address] [place] [address] PCP - General Family Medicine 01/09/21 documented as of this encounter
--- OUTSIDE RECORDS SUMMARY | 2024-09-20 12:50 | XMS_ITS | Encounter Summary ---
Author Organization [facility] yste Address [address] [place] [address] Care Team Providers Care Fractionating Still Operator Name Role Phone KeishaElisa DO Primary Care Provider [phone]- [phone] Encounter Details Date Type Department Care Team (Late st Contact Info) Description 09/20/2024 12:50 PM EDT - 09/20/2024 11:59 PM EDT Hospital Encounter [facility] DIABETES ED [address] [place] [phone] Tye Leung MD [address] [place] [address] Discharge Disposition: Home or Self Care Social [...] for assessment and notes if you use [email or web address]. If you are not an [email or web address] user a copy of patient's assessment and notes will be sent per routine. Thank you. documented in this encounter Plan of Treatment Not on file documented as of this encounter Visit Diagnoses Not on filedocumented in this encounter Care Teams Fractionating Still Operator Relationship Specialty Start Date End Date Elisa [place] [address] PCP - General Family Medicine 01/09/21 documented as of this encounter
--- OUTSIDE RECORDS SUMMARY | 2024-09-27 13:48 | XMS_ITS | Encounter Summary ---
[facility] Address [address] [place] [address] Care Team Providers Care Fixture Designer Name Role Phone Elisa Valdes DO Primary Care Provider [phone] Reason for Referral * Diagnostic Imaging (Routine) - Closed Specialty Diagnoses / Procedures Referred By Contac t Referred To Contact Radiology Diagnoses Gestational diabetes mellitus (GDM) in third trimester, gestational diabetes method of control unspecified Obesity in , antepartum Procedures [facility] [place] Gabriella Daniels DO [address] [place] [address] Phone: tel: fax: [facility] US PER DIAG CTR [address] [place] [address] Phone: tel: Referral ID Status Reason Start Date Expiration Date Visits Re quested Visits Authorized [id number] Closed 09/12/2024 12/12/2025 1 1 Reason for Visit * Diagnostic Imaging (Routine) - Closed Specialty Diagnoses / Procedures Referred By Contac t Referred To Contact Radiology Diagnoses Gestational diabetes mellitus (GDM) in third trimester, gestational diabetes method of control unspecified Obesity in , antepartum Procedures [facility] [place] Gabriella Daniels DO [address] [place] [address] Phone: tel: fax: [facility] US PER DIAG [facility] [address] [place] [address] Phone: tel: Referral ID Status Reason Start Date Expiration Date Visits Re quested Visits Authorized [id number] Closed 09/12/2024 12/12/2025 1 1 Encounter Details Date Type Department Care Team (Latest Contact Info) Description 09/27/2024 1:48 PM EDT - 09/27/2024 11:59 PM EDT Hospital Encounter [facility] PER DI[facility] [address] [place] [address] Gabriella Daniels DO [address] [facility] [address] [place] [address] Gestational diabetes mellitus (GDM) in third trimester, gestational diabetes method of control unspecified; Obesity in , antepartum Discharge Disposition: Home or Self Care Social [...] by mouth Daily. 30 tablet 1 07/03/2024 Continuous Glucose Sensor (FreeStyle Dania 3 Plus Sensor) USE DIRECTED AND CHANGE EVERY 15 DAYS 09/24/2024 docusate sodium (Colace) 100 MG capsule Take [...] Night. 09/06/2024 documented as of this encounter Plan of Treatment Not on file documented as of this encounter Procedures Procedure Name Priority Date/Time Associated Diagnosis Comments [facility] Routine 09/27/2024 2:43 PM EDT Gestational diabetes mellitus (GDM) in third trimester, gestational diabetes method of control unspecified Obesity in , antepartum documented in this encounter Results * [facility] (09/27/2024 2:43 PM EDT) Anatomical Region Laterality Modality Ultrasound 09/27/2024 2:12 PM EDT Narrative 09/27/2024 2:55 PM EDT PAT NAME: SENA BENOIT [facility] REC#: [id number] DA: [id number] PAT GEND: F PAT TYPE: O EXAM ANIRUDH: [id number] REF PHYS GABRIELLA DANIELS Comparison Studies There are no relevant prior studies to which this study is being compared Patient Status Outpatient Indication ======== GDM diagnosed at 18 weeks, Obesity History ====== General History Height 172 cm Height (ft) 5 ft Height (in) 8 in Previous Outcomes 1 Maternal Assessment Height 172 cm Height (ft) 5 ft Height (in) 8 in Weight 109 kg Weight (lb) 240 lb BMI 36.84 kg/m Method ======= Transabdominal ultrasound examination. View: Adequate view ========= Almodovar . Number of fetuses: 1 Dating ====== LMP on: 03/13/2024 GA by LMP 28 w + 2 d VINICIUS by LMP: 12/18/2024 GA by prior assessment 29 w + 6 d VINICIUS by prior assessment: 12/07/2024 Ultrasound examination on: 09/27/2024 GA by U/S based upon: AC, BPD, Femur, HC GA by U/S 30 w + 1 d VINICIUS by U/S: 12/05/2024 Method of dating: Restore dating from previous exam Previous dating: based on ultrasound (CRL), selected on 05/17/2024 Agreed VINICIUS of previous datin12/07/2024 Assigned: based on ultrasound (CRL), selected on 05/17/2024 Assigned GA 29 w + 6 d Assigned VINICIUS: 12/07/2024 length 280 d Biometry Standard BPD 77.6 mm 31w 1d 77% Hadlock OFD 94.6 mm 30w 4d 68% Rut HC 279.2 mm 30w 4d 35% Hadlock Cerebellum tr 36.1 mm 29w 6d 41% Hill AC 257.9 mm 30w 0d 48% Hadlock Femur 54.3 mm 28w 5d 10% Hadlock Humerus 52.9 mm 30w 6d 76% Rut HC / AC 1.08 EFW 1,439 g 29w 2d 32% Hadlock EFW (lb) 3 lb EFW (oz) 3 oz EFW by: Hadlock (EDU-SV-GC-FL) Extended Tibia 49.5 mm 29w 5d 46% Rut Fibula 46.7 mm 28w 6d 29% Rut Foot 58.1 mm 29% Chitty Radius 43.7 mm 30w 5d 58% Rut Ulna 46.1 mm 29w 3d 23% Rut Cav. septi pel. tr 8.4 mm Grill Prep Cook 8.0 mm CM 8.7 mm 90% Nicolaides Nasal bone 8.7 mm Head / Face / Neck Cephalic index 0.82 79% Nicolaides Thorax / Lungs Thoracic circ 196.3 mm 10% [place] Thoracic area 30.2 cm ThC / AC 0.76 Heart / Great Vessels Cardiac axis 52 Cardiac circ 115.6 mm Cardiac area 10.3 cm CC / ThC 0.59 CA / Rambo 0.34 PA main 7.47 mm Ductus art. 7.39 mm Rt PA branch 3.29 mm 39% Reynaldo Lt PA branch 3.16 mm 32% Reynaldo Ao asc 4.79 mm Ao isthmus 5.3 mm >99% Reynaldo Ao desc 5.77 mm McGoon Index mod. 1.1 PA main / Ao asc 1.56 Ao isthmus / Ductus art. 0.71 IVC 7.01 mm SVC 5.08 mm Extremities / Bony Struc FL / BPD 0.70 FL / HC 0.19 FL / AC 0.21 Other Structures FHR 143 bpm General Evaluation Cardiac activity present. FHR 143 bpm. movements present. Presentation cephalic. Placenta Placental site: anterior. Umbilical cord Cord vessels: 3 vessel cord. Insertion site: placental insertion: normal. Amniotic fluid Amount of AF: normal. MVP 5.6 cm. LIZA 17.7 cm. Q1 4.2 cm, Q2 3.6 cm, Q3 4.2 cm, Q4 5.6 cm. Anatomy Cranium: Appears normal Midline falx: Appears normal Cavum septi pellucidi: Appears normal Cerebellum: Appears normal Cisterna magna: Appears normal Head / Neck Rt lateral ventricle: Appears normal Lt lateral ventricle: Appears normal Rt choroid plexus: Appears normal Lt choroid plexus: Appears normal Vermis: Appears normal Neck: Appears normal Lips: Appear normal Profile: Appears normal Nose: Appears normal Face Nose: Nasal bone present Palate: Appears normal Orbits: Appears normal Lens: Normal 4-chamber view: Appears normal RVOT view: Appears normal LVOT view: Appears normal Heart / Thorax Aortic arch view: Appears normal Ductal arch view: Appears normal SVC: normal IVC: normal 3-vessel view: Appears normal 2-wstqmy-laxetrs view: Appears normal Cardiac axis: Normal Rt lung: Appears normal Lt lung: normal Diaphragm: Appears normal Diaphragm: Intact Cord insertion: Appears normal Stomach: Appears normal Bladder: Appears normal Abdomen Rt kidney: normal Lt kidney: normal Liver: normal Liver: homogeneous echotexture Small bowel: normal Large bowel: normal Cervical spine: Appears normal Thoracic spine: Appears normal Lumbar spine: Appears normal Sacral spine: Appears normal Arms: Appears normal Legs: Appears normal Rt upper arm: Appears normal Rt forearm: Appears normal Rt hand: Appears normal Lt upper arm: suboptimal Lt forearm: suboptimal Lt hand: suboptimal Lt hand: Due to fetlal position Rt upper leg: Appears normal Rt lower leg: Appears normal Rt foot: Appears normal Lt upper leg: Appears normal Lt lower leg: Appears normal Lt foot: Appears normal Wants to know gender: yes Echocardiogram 2D Echo (Qualitatively) 4-chamber view: Appears normal LVOT view: Appears normal RVOT view: Appears normal 3-vessel view: Appears normal 5-fgsffj-ughpnfh view: Appears normal Aortic arch view: Appears normal Ductal arch view: Appears normal SVC: normal IVC: normal Cardiac axis: Normal Venous-atrial connections: normal size and morphology AV connections: normal alignment VA connections: normal size and morphology Pulmonary veins: normal size and morphology Right atrium: normal size and morphology Left atrium: normal size and morphology Atrial septum: normal size and morphology Foramen ovale: normal (in the central third/half, flap valve in left atrium) Right ventricle: normal size and morphology Left ventricle: normal size and morphology Ventricular septum: ventricular septum intact (apex to crux) Tricuspid valve: normal size and morphology Mitral valve: normal size and morphology Cross-over gr. arteries: anterior great artery (confirmed to be the pulmonary artery by its branching) which crosses the course of the proximal aorta, indicative of normal relationship of the great arteries Main PA: the main pulmonary artery can be seen bifurcating into the ductus arteriosus and the right pulmonary artery B and M-Mode Measurements Thoracic circ 196.3 mm 10% [place] Thoracic area 30.2 cm ThC / AC 0.76 Cardiac axis 52 Cardiac circ 115.6 mm Cardiac area 10.3 cm CC / ThC 0.59 CA / Rambo 0.34 RA length diast 7.40 mm RA width diast 9.67 mm RV width diast 7.31 mm <1% Reza LA length diast 9.9 mm LA width syst 8.01 mm <1% Reza LV width diast 8.18 mm 1% Reza IV Septum diast 5.40 mm RV inlet 20.71 mm LV inlet 17.14 mm LVOT diam 5.2 mm LVOT area 21.0 mm PA main 7.47 mm Ductus art. 7.39 mm Rt PA branch 3.29 mm 39% Reynaldo Lt PA branch 3.16 mm 32% Reynaldo Ao asc 4.79 mm Ao isthmus 5.3 mm >99% Reynaldo Ao desc 5.77 mm McGoon Index mod. 1.1 PA main / Ao asc 1.56 Ao isthmus / Ductus art. 0.71 IVC 7.01 mm SVC 5.08 mm RV width diast Zscore (FL) -3.18 RV width diast Zscore (BPD) -3.28 RV width diast Zscore (GA) -3.38 RV width diast Zscore by: Dane LV width diast Zscore (FL) -2.15 LV width diast Zscore (BPD) -1.98 LV width diast Zscore (GA) -2.03 LV width diast Zscore by: Dane RV inlet Zscore (FL) -0.14 RV inlet Zscore (BPD) -0.30 RV inlet Zscore (GA) -0.26 RV inlet Zscore by: Dane LV inlet Zscore (FL) -2.22 LV inlet Zscore (BPD) -2.26 LV inlet Zscore (GA) -2.05 LV inlet Zscore by: Dane RV area Zscore by: Dane LV area Zscore by: Dane TV annulus diast Zscore by: Dane MV annulus diast Zscore by: Dane PV annulus syst Zscore by: Dane AoV annulus syst Z-score by: Dane PA main Zscore (FL) 1.09 PA main Zscore (BPD) 0.95 PA main Zscore (GA) 1.01 PA main Zscore by: Dane Ductus arteriosus Zscore (FL) 3.83 Ductus arteriosus Zscore (BPD) 3.45 Ductus arteriosus Zscore (GA) 3.64 Ductus arteriosus Zscore by: Dane Rt PA branch Zscore (FL) 0.24 Rt PA branch Zscore (BPD) 0.06 Rt PA branch Zscore (GA) 0.10 Rt PA branch Zscore by: Dane Lt PA branch Zscore (FL) 0.38 Lt PA branch Zscore (BPD) 0.27 Lt PA branch Zscore (GA) 0.29 Lt PA branch Zscore by: Dane Ao asc Zscore (FL) -0.92 Ao asc Zscore (BPD) -1.22 Ao asc Zscore (GA) -1.00 Ao asc Zscore by: Dane Ao isthmus Zscore (FL) 5.36 Ao isthmus Zscore (BPD) 4.31 Ao isthmus Zscore (GA) 4.74 Ao isthmus Zscore (EFW) 5.24 Ao isthmus Zscore by: Mc Ao desc Zscore (FL) 1.84 Ao desc Zscore (BPD) 1.44 Ao desc Zscore (GA) 1.61 Ao desc Zscore by: Dane IVC Zscore (FL) 3.88 IVC Zscore (BPD) 3.65 IVC Zscore (GA) 3.73 IVC Zscore by: Dane Intracardial Spectral Doppler TV E-wave -26.85 cm/s TV A-wave -37.59 cm/s TV E / A 0.71 44% Hecher MV E-wave 20.14 cm/s <1% Hecher MV A-wave 30.20 cm/s <1% Hecher MV E / A 0.67 39% Hecher Postcardial Spectral Doppler Umbilical A PI 0.95 49% Joleen Umbilical A RI 0.60 29% Joleen Umbilical A PS 24.03 cm/s <1% Ebbing Umbilical A ED 9.65 cm/s Umbilical A TAmax 15.17 cm/s <1% Ebbing Umbilical A MD 9.27 cm/s Umbilical A S / D 2.49 25% Joleen Umbilical A HR 126 bpm Speckle Tracking Device/Procedure: Transabdominal ultrasound examination Doppler Arterial Umbilical A PI 0.95 49% Joleen Umbilical A RI 0.60 29% Joleen Umbilical A PS 24.03 cm/s <1% Ebbing Umbilical A ED 9.65 cm/s Umbilical A TAmax 15.17 cm/s <1% Ebbing Umbilical A MD 9.27 cm/s Umbilical A S / D 2.49 25% Joleen Umbilical A HR 126 bpm Maternal Structures Uterus / Cervix Cervix: Visualized Approach: Transabdominal Ovaries / Tubes / Adnexa Rt ovary: Suboptimal Lt ovary: Abnormal Consultation / Office Visit Office note to follow Impression ========= Today's exam reveals a SIUP with biometry consistent with dates. anatomic survey appears normal. Normal 4-chamber cardiac view appears normal. Normal right and left ventricular outflow tracts. Normal ductal and aortic arch views. The foramen ovale is patent. The cardiac axis is normal. There is no evidence of a arrhythmia. There is no evidence of a ventricular septal defect by color-flow Doppler. No pleural or pericardial effusion. See detailed echocardiogram parameters as above. Fluid is normal. The placenta is anterior. The TA cervical length appears adequate Recommendation 4 week follow up Coding ====== Description: 39286-20 Detailed Ultrasound Description: 15455-48 Echo 2D, heart - initial Description: 72648-97 Doppler echo color flow Comber Operator: Lisset Hyatt RDMS Physician: Tye Leung MD, FACOG Electronically signed by: Tye Leung MD, FACOG at: 15:38 Procedure Note Tye Leung MD - 09/27/2024 PAT NAME: SENA BENOIT MED REC#: [id number] DA: [id number] PAT GEND: F PAT TYPE: O EXAM ANIRUDH: [id number] REF PHYS GABRIELLA DANIELS Comparison Studies There are no relevant prior studies to which this study is beingcompared Patient Status Outpatient Indication ======== GDM diagnosed at 18 weeks, Obesity History ====== General History Kcykea030 cm Height (ft)5 ft Height (in)8 in Previous Outcomes Gravida1 Maternal Assessment Mtwsdv059 cm Height (ft)5 ft Height (in)8 in Rjkxca104 kg Weight (lb)240 lb BMI36.84 kg/m Method ======= Transabdominal ultrasound examination. View: Adequate view ========= Almodovar . Number of fetuses: 1 Dating ====== LMP on:03/13/2024 GA by LMP28 w + 2 d VINICIUS by LMP:12/18/2024 GA by prior [id number] w + 6 d VINICIUS by prior assessment:12/07/2024 Ultrasound examination on:09/27/2024 GA by U/S based upon:AC, BPD, Femur, HC GA by U/S30 w + 1 d VINICIUS by U/S:12/05/2024 Method of dating:Restore dating from previous exam Previous dating:based on ultrasound (CRL), selected on 05/17/2024 Agreed VINICIUS of previous datin12/07/2024 Assigned:based on ultrasound (CRL), selected on 05/17/2024 Assigned GA29 w + 6 d Assigned VINICIUS:12/07/2024 [id number] d Biometry Standard BPD77.6 mm 31w 1d 77% Hadlock OFD94.6 mm 30w 4d 68% Rut HC279.2 mm 30w 4d 35% Hadlock Cerebellum tr36.1 mm 29w 6d 41% Hill AC257.9 mm 30w 0d 48% Hadlock Femur54.3 mm 28w 5d 10% Hadlock Aekjumy14.9 mm 30w 6d 76% Rut HC / AC1.08 EFW1,439 g 29w 2d 32% Hadlock EFW (lb)3 lb EFW (oz)3 oz EFW by:Hadlock (PCC-IL-CN-FL) Extended Tibia49.5 mm 29w 5d 46% Rut Lufasy65.7 mm 28w 6d 29% Rut Foot58.1 mm 29% Chitty Yyajtg94.7 mm 30w 5d 58% Rut Ulna46.1 mm 29w 3d 23% Rut Cav. septi pel. tr8.4 mm Vp8.0 mm CM8.7 mm 90% Nicolaides Nasal bone8.7 mm Head / Face / Neck Cephalic index0.82 79% Nicolaides Thorax / Lungs Thoracic pnsi551.3 mm 10% [place] Thoracic area30.2 cm ThC / AC0.76 Heart / Great Vessels Cardiac axis52 Cardiac rvvt278.6 mm Cardiac area10.3 cm CC / ThC0.59 CA / ThA0.34 PA main7.47 mm Ductus art.7.39 mm Rt PA branch3.29 mm 39% Reynaldo Lt PA branch3.16 mm 32% Reynaldo Ao asc4.79 mm Ao isthmus5.3 mm >99% Reynaldo Ao desc5.77 mm McGoon Index mod.1.1 PA main / Ao asc1.56 Ao isthmus / Ductus art.0.71 IVC7.01 mm SVC5.08 mm Extremities / Bony Struc FL / BPD0.70 FL / HC0.19 FL / AC0.21 Other Structures YKB607 bpm General Evaluation Cardiac activity present. FHR 143 bpm. movements present. Presentation cephalic. Placenta Placental site: anterior. Umbilical cord Cord vessels: 3 vessel cord. Insertion site: placentalinsertion: normal. Amniotic fluid Amount of AF: normal. MVP 5.6 cm. LIZA 17.7 cm. Q1 4.2 cm,Q2 3.6 cm, Q3 4.2 cm, Q4 5.6 cm. Anatomy Cranium:Appears normal Midline falx:Appears normal Cavum septi pellucidi:Appears normal Cerebellum:Appears normal Cisterna magna:Appears normal Head / Neck Rt lateral ventricle:Appears normal Lt lateral ventricle:Appears normal Rt choroid plexus:Appears normal Lt choroid plexus:Appears normal Vermis:Appears normal Neck:Appears normal Lips:Appear normal Profile:Appears normal Nose:Appears normal Face Nose:Nasal bone present Palate:Appears normal Orbits:Appears normal Lens:Normal 4-chamber view:Appears normal RVOT view:Appears normal LVOT view:Appears normal Heart / Thorax Aortic arch view:Appears normal Ductal arch view:Appears normal SVC:normal IVC:normal 3-vessel view:Appears normal 1-vosgwf-vsbzbbx view:Appears normal Cardiac axis:Normal Rt lung:Appears normal Lt lung:normal Diaphragm:Appears normal Diaphragm:Intact Cord insertion:Appears normal Stomach:Appears normal Bladder:Appears normal Abdomen Rt kidney:normal Lt kidney:normal Liver:normal Liver:homogeneous echotexture Small bowel:normal Large bowel:normal Cervical spine:Appears normal Thoracic spine:Appears normal Lumbar spine:Appears normal Sacral spine:Appears normal Arms:Appears normal Legs:Appears normal Rt upper arm:Appears normal Rt forearm:Appears normal Rt hand:Appears normal Lt upper arm:suboptimal Lt forearm:suboptimal Lt hand:suboptimal Lt hand:Due to fetlal position Rt upper leg:Appears normal Rt lower leg:Appears normal Rt foot:Appears normal Lt upper leg:Appears normal Lt lower leg:Appears normal Lt foot:Appears normal Wants to know gender:yes Echocardiogram 2D Echo (Qualitatively) 4-chamber view:Appears normal LVOT view:Appears normal RVOT view:Appears normal 3-vessel view:Appears normal 8-gplvdc-ojvxjqq view:Appears normal Aortic arch view:Appears normal Ductal arch view:Appears normal SVC:normal IVC:normal Cardiac axis:Normal Venous-atrial connections:normal size and morphology AV connections:normal alignment VA connections:normal size and morphology Pulmonary veins:normal size and morphology Right atrium:normal size and morphology Left atrium:normal size and morphology Atrial septum:normal size and morphology Foramen ovale:normal (in the central third/half, flap valve in leftatrium) Right ventricle:normal size and morphology Left ventricle:normal size and morphology Ventricular septum:ventricular septum intact (apex to crux) Tricuspid valve:normal size and morphology Mitral valve:normal size and morphology Cross-over gr. arteries:anterior great artery (confirmed to be thepulmonary artery by its branching) which crosses the course of theproximal aorta, indicative of normal relationship of the great arteries Main PA:the main pulmonary artery can be seen bifurcating into the ductusarteriosus and the right pulmonary artery B and M-Mode Measurements Thoracic dlig205.3 mm 10% [place] Thoracic area30.2 cm ThC / AC0.76 Cardiac axis52 Cardiac qssf566.6 mm Cardiac area10.3 cm CC / ThC0.59 CA / ThA0.34 RA length diast7.40 mm RA width diast9.67 mm RV width diast7.31 mm <1% Reza LA length diast9.9 mm LA width syst8.01 mm <1% Reza LV width diast8.18 mm 1% Reza IV Septum diast5.40 mm RV inlet20.71 mm LV inlet17.14 mm LVOT diam5.2 mm LVOT area21.0 mm PA main7.47 mm Ductus art.7.39 mm Rt PA branch3.29 mm 39% Reynaldo Lt PA branch3.16 mm 32% Reynaldo Ao asc4.79 mm Ao isthmus5.3 mm >99% Reynaldo Ao desc5.77 mm McGoon Index mod.1.1 PA main / Ao asc1.56 Ao isthmus / Ductus art.0.71 IVC7.01 mm SVC5.08 mm RV width diast Zscore (FL)-3.18 RV width diast Zscore (BPD)-3.28 RV width diast Zscore (GA)-3.38 RV width diast Zscore by:Dane LV width diast Zscore (FL)-2.15 LV width diast Zscore (BPD)-1.98 LV width diast Zscore (GA)-2.03 LV width diast Zscore by:Dane RV inlet Zscore (FL)-0.14 RV inlet Zscore (BPD)-0.30 RV inlet Zscore (GA)-0.26 RV inlet Zscore by:Dane LV inlet Zscore (FL)-2.22 LV inlet Zscore (BPD)-2.26 LV inlet Zscore (GA)-2.05 LV inlet Zscore by:Dane RV area Zscore by:Dane LV area Zscore by:Dane TV annulus diast Zscore by:Dane MV annulus diast Zscore by:Dane PV annulus syst Zscore by:Dane AoV annulus syst Z-score by:Dane PA main Zscore (FL)1.09 PA main Zscore (BPD)0.95 PA main Zscore (GA)1.01 PA main Zscore by:Dane Ductus arteriosus Zscore (FL)3.83 Ductus arteriosus Zscore (BPD)3.45 Ductus arteriosus Zscore (GA)3.64 Ductus arteriosus Zscore by:Dane Rt PA branch Zscore (FL)0.24 Rt PA branch Zscore (BPD)0.06 Rt PA branch Zscore (GA)0.10 Rt PA branch Zscore by:Dane Lt PA branch Zscore (FL)0.38 Lt PA branch Zscore (BPD)0.27 Lt PA branch Zscore (GA)0.29 Lt PA branch Zscore by:Dane Ao asc Zscore (FL)-0.92 Ao asc Zscore (BPD)-1.22 Ao asc Zscore (GA)-1.00 Ao asc Zscore by:Dane Ao isthmus Zscore (FL)5.36 Ao isthmus Zscore (BPD)4.31 Ao isthmus Zscore (GA)4.74 Ao isthmus Zscore (EFW)5.24 Ao isthmus Zscore by:Mc Ao desc Zscore (FL)1.84 Ao desc Zscore (BPD)1.44 Ao desc Zscore (GA)1.61 Ao desc Zscore by:Dane IVC Zscore (FL)3.88 IVC Zscore (BPD)3.65 IVC Zscore (GA)3.73 IVC Zscore by:Dane Intracardial Spectral Doppler TV E-wave-26.85 cm/s TV A-wave-37.59 cm/s TV E / A0.71 44% Hecher MV E-wave20.14 cm/s <1% Hecher MV A-wave30.20 cm/s <1% Hecher MV E / A0.67 39% Hecher Postcardial Spectral Doppler Umbilical A PI0.95 49% Joleen Umbilical A RI0.60 29% Joleen Umbilical A PS24.03 cm/s <1% Ebbing Umbilical A ED9.65 cm/s Umbilical A TAmax15.17 cm/s <1% Ebbing Umbilical A MD9.27 cm/s Umbilical A S / D2.49 25% Joleen Umbilical A HR126 bpm Speckle Tracking Device/Procedure:Transabdominal ultrasound examination Doppler Arterial Umbilical A PI0.95 49% Joleen Umbilical A RI0.60 29% Joleen Umbilical A PS24.03 cm/s <1% Ebbing Umbilical A ED9.65 cm/s Umbilical A TAmax15.17 cm/s <1% Ebbing Umbilical A MD9.27 cm/s Umbilical A S / D2.49 25% Joleen Umbilical A HR126 bpm Maternal Structures Uterus / Cervix Cervix:Visualized Approach:Transabdominal Ovaries / Tubes / Adnexa Rt ovary:Suboptimal Lt ovary:Abnormal Consultation / Office Visit Office note to follow Impression ========= Today's exam reveals a SIUP with biometry consistent with dates. Fetalanatomic survey appears normal. Normal 4-chamber cardiac view appearsnormal. Normal right and left ventricular outflow tracts. Normal ductal and aortic arch views.The foramen ovale is patent. The cardiac axis is normal. There is noevidence of a arrhythmia. There is no evidence of a ventricular septal defect bycolor-flow Doppler. No pleural or pericardial effusion. See detailed fetalechocardiogram parameters as above. Fluid is normal. The placenta is anterior. The TA cervical lengthappears adequate Recommendation 4 week follow up Coding ====== Description:05917-67 Detailed Ultrasound Description:51540-56 Echo 2D, heart - initial Description:94919-24 Doppler echo color flow Comber Operator: Lisset Hyatt RDMS Physician: Tye Leung MD, FACOG Electronically signed by: Tye Leung MD, FACOG at: 15:38 us Gabriella Daniels DO IMG US ORDERABLES Edited Resul t - Final documented in this encounter Visit Diagnoses Diagnosis Gestational diabetes mellitus (GDM) in third trimester, gestational diabetes method of control unspecified Obesity in , antepartum Obesity complicating , childbirth, or the puerperium, antepartum condition or complication documented in this encounter Care Teams Fixture Designer Relationship Specialty Start Date End Date Elisa Valdes DO [address] [place] [address] PCP - General Family Medicine 01/09/21 documented as of this encounter
--- OUTSIDE RECORDS SUMMARY | 2024-09-27 14:00 | XMS_ITS | Encounter Summary ---
Author Organization [facility] Address [address] [place] [address] Care Team Providers Care Pole Setter Name Role Phone Elisa Valdes DO Primary Care Provider +1- [phone] Reason for Referral * Diagnostic Imaging (Routine) - Closed Specialty Diagnoses / Procedures Referred By Contac t Referred To Contact Radiology Diagnoses Insulin controlled gestational diabetes mellitus (GDM) in third trimester Procedures [facility] Rodney Leung MD [address] [facility] [address] [place] [address] Phone: tel: fax: [facility] US PER DIAG CTR [address] [place] [address] Phone: tel: Referral ID Status Reason Start Date Expiration Date Visits Re quested Visits Authorized [id number] Closed 09/27/2024 12/27/2025 1 1 Reason for Visit * Reason Comments GDM; obesity Encounter Details Date Type Department Care Team (Late st Contact Info) Description 09/27/2024 2:00 PM EDT Office Visit [facility] MATERNAL MEDICINE [address] [facility] [address] [place] [address] Rodney Leung MD [address] [facility] [address] [place] [address] Insulin controlled gestational diabetes mellitus [...] NPH at night previously prescribed by primary DRY MOP MAKER. Will continue NPH at this time though [...] NPH at night previously prescribed by primary DRY MOP MAKER. Will continue NPH at this time though [...] [facility]S. Rodney Leung MD, FACOG Maternal Medicine, [facility] documented in this encounter Plan of Treatment Not on file documented as of this encounter Results * [facility] (10/26/2024 8:24 AM EDT) Anatomical Region Laterality Modality Ultrasound 10/26/2024 8:09 AM EDT Narrative 10/26/2024 8:36 AM EDT PAT NAME: SENA BENOIT MED REC#: [id number] DA: [id number] PAT GEND: F PAT TYPE: O EXAM ANIRUDH: [id number] REF PHYS GABRIELLA DANIELS Comparison Studies The [...] EFW (oz) 2 oz EFW by: Hadlock (UVR-JU-MM-FL) Extended Cav. septi pel. tr 5.6 mm [...] delivery. Twice weekly testing. Coding ======= Description: 00209-91 Follow Up Ultrasound Description: 80407-23 BPP without NST Apple Checker: Arin Pryor RDMS Physician: Rodney Leung MD, FACOG Electronically signed by: Rodney Leung MD, FACOG at: 08:36 Procedure Note Rodney Leung MD - 10/26/2024 PAT NAME: SENA BENOIT MED REC#: [id number] DA: 1995 PAT GEND: F PAT TYPE: O EXAM ANIRUDH: [id number] REF PHYS GABRIELLA DANIELS Comparison Studies The findings of this study are compared to the prior ultrasound studydated 09/27/24 Patient Status Outpatient Indication ======== Gestational diabetes. Obesity BMI 36. Maternal Assessment Fzgaet467 cm Height (ft)5 ft Height (in)8 in Zkgsja875 kg Weight (lb)239 lb BMI36.64 kg/m Method ======= Transabdominal ultrasound examination. View: Adequate view ========= Almodovar . Number of fetuses: 1 Dating ====== LMP on:03/13/2024 GA by LMP32 w + 3 d VINICIUS by LMP:12/18/2024 Method of dating:based on stated VINICIUS GA by prior cefpydhuvu84 w + 0 d VINICIUS by prior assessment:12/07/2024 Ultrasound examination on:10/26/2024 GA by U/S based upon:AC, BPD, Femur, HC GA by U/S34 w + 4 d VINICIUS by U/S:12/03/2024 Previous dating:based on ultrasound (CRL), selected on 05/17/2024 Agreed VINICIUS of previous datin12/07/2024 Assigned:based on stated VINICIUS, selected on 10/26/2024 Assigned GA34 w + 0 d Assigned VINICIUS:12/07/2024 avrxjn690 d Biometry Standard BPD85.5 mm 34w 3d 61% Hadlock CCP566.8 mm 38w 3d 98% Rut HC321.9 mm 36w 2d 74% Hadlock Cerebellum tr46.0 mm 35w 0d 50% Hill AC291.8 mm 33w 1d 29% Hadlock Femur66.9 mm 34w 3d 52% Hadlock Opmyofl22.5 mm 34w 4d 73% Rut HC / AC1.10 EFW2,320 g 33w 5d 43% Hadlock EFW (lb)5 lb EFW (oz)2 oz EFW by:Hadlock (ULV-LM-RP-FL) Extended Cav. septi pel. tr5.6 mm CM8.9 mm 85% Nicolaides Head / Face / Neck Cephalic index0.76 9% Nicolaides Extremities / Bony Struc FL / BPD0.78 FL / HC0.21 FL / AC0.23 Other Structures SLK234 bpm General Evaluation Cardiac activity present. FHR [...] week delivery. Twice weekly testing. Coding ======= Description:22437-40 Follow Up Ultrasound Description:74358-98 BPP without NST Apple Checker: Arin Pryor RDMS Physician: Rodney Leung MD, FACOG Electronically signed by: Rodney Leung MD, FACOG at: 08:36 us Rodney Leung MD IMG US ORDERABLES Final Result documented in this encounter Visit Diagnoses Diagnosis Insulin controlled gestational diabetes mellitus (GDM) in third trimester- Primary Insulin controlled gestational diabetes mellitus (GDM) in third trimester documented in this encounter Care Teams Pole Setter Relationship Specialty Start Date End Date Elisa Valdes DO [address] [place] [address] PCP - General Family Medicine 01/09/21 documented as of this encounter
--- OUTSIDE RECORDS SUMMARY | 2024-10-01 11:30 | XMS_ITS | Encounter Summary ---
[facility] Address [address] [place] [address] Care Team Providers Care Rip Sawyer Name Role Phone Elisa Valdes DO Primary Care Provider [phone]- [phone] Encounter Details Date Type Department Care Team (Latest Contact Info) Description 10/01/2024 11:30 AM EDT - 10/01/2024 11:59 PM EDT Hospital Encounter [facility] DI[facility] ED [address] [facility] [address] [place] [phone] Discharge Disposition: Home or Self Care Social [...] on filedocumented in this encounter Care Teams Rip Sawyer Relationship Specialty Start Date End Date Elisa Valdes DO [address] [place] [address] PCP - General Family Medicine 01/09/21 documented as of this encounter
--- OUTSIDE RECORDS SUMMARY | 2024-10-26 08:00 | XMS_ITS | Encounter Summary ---
Author Organization [facility] Address [address] [place] [address] Care Team Providers Care Access Consultant Name Role Phone Elisa Valdes DO Primary Care Provider [phone]- [phone] Reason for Referral * Diagnostic Imaging (Routine) - Closed Specialty Diagnoses / Procedures Referred By Contac t Referred To Contact Radiology Diagnoses Insulin controlled gestational diabetes mellitus (GDM) in third trimester Procedures [facility] [place] Tye Leung MD [address] [place] [address] Phone: tel: fax: [facility] PER DI[facility] [address] [place] [address] Phone: tel: Referral ID Status Reason Start Date Expiration Date Visits Re quested Visits Authorized [id number] Closed 09/27/2024 12/27/2025 1 1 Reason for Visit * Diagnostic Imaging (Routine) - Closed Specialty Diagnoses / Procedures Referred By Contac t Referred To Contact Radiology Diagnoses Insulin controlled gestational diabetes mellitus (GDM) in third trimester Procedures [facility] Diagnostic [place] Tye Leung MD [address] [place] [address] Phone: tel: fax: [facility] PER DI[facility] [address] [place] [address] Phone: tel: Referral ID Status Reason Start Date Expiration Date Visits Re quested Visits Authorized [id number] Closed 09/27/2024 12/27/2025 1 1 Encounter Details Date Type Department Care Team (Late st Contact Info) Description 10/26/2024 8:00 AM EDT - 10/26/2024 11:59 PM EDT Hospital Encounter [facility] [address] [place] [id number] Tye Leung MD [address] [place] [address] Insulin controlled gestational diabetes mellitus (GDM) in third trimester Discharge Disposition: Home or Self Care Social [...] Procedure Name Priority Date/Time Associated Diagnosis Comments [facility] Routine 10/26/2024 8:24 AM EDT Insulin controlled gestational diabetes mellitus (GDM) in third trimester documented in this encounter Results * [facility] (10/26/2024 8:24 AM EDT) Anatomical Region Laterality Modality Ultrasound 10/26/2024 8:09 AM EDT Narrative 10/26/2024 8:36 AM EDT PAT NAME: SENA BENOIT [facility] REC#: [id number] DA: [id number] PAT GEND: F PAT TYPE: O EXAM ANIRUDH: [id number] REF PHYS KAROLINA ORTIZ Comparison Studies The findings of this study [...] EFW (oz) 2 oz EFW by: Hadlock (LWA-IU-BT-FL) Extended Cav. septi pel. tr 5.6 mm [...] delivery. Twice weekly testing. Coding ======= Description: 77024-87 Follow Up Ultrasound Description: 58381-72 BPP without NST Blower And Compressor Assembler: Arin Pryor RDMS Physician: Tye Leung MD, FACOG Electronically signed by: Tye Leung MD, FACOG at: 08:36 Procedure Note Tye Leung MD - 10/26/2024 PAT NAME: SENA BENOIT MED REC#: [id number] DA: [id number] PAT GEND: F PAT TYPE: O EXAM ANIRUDH: [id number] REF PHYS KAROLINA ORTIZ Comparison Studies The findings of this study are compared to the prior ultrasound studydated 09/27/24 Patient Status Outpatient Indication ======== Gestational diabetes. Obesity BMI 36. Maternal Assessment Pjjrai566 cm Height (ft)5 ft Height (in)8 in Ovtwpt884 kg Weight (lb)239 lb BMI36.64 kg/m Method ======= Transabdominal ultrasound examination. View: Adequate view ========= Almodovar . Number of fetuses: 1 Dating ====== LMP on:03/13/2024 GA by [email or web address] w + 3 d VINICIUS by LMP:12/18/2024 Method of dating:based on stated VINICIUS GA by prior [id number] w + 0 d VINICIUS by prior assessment:12/07/2024 Ultrasound examination on:10/26/2024 GA by U/S based upon:AC, BPD, Femur, HC GA by U/S34 w + 4 d VINICIUS by U/S:12/03/2024 Previous dating:based on ultrasound (CRL), selected on 05/17/2024 Agreed VINICIUS of previous datin12/07/2024 Assigned:based on stated VINICIUS, selected on 10/26/2024 Assigned GA34 w + 0 d Assigned VINICIUS:12/07/2024 [id number] d Biometry Standard BPD85.5 mm 34w 3d 61% Hadlock KPC382.8 mm 38w 3d 98% Rut HC321.9 mm 36w 2d 74% Hadlock Cerebellum tr46.0 mm 35w 0d 50% Hill AC291.8 mm 33w 1d 29% Hadlock Femur66.9 mm 34w 3d 52% Hadlock Vlhapdq08.5 mm 34w 4d 73% Rut HC / AC1.10 EFW2,320 g 33w 5d 43% Hadlock EFW (lb)5 lb EFW (oz)2 oz EFW by:Hadlock (HPJ-UT-WH-FL) Extended Cav. septi pel. tr5.6 mm CM8.9 mm 85% Nicolaides Head / Face / Neck Cephalic index0.76 9% Nicolaides Extremities / Bony Struc FL / BPD0.78 FL / HC0.21 FL / AC0.23 Other Structures OCQ039 bpm General Evaluation Cardiac activity present. FHR [...] movements 2: tone 2: Amniotic fluid volume 8/8 Biophysical profile score Consultation / Office Visit Office note to follow Impression Today's exam reveals a SIUP in cephalic presentation with biometryconsistent with dates. Limited anatomic survey appears normal. TheAFI and BPP are normal. Recommendation 38 or 39 week delivery. Twice weekly testing. Coding ======= Description:12147-98 Follow Up Ultrasound Description:23292-08 BPP without NST Blower And Compressor Assembler: Arin Pryor RDMS Physician: Tye Leung MD, FACOG Electronically signed by: Tye Leung MD, FACOG at: 08:36 us Tye Leung MD IMG ORDERABLES Final Result documented in this encounter Visit Diagnoses Diagnosis Insulin controlled gestational diabetes mellitus (GDM) in third trimester documented in this encounter Care Teams Access Consultant Relationship Specialty Start Date End Date Elisa Valdes DO [address] [place] [address] PCP - General Family Medicine 01/09/21 documented as of this encounter
--- OUTSIDE RECORDS SUMMARY | 2024-10-26 08:00 | XMS_ITS | Encounter Summary ---
Author Organization [facility] Address [address] [place] [address] Care Team Providers Care Sock Lining Stitcher Name Role Phone Keisha Elisa Linette MONGE Primary Care Provider +1- [phone] Reason for Visit * Reason Comments GDM; obesity; pre-diabetes prior to preg yi Encounter Details Date Type Department Care Team (Late st Contact Info) Description 10/26/2024 8:00 AM EDT Office Visit [facility] MATERNAL MEDICINE [address] [place] [phone] Tye Leung MD [address] [facility] [address] [place] [address] Insulin controlled gestational diabetes mellitus (GDM) in [...] CVS. Tye Leung MD, FACOG Maternal Medicine, [facility] Diagnostic [place] documented in this encounter Plan of Treatment Not on file documented as of this encounter Visit Diagnoses Diagnosis Insulin controlled gestational diabetes mellitus (GDM) in third trimester- Primary documented in this encounter Care Teams Sock Lining Stitcher Relationship Specialty Start Date End Date Elisa Valdes DO [address] [place] [address] PCP - General Family Medicine 01/09/21 documented as of this encounter
--- OUTSIDE RECORDS SUMMARY | 2024-11-14 11:02 | XMS_ITS | Encounter Summary ---
Author Organization [facility] Address [address] [place] [address] Care Team Providers Care Docket Clerk Name Role Phone Keisha Elisa Lniette MONGE Primary Care Provider [phone]- [phone] Reason for Visit * Reason Onset Date Comments Advice Only 10/12/2024 Encounter Details Date Type Department Care Team (Late st Contact Info) Description 10/12/2024 Telephone [facility] MATERNAL MEDICINE [address] [facility] [address] [place] [phone] Mell Silvestre, horticultural agent Only Social History Tobacco Use Types Packs/Day [...] on filedocumented in this encounter Care Teams Docket Clerk Relationship Specialty Start Date End Date Elisa Valdes DO [address] [place] [address] PCP - General Family Medicine 01/09/21 documented as of this encounter
--- OUTSIDE RECORDS SUMMARY | 2024-11-14 11:02 | XMS_ITS | Encounter Summary ---
Author Organization [facility] Address [address] [place] [address] Care Team Providers Care Wood Pile Driver Operator Name Role Phone Keisha Elisa Linette MONGE Primary Care Provider [phone] Reason for Visit * Reason Onset Date Comments Med Management 10/01/2024 Encounter Details Date Type Department Care Team (Late st Contact Info) Description 10/01/2024 Telephone [facility] MATERNAL MEDICINE 1700 [facility] [address] [place] [phone] Georgia Booth, RN Med Management Social History [...] filedocumented in this encounter Care Teams Wood Pile Driver Operator Relationship Specialty Start Date End Date Elisa Valdes DO [address] [place] [address] PCP - General Family Medicine 01/09/21 documented as of this encounter
--- OUTSIDE RECORDS SUMMARY | 2024-11-14 11:02 | XMS_ITS | Encounter Summary ---
Author Organization [facility] Address [address] [place] [address] Care Team Providers Care Php Developer Name Role Phone Elisa Valdes DO Primary Care Provider [phone]- [phone] Encounter Details Date Type Department Care Team [...] on filedocumented in this encounter Care Teams Php Developer Relationship Specialty Start Date End Date Elisa Valdes [place] [address] PCP - General Family Medicine 01/09/21 documented as of this encounter
--- OUTSIDE RECORDS SUMMARY | 2024-11-14 11:02 | XMS_ITS | Encounter Summary ---
Author Organization [facility] Address [address] [place] [address] Care Team Providers Care Fagoter Name Role Phone Keisha Elisa Linette MONGE Primary Care Provider +1- [phone] Encounter Details Date Type Department Care Team (Late st Contact Info) Description 09/26/2024 Telephone [facility] MATERNAL MEDICINE [address] [facility] [address] [place] [address] Mell Silvestre, RN Social History [...] RN - 09/26/2024 11:27 AM EDT Called [facility] OB and left voicemail requesting NIPT results if done. Fax number given in voicemail. documented in this encounter Plan of Treatment Not on file documented as of this encounter Visit Diagnoses Not on filedocumented in this encounter Care Teams Fagoter Relationship Specialty Start Date End Date Elisa Valdes DO [address] [place] [address] PCP - General Family Medicine 01/09/21 documented as of this encounter
--- OUTSIDE RECORDS SUMMARY | 2024-11-14 11:02 | XMS_ITS | Encounter Summary ---
Author Organization [facility] Address [address] [place] [address] Care Team Providers Care Retarder Operator Name Role Phone Elisa Valdes DO Primary Care Provider +1- [phone] Encounter Details Date Type Department Care Team [...] on filedocumented in this encounter Care Teams Retarder Operator Relationship Specialty Start Date End Date Elisa [place] [address] PCP - General Family Medicine 01/09/21 documented as of this encounter
--- OUTSIDE RECORDS SUMMARY | 2024-11-14 11:02 | XMS_ITS | Clinical Summary ---
Author Organization [facility] Address [address] [place] [address] Care Team Providers Care Form Grader Name Role Phone Keisha Elisa Linette MONGE [...] NPH at night previously prescribed by primary GREEN CHAIN WORKER. Will continue NPH at this time though [...] Care Team Description 11/08/2024 Medication Therapy Management [facility] MATERNAL MEDICINE [address] [address] Abiola Awad MD 10/26/2024 8:00 AM EDT - 10/26/2024 11:59 PM EDT Hospital Encounter [facility] US PER DIAG [facility] [address] [place] [address] Tye Leung MD Insulin controlled gestational diabetes mellitus (GDM) in third trimester Discharge Disposition: Home or Self Care 10/26/2024 8:00 AM EDT Office Visit [facility] MAT[facility]NAL [facility]ICINE [address] [place] [address] Tye Leung MD Insulin controlled gestational diabetes mellitus (GDM) in third trimester (Primary Dx) 10/26/2024 Travel 10/25/2024 Medication Therapy Management [facility] MAT[facility] MEDIC[facility] [address] [facility] [address] [place] [address] Abiola Awad MD 10/12/2024 Telephone [facility]IC[facility] [address] [facility] [address] [place] [address] Mell Silvestre, hammer repairer Only 10/01/2024 11:30 AM EDT - 10/01/2024 11:59 PM EDT Hospital Encounter [facility] DIABETES ED [address] [facility] [address] [place] [phone] Discharge Disposition: Home or Self Care 10/01/2024 Telephone [facility] MAT[facility]NAL MEDICINE [address] [facility] [address] [place] [phone] Georgia Booth RN Med Management 10/01/2024 Travel 09/27/2024 2:00 PM EDT Office Visit [facility] MAT[facility]NAL MEDICINE [address] [facility] [address] [place] [phone] Tye Leung MD Insulin controlled gestational diabetes mellitus (GDM) in third trimester (Primary Dx) 09/27/2024 1:48 PM EDT - 09/27/2024 11:59 PM EDT Hospital Encounter [facility] PER DI[facility] [address] [place] [phone] Gabriella Daniels DO Gestational diabetes mellitus (GDM) in third trimester, gestational diabetes method of control unspecified; Obesity in , antepartum Discharge Disposition: Home or Self Care 09/27/2024 Documentation [facility] MAT[facility]IC[facility] [address] [facility] [address] [place] [address] Alanna Walker RN 09/27/2024 Travel 09/26/2024 Telephone [facility] MAT[facility]NAL MEDICINE [address] [facility] [address] [place] [address] Mell Silvestre, JORDIN 09/20/2024 12:50 PM EDT - 09/20/2024 11:59 PM EDT Hospital Encounter [facility] DIABETES ED [address] [facility] [address] [facility] [address] [place] [address] Leung, Tye Greer MD Discharge [...] Date/Time Associated Diagnosis Comments SCANNED - IMAGING 11/09/2024 SCANNED - IMAGING 11/02/2024 [facility] Routine 10/26/2024 8:24 AM EDT Insulin controlled gestational diabetes mellitus (GDM) in third trimester SCANNED - IMAGING 10/12/2024 [facility] Routine 09/27/2024 2:43 PM EDT [...] to Health Maintenance Results * IMAGING SCANNED (11/09/2024) Only the most recent of4 resultswithin the time period is included. Anatomical Region Laterality Modality Radiographic Donna ging us Elisa Valdes DO IMG DIAGNOSTIC IMAGING ORDE RABEMMA Final Result * [facility] (10/26/2024 8:24 AM EDT) Only the most recent of2 resultswithin the time period is included. Anatomical Region Laterality Modality Ultrasound 10/26/2024 8:09 AM EDT Narrative 10/26/2024 8:36 AM EDT PAT NAME: SENA BENOIT MED REC#: [id number] DA: [id number] PAT GEND: F PAT TYPE: O EXAM ANIRUDH: [id number] REF PHYS GABRIELLA DANIELS Comparison Studies The [...] EFW (oz) 2 oz EFW by: Hadlock ([id number]) Extended Cav. septi pel. tr 5.6 mm [...] delivery. Twice weekly testing. Coding ======= Description: 45552-59 Follow Up Ultrasound Description: 61568-96 BPP without NST Endoscopy Technican: Arin Pryor RDMS Physician: Tye Leung MD, FACOG Electronically signed by: Tye Leung MD, FACOG at: 08:36 Procedure Note Tye Leung MD - 10/26/2024 PAT NAME: SENA BENOIT MED REC#: [id number] DA: [id number] PAT GEND: F PAT TYPE: O EXAM ANIRUDH: [id number] REF PHYS GABRIELLA DANIELS Comparison Studies The findings of this study are compared to the prior ultrasound studydated 09/27/24 Patient Status Outpatient Indication ======== Gestational diabetes. Obesity BMI 36. Maternal Assessment Ranuyy062 cm Height (ft)5 ft Height (in)8 in Hxxcot210 kg Weight (lb)239 lb BMI36.64 kg/m Method ======= Transabdominal ultrasound examination. View: Adequate view ========= Almodovar . Number of fetuses: 1 Dating ====== LMP on:03/13/2024 GA by [id number] w + 3 d VINICIUS by LMP:12/18/2024 Method of dating:based on stated VINICIUS GA by prior [id number] w + 0 d VINICIUS by prior assessment:12/07/2024 Ultrasound examination on:10/26/2024 GA by U/S based upon:AC, BPD, Femur, HC GA by U/S34 w + 4 d VINICIUS by U/S:12/03/2024 Previous dating:based on ultrasound (CRL), selected on 05/17/2024 Agreed VINICIUS of previous datin12/07/2024 Assigned:based on stated VINICIUS, selected on 10/26/2024 Assigned GA34 w + 0 d Assigned VINICIUS:12/07/2024 [id number] d Biometry Standard BPD85.5 mm 34w 3d 61% Hadlock XMC222.8 mm 38w 3d 98% Rut HC321.9 mm 36w 2d 74% Hadlock Cerebellum tr46.0 mm 35w 0d 50% Hill AC291.8 mm 33w 1d 29% Hadlock Femur66.9 mm 34w 3d 52% Hadlock Vdjtzre64.5 mm 34w 4d 73% Rut HC / AC1.10 EFW2,320 g 33w 5d 43% Hadlock EFW (lb)5 lb EFW (oz)2 oz EFW by:Hadlock ([id number]) Extended Cav. septi pel. tr5.6 mm CM8.9 mm 85% Nicolaides Head / Face / Neck Cephalic index0.76 9% Nicolaides Extremities / Bony Struc FL / BPD0.78 FL / HC0.21 FL / AC0.23 Other Structures DZS309 bpm General Evaluation Cardiac activity present. FHR [...] week delivery. Twice weekly testing. Coding ======= Description:68121-97 Follow Up Ultrasound Description:05541-30 BPP without NST Endoscopy Technican: Arin Pryor RDMS Physician: Tye Leung MD, FACOG Electronically signed by: Tye Leung MD, FACOG at: 08:36 us Tye Leung MD [facility] ORDERABLES Final Result * LABS SCANNED (09/14/2024) Only the most recent of3 resultswithin the time period is included. Elisa Valdes DO LAB BLOOD ORDERABLES Final Result * Hepatitis C Antibody (05/17/2024 11:41 AM EST) Hepatitis C Ab Non-Reacti ve Non-Reacti ve 05/17/2024 2:42 PM EST [facility] Blood Venipuncture / Unknown 05/17/2024 11:41 AM EST 05/17/2024 11:44 AM EST Melody Ordonez MD LAB BLOOD ORDERABLES Final Resul t Performing Organization Address City/[facility]/ZIP Co de Phone Number [facility]
[address] [place] [address], * OneSwab - Kit, Vagina (05/17/2024) Kit Vaginal structure / Unknown Melody Ordonez MD MICROBIOLOGY - GENERAL ORDERABLE S Final Result Performing Organization Address City/[facility]/ZIP Co de Phone Number [facility] [address] [place] [address] from Last 3 Months or Most Recently Relevant to Health Maintenance Insurance [facility] Care Teams Form Grader Relationship Specialty Start Date End Date [place] [address] PCP - General Family Medicine 01/09/21
--- OUTSIDE RECORDS SUMMARY | 2024-11-14 11:02 | XMS_ITS | Encounter Summary ---
Author Organization [facility] Address [address] [place] [address] Care Team Providers Care Devops Developer Name Role Phone Elisa Valdes DO Primary Care Provider +1- [phone] Encounter Details Date Type Department Care Team [...] on filedocumented in this encounter Care Teams Devops Developer Relationship Specialty Start Date End Date Elisa [place] [address] PCP - General Family Medicine 01/09/21 documented as of this encounter
--- OUTSIDE RECORDS SUMMARY | 2024-11-14 11:02 | XMS_ITS | Encounter Summary ---
Author Organization [facility] Address [address] [place] [address] Care Team Providers Care Linotypist Name Role Phone Elisa Valdes DO Primary Care Provider +1- [phone] Encounter Details Date Type Department Care Team [...] on filedocumented in this encounter Care Teams Linotypist Relationship Specialty Start Date End Date Elisa [place] [address] PCP - General Family Medicine 01/09/21 documented as of this encounter
--- OUTSIDE RECORDS SUMMARY | 2024-11-14 11:02 | XMS_ITS | Encounter Summary ---
Author Organization [facility] Address [address] [place] [address] Care Team Providers Care Crane Mechanic Name Role Phone Elisa Valdes DO Primary Care Provider +1- [phone] Encounter Details Date Type Department Care Team (Late st Contact Info) Description 10/25/2024 Medication Therapy Management [facility] MATERNAL MEDICINE [address] [facility] [address] [place] [address] Abiola Awad MD 1700 [facility] [address] [place] [id number] Social History Tobacco Use Types Packs/Day Years [...] on filedocumented in this encounter Care Teams Crane Mechanic Relationship Specialty Start Date End Date Elisa Valdes DO [address] [place] [address] PCP - General Family Medicine 01/09/21 documented as of this encounter
--- OUTSIDE RECORDS SUMMARY | 2024-11-14 11:02 | XMS_ITS | Encounter Summary ---
Author Organization [facility] Address [address] [place] [address] Care Team Providers Care Detective Private Eye Name Role Phone KeishaElisa inman Linette MONGE Primary Care Provider +1- [phone] Encounter Details Date Type Department Care Team (Late st Contact Info) Description 09/27/[address] [facility] MATERNAL MEDICINE [address] [facility] [address] [place] [address] Alanna Walker, RN Social History [...] to accept our clinic to share through [employer] Instructed patient to keep log until we [...] on filedocumented in this encounter Care Teams Detective Private Eye Relationship Specialty Start Date End Date Elisa Valdes DO [address] [place] [address] PCP - General Family Medicine 01/09/21 documented as of this encounter
--- OUTSIDE RECORDS SUMMARY | 2024-11-14 11:04 | XMS_ITS | Clinical Summary ---
Author Organization Healthcare Address [address] [place] [address] Care Team Providers Care Director Microbiology Name Role Phone Mee Matt MD Primary Care Provider [phone] Allergies No known active allergies Medications * [...] Additional history exists [facility]-Depression Screening 09/18/2023 09/17/2022 [id number] Vaccine ( season) 2023 [facility]-Influenza Vaccine (#1) [...] Antibody/Antigen Screen (09/17/2022 10:22 AM EDT) Pathologist [facility] HIV 1 & 2 Antibody/Antigen Screen Non Reactive Non Reactive 09/17/2022 11:53 AM EDT [facility] Comment:Screening for HIV 1 & 2 antibodies, and P24 antigen is NONREACTIVE. No confirmatory testing is required. Blood Venous blood specimen / Unknown Venipuncture / Unknown 09/17/2022 10:22 AM EDT 09/17/2022 10:22 AM EDT Karma Stevenson APRN LAB BLOOD ORDERABLES Final Re sult Performing Organization Address [facility] Co de Phone Number [facility] [address] [place] [address] * Acute Hepatitis Panel (09/17/2022 10:22 AM EDT) [facility] Hepatitis B Surf Antigen Negative Negative 09/17/2022 2:38 PM EDT [facility] Hepatitis C Antibody Negative Negative 09/17/2022 2:38 PM EDT [facility] Hepatitis A Antibody IgM Negative Negative 09/17/2022 2:38 PM EDT [facility] Hepatitis B Core Antibody IgM Negative Negative 09/17/2022 2:38 PM EDT [facility] Blood Venous blood specimen / Unknown Venipuncture / Unknown 09/17/2022 10:22 AM EDT 09/17/2022 10:22 AM EDT Karma Stevenson APRN LAB BLOOD ORDERABLES Final Re sult Performing Organization Address [facility] Co de Phone Number [facility] [address] [place] [address] * Pap Test (09/17/2022 9:47 AM EDT) [facility] Case Report Cytology Case: [id number] Authorizing Provider: Karma Stevenson APRN Collected: 09/17/2022 0947 Ordering Location: Medical Office Building Received: 09/17/2022 1310 Obstetrics and Gynecology First Screen: Oh Squires Rescreen: So Yang Specimen: ThinPrep Pap Test, Liquid-Based Cervical/Vaginal 10/04/2022 10:27 AM EDT [facility] Interpretation NEGATIVE FOR INTRAEPITHELIAL LESION OR MALIGNANCY 10/04/2022 10:27 AM EDT [facility] at 1026 EDT Other Findings Shift in reji suggestive of bacterial vaginosis. 10/04/2022 10:27 AM EDT [facility] Specimen Adequacy Satisfactory for evaluation; endocervical/chin sformation zone component present. Slide imaged by the ThinPrep Imaging system and selected 22 arango reviewed then full manual screening. 10/04/2022 10:27 AM EDT [facility] Cervical cytology is a screening test [...] results is suggested (please call Microbiology at [phone] for results). 10/04/2022 10:27 AM EDT [facility] Menstrual Status Cyclic 10/05/19 10:27 AM EDT [facility] History of Hysterectomy Not Applicable 10/04/2022 10:27 AM EDT [facility] Contraceptive History Not Applicable 10/04/2022 10:27 AM EDT [facility] Screening Type Previous or Suspected Abnormality 10/04/2022 10:27 AM EDT [facility] HPV Testing Requested? Request HPV Testing Regardless of Pap Test Findings 10/04/2022 10:27 AM EDT [facility] Infection History Human Papillomavirus 10/04/2022 10:27 AM EDT [facility] Previous Cancer History No 10/04/2022 10:27 AM EDT [facility] Previous or Suspected Abnormality Previous Abnormal Pap 10/04/2022 10:27 AM EDT [facility] Clinical Information Z01.419 - Well woman exam [ICD-10-CM] N87.0 - Mild dysplasia of cervix (THOR I) [ICD-10-CM] 10/04/2022 10:27 AM EDT [facility] Last Menstrual Period 09/02/2022 10/04/2022 10:27 AM EDT [facility] Swab Vaginal and cervical cytologic material / Unknown Non-blood Collection / Unknown 09/17/2022 9:47 AM EDT 09/17/2022 1:10 PM EDT us Karma Gottlieb Graham CARPENTRY FOREMAN LAB CYTOLOGY ORDERABLES Final Result [facility] [address] [place] [address] from Last 3 Months or Most Recently Relevant to Health Maintenance Insurance Care Teams Director Microbiology Relationship Specialty Start Date End Date Mee Matt MD [address] [facility] [address] [place] [address] PCP - General 08/15/20
--- OUTSIDE RECORDS SUMMARY | 2024-11-14 11:04 | XMS_ITS | Encounter Summary ---
Author Organization [facility] Address [address] [place] [address] Care Team Providers Care Surveillance Director Name Role Phone Elisa Valdes DO Primary Care Provider [phone]- [phone] Encounter Details Date Type Department Care Team (Late st Contact Info) Description 11/08/2024 Medication Therapy Management [facility] MATERNAL MEDICINE [address] [facility] [address] [place] [address] Abiola Awad MD [address] [facility] [address] [place] [address] Social History Tobacco Use Types Packs/Day Years [...] on filedocumented in this encounter Care Teams Surveillance Director Relationship Specialty Start Date End Date Elisa Valdes DO [address] [place] [address] PCP - General Family Medicine 01/09/21 documented as of this encounter
--- OUTSIDE RECORDS SUMMARY | 2024-11-14 11:04 | XMS_ITS | Patient Health Record ---
Author Organization [facility] Address [address] [place] [address] Care Team Providers Care Printing Table Hand Name Role Phone Mee García Unavailable [phone] Reason For Referral No Information Social History [...] No Encounters Encounter Location Date Provider Diagnosis [facility] [address] [place] [address] 05/04/2024 Mee García Early stage of Z34.90 [...] Insured Coverage Start Date Coverage End Date [facility] [address] [place], [place] [id number] Sena Robles Self - patient is the insured
== END 2024-11-13 23:59 | disposition home or self-care (01) ==
LOC: LAB.DROPOF 11-14 10:57
PROVIDERS: PCP Obstetrics & Gynecology; Visit Provider Obstetrics & Gynecology
DX: O24.419 Gestational diabetes mellitus in pregnancy, unspecified control (principal); O99.210 Obesity complicating pregnancy, unspecified trimester; E66.9 Obesity, unspecified; Z3A.00 Weeks of gestation of pregnancy not specified
CPT/HCPCS: 86403

== ENCOUNTER 2024-11-16 10:44 | Outpatient (CLI) | payer OTHER, SELFPAY ==
--- OUTSIDE RECORDS SUMMARY | 2024-05-17 10:11 | XMS_ITS | Encounter Summary ---
Author Organization [facility] Address [address] [place] [address] Care Team Providers Care Lineworker Name Role Phone Elisa Valdes DO Primary Care Provider +1- [phone] Reason for Referral * Diagnostic Imaging (Routine) - Closed Specialty Diagnoses / Procedures Referred By Contac t Referred To Contact Radiology Diagnoses Encounter to determine viability of , single or unspecified fetus Procedures US Ob Transvaginal Napoleon Mcginnis MD [address] [place] [address] Phone: tel: fax: [facility] Phone: tel: Referral ID Status Reason Start Date Expiration Date Visits Re quested Visits Authorized [id number] Closed 05/10/2024 05/10/2025 1 1 Reason for Visit * Consultation (Routine) - Closed Specialty Diagnoses / Procedures Referred By Contact Referred To Contact Obstetrics and Gynecology Diagnoses Referring, [place] [address] [facility] O[facility]YN [address] [place] [address] Phone: tel: fax: Referral ID Status Reason Start Date Expiration Date Visits Re quested Visits Authorized [id number] Closed 04/25/2024 04/25/2025 1 1 Encounter Details Date Type Department Care Team (Latest Contact Info) Description 05/17/2024 9:11 AM EST Hospital Encounter [facility] [place] [phone] Encounter to determine viability of , single [...] EST PAT NAME: SENA BENOIT MED REC#: [id number] DA: [id number] PAT GEND: F PAT TYPE: O EXAM ANIRUDH: [id number] REF PHYS NAPOLEON MCGINNIS Indication ======== viability [...] in the menstrual and sonographic dating criteria Tar Heat Exchanger Cleaner: Ekaterina Gaston RDMS Physician: Napoleon Mcginnis MD Electronically signed by: Napoleon Mcginnis MD at: 14:08 Procedure Note Napoleon Mcginnis MD - 05/17/2024 PAT NAME: SENA BENOIT MED REC#: [id number] DA: 1995 PAT GEND: F PAT TYPE: O EXAM ANIRUDH: [id number] REF PHYS NAPOLEON MCGINNIS Indication ======== viability [...] GA10 w + 6 d Assigned VINICIUS:12/07/2024 [id number] d Assessment Gestational sac:visualized Location:intrauterine Yolk sac:visualized Embryo:visualized CRL39.0 mm 10w 6d 22% Hadlock Cardiac activity:present FRN486 bpm 93% Nicolaides Placenta:Too early to evaluate [...] discrepancy in the menstrual andsonographic dating criteria Tar Heat Exchanger Cleaner: Ekaterina Gaston RDMS Physician: Napoleon Mcginnis MD Electronically signed by: Napoleon Mcginnis MD at: 14:08 us Napoleon Mcginnis MD IMG US ORDERABLES Final Result documented in this encounter Visit Diagnoses Diagnosis Encounter to determine viability of , single or unspecified fetus documented in this encounter Care Teams Lineworker Relationship Specialty Start Date End Date Elisa Valdes DO [address] [place] [address] PCP - General Family Medicine 01/09/21 documented as of this encounter
--- OUTSIDE RECORDS SUMMARY | 2024-09-20 12:50 | XMS_ITS | Encounter Summary ---
Author Organization [facility] yste Address [address] [place] [address] Care Team Providers Care Turn Operator Name Role Phone KeishaElisa DO Primary Care Provider [phone] Encounter Details Date Type Department Care Team (Late st Contact Info) Description 09/20/2024 12:50 PM EDT - 09/20/2024 11:59 PM EDT Hospital Encounter [facility] DIABETES ED [address] [place] [phone] Tye Leung MD [address] [place] [address] Discharge Disposition: Home or Self Care Social [...] for assessment and notes if you use [employer]. If you are not an [employer] user a copy of patient's assessment and notes will be sent per routine. Thank you. documented in this encounter Plan of Treatment Not on file documented as of this encounter Visit Diagnoses Not on filedocumented in this encounter Care Teams Turn Operator Relationship Specialty Start Date End Date Elisa [place] [address] PCP - General Family Medicine 01/09/21 documented as of this encounter
--- OUTSIDE RECORDS SUMMARY | 2024-09-27 13:48 | XMS_ITS | Encounter Summary ---
[facility] Address [address] [place] [address] Care Team Providers Care Financial Services Technician Name Role Phone Elisa Valdes DO Primary Care Provider [phone] Reason for Referral * Diagnostic Imaging (Routine) - Closed Specialty Diagnoses / Procedures Referred By Contac t Referred To Contact Radiology Diagnoses Gestational diabetes mellitus (GDM) in third trimester, gestational diabetes method of control unspecified Obesity in , antepartum Procedures [facility] [place] Gabriella Daniels DO [address] [place] [address] Phone: tel: fax: [facility] US PER DIAG CTR [address] [place] [address] Phone: tel: Referral ID Status Reason Start Date Expiration Date Visits Re quested Visits Authorized [id number] Closed 09/12/2024 12/12/2025 1 1 Reason for Visit * Diagnostic Imaging (Routine) - Closed Specialty Diagnoses / Procedures Referred By Contac t Referred To Contact Radiology Diagnoses Gestational diabetes mellitus (GDM) in third trimester, gestational diabetes method of control unspecified Obesity in , antepartum Procedures [facility] [place] Gabriella Daniels DO [address] [place] [address] Phone: tel: fax: [facility] US PER DIAG [facility] [address] [place] [address] Phone: tel: Referral ID Status Reason Start Date Expiration Date Visits Re quested Visits Authorized [id number] Closed 09/12/2024 12/12/2025 1 1 Encounter Details Date Type Department Care Team (Latest Contact Info) Description 09/27/2024 1:48 PM EDT - 09/27/2024 11:59 PM EDT Hospital Encounter [facility] [address] [place] [address] Gabriella Daniels DO [address] [facility] [address] [place] [address] Gestational diabetes mellitus (GDM) in third trimester, [...] Name Priority Date/Time Associated Diagnosis Comments [facility] Routine 09/27/2024 2:43 PM EDT Gestational diabetes mellitus (GDM) in third trimester, gestational diabetes method of control unspecified Obesity in , antepartum documented in this encounter Results * [facility] (09/27/2024 2:43 PM EDT) Anatomical Region Laterality Modality Ultrasound 09/27/2024 2:12 PM EDT Narrative 09/27/2024 2:55 PM EDT PAT NAME: SENA BENOIT [facility] REC#: [id number] DA: [id number] PAT GEND: F PAT TYPE: O EXAM ANIRUDH: [id number] REF PHYS GABRIELLA DANIELS Comparison Studies There [...] EFW (oz) 3 oz EFW by: Hadlock (ZPN-JX-XM-FL) Extended Tibia 49.5 mm 29w 5d 46% Rut Fibula 46.7 mm 28w 6d 29% Rut Foot 58.1 mm 29% Chitty Radius 43.7 mm 30w 5d 58% Rut Ulna 46.1 mm 29w 3d 23% Rut Cav. septi pel. tr 8.4 mm Damage Inside Adjuster 8.0 mm CM 8.7 mm 90% Nicolaides [...] normal IVC: normal 3-vessel view: Appears normal 3-ctkdsk-qlgfzal view: Appears normal Cardiac axis: Normal Rt [...] view: Appears normal 3-vessel view: Appears normal 7-feoaex-pywoccp view: Appears normal Aortic arch view: Appears [...] 4 week follow up Coding ====== Description: 14701-09 Detailed Ultrasound Description: 55858-97 Echo 2D, heart - initial Description: 08282-18 Doppler echo color flow Washer Hand: Lisset Hyatt RDMS Physician: Tye Leung MD, FACOG Electronically signed by: Tye Leung MD, FACOG at: 15:38 Procedure Note Tye Leung MD - 09/27/2024 PAT NAME: SENA BENOIT MED REC#: [id number] DA: [id number] PAT GEND: F PAT TYPE: O EXAM ANIRUDH: [id number] REF PHYS GABRIELLA DANIELS Comparison Studies There are no relevant prior studies to which this study is beingcompared Patient Status Outpatient Indication ======== GDM diagnosed at 18 weeks, Obesity History ====== General History Gfxrje756 cm Height (ft)5 ft Height (in)8 in Previous Outcomes Gravida1 Maternal Assessment Ctlcvi495 cm Height (ft)5 ft Height (in)8 in Ygxltq674 kg Weight (lb)240 lb BMI36.84 kg/m Method ======= Transabdominal ultrasound examination. View: Adequate view ========= Almodovar . Number of fetuses: 1 Dating ====== LMP on:03/13/2024 GA by [id number] w + 2 d VINICIUS by LMP:12/18/2024 GA by prior zshwohgrzp23 w + 6 d VINICIUS by prior [...] Hadlock Femur54.3 mm 28w 5d 10% Hadlock Bnrpeev62.9 mm 30w 6d 76% Rut HC / AC1.08 EFW1,439 g 29w 2d 32% Hadlock EFW (lb)3 lb EFW (oz)3 oz EFW by:Hadlock (SDT-MC-JF-FL) Extended Tibia49.5 mm 29w 5d 46% Rut Kizkrg38.7 mm 28w 6d 29% Rut Foot58.1 mm 29% Chitty Fbxjlk07.7 mm 30w 5d 58% Rut Ulna46.1 mm 29w 3d 23% Rut Cav. septi pel. tr8.4 mm Vp8.0 mm CM8.7 mm 90% Nicolaides Nasal bone8.7 mm Head / Face / Neck Cephalic index0.82 79% Nicolaides Thorax / Lungs Thoracic bexk087.3 mm 10% [place] Thoracic area30.2 cm ThC / AC0.76 Heart / Great Vessels Cardiac axis52 Cardiac wwsg128.6 mm Cardiac area10.3 cm CC / ThC0.59 [...] / HC0.19 FL / AC0.21 Other Structures PRT560 bpm General Evaluation Cardiac activity present. FHR [...] view:Appears normal SVC:normal IVC:normal 3-vessel view:Appears normal 2-jrwzqz-xafvpga view:Appears normal Cardiac axis:Normal Rt lung:Appears normal [...] normal RVOT view:Appears normal 3-vessel view:Appears normal 9-sqqatj-pultvoj view:Appears normal Aortic arch view:Appears normal Ductal [...] pulmonary artery B and M-Mode Measurements Thoracic bhlq903.3 mm 10% [place] Thoracic area30.2 cm ThC / AC0.76 Cardiac axis52 Cardiac sjnq858.6 mm Cardiac area10.3 cm CC / ThC0.59 [...] Recommendation 4 week follow up Coding ====== Description:85606-91 Detailed Ultrasound Description:24989-51 Echo 2D, heart - initial Description:80990-86 Doppler echo color flow Washer Hand: Lisset Hyatt RDMS Physician: Tye Leung MD, [...] complication documented in this encounter Care Teams Financial Services Technician Relationship Specialty Start Date End Date Elisa Valdes DO [address] [place] [address] PCP - General Family Medicine 01/09/21 documented as of this encounter
--- OUTSIDE RECORDS SUMMARY | 2024-09-27 14:00 | XMS_ITS | Encounter Summary ---
Author Organization [facility] Address [address] [place] [address] Care Team Providers Care Financial Sales Professional Name Role Phone Elisa Valdes DO Primary Care Provider +1- [phone] Reason for Referral * Diagnostic Imaging (Routine) - Closed Specialty Diagnoses / Procedures Referred By Contac t Referred To Contact Radiology Diagnoses Insulin controlled gestational diabetes mellitus (GDM) in third trimester Procedures [facility] Rodney Leung MD [address] [facility] [address] [place] [address] Phone: tel: fax: [facility] US PER DIAG CTR [address] [place] [address] Phone: tel: Referral ID Status Reason Start Date Expiration Date Visits Re quested Visits Authorized [id number] Closed 09/27/2024 12/27/2025 1 1 Reason for Visit * Reason Comments GDM; obesity Encounter Details Date Type Department Care Team (Late st Contact Info) Description 09/27/2024 2:00 PM EDT Office Visit [facility] MATERNAL MEDICINE [address] [facility] [address] [place] [address] Rodney Leung MD [address] [facility] [address] [place] [address] Insulin controlled gestational diabetes mellitus [...] NPH at night previously prescribed by primary DRYWALL INSTALLER. Will continue NPH at this time though [...] NPH at night previously prescribed by primary DRYWALL INSTALLER. Will continue NPH at this time though [...] [facility]. Rodney Leung MD, FACOG Maternal Medicine, [facility] documented in this encounter Plan of Treatment Not on file documented as of this encounter Results * [facility] (10/26/2024 8:24 AM EDT) Anatomical Region Laterality Modality Ultrasound 10/26/2024 8:09 AM EDT Narrative 10/26/2024 8:36 AM EDT PAT NAME: SENA BENOIT MED REC#: [id number] DA: [id number] PAT GEND: F PAT TYPE: O EXAM ANIRUDH: [id number] REF PHYS GABRIELLA DANIELS Comparison Studies The [...] EFW (oz) 2 oz EFW by: Hadlock (GGL-BW-EZ-FL) Extended Cav. septi pel. tr 5.6 mm [...] delivery. Twice weekly testing. Coding ======= Description: 96129-58 Follow Up Ultrasound Description: 87181-61 BPP without NST Booker: Arin Pryor RDMS Physician: Rodney Leung MD, FACOG Electronically signed by: Rodney Leung MD, FACOG at: 08:36 Procedure Note Rodney Leung MD - 10/26/2024 PAT NAME: ESNA BENOIT MED REC#: [id number] DA: 1995 PAT GEND: F PAT TYPE: O EXAM ANIRUDH: [id number] REF PHYS GABRIELLA DANIELS Comparison Studies The findings of this study are compared to the prior ultrasound studydated 09/27/24 Patient Status Outpatient Indication ======== Gestational diabetes. Obesity BMI 36. Maternal Assessment Mdmdjf670 cm Height (ft)5 ft Height (in)8 in Demloq584 kg Weight (lb)239 lb BMI36.64 kg/m Method ======= Transabdominal ultrasound examination. View: Adequate view ========= Almodovar . Number of fetuses: 1 Dating ====== LMP on:03/13/2024 GA by LMP32 w + 3 d VINICIUS by LMP:12/18/2024 Method of dating:based on stated VINICIUS GA by prior [id number] w + 0 d VINICIUS by prior assessment:12/07/2024 Ultrasound examination on:10/26/2024 GA by U/S based upon:AC, BPD, Femur, HC GA by U/S34 w + 4 d VINICIUS by U/S:12/03/2024 Previous dating:based on ultrasound (CRL), selected on 05/17/2024 Agreed VINICIUS of previous datin12/07/2024 Assigned:based on stated VINICISU, selected on 10/26/2024 Assigned GA34 w + 0 d Assigned VINICIUS:12/07/2024 dgrbju113 d Biometry Standard BPD85.5 mm 34w 3d 61% Hadlock MSI111.8 mm 38w 3d 98% Rut HC321.9 mm 36w 2d 74% Hadlock Cerebellum tr46.0 mm 35w 0d 50% Hill AC291.8 mm 33w 1d 29% Hadlock Femur66.9 mm 34w 3d 52% Hadlock Hsahowi16.5 mm 34w 4d 73% Rut HC / AC1.10 EFW2,320 g 33w 5d 43% Hadlock EFW (lb)5 lb EFW (oz)2 oz EFW by:Hadlock (SMI-EE-KD-FL) Extended Cav. septi pel. tr5.6 mm CM8.9 mm 85% Nicolaides Head / Face / Neck Cephalic index0.76 9% Nicolaides Extremities / Bony Struc FL / BPD0.78 FL / HC0.21 FL / AC0.23 Other Structures OLO506 bpm General Evaluation Cardiac activity present. FHR [...] week delivery. Twice weekly testing. Coding ======= Description:64472-07 Follow Up Ultrasound Description:19163-37 BPP without NST Booker: Arin Pryor RDMS Physician: Rodney Leung MD, FACOG Electronically signed by: Rodney Leung MD, FACOG at: 08:36 us Rodney Leung MD IMG US ORDERABLES Final Result documented in this encounter Visit Diagnoses Diagnosis Insulin controlled gestational diabetes mellitus (GDM) in third trimester- Primary Insulin controlled gestational diabetes mellitus (GDM) in third trimester documented in this encounter Care Teams Financial Sales Professional Relationship Specialty Start Date End Date Elisa Valdes DO [address] [place] [address] PCP - General Family Medicine 01/09/21 documented as of this encounter
--- OUTSIDE RECORDS SUMMARY | 2024-10-01 11:30 | XMS_ITS | Encounter Summary ---
[facility] Address [address] [place] [address] Care Team Providers Care Stitching Department Supervisor Name Role Phone Elisa Valdes DO Primary Care Provider [phone]- [phone] Encounter Details Date Type Department Care Team (Latest Contact Info) Description 10/01/2024 11:30 AM EDT - 10/01/2024 11:59 PM EDT Hospital Encounter [facility] ED [address] [facility] [facility] [place] [id number] Discharge Disposition: Home or Self Care Social [...] on filedocumented in this encounter Care Teams Stitching Department Supervisor Relationship Specialty Start Date End Date Elisa Valdes DO [address] [place] [address] PCP - General Family Medicine 01/09/21 documented as of this encounter
--- OUTSIDE RECORDS SUMMARY | 2024-10-26 08:00 | XMS_ITS | Encounter Summary ---
Author Organization [facility] Address [address] [place] [address] Care Team Providers Care Chief Nurse Name Role Phone Keisha Elisa Linette MONGE Primary Care Provider +1- [phone] Reason for Visit * Reason Comments GDM; obesity; pre-diabetes prior to preg yi Encounter Details Date Type Department Care Team (Late st Contact Info) Description 10/26/2024 8:00 AM EDT Office Visit [facility] MATERNAL MEDICINE [address] [place] [phone] Tye Leung MD [address] [facility] [address] [place] [address] Insulin controlled gestational diabetes mellitus (GDM) in [...] CVS. Tye Leung MD, FACOG Maternal Medicine, [facility] Diagnostic [place] documented in this encounter Plan of Treatment Not on file documented as of this encounter Visit Diagnoses Diagnosis Insulin controlled gestational diabetes mellitus (GDM) in third trimester- Primary documented in this encounter Care Teams Chief Nurse Relationship Specialty Start Date End Date Elisa Valdes DO [address] [place] [address] PCP - General Family Medicine 01/09/21 documented as of this encounter
--- OUTSIDE RECORDS SUMMARY | 2024-10-26 08:00 | XMS_ITS | Encounter Summary ---
Author Organization [facility] Address [address] [place] [address] Care Team Providers Care Senior Online Marketing Manager Name Role Phone Elisa Valdes DO Primary Care Provider +1- [phone] Reason for Referral * Diagnostic Imaging (Routine) - Closed Specialty Diagnoses / Procedures Referred By Contac t Referred To Contact Radiology Diagnoses Insulin controlled gestational diabetes mellitus (GDM) in third trimester Procedures [facility] Diagnostic [place] Tye Leung MD [address] [place] [address] Phone: tel: fax: [facility] US PER DIAG CTR [address] [place] [address] Phone: tel: Referral ID Status Reason Start Date Expiration Date Visits Re quested Visits Authorized [id number] Closed 09/27/2024 12/27/2025 1 1 Reason for Visit * Diagnostic Imaging (Routine) - Closed Specialty Diagnoses / Procedures Referred By Contac t Referred To Contact Radiology Diagnoses Insulin controlled gestational diabetes mellitus (GDM) in third trimester Procedures [facility] Diagnostic [place] Tye Leung MD [address] [place] [address] Phone: tel: fax: [facility] US PER DIAG CTR [address] [place] [address] Phone: tel: Referral ID Status Reason Start Date Expiration Date Visits Re quested Visits Authorized [id number] Closed 09/27/2024 12/27/2025 1 1 Encounter Details Date Type Department Care Team (Late st Contact Info) Description 10/26/2024 8:00 AM EDT - 10/26/2024 11:59 PM EDT Hospital Encounter [facility] PER DI[facility] CTR [address] [place] [id number] Tye Leung MD [address] [place] [address] Insulin controlled gestational diabetes mellitus (GDM) in [...] Procedure Name Priority Date/Time Associated Diagnosis Comments [facility] Routine 10/26/2024 8:24 AM EDT Insulin controlled gestational diabetes mellitus (GDM) in third trimester documented in this encounter Results * [facility] (10/26/2024 8:24 AM EDT) Anatomical Region Laterality Modality Ultrasound 10/26/2024 8:09 AM EDT Narrative 10/26/2024 8:36 AM EDT PAT NAME: SENA BENOIT [facility] REC#: [id number] DA: [id number] PAT GEND: F PAT TYPE: O EXAM ANIRUDH: [id number] REF PHYS KAROLINA ORTIZ Comparison Studies The [...] EFW (oz) 2 oz EFW by: Hadlock ([id number]-[id number]-FL) Extended Cav. septi pel. tr 5.6 mm [...] delivery. Twice weekly testing. Coding ======= Description: 60039-30 Follow Up Ultrasound Description: 18092-83 BPP without NST Employment Programs Analyst: Arin Pryor RDMS Physician: Tye Leung MD, FACOG Electronically signed by: Tye Leung MD, FACOG at: 08:36 Procedure Note Tye Leung MD - 10/26/2024 PAT NAME: SENA BENOIT MED REC#: [id number] DA: [id number] PAT GEND: F PAT TYPE: O EXAM ANIRUDH: [id number] REF PHYS KAROLINA ORTIZ Comparison Studies The findings of this study are compared to the prior ultrasound studydated 09/27/24 Patient Status Outpatient Indication ======== Gestational diabetes. Obesity BMI 36. Maternal Assessment Soiiif107 cm Height (ft)5 ft Height (in)8 in Rynpkc005 kg Weight (lb)239 lb BMI36.64 kg/m Method ======= Transabdominal ultrasound examination. View: Adequate view ========= Almodovar . Number of fetuses: 1 Dating ====== LMP on:03/13/2024 GA by [email or web address] w + 3 d VINICIUS by LMP:12/18/2024 Method of dating:based on stated VINICIUS GA by prior [id number] w + 0 d VINICIUS by prior assessment:12/07/2024 Ultrasound examination on:10/26/2024 GA by U/S based upon:AC, BPD, Femur, HC GA by U/S34 w + 4 d VINICIUS by U/S:12/03/2024 Previous dating:based on ultrasound (CRL), selected on 05/17/2024 Agreed VINICIUS of previous datin12/07/2024 Assigned:based on stated VINICIUS, selected on 10/26/2024 Assigned GA34 w + 0 d Assigned VINICIUS:12/07/2024 [id number] d Biometry Standard BPD85.5 mm 34w 3d 61% Hadlock RMA064.8 mm 38w 3d 98% Rut HC321.9 mm 36w 2d 74% Hadlock Cerebellum tr46.0 mm 35w 0d 50% Hill AC291.8 mm 33w 1d 29% Hadlock Femur66.9 mm 34w 3d 52% Hadlock Wwpszqf81.5 mm 34w 4d 73% Rut HC / AC1.10 EFW2,320 g 33w 5d 43% Hadlock EFW (lb)5 lb EFW (oz)2 oz EFW by:Hadlock ([id number]-KO-[id number]-FL) Extended Cav. septi pel. tr5.6 mm CM8.9 mm 85% Nicolaides Head / Face / Neck Cephalic index0.76 9% Nicolaides Extremities / Bony Struc FL / BPD0.78 FL / HC0.21 FL / AC0.23 Other Structures HCC757 bpm General Evaluation Cardiac activity present. FHR [...] week delivery. Twice weekly testing. Coding ======= Description:77227-80 Follow Up Ultrasound Description:84760-44 BPP without NST Employment Programs Analyst: Arin Pryor RDMS Physician: Tye Leung MD, FACOG Electronically signed by: Tye Leung MD, FACOG at: 08:36 us Tye Leung MD IMG ORDERABLES Final Result documented in this encounter Visit Diagnoses Diagnosis Insulin controlled gestational diabetes mellitus (GDM) in third trimester documented in this encounter Care Teams Senior Online Marketing Manager Relationship Specialty Start Date End Date Elisa Valdes DO [address] [place] [address] PCP - General Family Medicine 01/09/21 documented as of this encounter
--- NOTE | 2024-11-16 10:45 | US_ITS ---
PROCEDURE: US OB BIOPHYSICAL PROFILE CLINICAL INDICATION: GDM, Class A2 COMPARISON: US US OB >= 14 WEEKS FETUS from 07/19/2024 US US OB FOLLOW UP from 09/14/2024 US OB FOLLOW UP from 10/12/2024 US OB BIOPHYSICAL PROFILE from 10/19/2024 US OB BIOPHYSICAL PROFILE from 11/02/2024 US OB BIOPHYSICAL PROFILE from 11/09/2024 FINDINGS: Transabdominal sonographic images of the uterus were obtained. From her established due date she is 37weeks 0 days. The following parameters are obtained: Viable Fetus in the cephalic presentation with an anterior placenta grade 2. Cervix measures 2.83 cm Measurements: heart Rate = 132bpm Amniotic fluid index: 7.75cm, MVP 2.37 cm. There is only one pocket of fluid measuring 2.17cm deep x 4.24 cm wide. Qualitative AFV:2 Breathing movements: 2 Gross Body Movements: 2 Tone: 2 Biophysical profile score: 8 No obvious anomalies evident.Kidneys, bladder, stomach, four-chamber heart, three-vessel cord appear normal. IMPRESSION: 1. Viable fetus in the cephalic presentation with an anterior placenta grade 2. 2. The fluid is within normal limits with an knee on exude index 7.75 cm, MVP 2.37 cm. There is a single pocket of fluid measuring 2.17 cm deep and 4.24 cm wide. Close observation of the amniotic fluid is warranted. 3. Biophysical profile is 8/8 with good breathing movement and movement seen. 4. Limited anatomical scan appears normal. Dictated by: Crispin Marks MD 11/16/2024 18:41 Crispin Marks MD in OV 11/16/2024 18:41
--- OUTSIDE RECORDS SUMMARY | 2024-11-16 10:47 | XMS_ITS | Encounter Summary ---
Author Organization [facility] Address [address] [place] [address] Care Team Providers Care Edge Polisher Name Role Phone KeishaElisa inman Linette MONGE Primary Care Provider +1- [phone] Encounter Details Date Type Department Care Team (Late st Contact Info) Description 09/27/2024 Documentation [facility] MATERNAL MEDICINE [address] [facility] [address] [place] [address] Alanna Walker, RN Social History [...] to accept our clinic to share through [facility]. Instructed patient to keep log until we [...] on filedocumented in this encounter Care Teams Edge Polisher Relationship Specialty Start Date End Date Elisa Valdes DO [address] [place] [address] PCP - General Family Medicine 01/09/21 documented as of this encounter
--- OUTSIDE RECORDS SUMMARY | 2024-11-16 10:47 | XMS_ITS | Encounter Summary ---
Author Organization [facility] Address [address] [place] [address] Care Team Providers Care I&C Technician Name Role Phone Keisha Elisa Linette MONGE Primary Care Provider [phone]- [phone] Reason for Visit * Reason Onset Date Comments Advice Only 10/12/2024 Encounter Details Date Type Department Care Team (Late st Contact Info) Description 10/12/2024 Telephone [facility] MATERNAL MEDICINE [address] [facility] [address] [place] [phone] Mell Silvestre, loan clerk Only Social History Tobacco Use Types Packs/Day [...] on filedocumented in this encounter Care Teams I&C Technician Relationship Specialty Start Date End Date Elisa Valdes DO [address] [place] [address] PCP - General Family Medicine 01/09/21 documented as of this encounter
--- OUTSIDE RECORDS SUMMARY | 2024-11-16 10:47 | XMS_ITS | Encounter Summary ---
Author Organization [facility] Address [address] [place] [address] Care Team Providers Care Drop Wire Stringer Name Role Phone Elisa Valdes DO Primary Care Provider +1- [phone] Encounter Details Date Type Department Care Team [...] on filedocumented in this encounter Care Teams Drop Wire Stringer Relationship Specialty Start Date End Date Elisa Val[place] [address] PCP - General Family Medicine 01/09/21 documented as of this encounter
--- OUTSIDE RECORDS SUMMARY | 2024-11-16 10:47 | XMS_ITS | Encounter Summary ---
Author Organization [facility] Address [address] [place] [address] Care Team Providers Care Audit Officer Name Role Phone Elisa Valdes DO Primary Care Provider [phone]- [phone] Encounter Details Date Type Department Care Team [...] on filedocumented in this encounter Care Teams Audit Officer Relationship Specialty Start Date End Date Elisa [place] [address] PCP - General Family Medicine 01/09/21 documented as of this encounter
--- OUTSIDE RECORDS SUMMARY | 2024-11-16 10:47 | XMS_ITS | Encounter Summary ---
Author Organization [facility] Address [address] [place] [address] Care Team Providers Care Carbon Capture Power Plant Manager Name Role Phone Keisha Elisa Linette MONGE Primary Care Provider +1- [phone] Encounter Details Date Type Department Care Team (Late st Contact Info) Description 09/26/2024 Telephone [facility] MATERNAL MEDICINE 1700 [facility] [address] [place] [address] Mell Silvestre, RN Social History [...] RN - 09/26/2024 11:27 AM EDT Called [facility] OB and left voicemail requesting NIPT results if done. Fax number given in voicemail. documented in this encounter Plan of Treatment Not on file documented as of this encounter Visit Diagnoses Not on filedocumented in this encounter Care Teams Carbon Capture Power Plant Manager Relationship Specialty Start Date End Date Elisa Valdes DO [address] [facility] [address] PCP - General Family Medicine 01/09/21 documented as of this encounter
--- OUTSIDE RECORDS SUMMARY | 2024-11-16 10:47 | XMS_ITS | Clinical Summary ---
Author Organization [facility] Address [address] [place] [address] Care Team Providers Care Sample Washer Name Role Phone Keisha Elisa Linette MONGE [...] NPH at night previously prescribed by primary DENTAL FRONT OFFICE ASSISTANT. Will continue NPH at this time though [...] Care Team Description 11/08/2024 Medication Therapy Management [facility] MATERNAL MEDICINE [address] [address] Abiola Awad MD 10/26/2024 8:00 AM EDT - 10/26/2024 11:59 PM EDT Hospital Encounter [facility] US PER DIAG CTR [address] [place] [address] Tye Leung MD Insulin controlled gestational diabetes mellitus (GDM) in third trimester Discharge Disposition: Home or Self Care 10/26/2024 8:00 AM EDT Office Visit [facility] MATERNAL MEDICINE [address] [place] [address] Tye Leung MD Insulin controlled gestational diabetes mellitus (GDM) in third trimester (Primary Dx) 10/26/2024 Travel 10/25/2024 Medication Therapy Management [facility] MATERNAL MEDICINE [address] [facility] [address] [place] [address] Abiola Awad MD 10/12/2024 Telephone [facility] MATERNAL MEDICINE [address] [facility] [address] [place] [address] Mell Silvestre, confectionery laboratory manager Only 10/01/2024 11:30 AM EDT - 10/01/2024 11:59 PM EDT Hospital Encounter [facility] DIABETES ED [address] [facility] [address] [place] [phone] Discharge Disposition: Home or Self Care 10/01/2024 Telephone [facility] MATERNAL MEDICINE [address] [facility] [address] [place] [phone] Georgia Booth RN Med Management 10/01/2024 Travel 09/27/2024 2:00 PM EDT Office Visit [facility] MATERNAL MEDICINE [address] [facility] [address] [place] [phone] Tye Leung MD Insulin controlled gestational diabetes mellitus (GDM) in third trimester (Primary Dx) 09/27/2024 1:48 PM EDT - 09/27/2024 11:59 PM EDT Hospital Encounter [facility] US PER DIAG CTR [address] [place] [phone] aGbriella Daniels DO Gestational diabetes mellitus (GDM) in third trimester, gestational diabetes method of control unspecified; Obesity in , antepartum Discharge Disposition: Home or Self Care 09/27/2024 Documentation [facility] MATERNAL MEDICINE [address] [facility] [address] [place] [address] Alanna Walker RN 09/27/2024 Travel 09/26/2024 Telephone [facility] MATERNAL MEDICINE [address] [facility] [address] [place] [address] Mell Silvestre, JORDIN 09/20/2024 12:50 PM EDT - 09/20/2024 11:59 PM EDT Hospital Encounter [facility] DIABETES ED [address] [facility] [address] [place] [address] Leung, Tye Greer MD Discharge [...] - IMAGING 11/09/2024 SCANNED - IMAGING 11/02/2024 [facility] Routine 10/26/2024 8:24 AM EDT Insulin controlled gestational diabetes mellitus (GDM) in third trimester SCANNED - IMAGING 10/12/2024 [facility] Routine 09/27/2024 2:43 PM EDT [...] DIAGNOSTIC IMAGING ORDE RABEMMA Final Result * [facility] (10/26/2024 8:24 AM EDT) Only the most recent of2 resultswithin the time period is included. Anatomical Region Laterality Modality Ultrasound 10/26/2024 8:09 AM EDT Narrative 10/26/2024 8:36 AM EDT PAT NAME: SENA BENOIT MED REC#: [id number] DA: [id number] PAT GEND: F PAT TYPE: O EXAM ANIRUDH: [id number] REF PHYS GABRIELLA DANIELS Comparison Studies The [...] EFW (oz) 2 oz EFW by: Hadlock ([id number]) Extended Cav. septi pel. tr 5.6 mm [...] delivery. Twice weekly testing. Coding ======= Description: 73693-70 Follow Up Ultrasound Description: 70937-49 BPP without NST Hobbing Machine Operator: Arin Pryor RDMS Physician: Tye Leung MD, FACOG Electronically signed by: Tye Leung MD, FACOG at: 08:36 Procedure Note Tye Leung MD - 10/26/2024 PAT NAME: SENA BENOIT MED REC#: [id number] DA: [id number] PAT GEND: F PAT TYPE: O EXAM ANIRUDH: [id number] REF PHYS GABRIELLA DANIELS Comparison Studies The findings of this study are compared to the prior ultrasound studydated 09/27/24 Patient Status Outpatient Indication ======== Gestational diabetes. Obesity BMI 36. Maternal Assessment Pdxgce435 cm Height (ft)5 ft Height (in)8 in Mzmknd318 kg Weight (lb)239 lb BMI36.64 kg/m Method ======= Transabdominal ultrasound examination. View: Adequate view ========= Almodovar . Number of fetuses: 1 Dating ====== LMP on:03/13/2024 GA by [id number] w + 3 d VINICIUS by LMP:12/18/2024 Method of dating:based on stated VINICIUS GA by prior [id number] w + 0 d VINICIUS by prior [...] Standard BPD85.5 mm 34w 3d 61% Hadlock PDC756.8 mm 38w 3d 98% Rut HC321.9 mm 36w 2d 74% Hadlock Cerebellum tr46.0 mm 35w 0d 50% Hill AC291.8 mm 33w 1d 29% Hadlock Femur66.9 mm 34w 3d 52% Hadlock Hqlvteg22.5 mm 34w 4d 73% Rut HC / AC1.10 EFW2,320 g 33w 5d 43% Hadlock EFW (lb)5 lb EFW (oz)2 oz EFW by:Hadlock ([id number]) Extended Cav. septi pel. tr5.6 mm CM8.9 mm 85% Nicolaides Head / Face / Neck Cephalic index0.76 9% Nicolaides Extremities / Bony Struc FL / BPD0.78 FL / HC0.21 FL / AC0.23 Other Structures LQO609 bpm General Evaluation Cardiac activity present. FHR [...] week delivery. Twice weekly testing. Coding ======= Description:82679-05 Follow Up Ultrasound Description:51452-41 BPP without NST Hobbing Machine Operator: Arin Pryor RDMS Physician: Tye Leung MD, FACOG Electronically signed by: Tye Leugn MD, FACOG at: 08:36 us Tye Leung MD [facility] US ORDERABLES Final Result * LABS SCANNED (09/14/2024) Only the most recent of3 resultswithin the time period is included. Elisa Valdes DO LAB BLOOD ORDERABLES Final Result * Hepatitis C Antibody (05/17/2024 11:41 AM EST) Hepatitis C Ab Non-Reacti ve Non-Reacti ve 05/17/2024 2:42 PM EST [facility] Blood Venipuncture / Unknown 05/17/2024 11:41 AM EST 05/17/2024 11:44 AM EST Melody Ordonez MD LAB BLOOD ORDERABLES Final Resul t Performing Organization Address City/[facility]/ZIP Co de Phone Number [facility]
[address] [place] [address], * OneSwab - Kit, Vagina (05/17/2024) Kit Vaginal structure / Unknown Melody Ordonez MD MICROBIOLOGY - GENERAL ORDERABLE S Final Result Performing Organization Address City/[facility]/ZIP Co de Phone Number [facility] [address] [place] [address] from Last 3 Months or Most Recently Relevant to Health Maintenance Insurance [facility] Care Teams Sample Washer Relationship Specialty Start Date End Date [place] [address] PCP - General Family Medicine 01/09/21
--- OUTSIDE RECORDS SUMMARY | 2024-11-16 10:47 | XMS_ITS | Encounter Summary ---
Author Organization [facility] Address [address] [place] [address] Care Team Providers Care Production Statistical Clerk Name Role Phone Elisa Valdes DO Primary Care Provider +1- [phone] Encounter Details Date Type Department Care Team (Late st Contact Info) Description 10/25/2024 Medication Therapy Management [facility] MATERNAL MEDICINE [address] [facility] [address] [place] [address] Abiola Awad MD 1700 [facility] [address] [place] [id number] Social History Tobacco Use Types Packs/Day Years [...] on filedocumented in this encounter Care Teams Production Statistical Clerk Relationship Specialty Start Date End Date Elisa Valdes DO [address] [place] [address] PCP - General Family Medicine 01/09/21 documented as of this encounter
--- OUTSIDE RECORDS SUMMARY | 2024-11-16 10:47 | XMS_ITS | Encounter Summary ---
Author Organization [facility] Address [address] [place] [address] Care Team Providers Care Metal Washing Machine Operator Name Role Phone Elisa Valdes DO Primary Care Provider +1- [phone] Encounter Details Date Type Department Care Team [...] on filedocumented in this encounter Care Teams Metal Washing Machine Operator Relationship Specialty Start Date End Date Elisa [place] [address] PCP - General Family Medicine 01/09/21 documented as of this encounter
--- OUTSIDE RECORDS SUMMARY | 2024-11-16 10:47 | XMS_ITS | Encounter Summary ---
Author Organization [facility] Address [address] [place] [address] Care Team Providers Care Telephone Plant Power Operator Name Role Phone Keisha Elisa Linette MONGE Primary Care Provider +1- [phone] Reason for Visit * Reason Onset Date Comments Med Management 10/01/2024 Encounter Details Date Type Department Care Team (Late st Contact Info) Description 10/01/2024 Telephone [facility] MATERNAL MEDICINE [address] [facility] [address] [place] [phone] Georgia Booth, RN Med Management Social History [...] on filedocumented in this encounter Care Teams Telephone Plant Power Operator Relationship Specialty Start Date End Date Elisa Valdes DO [address] [place] [address] PCP - General Family Medicine 01/09/21 documented as of this encounter
--- OUTSIDE RECORDS SUMMARY | 2024-11-16 10:48 | XMS_ITS | Encounter Summary ---
Author Organization [facility] Address [address] [address] Care Team Providers Care Customer Engineering Specialist Name Role Phone Elisa Valdes DO Primary Care Provider +1- [phone] Encounter Details Date Type Department Care Team [...] on filedocumented in this encounter Care Teams Customer Engineering Specialist Relationship Specialty Start Date End Date Elias [place] [address] PCP - General Family Medicine 01/09/21 documented as of this encounter
--- OUTSIDE RECORDS SUMMARY | 2024-11-16 10:50 | XMS_ITS | Patient Health Record ---
Author Organization [facility] Address [address] [place] [address] Care Team Providers Care Office Machine Embossograph Operator Name Role Phone Mee García Unavailable [phone] Reason For Referral No Information Social History [...] No Encounters Encounter Location Date Provider Diagnosis [facility] [address] [place] [address] 05/04/2024 Mee García Early stage of Z34.90 [...] Insured Coverage Start Date Coverage End Date [facility] [address] [place], [place] [id number] Sena Robles Self - patient is the insured
--- OUTSIDE RECORDS SUMMARY | 2024-11-16 10:50 | XMS_ITS | Clinical Summary ---
Author Organization Healthcare Address [address] [place] [address] Care Team Providers Care Bank Secrecy Act Officer Name Role Phone Mee Matt MD Primary Care Provider [phone] Allergies No known active allergies Medications * [...] Additional history exists [facility]-Depression Screening 09/18/2023 09/17/2022 [id number] Vaccine ( season) 2023 [facility]-Influenza Vaccine (#1) [...] Antibody/Antigen Screen (09/17/2022 10:22 AM EDT) Pathologist [facility] HIV 1 & 2 Antibody/Antigen Screen Non Reactive Non Reactive 09/17/2022 11:53 AM EDT [facility] Comment:Screening for HIV 1 & 2 antibodies, and P24 antigen is NONREACTIVE. No confirmatory testing is required. Blood Venous blood specimen / Unknown Venipuncture / Unknown 09/17/2022 10:22 AM EDT 09/17/2022 10:22 AM EDT Karma Stevenson APRN LAB BLOOD ORDERABLES Final Re sult Performing Organization Address [facility] Co de Phone Number [facility] [address] [place] [address] * Acute Hepatitis Panel (09/17/2022 10:22 AM EDT) [facility] Hepatitis B Surf Antigen Negative Negative 09/17/2022 2:38 PM EDT [facility] Hepatitis C Antibody Negative Negative 09/17/2022 2:38 PM EDT [facility] Hepatitis A Antibody IgM Negative Negative 09/17/2022 2:38 PM EDT [facility] Hepatitis B Core Antibody IgM Negative Negative 09/17/2022 2:38 PM EDT [facility] Blood Venous blood specimen / Unknown Venipuncture / Unknown 09/17/2022 10:22 AM EDT 09/17/2022 10:22 AM EDT Karma Stevenson APRN LAB BLOOD ORDERABLES Final Re sult Performing Organization Address [facility] Co de Phone Number [facility] [address] [place] [address] * Pap Test (09/17/2022 9:47 AM EDT) [facility] Case Report Cytology Case: [id number] Authorizing Provider: Karma Stevenson APRN Collected: 09/17/2022 0947 Ordering Location: Medical Office Building Received: 09/17/2022 1310 Obstetrics and Gynecology First Screen: Oh Squires Rescreen: So Yang Specimen: ThinPrep Pap Test, Liquid-Based Cervical/Vaginal 10/04/2022 10:27 AM EDT [facility] Interpretation NEGATIVE FOR INTRAEPITHELIAL LESION OR MALIGNANCY 10/04/2022 10:27 AM EDT [facility] at 1026 EDT Other Findings Shift in reji suggestive of bacterial vaginosis. 10/04/2022 10:27 AM EDT [facility] Specimen Adequacy Satisfactory for evaluation; endocervical/chin sformation zone component present. Slide imaged by the ThinPrep Imaging system and selected 22 arango reviewed then full manual screening. 10/04/2022 10:27 AM EDT [facility] Cervical cytology is a screening [...] results is suggested (please call Microbiology at [phone] for results). 10/04/2022 10:27 AM EDT [facility] Menstrual Status Cyclic 10/05/19 10:27 AM EDT [facility] History of Hysterectomy Not Applicable 10/04/2022 10:27 AM EDT [facility] Contraceptive History Not Applicable 10/04/2022 10:27 AM EDT [facility] Screening Type Previous or Suspected Abnormality 10/04/2022 10:27 AM EDT [facility] HPV Testing Requested? Request HPV Testing Regardless of Pap Test Findings 10/04/2022 10:27 AM EDT [facility] Infection History Human Papillomavirus 10/04/2022 10:27 AM EDT [facility] Previous Cancer History No 10/04/2022 10:27 AM EDT [facility] Previous or Suspected Abnormality Previous Abnormal Pap 10/04/2022 10:27 AM EDT [facility] Clinical Information Z01.419 - Well woman exam [ICD-10-CM] N87.0 - Mild dysplasia of cervix (THOR I) [ICD-10-CM] 10/04/2022 10:27 AM EDT [facility] Last Menstrual Period 09/02/2022 10/04/2022 10:27 AM EDT [facility] Swab Vaginal and cervical cytologic material / Unknown Non-blood Collection / Unknown 09/17/2022 9:47 AM EDT 09/17/2022 1:10 PM EDT us Karma Gottlieb Graham RECREATION THERAPY DIRECTOR LAB CYTOLOGY ORDERABLES Final Result [facility] [address] [place] [address] from Last 3 Months or Most Recently Relevant to Health Maintenance Insurance Care Teams Bank Secrecy Act Officer Relationship Specialty Start Date End Date Mee Matt MD [address] [facility] [address] [place] [address] PCP - General 08/15/20
--- OUTSIDE RECORDS SUMMARY | 2024-11-16 10:50 | XMS_ITS | Encounter Summary ---
[facility] Address [address] [place] [address] Care Team Providers Care President And Chief Operating Officer Name Role Phone Elisa Valdes DO Primary Care Provider [phone] Encounter Details Date Type Department Care Team (Late st Contact Info) Description 11/08/2024 Medication Therapy Management [facility] MATERNAL MEDICINE [address] [facility] [address] [place] [address] Abiola Awad MD 1700 [facility] [address] [place] [address] Social History Tobacco Use Types Packs/Day Years [...] on filedocumented in this encounter Care Teams President And Chief Operating Officer Relationship Specialty Start Date End Date Elisa Valdes DO [address] [place] [address] PCP - General Family Medicine 01/09/21 documented as of this encounter
== END 2024-11-16 23:59 | disposition home or self-care (01) ==
LOC: RAD 10:44
PROVIDERS: PCP Family Medicine; Visit Provider Obstetrics & Gynecology
DX: O28.3 Abnormal ultrasonic finding on antenatal screening of mother (principal); O24.419 Gestational diabetes mellitus in pregnancy, unspecified control; O99.213 Obesity complicating pregnancy, third trimester; E66.9 Obesity, unspecified; Z87.898 Personal history of other specified conditions; Z3A.37 37 weeks gestation of pregnancy
CPT/HCPCS: 76819

== ENCOUNTER 2024-11-23 13:33 | Outpatient (CLI) | payer OTHER, SELFPAY ==
--- OUTSIDE RECORDS SUMMARY | 2024-05-17 10:11 | XMS_ITS | Encounter Summary ---
Author Organization [facility] Address [address] [place] [address] Care Team Providers Care Satellite Tv Technician Installer Name Role Phone Elisa Valdes DO Primary Care Provider +1- [phone] Reason for Referral * Diagnostic Imaging (Routine) - Closed Specialty Diagnoses / Procedures Referred By Contac t Referred To Contact Radiology Diagnoses Encounter to determine viability of , single or unspecified fetus Procedures US Ob Transvaginal Napoleon Mcginnis MD [address] [place] [address] Phone: tel: fax: [facility] Phone: tel: Referral ID Status Reason Start Date Expiration Date Visits Re quested Visits Authorized [id number] Closed 05/10/2024 05/10/2025 1 1 Reason for Visit * Consultation (Routine) - Closed Specialty Diagnoses / Procedures Referred By Contact Referred To Contact Obstetrics and Gynecology Diagnoses Referring, [place] [address] [facility] [address] [place] [address] Phone: tel: fax: Referral ID Status Reason Start Date Expiration Date Visits Re quested Visits Authorized [id number] Closed 04/25/2024 04/25/2025 1 1 Encounter Details Date Type Department Care Team (Latest Contact Info) Description 05/17/2024 9:11 AM EST Hospital Encounter [facility] [place] [phone] Encounter to determine viability of , single [...] EST PAT NAME: SENA BENOIT MED REC#: [id number] DA: [id number] PAT GEND: F PAT TYPE: O EXAM ANIRUDH: [id number] REF PHYS NAPOLEON MCGINNIS Indication ======== viability [...] in the menstrual and sonographic dating criteria Stoper: Ekaterina Gaston RDMS Physician: Napoleon Mcginnis MD Electronically signed by: Napoleon Mcginnis MD at: 14:08 Procedure Note Napoleon Mcginnis MD - 05/17/2024 PAT NAME: SENA BENOIT MED REC#: [id number] DA: 1995 PAT GEND: F PAT TYPE: O EXAM ANIRUDH: [id number] REF PHYS NAPOLEON MCGINNIS Indication ======== viability [...] GA10 w + 6 d Assigned VINICIUS:12/07/2024 [id number] d Assessment Gestational sac:visualized Location:intrauterine Yolk sac:visualized Embryo:visualized CRL39.0 mm 10w 6d 22% Hadlock Cardiac activity:present [id number] bpm 93% Nicolaides Placenta:Too early to evaluate [...] discrepancy in the menstrual andsonographic dating criteria Stoper: Ekaterina Gaston RDMS Physician: Napoleon Mcginnis MD Electronically signed by: Napoleon Mcginnis MD at: 14:08 us Napoleon Mcginnis MD IMG US ORDERABLES Final Result documented in this encounter Visit Diagnoses Diagnosis Encounter to determine viability of , single or unspecified fetus documented in this encounter Care Teams Satellite Tv Technician Installer Relationship Specialty Start Date End Date Elisa Valdes DO [address] [place] [address] PCP - General Family Medicine 01/09/21 documented as of this encounter
--- OUTSIDE RECORDS SUMMARY | 2024-09-27 13:48 | XMS_ITS | Encounter Summary ---
[facility] [address] [place] [address] Care Team Providers Care Member Services Representative Name Role Phone Elisa Valdes DO Primary Care Provider [phone]- [phone] Reason for Referral * Diagnostic Imaging (Routine) - Closed Specialty Diagnoses / Procedures Referred By Contac t Referred To Contact Radiology Diagnoses Gestational diabetes mellitus (GDM) in third trimester, gestational diabetes method of control unspecified Obesity in , antepartum Procedures [facility] [place] Gabriella Daniels DO [address] [place] [address] Phone: tel: fax: [facility] US PER DIAG CTR [address] [place] [address] Phone: tel: Referral ID Status Reason Start Date Expiration Date Visits Re quested Visits Authorized [id number] Closed 09/12/2024 12/12/2025 1 1 Reason for Visit * Diagnostic Imaging (Routine) - Closed Specialty Diagnoses / Procedures Referred By Contac t Referred To Contact Radiology Diagnoses Gestational diabetes mellitus (GDM) in third trimester, gestational diabetes method of control unspecified Obesity in , antepartum Procedures [facility] [place] Gabriella Daniels DO [address] [place] [address] Phone: tel: fax: [facility] US PER DIAG CTR [address] [place] [address] Phone: tel: Referral ID Status Reason Start Date Expiration Date Visits Re quested Visits Authorized [id number] Closed 09/12/2024 12/12/2025 1 1 Encounter Details Date Type Department Care Team (Latest Contact Info) Description 09/27/2024 1:48 PM EDT - 09/27/2024 11:59 PM EDT Hospital Encounter [facility] PER DIAG CTR [address] [place] [address] Gabriella Daniels DO [address] [facility] [address] [place] [address] Gestational diabetes mellitus (GDM) in third trimester, [...] Priority Date/Time Associated Diagnosis Comments [facility] Routine 09/27/2024 2:43 PM EDT Gestational diabetes mellitus (GDM) in third trimester, gestational diabetes method of control unspecified Obesity in , antepartum documented in this encounter Results * [facility] (09/27/2024 2:43 PM EDT) Anatomical Region Laterality Modality Ultrasound 09/27/2024 2:12 PM EDT Narrative 09/27/2024 2:55 PM EDT PAT NAME: SENA BENOIT [facility] REC#: [id number] DA: [id number] PAT GEND: F PAT TYPE: O EXAM ANIRUDH: [id number] REF PHYS GABRIELLA DANIELS Comparison Studies There [...] EFW (oz) 3 oz EFW by: Hadlock (PXI-EL-MB-FL) Extended Tibia 49.5 mm 29w 5d 46% Rut Fibula 46.7 mm 28w 6d 29% Rut Foot 58.1 mm 29% Chitty Radius 43.7 mm 30w 5d 58% Rut Ulna 46.1 mm 29w 3d 23% Rut Cav. septi pel. tr 8.4 mm Wet Milling Wheel Operator 8.0 mm CM 8.7 mm 90% Nicolaides [...] normal IVC: normal 3-vessel view: Appears normal 4-tujvfd-efkemoc view: Appears normal Cardiac axis: Normal Rt [...] view: Appears normal 3-vessel view: Appears normal 8-pmzfcj-jdtippj view: Appears normal Aortic arch view: Appears [...] 4 week follow up Coding ====== Description: 46123-77 Detailed Ultrasound Description: 54845-52 Echo 2D, heart - initial Description: 44933-99 Doppler echo color flow Yeast Distiller: Lisset Hyatt RDMS Physician: Tye Leung MD, FACOG Electronically signed by: Tye Leung MD, FACOG at: 15:38 Procedure Note Tye Leung MD - 09/27/2024 PAT NAME: SENA BENOIT MED REC#: [id number] DA: [id number] PAT GEND: F PAT TYPE: O EXAM ANIRUDH: [id number] REF PHYS GABRIELLA DANIELS Comparison Studies There are no relevant prior studies to which this study is beingcompared Patient Status Outpatient Indication ======== GDM diagnosed at 18 weeks, Obesity History ====== General History Oxnzza245 cm Height (ft)5 ft Height (in)8 in Previous Outcomes Gravida1 Maternal Assessment Mzqbfm811 cm Height (ft)5 ft Height (in)8 in Ibkrtz811 kg Weight (lb)240 lb BMI36.84 kg/m Method ======= Transabdominal ultrasound examination. View: Adequate view ========= [place]mod[place]ar . Number of fetuses: 1 Dating ====== LMP on:03/13/2024 GA by [id number] w + 2 d VINICIUS by LMP:12/18/2024 GA by prior ggzmyfktri52 w + 6 d VINICIUS by prior [...] GA29 w + 6 d Assigned VINICIUS:12/07/2024 ebihdf056 d Biometry Standard BPD77.6 mm 31w 1d 77% Hadlock OFD94.6 mm 30w 4d 68% Rut HC279.2 mm 30w 4d 35% Hadlock Cerebellum tr36.1 mm 29w 6d 41% Hill AC257.9 mm 30w 0d 48% Hadlock Femur54.3 mm 28w 5d 10% Hadlock Ggxpzcl05.9 mm 30w 6d 76% Rut HC / AC1.08 EFW1,439 g 29w 2d 32% Hadlock EFW (lb)3 lb EFW (oz)3 oz EFW by:Hadlock ([id number]-EK-RK-FL) Extended Tibia49.5 mm 29w 5d 46% Rut Jkdggl65.7 mm 28w 6d 29% Rut Foot58.1 mm 29% Chitty Ylwgie74.7 mm 30w 5d 58% Rut Ulna46.1 mm 29w 3d 23% Rut Cav. septi pel. tr8.4 mm Vp8.0 mm CM8.7 mm 90% Nicolaides Nasal bone8.7 mm Head / Face / Neck Cephalic index0.82 79% Nicolaides Thorax / Lungs Thoracic vxfq509.3 mm 10% [place] Thoracic area30.2 cm ThC / AC0.76 Heart / Great Vessels Cardiac axis52 Cardiac cfkk640.6 mm Cardiac area10.3 cm CC / ThC0.59 [...] / HC0.19 FL / AC0.21 Other Structures OOQ839 bpm General Evaluation Cardiac activity present. FHR [...] view:Appears normal SVC:normal IVC:normal 3-vessel view:Appears normal 8-mcmhoy-lltbcpt view:Appears normal Cardiac axis:Normal Rt lung:Appears normal [...] normal RVOT view:Appears normal 3-vessel view:Appears normal 4-qpnkxf-sgfotbr view:Appears normal Aortic arch view:Appears normal Ductal [...] pulmonary artery B and M-Mode Measurements Thoracic qjxr350.3 mm 10% [place] Thoracic area30.2 cm ThC / AC0.76 Cardiac axis52 Cardiac gqoa734.6 mm Cardiac area10.3 cm CC / ThC0.59 [...] diast Zscore (GA)-3.38 RV width diast Zscore by:aDne LV width diast Zscore (FL)-2.15 LV width diast Zscore (BPD)-1.98 LV width diast Zscore (GA)-2.03 LV width diast Zscore by:Dane RV inlet Zscore (FL)-0.14 RV inlet Zscore (BPD)-0.30 RV inlet Zscore (GA)-0.26 RV inlet Zscore by:Dane LV inlet Zscore (FL)-2.22 LV inlet Zscore (BPD)-2.26 LV inlet Zscore (GA)-2.05 LV inlet Zscore by:Dane RV area Zscore by:Dane LV area Zscore by:aDne TV annulus diast Zscore by:Dane MV annulus [...] Recommendation 4 week follow up Coding ====== Description:48988-75 Detailed Ultrasound Description:83879-47 Echo 2D, heart - initial Description:16471-51 Doppler echo color flow Yeast Distiller: Lisset Hyatt RDMS Physician: Tye Leung MD, [...] complication documented in this encounter Care Teams Member Services Representative Relationship Specialty Start Date End Date Elisa Valdes DO [address] [place] [address] PCP - General Family Medicine 01/09/21 documented as of this encounter
--- OUTSIDE RECORDS SUMMARY | 2024-09-27 14:00 | XMS_ITS | Encounter Summary ---
Author Organization [facility] Address [address] [place] [address] Care Team Providers Care Security Escort Name Role Phone Elisa Valdes DO Primary Care Provider [phone]- [phone] Reason for Referral * Diagnostic Imaging (Routine) - Closed Specialty Diagnoses / Procedures Referred By Contac t Referred To Contact Radiology Diagnoses Insulin controlled gestational diabetes mellitus (GDM) in third trimester Procedures [facility] Rodney Leung MD [address] [place] [address] Phone: tel: fax: [facility] US PER DIAG CTR [address] [place] [address] Phone: tel: Referral ID Status Reason Start Date Expiration Date Visits Re quested Visits Authorized [id number] Closed 09/27/2024 12/27/2025 1 1 Reason for Visit * Reason Comments GDM; obesity Encounter Details Date Type Department Care Team (Late st Contact Info) Description 09/27/2024 2:00 PM EDT Office Visit [facility] MATERNAL MEDICINE [address] [facility] [address] [place] [phone] Rodney Leung MD [address] [place] [address] Insulin controlled gestational diabetes mellitus (GDM) in third trimester (Primary Dx) Social History Tobacco Use Types Packs/Day Years [...] on file documented as of this encounter Last Filed Vital Signs Vital Sign Reading Time Taken Comments Blood Pressure 125/63 09/27/2024 2:06 PM EDT Pulse - - Temperature - - Respiratory Rate - - Oxygen Saturation - - Inhaled Oxygen Concentration - - Weight 109 kg (240 lb) 09/27/2024 2:06 PM EDT Height 172.7 cm (5' 8 ) 09/27/2024 2:08 PM EDT Body Mass Index 36.49 09/27/2024 2:06 PM EDT documented in this encounter Progress Notes * Rodney Leung MD - 09/27/2024 2:14 PM EDTAssociated Problem(s): Insulin controlled gestational diabetes mellitus (GDM) in third trimester GLUCOSE MONITORING Target plasma blood glucose values in are less than 90 mg/dL fasting, and less than 120 mg/dL at 2 hour postprandially or 140 mg/dL at 1 hour postprandially. Medical therapy for glycemic control is indicated if target values are not achieved after 1-2 weeks of dietary therapy, and could include oral hypoglycemic agents such as metformin or insulin therapy. We discussed insulin treatmentas the gold standard. MATERNAL RISKS Insulin resistance places women at higher risk for preeclampsia. Those with gestational diabetes are also at higher risk of developing diabetes in their lifetime outside of . A 2-hour oral glucose tolerance test at 6 weeks should be completed to clarify a diagnosis of pregestational diabetes. Screening for diabetes should be performed every 1-3 years after that. AND RISKS Diabetes in increases risk of macrosomia, with associated injuries including nerve palsies, fractures and cephalhematoma. Macrosomia increases the need for delivery and has been linked to the development of adolescent obesity. Glycemic control is important to reducing theserisks. morbidities among infants of diabetic mothers include hypoglycemia, hyperbilirubinemia, and metabolic instability. In addition, respiratory distress can result from delayed lung maturity. Intrapartum glycemic control to maintain maternal glucose levels within a narrow range (between 80-110 mg/dL) reduces risks of asphyxia and hypoglycemia. Close monitoring of the is necessary. RECOMMENDATIONS: - She will keep a glucose log as discussed above. Patient currently on 5 units of NPH at night previously prescribed by primary MECHATRONICS ENGINEER. Will continue NPH at this time though will likely transition toLantus for better control. We will add to our diabetic list with weekly glucose review. - Given her diagnosis of prediabetes and early diagnosis of gestational diabetes before 20 weeks gestation a echo was performed. - A growth scan will be ordered in 4 weeks. - Would work him in twice weekly testing at 32 weeks in your office. - Deliver at 39-40 weeks if gestational A2 diabetic and medications are required. May await spontaneous onset of labor if gestational A1 diabetic, but do not delay delivery beyond 41 weeks. - Elective delivery for suspected macrosomia at estimated weight of greater than 4500 grams. - Plan for 2-hour OGTT at 6 weeks . - Continuation of lifestyle changes PP to lower risk of type 2 DM in the future. * Rodney Leung MD - 09/27/2024 2:00 PM EDTAddended by: RODNEY LEUNG on: 09/27/2024 02:56 PM Modules accepted: Orders * Mell Silvestre RN - 09/27/2024 2:00 PM EDT Patient denies any leaking of fluid, vaginal bleeding, or contractions. NIPT declined. Patient reports next follow-up appointment with Dr. Daniels's office is 10/12. * Rodney Leung MD - 09/27/2024 2:00 PM EDT Images from the original note were not included. Maternal/ Medicine Consult Note Date: 09/27/2024 Name: Sena Benoit : 1995 Referring Provider: Gabriella Daniels DO Chief Complaint GDM; obesity Subjective History of Present Illness: Sena Benoit is a 29 y.o. 29w6d who presents today for gestational diabetes VINICIUS: Estimated Date of Delivery: 12/07/24 ROS: Otherwise Noted in HPI Past Medical History: Diagnosis Date Abnormal Pap smear of cervix Gestational diabetes mellitus (GDM) Migraine Ovarian cyst Past Surgical History: Procedure Laterality Date TONSILLECTOMY 2014 WISDOM TOOTH EXTRACTION 2014 OB History 1 Para 0 Term 0 0 AB 0 Living 0 SAB 0 IAB 0 Ectopic 0 Molar 0 Multiple 0 Live Births 0 Current Outpatient Medications: cetirizine (zyrTEC) 10 MG tablet, Take 1 tablet by mouth Daily., Disp: 30 tablet, Rfl: 1 Continuous Glucose Sensor (FreeStyle Dania 3 Plus Sensor), USE DIRECTED AND CHANGE EVERY 15 DAYS, Disp: , Rfl: NovoLIN N ReliOn 100 UNIT/ML injection, Inject 5 Units under the skin into the appropriate area as directed Every Night., Disp: , Rfl: Vit-Fe Fumarate-FA ( vitamin 27-0.8) 27-0.8 MG tablet tablet, Take by mouth Daily., Disp: , Rfl: docusate sodium (Colace) 100 MG capsule, Take 1 capsule by mouth 2 (Two) Times a Day. (Patient not taking: Reported on 09/27/2024), Disp: 60 capsule, Rfl: 1 fluticasone (FLONASE) 50 MCG/ACT nasal spray, Administer 2 sprays into the nostril(s) as directed by provider Daily. (Patient not taking: Reported on 09/27/2024), Disp: 15.8 g, Rfl: 0 magnesium oxide (MAG-OX) 400 MG tablet, Take 1 tablet by mouth Daily. (Patient not taking: Reportedon 09/27/2024), Disp: 30 tablet, Rfl: 2 Objective Vital Signs BP 125/63 Ht 172.7 cm (68 ) Wt 109 kg (240 lb) LMP 03/13/2024 (Exact Date) Estimated body mass index is 36.49 kg/m?? as calculated from the following: Height as of this encounter: 172.7 cm (68 ). Weight as of this encounter: 109 kg (240 lb). Ultrasound Impression: See Viewpoint Assessment and Plan Sena Benoit is a 29 y.o. 29w6d who presents today for gestational diabetes Diagnoses and all orders for this visit: 1. Insulin controlled gestational diabetes mellitus (GDM) in third trimester (Primary) Assessment & Plan: GLUCOSE MONITORING Target plasma blood glucose values in are less than 90 mg/dL fasting, and less than 120 mg/dL at 2 hour postprandially or 140 mg/dL at 1 hour postprandially. Medical therapy for glycemic control is indicated if target values are not achieved after 1-2 weeks of dietary therapy, and could include oral hypoglycemic agents such as metformin or insulin therapy. We discussed insulin treatmentas the gold standard. MATERNAL RISKS Insulin resistance places women at higher risk for preeclampsia. Those with gestational diabetes are also at higher risk of developing diabetes in their lifetime outside of . A 2-hour oral glucose tolerance test at 6 weeks should be completed to clarify a diagnosis of pregestational diabetes. Screening for diabetes should be performed every 1-3 years after that. AND RISKS Diabetes in increases risk of macrosomia, with associated injuries including nerve palsies, fractures and cephalhematoma. Macrosomia increases the need for delivery and has been linked to the development of adolescent obesity. Glycemic control is important to reducing theserisks. morbidities among infants of diabetic mothers include hypoglycemia, hyperbilirubinemia, and metabolic instability. In addition, respiratory distress can result from delayed lung maturity. Intrapartum glycemic control to maintain maternal glucose levels within a narrow range (between 80-110 mg/dL) reduces risks of asphyxia and hypoglycemia. Close monitoring of the is necessary. RECOMMENDATIONS: - She will keep a glucose log as discussed above. Patient currently on 5 units of NPH at night previously prescribed by primary MECHATRONICS ENGINEER. Will continue NPH at this time though will likely transition toLantus for better control. We will add to our diabetic list with weekly glucose review. - Given her diagnosis of prediabetes and early diagnosis of gestational diabetes before 20 weeks gestation a echo was performed. - A growth scan will be ordered in 4 weeks. - Would work him in twice weekly testing at 32 weeks in your office. - Deliver at 39-40 weeks if gestational A2 diabetic and medications are required. May await spontaneous onset of labor if gestational A1 diabetic, but do not delay delivery beyond 41 weeks. - Elective delivery for suspected macrosomia at estimated weight of greater than 4500 grams. - Plan for 2-hour OGTT at 6 weeks . - Continuation of lifestyle changes PP to lower risk of type 2 DM in the future. Follow Up 4 weeks I spent 15 minutes caring for the patient on the day of service. This included: obtaining or reviewing a separately obtained medical history, reviewing patient records, performing a medically appropriate exam and/or evaluation, counseling or educating the patient/family/caregiver, ordering medications, labs, and/or procedures and documenting such in the medical record. This does not include time spent on review and interpretation of other tests such as ultrasound or the performance of other procedures such as amniocentesis or CVS. Rodney Leung MD, FACOG Maternal Medicine, [facility] documented in this encounter Plan of Treatment Not on file documented as of this encounter Results * [facility] (10/26/2024 8:24 AM EDT) Anatomical Region Laterality Modality Ultrasound 10/26/2024 8:09 AM EDT Narrative 10/26/2024 8:36 AM EDT PAT NAME: SENA BENOIT MED REC#: [id number] DA: [id number] PAT GEND: F PAT TYPE: O EXAM ANIRUDH: [id number] REF PHYS GABRIELLA DANIELS Comparison Studies The findings of this study are compared to the prior ultrasound study dated 09/27/24 Patient Status Outpatient Indication ======== Gestational diabetes. Obesity BMI 36. Maternal Assessment Height 172 cm Height (ft) 5 ft Height (in) 8 in Weight 108 kg Weight (lb) 239 lb BMI 36.64 kg/m Method ======= Transabdominal ultrasound examination. View: Adequate view ========= Almodovar . Number of fetuses: 1 Dating ====== LMP on: 03/13/2024 GA by LMP 32 w + 3 d VINICIUS by LMP: 12/18/2024 Method of dating: based on stated VINICIUS GA by prior assessment 34 w + 0 d VINICIUS by prior assessment: 12/07/2024 Ultrasound examination on: 10/26/2024 GA by U/S based upon: AC, BPD, Femur, HC GA by U/S 34 w + 4 d VINICIUS by U/S: 12/03/2024 Previous dating: based on ultrasound (CRL), selected on 05/17/2024 Agreed VINICIUS of previous datin12/07/2024 Assigned: based on stated VINICIUS, selected on 10/26/2024 Assigned GA 34 w + 0 d Assigned VINICIUS: 12/07/2024 length 280 d Biometry Standard BPD 85.5 mm 34w 3d 61% Hadlock OFD 112.8 mm 38w 3d 98% Rut HC 321.9 mm 36w 2d 74% Hadlock Cerebellum tr 46.0 mm 35w 0d 50% Hill AC 291.8 mm 33w 1d 29% Hadlock Femur 66.9 mm 34w 3d 52% Hadlock Humerus 59.5 mm 34w 4d 73% Rut HC / AC 1.10 EFW 2,320 g 33w 5d 43% Hadlock EFW (lb) 5 lb EFW (oz) 2 oz EFW by: Hadlock ([id number]-FL) Extended Cav. septi pel. tr 5.6 mm CM 8.9 mm 85% Nicolaides Head / Face / Neck Cephalic index 0.76 9% Nicolaides Extremities / Bony Struc FL / BPD 0.78 FL / HC 0.21 FL / AC 0.23 Other Structures FHR 124 bpm General Evaluation Cardiac activity present. FHR 124 bpm. movements present. Presentation cephalic. Placenta Placental site: anterior. Amniotic fluid Amount of AF: normal. MVP 4.6 cm. LIZA 12.6 cm. Q1 3.8 cm, Q2 4.2 cm, Q3 0.0 cm, Q4 4.6 cm. Anatomy Cranium: Normal Cavum septi pellucidi: Normal Cerebellum: Normal Cisterna magna: Normal Head / Neck Rt lateral ventricle: Normal Lt lateral ventricle: Normal 4-chamber view: Appears normal RVOT view: Normal LVOT view: Normal Stomach: Appears normal Kidneys: Appears normal Bladder: Appears normal Lt arm: visualized Lt hand: suboptimal Wants to know gender: yes Doppler Arterial Umbilical A PI 0.65 8% Joleen Umbilical A RI 0.47 5% Joleen Umbilical A PS 42.65 cm/s 21% Ebbing Umbilical A ED 22.52 cm/s Umbilical A TAmax 31.07 cm/s 41% Ebbing Umbilical A MD 21.87 cm/s Umbilical A S / D 1.89 9% Joleen Umbilical A HR 130 bpm Biophysical Profile 2: breathing movements 2: Gross body movements 2: tone 2: Amniotic fluid volume 11/09 Biophysical profile score Consultation / Office Visit Office note to follow Impression Today's exam reveals a SIUP in cephalic presentation with biometry consistent with dates. Limited anatomic survey appears normal. The LIZA and BPP are normal. Recommendation 38 or 39 week delivery. Twice weekly testing. Coding ======= Description: 72723-60 Follow Up Ultrasound Description: 27021-16 BPP without NST Deputy Assessor: Arin Pryor RDMS Physician: Rodney Leung MD, FACOG Electronically signed by: Rodney Leung MD, FACOG at: 08:36 Procedure Note Rodney Leung MD - 10/26/2024 PAT NAME: SENA BENOIT MED REC#: [id number] DA: 1995 PAT GEND: F PAT TYPE: O EXAM ANIRUDH: [id number] REF PHYS GABRIELLA DANIELS Comparison Studies The findings of this study are compared to the prior ultrasound studydated 09/27/24 Patient Status Outpatient Indication ======== Gestational diabetes. Obesity BMI 36. Maternal Assessment Edexuo616 cm Height (ft)5 ft Height (in)8 in Mvglqm474 kg Weight (lb)239 lb BMI36.64 kg/m Method ======= Transabdominal ultrasound examination. View: Adequate view ========= Almodovar . Number of fetuses: 1 Dating ====== LMP on:03/13/2024 GA by LMP32 w + 3 d VINICIUS by LMP:12/18/2024 Method of dating:based on stated VINICIUS GA by prior [id number] w + 0 d VINICIUS by prior assessment:12/07/2024 Ultrasound examination on:10/26/2024 GA by U/S based upon:AC, BPD, Femur, HC GA by U/S34 w + 4 d VINICIUS by U/S:12/03/2024 Previous dating:based on ultrasound (CRL), selected on 05/17/2024 Agreed VINICIUS of previous datin12/07/2024 Assigned:based on stated VINICIUS, selected on 10/26/2024 Assigned GA34 w + 0 d Assigned VINICIUS:12/07/2024 [id number] d Biometry Standard BPD85.5 mm 34w 3d 61% Hadlock IKI786.8 mm 38w 3d 98% Rut HC321.9 mm 36w 2d 74% Hadlock Cerebellum tr46.0 mm 35w 0d 50% Hill AC291.8 mm 33w 1d 29% Hadlock Femur66.9 mm 34w 3d 52% Hadlock Vwezjik77.5 mm 34w 4d 73% Rut HC / AC1.10 EFW2,320 g 33w 5d 43% Hadlock EFW (lb)5 lb EFW (oz)2 oz EFW by:Hadlock (ALZ-[id number]-FL) Extended Cav. septi pel. tr5.6 mm CM8.9 mm 85% Nicolaides Head / Face / Neck Cephalic index0.76 9% Nicolaides Extremities / Bony Struc FL / BPD0.78 FL / HC0.21 FL / AC0.23 Other Structures YVW408 bpm General Evaluation Cardiac activity present. FHR 124 bpm. movements present. Presentation cephalic. Placenta Placental site: anterior. Amniotic fluid Amount of AF: normal. MVP 4.6 cm. LIZA 12.6 cm. Q1 3.8 cm,Q2 4.2 cm, Q3 0.0 cm, Q4 4.6 cm. Anatomy Cranium:Normal Cavum septi pellucidi:Normal Cerebellum:Normal Cisterna magna:Normal Head / Neck Rt lateral ventricle:Normal Lt lateral ventricle:Normal 4-chamber view:Appears normal RVOT view:Normal LVOT view:Normal Stomach:Appears normal Kidneys:Appears normal Bladder:Appears normal Lt arm:visualized Lt hand:suboptimal Wants to know gender:yes Doppler Arterial Umbilical A PI0.65 8% Joleen Umbilical A RI0.47 5% Joleen Umbilical A PS42.65 cm/s 21% Ebbing Umbilical A ED22.52 cm/s Umbilical A TAmax31.07 cm/s 41% Ebbing Umbilical A MD21.87 cm/s Umbilical A S / D1.89 9% Joleen Umbilical A HR130 bpm Biophysical Profile 2: breathing movements 2: Gross body movements 2: tone 2: Amniotic fluid volume 11/09 Biophysical profile score Consultation / Office Visit Office note to follow Impression Today's exam reveals a SIUP in cephalic presentation with biometryconsistent with dates. Limited anatomic survey appears normal. TheAFI and BPP are normal. Recommendation 38 or 39 week delivery. Twice weekly testing. Coding ======= Description:57739-26 Follow Up Ultrasound Description:17464-62 BPP without NST Deputy Assessor: Arin Pryor RDMS Physician: Rodney Leung MD, FACOG Electronically signed by: Rodney Leung MD, FACOG at: 08:36 us Rodney Leung MD IMG US ORDERABLES Final Result documented in this encounter Visit Diagnoses Diagnosis Insulin controlled gestational diabetes mellitus (GDM) in third trimester- Primary Insulin controlled gestational diabetes mellitus (GDM) in third trimester documented in this encounter Care Teams Security Escort Relationship Specialty Start Date End Date Elisa Valdes DO [address] [place] [address] PCP - General Family Medicine 01/09/21 documented as of this encounter
--- OUTSIDE RECORDS SUMMARY | 2024-10-01 11:30 | XMS_ITS | Encounter Summary ---
[facility] [address] [place] [address] Care Team Providers Care Construction Accountant Name Role Phone Elisa Valdes DO Primary Care Provider +1- [phone] Encounter Details Date Type Department Care Team (Latest Contact Info) Description 10/01/2024 11:30 AM EDT - 10/01/2024 11:59 PM EDT Hospital Encounter [facility] DIABETES ED [address] [facility] [address] [place] [phone] Discharge Disposition: Home or Self Care Social [...] on filedocumented in this encounter Care Teams Construction Accountant Relationship Specialty Start Date End Date Elisa Valdes DO [address] [place] [address] PCP - General Family Medicine 01/09/21 documented as of this encounter
--- OUTSIDE RECORDS SUMMARY | 2024-10-26 08:00 | XMS_ITS | Encounter Summary ---
Author Organization [facility] Address [address] [id number] Care Team Providers Care Stone Derrickman And Rigger Name Role Phone Elisa Valdes DO Primary Care Provider [phone]- [phone] Reason for Referral * Diagnostic Imaging (Routine) - Closed Specialty Diagnoses / Procedures Referred By Contac t Referred To Contact Radiology Diagnoses Insulin controlled gestational diabetes mellitus (GDM) in third trimester Procedures [facility] Diagnostic [place] Tye Leung MD [address] [place] [address] Phone: tel: fax: [facility] PER DIAG [facility] [address] [facility] [place] [address] Phone: tel: Referral ID Status Reason Start Date Expiration Date Visits Re quested Visits Authorized [id number] Closed 09/27/2024 12/27/2025 1 1 Reason for Visit * Diagnostic Imaging (Routine) - Closed Specialty Diagnoses / Procedures Referred By Contac t Referred To Contact Radiology Diagnoses Insulin controlled gestational diabetes mellitus (GDM) in third trimester Procedures [facility] Diagnostic [place] Tye Leung MD [address] [place] [address] Phone: tel: fax: [facility] PER DI[facility] [address] [facility] [place] [address] Phone: tel: Referral ID Status Reason Start Date Expiration Date Visits Re quested Visits Authorized [id number] Closed 09/27/2024 12/27/2025 1 1 Encounter Details Date Type Department Care Team (Late st Contact Info) Description 10/26/2024 8:00 AM EDT - 10/26/2024 11:59 PM EDT Hospital Encounter [facility] [address] [place] [id number] Tye Leung MD [address] [place] [address] Insulin controlled gestational diabetes mellitus (GDM) in [...] Procedure Name Priority Date/Time Associated Diagnosis Comments [facility] Routine 10/26/2024 8:24 AM EDT Insulin controlled gestational diabetes mellitus (GDM) in third trimester documented in this encounter Results * [facility] (10/26/2024 8:24 AM EDT) Anatomical Region Laterality Modality Ultrasound 10/26/2024 8:09 AM EDT Narrative 10/26/2024 8:36 AM EDT PAT NAME: SENA BENOIT [facility] REC#: [id number] DA: [id number] PAT GEND: F PAT TYPE: O EXAM ANIRUDH: [id number] REF PHYS KAROLINA ORTIZ Comparison Studies The [...] EFW (oz) 2 oz EFW by: Hadlock (JTN-OV-UN-FL) Extended Cav. septi pel. tr 5.6 mm [...] delivery. Twice weekly testing. Coding ======= Description: 92031-21 Follow Up Ultrasound Description: 56929-15 BPP without NST Truck Driver: Arin Pryor RDMS Physician: Tye Leung MD, FACOG Electronically signed by: Tye Leung MD, FACOG at: 08:36 Procedure Note Tye Leung MD - 10/26/2024 PAT NAME: SENA BENOIT MED REC#: [id number] DA: [id number] PAT GEND: F PAT TYPE: O EXAM ANIRUDH: [id number] REF PHYS KAROLINA ORTIZ Comparison Studies The findings of this study are compared to the prior ultrasound studydated 09/27/24 Patient Status Outpatient Indication ======== Gestational diabetes. Obesity BMI 36. Maternal Assessment Wfcquq976 cm Height (ft)5 ft Height (in)8 in Vtuizq794 kg Weight (lb)239 lb BMI36.64 kg/m Method ======= Transabdominal ultrasound examination. View: Adequate view ========= Almodovar . Number of fetuses: 1 Dating ====== LMP on:03/13/2024 GA by LMP32 w + 3 d VINICIUS by LMP:12/18/2024 Method of dating:based on stated VINICIUS GA by prior [id number] w + 0 d VINICIUS by prior assessment:12/07/2024 Ultrasound examination on:10/26/2024 GA by U/S based upon:AC, BPD, Femur, HC GA by U/S34 w + 4 d VINICIUS by U/S:12/03/2024 Previous dating:based on ultrasound (CRL), selected on 05/17/2024 Agreed VINICIUS of previous datin12/07/2024 Assigned:based on stated VINICIUS, selected on 10/26/2024 Assigned GA34 w + 0 d Assigned VINICIUS:12/07/2024 ttlilv235 d Biometry Standard BPD85.5 mm 34w 3d 61% Hadlock ZND434.8 mm 38w 3d 98% Rut HC321.9 mm 36w 2d 74% Hadlock Cerebellum tr46.0 mm 35w 0d 50% Hill AC291.8 mm 33w 1d 29% Hadlock Femur66.9 mm 34w 3d 52% Hadlock Xanfwdq21.5 mm 34w 4d 73% Rut HC / AC1.10 EFW2,320 g 33w 5d 43% Hadlock EFW (lb)5 lb EFW (oz)2 oz EFW by:Hadlock (IYU-VU-BB-FL) Extended Cav. septi pel. tr5.6 mm CM8.9 mm 85% Nicolaides Head / Face / Neck Cephalic index0.76 9% Nicolaides Extremities / Bony Struc FL / BPD0.78 FL / HC0.21 FL / AC0.23 Other Structures PMQ146 bpm General Evaluation Cardiac activity present. FHR [...] week delivery. Twice weekly testing. Coding ======= Description:95310-04 Follow Up Ultrasound Description:54648-82 BPP without NST Truck Driver: Arin Pryor RDMS Physician: Tye Leung MD, FACOG Electronically signed by: Tye Leung MD, FACOG at: 08:36 us Tye Leung MD IMG ORDERABLES Final Result documented in this encounter Visit Diagnoses Diagnosis Insulin controlled gestational diabetes mellitus (GDM) in third trimester documented in this encounter Care Teams Stone Derrickman And Rigger Relationship Specialty Start Date End Date Elisa Valdes DO [address] [place] [address] PCP - General Family Medicine 01/09/21 documented as of this encounter
--- OUTSIDE RECORDS SUMMARY | 2024-10-26 08:00 | XMS_ITS | Encounter Summary ---
Author Organization [facility] Address [address] [place] [address] Care Team Providers Care Senior Engineering Manager Name Role Phone Keisha Elisa Linette MONGE Primary Care Provider +[phone]- [phone] Reason for Visit * Reason Comments GDM; obesity; pre-diabetes prior to preg yi Encounter Details Date Type Department Care Team (Late st Contact Info) Description 10/26/2024 8:00 AM EDT Office Visit [facility]NAL MED[facility] [address] [place] [phone] Tye Leung MD [address] [facility] [address] [place] [address] Insulin controlled gestational diabetes mellitus (GDM) in [...] follow-up appointment with Dr. Daniels's office is 10/30. * Tye Leung MD [...] CVS. Tye Leung MD, FACOG Maternal Medicine, [facility] Diagnostic [place] documented in this encounter Plan of Treatment Not on file documented as of this encounter Visit Diagnoses Diagnosis Insulin controlled gestational diabetes mellitus (GDM) in third trimester- Primary documented in this encounter Care Teams Senior Engineering Manager Relationship Specialty Start Date End Date Elisa Valdes DO [address] [place] [address] PCP - General Family Medicine 01/09/21 documented as of this encounter
--- OUTSIDE RECORDS SUMMARY | 2024-11-23 13:40 | XMS_ITS | Encounter Summary ---
Author Organization [facility] Address [address] [place] [address] Care Team Providers Care Library Circulation Clerk Name Role Phone KeishaElisa inman Linette MONGE Primary Care Provider [phone] Encounter Details Date Type Department Care Team (Late st Contact Info) Description 09/27/[address] [facility] MATERNAL MEDICINE [address] [facility] [address] [place] [address] Alanna Walker, RN Social History [...] to accept our clinic to share through [employer]. Instructed patient to keep log until we [...] on filedocumented in this encounter Care Teams Library Circulation Clerk Relationship Specialty Start Date End Date Elisa Valdes DO [address] [place] [address] PCP - General Family Medicine 01/09/21 documented as of this encounter
--- OUTSIDE RECORDS SUMMARY | 2024-11-23 13:40 | XMS_ITS | Encounter Summary ---
[facility] [address] [place] [address] Care Team Providers Care Superintendent Factory Name Role Phone Elisa Valdes DO Primary Care Provider [phone]- [phone] Encounter Details Date Type Department Care Team (Late st Contact Info) Description 10/25/2024 Medication Therapy Management [facility] MATERNAL MEDICINE [address] [facility] [address] [place] [address] Abiola Awad MD 1700 [facility] [address] [place] [address] Social History Tobacco Use Types Packs/Day Years [...] on filedocumented in this encounter Care Teams Superintendent Factory Relationship Specialty Start Date End Date Elisa Valdes DO [address] [place] [address] PCP - General Family Medicine 01/09/21 documented as of this encounter
--- OUTSIDE RECORDS SUMMARY | 2024-11-23 13:40 | XMS_ITS | Encounter Summary ---
Author Organization [facility] Address [address] [place] [address] Care Team Providers Care Retail Financial Analyst Name Role Phone Elisa Valdes DO Primary Care Provider [phone]- [phone] Encounter Details Date Type Department Care Team [...] on filedocumented in this encounter Care Teams Retail Financial Analyst Relationship Specialty Start Date End Date Elisa Valdes [place] [address] PCP - General Family Medicine 01/09/21 documented as of this encounter
--- OUTSIDE RECORDS SUMMARY | 2024-11-23 13:40 | XMS_ITS | Encounter Summary ---
Author Organization [facility] Address [address] [place] [address] Care Team Providers Care Special Population Paraprofessional Name Role Phone Elisa Valdes DO Primary Care Provider [phone]- [phone] Encounter Details Date Type Department Care Team [...] on filedocumented in this encounter Care Teams Special Population Paraprofessional Relationship Specialty Start Date End Date Elisa [place] [address] PCP - General Family Medicine 01/09/21 documented as of this encounter
--- OUTSIDE RECORDS SUMMARY | 2024-11-23 13:40 | XMS_ITS | Clinical Summary ---
Author Organization [facility] Address [address] [place] [address] Care Team Providers Care Skeins Yarn Examiner Name Role Phone Keisha Elisa Linette MONGE [...] NPH at night previously prescribed by primary CARD GRADER. Will continue NPH at this time though [...] Care Team Description 11/08/2024 Medication Therapy Management [facility] MATERNAL MEDICINE [address] [address] Abiola Awad MD 10/26/2024 8:00 AM EDT - 10/26/2024 11:59 PM EDT Hospital Encounter [facility] US PER DIAG CTR [address] [place] [address] Tye Leung MD Insulin controlled gestational diabetes mellitus (GDM) in third trimester Discharge Disposition: Home or Self Care 10/26/2024 8:00 AM EDT Office Visit [facility] MATERNAL MEDICINE [address] [place] [address] Tye Leung MD Insulin controlled gestational diabetes mellitus (GDM) in third trimester (Primary Dx) 10/26/2024 Travel 10/25/2024 Medication Therapy Management [facility] MATERNAL MEDICINE [address] [facility] [address] [place] [address] Abiola Awad MD 10/12/2024 Telephone [facility] MATERNAL MEDICINE [address] [facility] [address] [place] [address] Mell Silvestre, pay station collector Only 10/01/2024 11:30 AM EDT - 10/01/2024 11:59 PM EDT Hospital Encounter [facility] DIABETES ED [address] [facility] [address] [place] [phone] Discharge Disposition: Home or Self Care 10/01/2024 Telephone [facility] MATERNAL MEDICINE [address] [facility] [address] [place] [phone] Georgia Booth RN Med Management 10/01/2024 Travel 09/27/2024 2:00 PM EDT Office Visit [facility] MATERNAL MEDICINE [address] [facility] [address] [place] [phone] Tye Leung MD Insulin controlled gestational diabetes mellitus (GDM) in third trimester (Primary Dx) 09/27/2024 1:48 PM EDT - 09/27/2024 11:59 PM EDT Hospital Encounter [facility] US PER DIAG [facility] [address] [place] [phone] Gabriella Daniels DO Gestational diabetes mellitus (GDM) in third trimester, gestational diabetes method of control unspecified; Obesity in , antepartum Discharge Disposition: Home or Self Care 09/27/2024 Documentation [facility] MATERNAL MEDICINE [address] [facility] [address] [place] [address] Alanna Walker RN 09/27/2024 Travel 09/26/2024 Telephone [facility] MATERNAL MEDICINE [address] [facility] [address] [place] [address] Mell Silvestre, JORDIN 09/20/2024 12:50 PM EDT - 09/20/2024 11:59 PM EDT Hospital Encounter [facility] DIABETES ED [address] [place] [address] Leung, Tye Greer MD Discharge [...] Date/Time Associated Diagnosis Comments SCANNED - IMAGING 11/16/2024 SCANNED - IMAGING 11/09/2024 SCANNED - IMAGING 11/02/2024 [facility] Routine 10/26/2024 8:24 AM EDT Insulin controlled gestational diabetes mellitus (GDM) in third trimester SCANNED - IMAGING 10/12/2024 [facility] Routine 09/27/2024 2:43 PM [...] to Health Maintenance Results * IMAGING SCANNED (11/16/2024) Only the most recent of5 resultswithin the time period is included. Anatomical Region Laterality Modality Radiographic Donna ging Elisa Valdes DO IMG DIAGNOSTIC IMAGING ORDE RABEMMA Final Result * [facility] (10/26/2024 8:24 AM EDT) Only the most recent of2 resultswithin the time period is included. Anatomical Region Laterality Modality Ultrasound 10/26/2024 8:09 AM EDT Narrative 10/26/2024 8:36 AM EDT PAT NAME: SENA BENOIT MED REC#: [id number] DA: [id number] PAT GEND: F PAT TYPE: O EXAM ANIRUDH: [id number] REF PHYS GABRIELLA DANIELS Comparison Studies The [...] EFW (oz) 2 oz EFW by: Hadlock ([id number]-[id number]-FL) Extended Cav. septi pel. tr 5.6 mm [...] delivery. Twice weekly testing. Coding ======= Description: 76717-12 Follow Up Ultrasound Description: 78860-97 BPP without NST Advertising Supervisor: Arin Pryor RDMS Physician: Tye Leung MD, FACOG Electronically signed by: Tye Leung MD, FACOG at: 08:36 Procedure Note Tye Leung MD - 10/26/2024 PAT NAME: SENA BENOIT MED REC#: [id number] DA: [id number] PAT GEND: F PAT TYPE: O EXAM ANIRUDH: [id number] REF PHYS GABRIELLA DANIELS Comparison Studies The findings of this study are compared to the prior ultrasound studydated 09/27/24 Patient Status Outpatient Indication ======== Gestational diabetes. Obesity BMI 36. Maternal Assessment Sxsbyv251 cm Height (ft)5 ft Height (in)8 in [id number] kg Weight (lb)239 lb BMI36.64 kg/m Method ======= Transabdominal ultrasound examination. View: Adequate view ========= Almodovar . Number of fetuses: 1 Dating ====== LMP on:03/13/2024 GA by [id number] w + 3 d VINICIUS by LMP:12/18/2024 Method of dating:based on stated VINICIUS GA by prior [id number] w + 0 d VINICIUS by prior assessment:12/07/2024 Ultrasound examination on:10/26/2024 GA by U/S based upon:AC, BPD, Femur, HC GA by U/S34 w + 4 d VINICIUS by U/S:12/03/2024 Previous dating:based on ultrasound (CRL), selected on 05/17/2024 Agreed VINICIUS of previous datin12/07/2024 Assigned:based on stated VINICIUS, selected on 10/26/2024 Assigned GA34 w + 0 d Assigned VINICIUS:12/07/2024 [id number] d Biometry Standard BPD85.5 mm 34w 3d 61% Hadlock GEL262.8 mm 38w 3d 98% Rut HC321.9 mm 36w 2d 74% Hadlock Cerebellum tr46.0 mm 35w 0d 50% Hill AC291.8 mm 33w 1d 29% Hadlock Femur66.9 mm 34w 3d 52% Hadlock Zdnjweu84.5 mm 34w 4d 73% Rut HC / AC1.10 EFW2,320 g 33w 5d 43% Hadlock EFW (lb)5 lb EFW (oz)2 oz EFW by:Hadlock (CZR-TC-SM-FL) Extended Cav. septi pel. tr5.6 mm CM8.9 mm 85% Nicolaides Head / Face / Neck Cephalic index0.76 9% Nicolaides Extremities / Bony Struc FL / BPD0.78 FL / HC0.21 FL / AC0.23 Other Structures [id number] bpm General Evaluation Cardiac activity present. FHR [...] week delivery. Twice weekly testing. Coding ======= Description:93667-22 Follow Up Ultrasound Description:59799-31 BPP without NST Advertising Supervisor: Arin Pryor RDMS Physician: Tye Leung MD, FACOG Electronically signed by: Tye Leung MD, FACOG at: 08:36 us Tye Leung MD IMG US ORDERABLES Final Result * LABS SCANNED (09/14/2024) Only the most recent of3 resultswithin the time period is included. Elisa Valdes DO LAB BLOOD ORDERABLES Final Result * Hepatitis C Antibody (05/17/2024 11:41 AM EST) Hepatitis C Ab Non-Reacti ve Non-Reacti ve 05/17/2024 2:42 PM EST [facility] Blood Venipuncture / Unknown 05/17/2024 11:41 AM EST 05/17/2024 11:44 AM EST Melody Ordonez MD LAB BLOOD ORDERABLES Final Resul t Performing Organization Address City/[facility]/ZIP Co de Phone Number [facility]
[address] [place] [address], * OneSwab - Kit, Vagina (05/17/2024) Kit Vaginal structure / Unknown Melody Ordonez MD MICROBIOLOGY - GENERAL ORDERABLE S Final Result Performing Organization Address City/[facility]/ZIP Co de Phone Number [facility] [address] [place] [address] from Last 3 Months or Most Recently Relevant to Health Maintenance Insurance [facility] Care Teams Skeins Yarn Examiner Relationship Specialty Start Date End Date Elisa Valdes DO [address] [place] [address] PCP - General Family Medicine 01/09/21
--- OUTSIDE RECORDS SUMMARY | 2024-11-23 13:40 | XMS_ITS | Encounter Summary ---
Author Organization [facility] Address [address] [place] [address] Care Team Providers Care Derrick Barge Operator Name Role Phone Keisha Elisa Linette MONGE Primary Care Provider [phone]- [phone] Reason for Visit * Reason Onset Date Comments Advice Only 10/12/2024 Encounter Details Date Type Department Care Team (Late st Contact Info) Description 10/12/2024 Telephone [facility] MATERNAL MEDICINE [address] [facility] [address] [place] [phone] Mell Silvestre, edger hand Only Social History Tobacco Use Types Packs/Day [...] on filedocumented in this encounter Care Teams Derrick Barge Operator Relationship Specialty Start Date End Date Elisa Valdes DO [address] [place] [address] PCP - General Family Medicine 01/09/21 documented as of this encounter
--- OUTSIDE RECORDS SUMMARY | 2024-11-23 13:40 | XMS_ITS | Encounter Summary ---
Author Organization [facility] Address [address] [place] [address] Care Team Providers Care Pathology Laboratory Technologist Name Role Phone Keisha Elisa Linette MONGE Primary Care Provider [phone]- [phone] Reason for Visit * Reason Onset Date Comments Med Management 10/01/2024 Encounter Details Date Type Department Care Team (Late st Contact Info) Description 10/01/2024 Telephone [facility] MATERNAL MEDICINE [address] [facility] [address] [place] [phone] Georgia Booth, RN Med Management Social History [...] on filedocumented in this encounter Care Teams Pathology Laboratory Technologist Relationship Specialty Start Date End Date Elisa Valdes DO [address] [place] [address] PCP - General Family Medicine 01/09/21 documented as of this encounter
--- OUTSIDE RECORDS SUMMARY | 2024-11-23 13:40 | XMS_ITS | Encounter Summary ---
Author Organization [facility] Address [address] [place] [address] Care Team Providers Care Senior Paralegal Name Role Phone Keisha Elisa Linette MONGE Primary Care Provider +[phone]- [phone] Encounter Details Date Type Department Care Team (Late st Contact Info) Description 09/26/2024 Telephone [facility] MATERNAL MEDICINE [address] [facility] [address] [place] [address] Mell Silvestre, RN Social History [...] EDT Called [facility] and left voicemail requesting NIPT results if done. Fax number given in voicemail. documented in this encounter Plan of Treatment Not on file documented as of this encounter Visit Diagnoses Not on filedocumented in this encounter Care Teams Senior Paralegal Relationship Specialty Start Date End Date Elisa Valdes DO [address] [place] [address] PCP - General Family Medicine 01/09/21 documented as of this encounter
--- OUTSIDE RECORDS SUMMARY | 2024-11-23 13:40 | XMS_ITS | Encounter Summary ---
Author Organization [facility] Address [address] [place] [address] Care Team Providers Care Occupancy Specialist Name Role Phone Elisa Valdes DO Primary Care Provider +1- [phone] Encounter Details Date Type Department Care Team [...] on filedocumented in this encounter Care Teams Occupancy Specialist Relationship Specialty Start Date End Date El[place] [address] PCP - General Family Medicine 01/09/21 documented as of this encounter
--- OUTSIDE RECORDS SUMMARY | 2024-11-23 13:43 | XMS_ITS | Patient Health Record ---
Author Organization [facility] Address [address] [place] [address] Care Team Providers Care Mask Inspector Name Role Phone Mee García Unavailable [phone] Reason For Referral No Information Social History [...] No Encounters Encounter Location Date Provider Diagnosis [facility] [address] [place] [address] 05/04/2024 Mee García Early stage of Z34.90 [...] Coverage Start Date Coverage End Date [facility] [address] [place], [place] [id number] Sena Robles Self - patient is the insured
--- OUTSIDE RECORDS SUMMARY | 2024-11-23 13:43 | XMS_ITS | Encounter Summary ---
[facility] Address [address] [place] [address] Care Team Providers Care Termite Treater Helper Name Role Phone Elisa Valdes DO Primary Care Provider +1- [phone] Encounter Details Date Type Department Care Team (Late st Contact Info) Description 11/08/2024 Medication Therapy Management [facility] MATERNAL MEDICINE [address] [facility] [address] [place] [address] Abiola Awad MD [address] [facility] [address] [place] [address] Social History Tobacco Use Types Packs/Day Years [...] on filedocumented in this encounter Care Teams Termite Treater Helper Relationship Specialty Start Date End Date Elisa Valdes DO [address] [place] [address] PCP - General Family Medicine 01/09/21 documented as of this encounter
--- OUTSIDE RECORDS SUMMARY | 2024-11-23 13:44 | XMS_ITS | Clinical Summary ---
Author Organization Healthcare Address [address] [place] [address] Care Team Providers Care Adzing And Boring Machine Helper Name Role Phone Mee Matt MD Primary Care Provider [phone] Allergies No known active allergies Medications * [...] Additional history exists [facility]-Depression Screening 09/18/2023 09/17/2022 [id number] Vaccine ( season) 2023 [facility]-Influenza Vaccine (#1) [...] Reactive 09/17/2022 11:53 AM EDT [facility] Comment:Screening for HIV 1 & 2 antibodies, and P24 antigen is NONREACTIVE. No confirmatory testing is required. Blood Venous blood specimen / Unknown Venipuncture / Unknown 09/17/2022 10:22 AM EDT 09/17/2022 10:22 AM EDT Karma Stevenson APRN LAB BLOOD ORDERABLES Final Re sult Performing Organization Address [facility] Co de Phone Number [facility] [address] [place] [address] * Acute Hepatitis Panel (09/17/2022 10:22 AM EDT) [facility] Hepatitis B Surf Antigen Negative Negative 09/17/2022 2:38 PM EDT [facility] Hepatitis C Antibody Negative Negative 09/17/2022 2:38 PM EDT [facility] Hepatitis A Antibody IgM Negative Negative 09/17/2022 2:38 PM EDT [facility] Hepatitis B Core Antibody IgM Negative Negative 09/17/2022 2:38 PM EDT [facility] Blood Venous blood specimen / Unknown Venipuncture / Unknown 09/17/2022 10:22 AM EDT 09/17/2022 10:22 AM EDT Karma Stevenson APRN LAB BLOOD ORDERABLES Final Re sult Performing Organization Address [facility] Co de Phone Number [facility] [address] [place] [address] * Pap Test (09/17/2022 9:47 AM EDT) [facility] Case Report Cytology Case: [id number] Authorizing Provider: Karma Stevenson APRN Collected: 09/17/2022 0947 Ordering Location: Medical Office Building Received: 09/17/2022 1310 Obstetrics and Gynecology First Screen: Oh Squires Rescreen: So Yang Specimen: ThinPrep Pap Test, Liquid-Based Cervical/Vaginal 10/04/2022 10:27 AM EDT [facility] Interpretation NEGATIVE FOR INTRAEPITHELIAL LESION OR MALIGNANCY 10/04/2022 10:27 AM EDT [facility] at 1026 EDT Other Findings Shift in reji suggestive of bacterial vaginosis. 10/04/2022 10:27 AM EDT [facility] Specimen Adequacy Satisfactory for evaluation; endocervical/chin sformation zone component present. Slide imaged by the ThinPrep Imaging system and selected 22 arango reviewed then full manual screening. 10/04/2022 10:27 AM EDT [facility] Cervical cytology is a screening [...] results is suggested (please call Microbiology at [phone] for results). 10/04/2022 10:27 AM EDT [facility] Menstrual Status Cyclic 10/05/19 10:27 AM EDT [facility] History of Hysterectomy Not Applicable 10/04/2022 10:27 AM EDT [facility] Contraceptive History Not Applicable 10/04/2022 10:27 AM EDT [facility] Screening Type Previous or Suspected Abnormality 10/04/2022 10:27 AM EDT [facility] HPV Testing Requested? Request HPV Testing Regardless of Pap Test Findings 10/04/2022 10:27 AM EDT [facility] Infection History Human Papillomavirus 10/04/2022 10:27 AM EDT [facility] Previous Cancer History No 10/04/2022 10:27 AM EDT [facility] Previous or Suspected Abnormality Previous Abnormal Pap 10/04/2022 10:27 AM EDT [facility] Clinical Information Z01.419 - Well woman exam [ICD-10-CM] N87.0 - Mild dysplasia of cervix (THOR I) [ICD-10-CM] 10/04/2022 10:27 AM EDT [facility] Last Menstrual Period 09/02/2022 10/04/2022 10:27 AM EDT [facility] Swab Vaginal and cervical cytologic material / Unknown Non-blood Collection / Unknown 09/17/2022 9:47 AM EDT 09/17/2022 1:10 PM EDT us Karma Gottlieb Graham PATCH DRILLER LAB CYTOLOGY ORDERABLES Final Result [facility] [address] [place] [address] from Last 3 Months or Most Recently Relevant to Health Maintenance Insurance Care Teams Adzing And Boring Machine Helper Relationship Specialty Start Date End Date Mee Matt MD [address] [facility] [address] [place] [address] PCP - General 08/15/20
--- NOTE | 2024-11-23 13:45 | US_ITS ---
PROCEDURE: US OB BIOPHYSICAL PROFILE CLINICAL INDICATION: GDM, Class A2 COMPARISON: US US OB >= 14 WEEKS FETUS from 07/19/2024 US US OB FOLLOW UP from 09/14/2024 US OB FOLLOW UP from 10/12/2024 US US OB BIOPHYSICAL PROFILE from 10/19/2024 US OB BIOPHYSICAL PROFILE from 11/02/2024 US OB BIOPHYSICAL PROFILE from 11/09/2024 US OB BIOPHYSICAL PROFILE from 11/16/2024 FINDINGS: Transabdominal sonographic images of the uterus were obtained. From her established due date she is 38weeks 0 days. The following parameters are obtained: Viable Fetus in the cephalic presentation with an anterior placenta grade 3. The cervix measures 3.19 cm. Measurements: heart Rate = 122bpm Amniotic fluid index: 7.1cm, MVP 3.91 cm. A fluid pocket measuring 3.6 cm x 2.7 cm was seen. Qualitative AFV:2 Breathing movements: 2 Gross Body Movements: 2 Tone: 2 Biophysical profile score: 8 No obvious anomalies evident.Kidneys, bladder, stomach, four-chamber heart, three-vessel cord appear normal. IMPRESSION: 1. Viable fetus in the cephalic presentation with an anterior placenta grade 3. 2. The fluid is marginal with an amniotic fluid index 7.1 cm, MVP 3.91 cm. There is a fluid pocket measuring 3.6 cm x 2.7 cm. 3. Biophysical profile is 8/8 with good breathing movement and movement seen. 4. Limited anatomical scan appears normal. Dictated by: Crispin Marks MD 11/23/2024 16:14 Crispin Marks MD in OV 11/23/2024 16:14
== END 2024-11-23 23:59 | disposition home or self-care (01) ==
LOC: RAD 13:34
PROVIDERS: PCP Family Medicine; Visit Provider Obstetrics & Gynecology
DX: O24.419 Gestational diabetes mellitus in pregnancy, unspecified control (principal); O99.213 Obesity complicating pregnancy, third trimester; E66.9 Obesity, unspecified; Z87.898 Personal history of other specified conditions
CPT/HCPCS: 76819

== ENCOUNTER 2024-11-30 10:33 | Outpatient (CLI) | payer OTHER, SELFPAY ==
--- OUTSIDE RECORDS SUMMARY | 2024-05-17 10:11 | XMS_ITS | Encounter Summary ---
Author Organization [facility] Address [address] [place] [address] Care Team Providers Care Foam Gun Operator Name Role Phone Elisa Valdes DO Primary Care Provider +1- [phone] Reason for Referral * Diagnostic Imaging (Routine) - Closed Specialty Diagnoses / Procedures Referred By Contac t Referred To Contact Radiology Diagnoses Encounter to determine viability of , single or unspecified fetus Procedures US Ob Transvaginal Napoleon Mcginnis MD [address] [place] [address] Phone: tel: fax: [facility] Phone: tel: Referral ID Status Reason Start Date Expiration Date Visits Re quested Visits Authorized [id number] Closed 05/10/2024 05/10/2025 1 1 Reason for Visit * Consultation (Routine) - Closed Specialty Diagnoses / Procedures Referred By Contact Referred To Contact Obstetrics and Gynecology Diagnoses Referring, [place] [address] [facility] O[facility]YN [address] [place] [address] Phone: tel: fax: Referral ID Status Reason Start Date Expiration Date Visits Re quested Visits Authorized [id number] Closed 04/25/2024 04/25/2025 1 1 Encounter Details Date Type Department Care Team (Latest Contact Info) Description 05/17/2024 9:11 AM EST Hospital Encounter [facility] [place] [phone] Encounter to determine viability of , single [...] EST PAT NAME: SENA BENOIT MED REC#: [id number] DA: [id number] PAT GEND: F PAT TYPE: O EXAM ANIRUDH: [id number] REF PHYS NAPOLEON MCGINNIS Indication ======== viability [...] in the menstrual and sonographic dating criteria Search Planner: Ekaterina Gaston RDMS Physician: Napoleon Mcginnis MD Electronically signed by: Napoleon Mcginnis MD at: 14:08 Procedure Note Napoleon Mcginnis MD - 05/17/2024 PAT NAME: SENA BENOIT MED REC#: [id number] DA: 1995 PAT GEND: F PAT TYPE: O EXAM ANIRUDH: [id number] REF PHYS NAPOLEON MCGINNIS Indication ======== viability [...] GA10 w + 6 d Assigned VINICIUS:12/07/2024 [id number] d Assessment Gestational sac:visualized Location:intrauterine Yolk sac:visualized Embryo:visualized CRL39.0 mm 10w 6d 22% Hadlock Cardiac activity:present [id number] bpm 93% Nicolaides Placenta:Too early to evaluate [...] discrepancy in the menstrual andsonographic dating criteria Search Planner: Ekaterina Gaston RDMS Physician: Napoleon Mcginnis MD Electronically signed by: Napoleon Mcginnis MD at: 14:08 us Napoleon Mcginnis MD IMG US ORDERABLES Final Result documented in this encounter Visit Diagnoses Diagnosis Encounter to determine viability of , single or unspecified fetus documented in this encounter Care Teams Foam Gun Operator Relationship Specialty Start Date End Date Elisa Valdes DO [address] [place] [address] PCP - General Family Medicine 01/09/21 documented as of this encounter
--- OUTSIDE RECORDS SUMMARY | 2024-10-01 11:30 | XMS_ITS | Encounter Summary ---
[facility] [address] [place] [address] Care Team Providers Care Chemist Helper Name Role Phone Elisa Valdes DO Primary Care Provider +1- [phone] Encounter Details Date Type Department Care Team (Latest Contact Info) Description 10/01/2024 11:30 AM EDT - 10/01/2024 11:59 PM EDT Hospital Encounter [facility] DIABETES ED [address] [facility] [address] [place] [address] Discharge Disposition: Home or Self Care Social [...] on filedocumented in this encounter Care Teams Chemist Helper Relationship Specialty Start Date End Date Elisa Valdes DO [address] [place] [address] PCP - General Family Medicine 01/09/21 documented as of this encounter
--- OUTSIDE RECORDS SUMMARY | 2024-10-26 08:00 | XMS_ITS | Encounter Summary ---
Author Organization [facility] Address [address] [id number] Care Team Providers Care Development And Planning Engineer Name Role Phone Elisa Valdes DO Primary Care Provider +1- [phone] Reason for Referral * Diagnostic Imaging (Routine) - Closed Specialty Diagnoses / Procedures Referred By Contac t Referred To Contact Radiology Diagnoses Insulin controlled gestational diabetes mellitus (GDM) in third trimester Procedures [facility] Diagnostic [place] Tye Leung MD [address] [place] [address] Phone: tel: fax: [facility] PER [facility] [address] [facility] [place] [address] Phone: tel: Referral ID Status Reason Start Date Expiration Date Visits Re quested Visits Authorized [id number] Closed 09/27/2024 12/27/2025 1 1 Reason for Visit * Diagnostic Imaging (Routine) - Closed Specialty Diagnoses / Procedures Referred By Contac t Referred To Contact Radiology Diagnoses Insulin controlled gestational diabetes mellitus (GDM) in third trimester Procedures [facility] Diagnostic [place] Tye eLung MD [address] [place] [address] Phone: tel: fax: [facility] PER [facility] [address] [facility] [place] [address] Phone: tel: Referral ID Status Reason Start Date Expiration Date Visits Re quested Visits Authorized [id number] Closed 09/27/2024 12/27/2025 1 1 Encounter Details Date Type Department Care Team (Late st Contact Info) Description 10/26/2024 8:00 AM EDT - 10/26/2024 11:59 PM EDT Hospital Encounter [facility] [address] [place] [id number] Tye Leung MD [address] [place] [address] Insulin controlled gestational diabetes mellitus (GDM) in [...] Procedure Name Priority Date/Time Associated Diagnosis Comments [facility] Routine 10/26/2024 8:24 AM EDT Insulin controlled gestational diabetes mellitus (GDM) in third trimester documented in this encounter Results * [facility] (10/26/2024 8:24 AM EDT) Anatomical Region Laterality Modality Ultrasound 10/26/2024 8:09 AM EDT Narrative 10/26/2024 8:36 AM EDT PAT NAME: SENA BENOIT [facility] REC#: [id number] DA: [id number] PAT GEND: F PAT TYPE: O EXAM ANIRUDH: [id number] REF PHYS KAROLINA ORTIZ Comparison Studies The [...] EFW (oz) 2 oz EFW by: Hadlock (VOM-OH-UC-FL) Extended Cav. septi pel. tr 5.6 mm [...] delivery. Twice weekly testing. Coding ======= Description: 99255-35 Follow Up Ultrasound Description: 31810-16 BPP without NST Melter Caster: Arin Pryor RDMS Physician: Tye Leung MD, FACOG Electronically signed by: Tye Leung MD, FACOG at: 08:36 Procedure Note Tye Leung MD - 10/26/2024 PAT NAME: SENA BENOIT MED REC#: [id number] DA: [id number] PAT GEND: F PAT TYPE: O EXAM ANIRUDH: [id number] REF PHYS KAROLINA ORTIZ Comparison Studies The findings of this study are compared to the prior ultrasound studydated 09/27/24 Patient Status Outpatient Indication ======== Gestational diabetes. Obesity BMI 36. Maternal Assessment Imhuua152 cm Height (ft)5 ft Height (in)8 in Zyndke230 kg Weight (lb)239 lb BMI36.64 kg/m Method ======= Transabdominal ultrasound examination. View: Adequate view ========= Almodovar . Number of fetuses: 1 Dating ====== LMP on:03/13/2024 GA by [email or web address] w + 3 d VINICIUS by LMP:12/18/2024 Method of dating:based on stated VINICIUS GA by prior [id number] w + 0 d VINICIUS by prior assessment:12/07/2024 Ultrasound examination on:10/26/2024 GA by U/S based upon:AC, BPD, Femur, HC GA by U/S34 w + 4 d VINICIUS by U/S:12/03/2024 Previous dating:based on ultrasound (CRL), selected on 05/17/2024 Agreed VINICIUS of previous datin12/07/2024 Assigned:based on stated VINICIUS, selected on 10/26/2024 Assigned GA34 w + 0 d Assigned VINICIUS:12/07/2024 [id number] d Biometry Standard BPD85.5 mm 34w 3d 61% Hadlock IFL809.8 mm 38w 3d 98% Rut HC321.9 mm 36w 2d 74% Hadlock Cerebellum tr46.0 mm 35w 0d 50% Hill AC291.8 mm 33w 1d 29% Hadlock Femur66.9 mm 34w 3d 52% Hadlock Mpqdvyf18.5 mm 34w 4d 73% Rut HC / AC1.10 EFW2,320 g 33w 5d 43% Hadlock EFW (lb)5 lb EFW (oz)2 oz EFW by:Hadlock (FKA-SH-DK-FL) Extended Cav. septi pel. tr5.6 mm CM8.9 mm 85% Nicolaides Head / Face / Neck Cephalic index0.76 9% Nicolaides Extremities / Bony Struc FL / BPD0.78 FL / HC0.21 FL / AC0.23 Other Structures LCC865 bpm General Evaluation Cardiac activity present. FHR [...] week delivery. Twice weekly testing. Coding ======= Description:50505-58 Follow Up Ultrasound Description:65889-75 BPP without NST Melter Caster: Arin Pryor RDMS Physician: Tye Leung MD, FACOG Electronically signed by: Tye Leung MD, FACOG at: 08:36 us Tey Leung MD IMG ORDERABLES Final Result documented in this encounter Visit Diagnoses Diagnosis Insulin controlled gestational diabetes mellitus (GDM) in third trimester documented in this encounter Care Teams Development And Planning Engineer Relationship Specialty Start Date End Date Elisa Valdes DO [address] [place] [address] PCP - General Family Medicine 01/09/21 documented as of this encounter
--- OUTSIDE RECORDS SUMMARY | 2024-10-26 08:00 | XMS_ITS | Encounter Summary ---
Author Organization [facility] Address [address] [place] [address] Care Team Providers Care Cartridge Maker Name Role Phone Keisha Elisa Linette MONGE Primary Care Provider +1- [phone] Reason for Visit * Reason Comments GDM; obesity; pre-diabetes prior to preg yi Encounter Details Date Type Department Care Team (Late st Contact Info) Description 10/26/2024 8:00 AM EDT Office Visit [facility] MATERNAL MEDICINE [address] [place] [phone] Tye Leung MD [address] [facility] [address] [place] [address] Insulin controlled gestational diabetes mellitus (GDM) in [...] CVS. Tye Leung MD, FACOG Maternal Medicine, [facility] Diagnostic [place] documented in this encounter Plan of Treatment Not on file documented as of this encounter Visit Diagnoses Diagnosis Insulin controlled gestational diabetes mellitus (GDM) in third trimester- Primary documented in this encounter Care Teams Cartridge Maker Relationship Specialty Start Date End Date Elisa Valdes DO [address] [place] [address] PCP - General Family Medicine 01/09/21 documented as of this encounter
--- OUTSIDE RECORDS SUMMARY | 2024-11-30 10:37 | XMS_ITS | Clinical Summary ---
Author Organization [facility] Address [address] [place] [address] Care Team Providers Care Marketing Finance Manager Name Role Phone Keisha Elisa Linette [...] NPH at night previously prescribed by primary BELT LACER. Will continue NPH at this time though [...] Care Team Description 11/08/2024 Medication Therapy Management [facility] MATERNAL MEDICINE [address] [address] Abiola Awad MD 10/26/2024 8:00 AM EDT - 10/26/2024 11:59 PM EDT Hospital Encounter [facility] US PER DIAG CTR [address] [place] [address] Tye Leung MD Insulin controlled gestational diabetes mellitus (GDM) in third trimester Discharge Disposition: Home or Self Care 10/26/2024 8:00 AM EDT Office Visit [facility]NAL [facility] [address] [place] [address] Tye Leung MD Insulin controlled gestational diabetes mellitus (GDM) in third trimester (Primary Dx) 10/26/2024 Travel 10/25/2024 Medication Therapy Management [facility] MATERNAL MEDICINE [address] [facility] [address] [place] [address] Abiola Awad MD 10/12/2024 Telephone [facility] MATERNAL MEDICINE [address] [facility] [address] [place] [address] Mell Silvestre, telescope operator Only 10/01/2024 11:30 AM EDT - 10/01/2024 11:59 PM EDT Hospital Encounter [facility] DIABETES ED [address] [facility] [address] [place] [phone] Discharge Disposition: Home or Self Care 10/01/2024 Telephone [facility] MATERNAL MEDICINE [address] [facility] [address] [place] [phone] Georgia Booth RN Med Management 10/01/2024 Travel 09/27/2024 2:00 PM EDT Office Visit [facility] MATERNAL MEDICINE [address] [facility] [address] [place] [phone] Tye Leung MD Insulin controlled gestational diabetes mellitus (GDM) in third trimester (Primary Dx) 09/27/2024 1:48 PM EDT - 09/27/2024 11:59 PM EDT Hospital Encounter [facility] US PER DIAG CTR [address] [place] [phone] Gabriella Daniels DO Gestational diabetes mellitus (GDM) in third trimester, gestational diabetes method of control unspecified; Obesity in , antepartum Discharge Disposition: Home or Self Care 09/27/2024 Documentation [facility]ERNAL MEDICINE [address] [facility] [address] [place] [address] Alanna Walker RN 09/27/2024 Travel 09/26/2024 Telephone [facility] MATERNAL MEDICINE [address] [facility] [address] [place] [phone] Mell Silvestre, JORDIN 09/20/2024 12:50 PM EDT - 09/20/2024 11:59 PM EDT Hospital Encounter [facility] DIABETES ED [address] [place] [address] Leung, Tye Greer MD Discharge [...] Date/Time Associated Diagnosis Comments SCANNED - IMAGING 11/23/2024 SCANNED - IMAGING 11/16/2024 SCANNED - IMAGING 11/09/2024 SCANNED - IMAGING 11/02/2024 [facility] Routine 10/26/2024 8:24 AM EDT Insulin controlled gestational diabetes mellitus (GDM) in third trimester SCANNED - IMAGING 10/12/2024 [facility] Routine 09/27/2024 2:43 PM EDT Gestational diabetes mellitus (GDM) in third trimester, gestational diabetes method of control unspecified Obesity in , antepartum SCANNED - LABS 09/14/2024 SCANNED - LABS 09/14/2024 SCANNED - IMAGING 09/14/2024 HEPATITIS C ANTIBODY Routine 05/17/2024 11:41 AM EST Encounter for supervision of low-risk , antepartum ONESWAB Routine 05/17/2024 Encounter for supervision of low-risk , antepartum from Last 3 Months or Most Recently Relevant to Health Maintenance Results * IMAGING SCANNED (11/23/2024) Only the most recent of6 resultswithin the time period is included. Anatomical Region Laterality Modality Radiographic Donna ging Elisa Valdes DO IMG DIAGNOSTIC IMAGING ORDE RABEMMA Final Result * US [facility] (10/26/2024 8:24 AM EDT) Only the most recent of2 resultswithin the time period is included. Anatomical Region Laterality Modality Ultrasound 10/26/2024 8:09 AM EDT Narrative 10/26/2024 8:36 AM EDT PAT NAME: SENA BENOIT MED REC#: [id number] DA: [id number] PAT GEND: F PAT TYPE: O EXAM ANIRUDH: [id number] REF PHYS GABRIELLA DANIELS Comparison Studies The [...] Hadlock OFD 112.8 mm 38w 3d 98% Rtu HC 321.9 mm 36w 2d 74% Hadlock Cerebellum tr 46.0 mm 35w 0d 50% Hill AC 291.8 mm 33w 1d 29% Hadlock Femur 66.9 mm 34w 3d 52% Hadlock Humerus 59.5 mm 34w 4d 73% Rut HC / AC 1.10 EFW 2,320 g 33w 5d 43% Hadlock EFW (lb) 5 lb EFW (oz) 2 oz EFW by: Hadlock ([id number]) Extended Cav. septi pel. tr 5.6 mm [...] delivery. Twice weekly testing. Coding ======= Description: 73129-17 Follow Up Ultrasound Description: 00242-56 BPP without NST Neurology Tech: Arin Pryor RDMS Physician: Tye Leung MD, FACOG Electronically signed by: Tye Leung MD, FACOG at: 08:36 Procedure Note Tye Leung MD - 10/26/2024 PAT NAME: SENA BENOIT MED REC#: [id number] DA: [id number] PAT GEND: F PAT TYPE: O EXAM ANIRUDH: [id number] REF PHYS GABRIELLA DANIELS Comparison Studies The findings of this study are compared to the prior ultrasound studydated 09/27/24 Patient Status Outpatient Indication ======== Gestational diabetes. Obesity BMI 36. Maternal Assessment [id number] cm Height (ft)5 ft Height (in)8 in Zzfxvc199 kg Weight (lb)239 lb BMI36.64 kg/m Method ======= Transabdominal ultrasound examination. View: Adequate view ========= Almodovar . Number of fetuses: 1 Dating ====== LMP on:03/13/2024 GA by [id number] w + 3 d VINICIUS by LMP:12/18/2024 Method of dating:based on stated VINICIUS GA by prior [id number] w + 0 d VINICIUS by prior assessment:12/07/2024 Ultrasound examination on:10/26/2024 GA by U/S based upon:AC, BPD, Femur, HC GA by U/S34 w + 4 d VINICIUS by U/S:12/03/2024 Previous dating:based on ultrasound (CRL), selected on 05/17/2024 Agreed VINICIUS of previous datin12/07/2024 Assigned:based on stated VINICIUS, selected on 10/26/2024 Assigned GA34 w + 0 d Assigned VINICIUS:12/07/2024 [id number] d Biometry Standard BPD85.5 mm 34w 3d 61% Hadlock IRK130.8 mm 38w 3d 98% Rut HC321.9 mm 36w 2d 74% Hadlock Cerebellum tr46.0 mm 35w 0d 50% Hill AC291.8 mm 33w 1d 29% Hadlock Femur66.9 mm 34w 3d 52% Hadlock Fyhnwqf63.5 mm 34w 4d 73% Rut HC / AC1.10 EFW2,320 g 33w 5d 43% Hadlock EFW (lb)5 lb EFW (oz)2 oz EFW by:Hadlock ([id number]-[id number]-FL) Extended Cav. septi pel. tr5.6 mm CM8.9 mm 85% Nicolaides Head / Face / Neck Cephalic index0.76 9% Nicolaides Extremities / Bony Struc FL / BPD0.78 FL / HC0.21 FL / AC0.23 Other Structures [id number] bpm General Evaluation Cardiac activity present. FHR [...] week delivery. Twice weekly testing. Coding ======= Description:49935-79 Follow Up Ultrasound Description:[id number] BPP without NST Neurology Tech: Arin Pryor RDMS Physician: Tye Leung MD, FACOG Electronically signed by: Tye Leung MD, FACOG at: 08:36 us Tye Leung MD IMG US ORDERABLES Final Result * LABS SCANNED (09/14/2024) Only the most recent of2 resultswithin the time period is included. Elisa Valdes DO LAB BLOOD ORDERABLES Final Result * Hepatitis C Antibody (05/17/2024 11:41 AM EST) Hepatitis C Ab Non-Reacti ve Non-Reacti ve 05/17/2024 2:42 PM EST [facility] Blood Venipuncture / Unknown 05/17/2024 11:41 AM EST 05/17/2024 11:44 AM EST Meldoy Ordonez MD LAB BLOOD ORDERABLES Final Resul t Performing Organization Address City/[facility]/ZIP Co de Phone Number [facility]
[address] [place] [address], * OneSwab - Kit, Vagina (05/17/2024) Kit Vaginal structure / Unknown Melody Ordonez MD MICROBIOLOGY - GENERAL ORDERABLE S Final Result Performing Organization Address City/[facility]/ZIP Co de Phone Number [facility] [address] [place] [address] from Last 3 Months or Most Recently Relevant to Health Maintenance Insurance [facility] Care Teams Marketing Finance Manager Relationship Specialty Start Date End Date Elisa Valdes DO [address] [place] [place] [address] PCP - General Family Medicine 01/09/21
--- OUTSIDE RECORDS SUMMARY | 2024-11-30 10:37 | XMS_ITS | Encounter Summary ---
Author Organization [facility] Address [address] [place] [address] Care Team Providers Care Control Clerk Name Role Phone Keisha Elisa Linette MONGE Primary Care Provider [phone] Reason for Visit * Reason Onset Date Comments Advice Only 10/12/2024 Encounter Details Date Type Department Care Team (Late st Contact Info) Description 10/12/2024 Telephone [facility] MATERNAL MEDICINE [address] [facility] [address] [place] [phone] Mell Silvestre, roller print tender Only Social History Tobacco Use Types Packs/Day [...] on filedocumented in this encounter Care Teams Control Clerk Relationship Specialty Start Date End Date Elisa Valdes DO [address] [place] [address] PCP - General Family Medicine 01/09/21 documented as of this encounter
--- OUTSIDE RECORDS SUMMARY | 2024-11-30 10:37 | XMS_ITS | Encounter Summary ---
[facility] Address [address] [place] [address] Care Team Providers Care Tanbark Laborer Name Role Phone Elisa Valdes DO Primary Care Provider [phone] Encounter Details Date Type Department Care Team (Late st Contact Info) Description 10/25/2024 Medication Therapy Management [facility] MATERNAL MEDICINE [address] [facility] [address] [place] [address] Abiola Awad MD [address] [facility] [address] [place] [address] Social History Tobacco Use Types Packs/Day Years [...] on filedocumented in this encounter Care Teams Tanbark Laborer Relationship Specialty Start Date End Date Elisa Valdes DO [address] [place] [address] PCP - General Family Medicine 01/09/21 documented as of this encounter
--- OUTSIDE RECORDS SUMMARY | 2024-11-30 10:37 | XMS_ITS | Encounter Summary ---
Author Organization [facility] Address [address] [place] [address] Care Team Providers Care Telephone Lineman Name Role Phone Keisha Elisa Linette MONGE Primary Care Provider [phone] Reason for Visit * Reason Onset Date Comments Med Management 10/01/2024 Encounter Details Date Type Department Care Team (Late st Contact Info) Description 10/01/2024 Telephone [facility] MATERNAL MEDICINE [address] [facility] [address] [place] [phone] Georgia Booth, RN Med Management Social History [...] filedocumented in this encounter Care Teams Telephone Lineman Relationship Specialty Start Date End Date Elisa Valdes DO [address] [place] [address] PCP - General Family Medicine 01/09/21 documented as of this encounter
--- OUTSIDE RECORDS SUMMARY | 2024-11-30 10:37 | XMS_ITS | Encounter Summary ---
Author Organization [facility] Address [address] [place] [address] Care Team Providers Care Rn Pacu Name Role Phone Elisa Valdes DO Primary Care Provider [phone] Encounter Details Date Type Department Care Team [...] on filedocumented in this encounter Care Teams Rn Pacu Relationship Specialty Start Date End Date Elisa [place] [address] PCP - General Family Medicine 01/09/21 documented as of this encounter
--- OUTSIDE RECORDS SUMMARY | 2024-11-30 10:37 | XMS_ITS | Encounter Summary ---
Author Organization [facility] Address [address] [place] [address] Care Team Providers Care Valve Grinder Name Role Phone Elisa Vlades DO Primary Care Provider [phone] Encounter Details Date Type Department Care Team [...] on filedocumented in this encounter Care Teams Valve Grinder Relationship Specialty Start Date End Date Elisa Val[place] [address] PCP - General Family Medicine 01/09/21 documented as of this encounter
--- NOTE | 2024-11-30 10:38 | US_ITS ---
PROCEDURE: US OB BIOPHYSICAL PROFILE CLINICAL INDICATION: GDM,Class A2 COMPARISON: US US OB >= 14 WEEKS FETUS from 07/19/2024 US US OB FOLLOW UP from 09/14/2024 US OB FOLLOW UP from 10/12/2024 US OB BIOPHYSICAL PROFILE from 10/19/2024 US OB BIOPHYSICAL PROFILE from 11/02/2024 US OB BIOPHYSICAL PROFILE from 11/09/2024 US OB BIOPHYSICAL PROFILE from 11/16/2024 US OB BIOPHYSICAL PROFILE from 11/23/2024 FINDINGS: Transabdominal sonographic images of the uterus were obtained. From her established due date she is 39weeks 0 days. The following parameters are obtained: Viable Fetus in the cephalic presentation with an anterior placenta grade 3. The cervix measures 2.57 cm. Measurements: heart Rate = 132bpm Amniotic fluid index: 7.97cm, MVP 4.87 cm There is a larger pocket of fluid measuring 3.75 cm x 4.83 cm. Qualitative AFV:2 Breathing movements: 2 Gross Body Movements: 2 Tone: 2 Biophysical profile score: 8 No obvious anomalies evident.Kidneys, stomach, bladder, four-chamber heart three-vessel cord appear normal. There is mild unilateral renal pelvis dilation measuring 6.7 mm. follow-up construction and maintenance inspector is recommended. IMPRESSION: 1. Viable fetus in the cephalic presentation with an anterior placenta grade 3. 2. The fluid is within normal limits with an amniotic fluid index 7.97 cm, MVP 4.87 cm. There is a single larger pocket of fluid measuring 3.75 cm x 4.83 cm. 3. Biophysical profile is 8/8 with good breathing movement and movement seen. 4. Unilateral renal pelvis dilation of 6.7 mm is seen and would suggest follow-up with the construction and maintenance inspector . The rest of the limited anatomical scan appears normal. Dictated by: Crispin Marks MD 12/01/2024 06:31 Crispin Marks MD in OV 12/01/2024 06:31
--- OUTSIDE RECORDS SUMMARY | 2024-11-30 10:39 | XMS_ITS | Encounter Summary ---
[facility] Address [address] [place] [address] Care Team Providers Care Button Facing Machine Operator Name Role Phone Elisa Valdes DO Primary Care Provider [phone]- [phone] Encounter Details Date Type Department Care Team (Late st Contact Info) Description 11/08/2024 Medication Therapy Management [facility] MATERNAL MEDICINE [address] [facility] [address] [place] [phone] Abiola Awad MD [address] [facility] [address] [place] [address] Social History Tobacco Use Types Packs/Day Years [...] on filedocumented in this encounter Care Teams Button Facing Machine Operator Relationship Specialty Start Date End Date Elisa Valdes DO [address] [place] [address] PCP - General Family Medicine 01/09/21 documented as of this encounter
--- OUTSIDE RECORDS SUMMARY | 2024-11-30 10:39 | XMS_ITS | Patient Health Record ---
Author Organization [facility] Address [address] [place] [address] Care Team Providers Care Sonography Technologist Name Role Phone Mee García Unavailable [phone] Reason For Referral No Information Social History [...] No Encounters Encounter Location Date Provider Diagnosis [facility] [address] [place] [address] 05/04/2024 Mee García Early stage of Z34.90 [...] Insured Coverage Start Date Coverage End Date [facility] [address] [place], [place] [id number] Sena Robles Self - patient is the insured
--- OUTSIDE RECORDS SUMMARY | 2024-11-30 10:40 | XMS_ITS | Clinical Summary ---
Author Organization Healthcare Address [address] [place] [address] Care Team Providers Care Systems Applications Programming Lead Name Role Phone Mee Matt MD Primary Care Provider [phone] Allergies No known active allergies Medications * [...] Additional history exists [facility]-Depression Screening 09/18/2023 09/17/2022 [id number] Vaccine ( season) 2023 [facility]-Influenza Vaccine (#1) [...] Reactive Non Reactive 09/17/2022 11:53 AM EDT [facility] Comment:Screening for HIV 1 & 2 antibodies, and P24 antigen is NONREACTIVE. No confirmatory testing is required. Blood Venous blood specimen / Unknown Venipuncture / Unknown 09/17/2022 10:22 AM EDT 09/17/2022 10:22 AM EDT Karma Stevenson APRN LAB BLOOD ORDERABLES Final Re sult Performing Organization Address [facility] Co de Phone Number [facility] [address] [place] [address] * Acute Hepatitis Panel (09/17/2022 10:22 AM EDT) [facility] Hepatitis B Surf Antigen Negative Negative 09/17/2022 2:38 PM EDT [facility] Hepatitis C Antibody Negative Negative 09/17/2022 2:38 PM EDT [facility] Hepatitis A Antibody IgM Negative Negative 09/17/2022 2:38 PM EDT [facility] Hepatitis B Core Antibody IgM Negative Negative 09/17/2022 2:38 PM EDT [facility] Blood Venous blood specimen / Unknown Venipuncture / Unknown 09/17/2022 10:22 AM EDT 09/17/2022 10:22 AM EDT Karma Stevenson APRN LAB BLOOD ORDERABLES Final Re sult Performing Organization Address [facility] Co de Phone Number [facility] [address] [place] [address] * Pap Test (09/17/2022 9:47 AM EDT) [facility] Case Report Cytology Case: [id number] Authorizing Provider: Karma Stevenson APRN Collected: 09/17/2022 0947 Ordering Location: Medical Office Building Received: 09/17/2022 1310 Obstetrics and Gynecology First Screen: Oh Squires Rescreen: So Yang Specimen: ThinPrep Pap Test, Liquid-Based Cervical/Vaginal 10/04/2022 10:27 AM EDT [facility] Interpretation NEGATIVE FOR INTRAEPITHELIAL LESION OR MALIGNANCY 10/04/2022 10:27 AM EDT [facility] at 1026 EDT Other Findings Shift in reji suggestive of bacterial vaginosis. 10/04/2022 10:27 AM EDT [facility] Specimen Adequacy Satisfactory for evaluation; endocervical/chin sformation zone component present. Slide imaged by the ThinPrep Imaging system and selected 22 arango reviewed then full manual screening. 10/04/2022 10:27 AM EDT [facility] Cervical cytology is a screening [...] results is suggested (please call Microbiology at [phone] for results). 10/04/2022 10:27 AM EDT [facility] Menstrual Status Cyclic 10/05/19 10:27 AM EDT [facility] History of Hysterectomy Not Applicable 10/04/2022 10:27 AM EDT [facility] Contraceptive History Not Applicable 10/04/2022 10:27 AM EDT [facility] Screening Type Previous or Suspected Abnormality 10/04/2022 10:27 AM EDT [facility] HPV Testing Requested? Request HPV Testing Regardless of Pap Test Findings 10/04/2022 10:27 AM EDT [facility] Infection History Human Papillomavirus 10/04/2022 10:27 AM EDT [facility] Previous Cancer History No 10/04/2022 10:27 AM EDT [facility] Previous or Suspected Abnormality Previous Abnormal Pap 10/04/2022 10:27 AM EDT [facility] Clinical Information Z01.419 - Well woman exam [ICD-10-CM] N87.0 - Mild dysplasia of cervix (THOR I) [ICD-10-CM] 10/04/2022 10:27 AM EDT [facility] Last Menstrual Period 09/02/2022 10/04/2022 10:27 AM EDT [facility] Swab Vaginal and cervical cytologic material / Unknown Non-blood Collection / Unknown 09/17/2022 9:47 AM EDT 09/17/2022 1:10 PM EDT us Krama Gottlieb Graham EXPORT AGENT LAB CYTOLOGY ORDERABLES Final Result [facility] [address] [place] [address] from Last 3 Months or Most Recently Relevant to Health Maintenance Insurance Care Teams Systems Applications Programming Lead Relationship Specialty Start Date End Date Mee Matt MD [address] [facility] [address] [place] [address] PCP - General 08/15/20
== END 2024-11-30 23:59 | disposition home or self-care (01) ==
LOC: RAD 10:34
PROVIDERS: Visit Provider Obstetrics & Gynecology
DX: O28.3 Abnormal ultrasonic finding on antenatal screening of mother (principal); O99.891 Other specified diseases and conditions complicating pregnancy; O24.419 Gestational diabetes mellitus in pregnancy, unspecified control; O99.213 Obesity complicating pregnancy, third trimester; N28.89 Other specified disorders of kidney and ureter; Z3A.39 39 weeks gestation of pregnancy
CPT/HCPCS: 76819

== ENCOUNTER 2024-12-03 13:03 | Inpatient (IN) | payer OTHER, SELFPAY ==
--- OUTSIDE RECORDS SUMMARY | 2024-05-17 10:11 | XMS_ITS | Encounter Summary ---
Author Organization [facility] Address [address] [place] [address] Care Team Providers Care Whanau Support Worker Name Role Phone Elisa Valdes DO Primary Care Provider +1- [phone] Reason for Referral * Diagnostic Imaging (Routine) - Closed Specialty Diagnoses / Procedures Referred By Contac t Referred To Contact Radiology Diagnoses Encounter to determine viability of , single or unspecified fetus Procedures US Ob Transvaginal Napoleon Mcginnis MD [address] [place] [address] Phone: tel: fax: [facility] Phone: tel: Referral ID Status Reason Start Date Expiration Date Visits Re quested Visits Authorized [id number] Closed 05/10/2024 05/10/2025 1 1 Reason for Visit * Consultation (Routine) - Closed Specialty Diagnoses / Procedures Referred By Contact Referred To Contact Obstetrics and Gynecology Diagnoses Referring, [place] [address] [facility] [address] [place] [address] Phone: tel: fax: Referral ID Status Reason Start Date Expiration Date Visits Re quested Visits Authorized [id number] Closed 04/25/2024 04/25/2025 1 1 Encounter Details Date Type Department Care Team (Latest Contact Info) Description 05/17/2024 9:11 AM EST Hospital Encounter [facility] [place] [phone] Encounter to determine viability of , single [...] EST PAT NAME: SENA BENOIT MED REC#: [id number] DA: [id number] PAT GEND: F PAT TYPE: O EXAM ANIRUDH: [id number] REF PHYS NAPOLEON MCGINNIS Indication ======== viability [...] in the menstrual and sonographic dating criteria Business Intelligence Etl Developer: Ekaterina Gaston RDMS Physician: Napoleon Mcginnis MD Electronically signed by: Napoleon Mcginnis MD at: 14:08 Procedure Note Napoleon Mcginnis MD - 05/17/2024 PAT NAME: SENA BENOIT MED REC#: [id number] DA: 1995 PAT GEND: F PAT TYPE: O EXAM ANIRUDH: [id number] REF PHYS NAPOLEON MCGINNIS Indication ======== viability [...] GA10 w + 6 d Assigned VINICIUS:12/07/2024 [id number] d Assessment Gestational sac:visualized Location:intrauterine Yolk sac:visualized Embryo:visualized CRL39.0 mm 10w 6d 22% Hadlock Cardiac activity:present [id number] bpm 93% Nicolaides Placenta:Too early to evaluate [...] discrepancy in the menstrual andsonographic dating criteria Business Intelligence Etl Developer: Ekaterina Gaston RDMS Physician: Napoleon Mcginnis MD Electronically signed by: Napoleon Mcginnis MD at: 14:08 us Napoleon Mcginnis MD IMG US ORDERABLES Final Result documented in this encounter Visit Diagnoses Diagnosis Encounter to determine viability of , single or unspecified fetus documented in this encounter Care Teams Whanau Support Worker Relationship Specialty Start Date End Date Elisa Valdes DO [address] [place] [address] PCP - General Family Medicine 01/09/21 documented as of this encounter
--- OUTSIDE RECORDS SUMMARY | 2024-10-26 08:00 | XMS_ITS | Encounter Summary ---
Author Organization [facility] Address [address] [id number] Care Team Providers Care Community Center Coordinator Name Role Phone Elisa Valdes DO Primary Care Provider +1- [phone] Reason for Referral * Diagnostic Imaging (Routine) - Closed Specialty Diagnoses / Procedures Referred By Contac t Referred To Contact Radiology Diagnoses Insulin controlled gestational diabetes mellitus (GDM) in third trimester Procedures [facility] Diagnostic [place] Tye Leung MD [address] [place] [address] Phone: tel: fax: [facility] [address] [facility] [address] Phone: tel: Referral ID Status Reason Start Date Expiration Date Visits Re quested Visits Authorized [id number] Closed 09/27/2024 12/27/2025 1 1 Reason for Visit * Diagnostic Imaging (Routine) - Closed Specialty Diagnoses / Procedures Referred By Contac t Referred To Contact Radiology Diagnoses Insulin controlled gestational diabetes mellitus (GDM) in third trimester Procedures [facility] Diagnostic [place] Tye Leung MD [address] [place] [address] Phone: tel: fax: [facility] [address] [facility] [address] Phone: tel: Referral ID Status Reason Start Date Expiration Date Visits Re quested Visits Authorized [id number] Closed 09/27/2024 12/27/2025 1 1 Encounter Details Date Type Department Care Team (Late st Contact Info) Description 10/26/2024 8:00 AM EDT - 10/26/2024 11:59 PM EDT Hospital Encounter [facility] [address] [place] [id number] Tye Leung MD [address] [place] [address] Insulin controlled gestational diabetes mellitus (GDM) in [...] Priority Date/Time Associated Diagnosis Comments [facility] Routine 10/26/2024 8:24 AM EDT Insulin controlled gestational diabetes mellitus (GDM) in third trimester documented in this encounter Results * [facility] (10/26/2024 8:24 AM EDT) Anatomical Region Laterality Modality Ultrasound 10/26/2024 8:09 AM EDT Narrative 10/26/2024 8:36 AM EDT PAT NAME: SENA BENOIT [facility] REC#: [id number] DA: [id number] PAT GEND: F PAT TYPE: O EXAM ANIRUDH: [id number] REF PHYS KAROLINA ORTIZ Comparison Studies The [...] EFW (oz) 2 oz EFW by: Hadlock (FCD-GT-XW-FL) Extended Cav. septi pel. tr 5.6 mm [...] delivery. Twice weekly testing. Coding ======= Description: 28819-92 Follow Up Ultrasound Description: 56007-56 BPP without NST Regional Office Coordinator: Arin Pryor RDMS Physician: Tye Leung MD, FACOG Electronically signed by: Tye Leung MD, FACOG at: 08:36 Procedure Note Tye Leung MD - 10/26/2024 PAT NAME: SENA BENOIT MED REC#: [id number] DA: [id number] PAT GEND: F PAT TYPE: O EXAM ANIRUDH: [id number] REF PHYS KAROLINA ORTIZ Comparison Studies The findings of this study are compared to the prior ultrasound studydated 09/27/24 Patient Status Outpatient Indication ======== Gestational diabetes. Obesity BMI 36. Maternal Assessment Bfcymt937 cm Height (ft)5 ft Height (in)8 in Oxuzzi608 kg Weight (lb)239 lb BMI36.64 kg/m Method ======= Transabdominal ultrasound examination. View: Adequate view ========= Almodovar . Number of fetuses: 1 Dating ====== LMP on:03/13/2024 GA by [email or web address] w + 3 d VINICIUS by LMP:12/18/2024 Method of dating:based on stated VINICIUS GA by prior [id number] w + 0 d VINICIUS by prior assessment:12/07/2024 Ultrasound examination on:10/26/2024 GA by U/S based upon:AC, BPD, Femur, HC GA by U/S34 w + 4 d VINICIUS by U/S:12/03/2024 Previous dating:based on ultrasound (CRL), selected on 05/17/2024 Agreed VINICIUS of previous datin12/07/2024 Assigned:based on stated VINICIUS, selected on 10/26/2024 Assigned GA34 w + 0 d Assigned VINICIUS:12/07/2024 d Biometry Standard BPD85.5 mm 34w 3d 61% Hadlock ZQW617.8 mm 38w 3d 98% Rut HC321.9 mm 36w 2d 74% Hadlock Cerebellum tr46.0 mm 35w 0d 50% Hill AC291.8 mm 33w 1d 29% Hadlock Femur66.9 mm 34w 3d 52% Hadlock Vfcgnnr97.5 mm 34w 4d 73% Rut HC / AC1.10 EFW2,320 g 33w 5d 43% Hadlock EFW (lb)5 lb EFW (oz)2 oz EFW by:Hadlock (JBA-ZG-QG-FL) Extended Cav. septi pel. tr5.6 mm CM8.9 mm 85% Nicolaides Head / Face / Neck Cephalic index0.76 9% Nicolaides Extremities / Bony Struc FL / BPD0.78 FL / HC0.21 FL / AC0.23 Other Structures TSQ287 bpm General Evaluation Cardiac activity present. FHR [...] week delivery. Twice weekly testing. Coding ======= Description:01520-98 Follow Up Ultrasound Description:93784-29 BPP without NST Regional Office Coordinator: Arin Pryor RDMS Physician: Tye Leung MD, FACOG Electronically signed by: Tye Leung MD, FACOG at: 08:36 us Tye Leung MD IMG ORDERABLES Final Result documented in this encounter Visit Diagnoses Diagnosis Insulin controlled gestational diabetes mellitus (GDM) in third trimester documented in this encounter Care Teams Community Center Coordinator Relationship Specialty Start Date End Date Elisa Valdes DO [address] [place] [address] PCP - General Family Medicine 01/09/21 documented as of this encounter
--- OUTSIDE RECORDS SUMMARY | 2024-10-26 08:00 | XMS_ITS | Encounter Summary ---
Author Organization [facility] Address [address] [place] [address] Care Team Providers Care Janitor Name Role Phone Keisha Elisa Linette MONGE Primary Care Provider +1- [phone] Reason for Visit * Reason Comments GDM; obesity; pre-diabetes prior to preg yi Encounter Details Date Type Department Care Team (Late st Contact Info) Description 10/26/2024 8:00 AM EDT Office Visit [facility] MATERNAL MEDICINE [address] [place] [phone] Tye Leung MD [address] [facility] [address] [place] [address] Insulin controlled gestational diabetes mellitus (GDM) in [...] CVS. Tye Leung MD, FACOG Maternal Medicine, [facility] Diagnostic [place] documented in this encounter Plan of Treatment Not on file documented as of this encounter Visit Diagnoses Diagnosis Insulin controlled gestational diabetes mellitus (GDM) in third trimester- Primary documented in this encounter Care Teams Janitor Relationship Specialty Start Date End Date Elisa Valdes DO [address] [place] [address] PCP - General Family Medicine 01/09/21 documented as of this encounter
[2024-12-03 13:04] VITALS: BMI 39.6
--- OUTSIDE RECORDS SUMMARY | 2024-12-03 13:04 | XMS_ITS | Encounter Summary ---
Author Organization [facility] Address [address] [place] [address] Care Team Providers Care Journeyman Power Plant Operator Name Role Phone Elisa Valdes DO Primary Care Provider [phone] Encounter Details Date Type Department Care Team [...] on filedocumented in this encounter Care Teams Journeyman Power Plant Operator Relationship Specialty Start Date End Date Elisa Valdes [place] [address] PCP - General Family Medicine 01/09/21 documented as of this encounter
--- OUTSIDE RECORDS SUMMARY | 2024-12-03 13:04 | XMS_ITS | Clinical Summary ---
Author Organization [facility] Address [address] [place] [address] Care Team Providers Care Receiver Name Role Phone Keisha Elisa Linette MONGE [...] NPH at night previously prescribed by primary MUSIC HISTORIAN. Will continue NPH at this time though [...] Team Description 11/08/2024 Medication Therapy Management [facility] [address] [address] Abiola Awad MD 10/26/2024 8:00 AM EDT - 10/26/2024 11:59 PM EDT Hospital Encounter [facility] US PER DIAG [facility] [address] [place] [address] Tye Leung MD Insulin controlled gestational diabetes mellitus (GDM) in third trimester Discharge Disposition: Home or Self Care 10/26/2024 8:00 AM EDT Office Visit [facility] [address] [place] [address] Tye Leung MD Insulin controlled gestational diabetes mellitus (GDM) in third trimester (Primary Dx) 10/26/2024 Travel 10/25/2024 Medication Therapy Management [facility] [address] [facility] [address] [place] [address] Abiola Awad MD 10/12/2024 Telephone [facility] [address] [facility] [address] [place] [address] Mell Silvestre, linux devops engineer Only 10/01/2024 11:30 AM EDT - 10/01/2024 11:59 PM EDT Hospital Encounter [facility] DIABETES ED [address] [place] [phone] Discharge Disposition: Home or Self Care 10/01/2024 Telephone [facility] [address] [facility] [address] [place] [phone] Georgia Booth RN Med Management 10/01/2024 Travel 09/27/2024 2:00 PM EDT Office Visit [facility] [address] [facility] [address] [place] [phone] Tye Leung MD Insulin controlled gestational diabetes mellitus (GDM) in third trimester (Primary Dx) 09/27/2024 1:48 PM EDT - 09/27/2024 11:59 PM EDT Hospital Encounter [facility] [address] [place] [phone] Gabriella Daniels DO Gestational diabetes mellitus (GDM) in third trimester, gestational diabetes method of control unspecified; Obesity in , antepartum Discharge Disposition: Home or Self Care 09/27/2024 Documentation [facility] [address] [facility] [address] [place] [address] Alanna Walker RN 09/27/2024 Travel 09/26/2024 Telephone [facility] [address] [facility] [address] [place] [address] Mell Silvestre, JORDIN 09/20/2024 12:50 PM EDT - 09/20/2024 11:59 PM EDT Hospital Encounter [facility] DI[facility]ETES ED [address] [place] [address] Leung, Tye Greer MD Discharge [...] - IMAGING 11/09/2024 SCANNED - IMAGING 11/02/2024 [facility] Routine 10/26/2024 8:24 [...] IMAGING ORDE RABEMMA Final Result * US Count Includes [facility] (10/26/2024 8:24 AM EDT) Only the most recent of2 resultswithin the time period is included. Anatomical Region Laterality Modality Ultrasound 10/26/2024 8:09 AM EDT Narrative 10/26/2024 8:36 AM EDT PAT NAME: SENA BENOIT MED REC#: [id number] DA: [id number] PAT GEND: F PAT TYPE: O EXAM ANIRUDH: [id number] REF PHYS GABRIELLA DANIELS Comparison Studies The [...] EFW (oz) 2 oz EFW by: Hadlock ([id number]) Extended Cav. septi pel. tr 5.6 mm [...] delivery. Twice weekly testing. Coding ======= Description: 69212-65 Follow Up Ultrasound Description: 12579-24 BPP without NST Mds Rn: Arin Pryor RDMS Physician: Tye Leung MD, FACOG Electronically signed by: Tye Leung MD, FACOG at: 08:36 Procedure Note Tye Leung MD - 10/26/2024 PAT NAME: SENA BENOIT MED REC#: [id number] DA: [id number] PAT GEND: F PAT TYPE: O EXAM AINRUDH: [id number] REF PHYS GABRIELLA DANIELS Comparison Studies The findings of this study are compared to the prior ultrasound studydated 09/27/24 Patient Status Outpatient Indication ======== Gestational diabetes. Obesity BMI 36. Maternal Assessment Zfddjq568 cm Height (ft)5 ft Height (in)8 in Esfnjn471 kg Weight (lb)239 lb BMI36.64 kg/m Method ======= Transabdominal ultrasound examination. View: Adequate view ========= Almodovar . Number of fetuses: 1 Dating ====== LMP on:03/13/2024 GA by [id number] w + 3 d VINICIUS by LMP:12/18/2024 Method of dating:based on stated VINICIUS GA by prior [id number] w + 0 d VINICIUS by prior [...] Standard BPD85.5 mm 34w 3d 61% Hadlock YBC125.8 mm 38w 3d 98% Rut HC321.9 mm 36w 2d 74% Hadlock Cerebellum tr46.0 mm 35w 0d 50% Hill AC291.8 mm 33w 1d 29% Hadlock Femur66.9 mm 34w 3d 52% Hadlock Kwnicda29.5 mm 34w 4d 73% Rut HC / AC1.10 EFW2,320 g 33w 5d 43% Hadlock EFW (lb)5 lb EFW (oz)2 oz EFW by:Hadlock ([id number]) Extended Cav. septi pel. tr5.6 mm CM8.9 mm 85% Nicolaides Head / Face / Neck Cephalic index0.76 9% Nicolaides Extremities / Bony Struc FL / BPD0.78 FL / HC0.21 FL / AC0.23 Other Structures ZBT545 bpm General Evaluation Cardiac activity present. FHR [...] week delivery. Twice weekly testing. Coding ======= Description:04039-90 Follow Up Ultrasound Description:43172-65 BPP without NST Mds Rn: Arin Pryor RDMS Physician: Tye Leung MD, [...] ve Non-Reacti ve 05/17/2024 2:42 PM EST [facility] Blood Venipuncture / Unknown 05/17/2024 11:41 AM EST 05/17/2024 11:44 AM EST Melody Ordonez MD LAB BLOOD ORDERABLES Final Resul t Performing Organization Address City/[facility]/ZIP Co de Phone Number [facility]
[address] [place] [address], * OneSwab - Kit, Vagina (05/17/2024) Kit Vaginal structure / Unknown Melody Ordonez MD MICROBIOLOGY - GENERAL ORDERABLE S Final Result Performing Organization Address City/[facility]/ZIP Co de Phone Number [facility] [address] [place] [address] from Last 3 Months or Most Recently Relevant to Health Maintenance Insurance [facility] Care Teams Receiver Relationship Specialty Start Date End Date Elisa Valdes DO [address] [place] [address] PCP - General Family Medicine 01/09/21
--- OUTSIDE RECORDS SUMMARY | 2024-12-03 13:04 | XMS_ITS | Encounter Summary ---
[facility] Address [address] [place] [address] Care Team Providers Care Fabrication Department Supervisor Name Role Phone Elisa Valdes DO Primary Care Provider [phone] Encounter Details Date Type Department Care Team (Late st Contact Info) Description 10/25/2024 Medication Therapy Management [facility] [address] [facility] [address] [place] [address] Abiola Awad MD [address] [facility] [address] [place] [id number] Social History Tobacco Use Types Packs/Day Years [...] on filedocumented in this encounter Care Teams Fabrication Department Supervisor Relationship Specialty Start Date End Date Elisa Valdes DO [address] [place] [address] PCP - General Family Medicine 01/09/21 documented as of this encounter
--- OUTSIDE RECORDS SUMMARY | 2024-12-03 13:04 | XMS_ITS | Encounter Summary ---
Author Organization [facility] Address [address] [place] [address] Care Team Providers Care Rubber Compounder Name Role Phone Keisha Elisasalome Sue DO Primary Care Provider [phone] Reason for Visit * Reason Onset Date Comments Advice Only 10/12/2024 Encounter Details Date Type Department Care Team (Late st Contact Info) Description 10/12/2024 Telephone [facility] [address] [facility] [address] [place] [phone] Mell Silvestre, transferrer Only Social History Tobacco Use Types Packs/Day [...] on filedocumented in this encounter Care Teams Rubber Compounder Relationship Specialty Start Date End Date Elisa Valdes DO [address] [place] [address] PCP - General Family Medicine 01/09/21 documented as of this encounter
--- OUTSIDE RECORDS SUMMARY | 2024-12-03 13:07 | XMS_ITS | Encounter Summary ---
[facility] Address [address] [place] [address] Care Team Providers Care Linux Consultant Name Role Phone Elisa Valdes DO Primary Care Provider [phone] Encounter Details Date Type Department Care Team (Late st Contact Info) Description 11/08/2024 Medication Therapy Management [facility] [address] [facility] [address] [place] [address] Abiola Awad MD [address] [facility] [address] [place] [address] Social History Tobacco Use Types Packs/Day Years [...] on filedocumented in this encounter Care Teams Linux Consultant Relationship Specialty Start Date End Date Elisa Valdes DO [address] [place] [address] PCP - General Family Medicine 01/09/21 documented as of this encounter
--- OUTSIDE RECORDS SUMMARY | 2024-12-03 13:07 | XMS_ITS | Clinical Summary ---
Author Organization Healthcare Address [address] [place] [address] Care Team Providers Care Professor Of Early Childhood Education Name Role Phone Mee Matt MD Primary Care Provider [phone] Allergies No known active allergies Medications * [...] Additional history exists [facility]-Depression Screening 09/18/2023 09/17/2022 [id number]-[id number]-15 Vaccine ( season) 2023 [facility]-Influenza Vaccine (#1) [...] Reactive Non Reactive 09/17/2022 11:53 AM EDT [facility] Comment:Screening for HIV 1 & 2 antibodies, and P24 antigen is NONREACTIVE. No confirmatory testing is required. Blood Venous blood specimen / Unknown Venipuncture / Unknown 09/17/2022 10:22 AM EDT 09/17/2022 10:22 AM EDT Karma Stevenson APRN LAB BLOOD ORDERABLES Final Re sult Performing Organization Address [facility] Co de Phone Number [facility] [address] [place] [address] * Acute Hepatitis Panel (09/17/2022 10:22 AM EDT) [facility] Hepatitis B Surf Antigen Negative Negative 09/17/2022 2:38 PM EDT [facility] Hepatitis C Antibody Negative Negative 09/17/2022 2:38 PM EDT [facility] Hepatitis A Antibody IgM Negative Negative 09/17/2022 2:38 PM EDT [facility] Hepatitis B Core Antibody IgM Negative Negative 09/17/2022 2:38 PM EDT [facility] Blood Venous blood specimen / Unknown Venipuncture / Unknown 09/17/2022 10:22 AM EDT 09/17/2022 10:22 AM EDT Karma Stevenson APRN LAB BLOOD ORDERABLES Final Re sult Performing Organization Address [facility] Co de Phone Number [facility] [address] [place] [address] * Pap Test (09/17/2022 9:47 AM EDT) [facility] Case Report Cytology Case: [id number] Authorizing Provider: Karma Stevenson APRN Collected: 09/17/2022 0947 Ordering Location: Medical Office Building Received: 09/17/2022 1310 Obstetrics and Gynecology First Screen: Oh Squires Rescreen: So Yang Specimen: ThinPrep Pap Test, Liquid-Based Cervical/Vaginal 10/04/2022 10:27 AM EDT [facility] Interpretation NEGATIVE FOR INTRAEPITHELIAL LESION OR MALIGNANCY 10/04/2022 10:27 AM EDT [facility] at 1026 EDT Other Findings Shift in reji suggestive of bacterial vaginosis. 10/04/2022 10:27 AM EDT [facility] Specimen Adequacy Satisfactory for evaluation; endocervical/chin sformation zone component present. Slide imaged by the ThinPrep Imaging system and selected 22 arango reviewed then full manual screening. 10/04/2022 10:27 AM EDT [facility] Cervical cytology is a screening [...] results is suggested (please call Microbiology at [phone] for results). 10/04/2022 10:27 AM EDT [facility] Menstrual Status Cyclic 10/05/19 10:27 AM EDT [facility] History of Hysterectomy Not Applicable 10/04/2022 10:27 AM EDT [facility] Contraceptive History Not Applicable 10/04/2022 10:27 AM EDT [facility] Screening Type Previous or Suspected Abnormality 10/04/2022 10:27 AM EDT [facility] HPV Testing Requested? Request HPV Testing Regardless of Pap Test Findings 10/04/2022 10:27 AM EDT [facility] Infection History Human Papillomavirus 10/04/2022 10:27 AM EDT [facility] Previous Cancer History No 10/04/2022 10:27 AM EDT [facility] Previous or Suspected Abnormality Previous Abnormal Pap 10/04/2022 10:27 AM EDT [facility] Clinical Information Z01.419 - Well woman exam [ICD-10-CM] N87.0 - Mild dysplasia of cervix (THOR I) [ICD-10-CM] 10/04/2022 10:27 AM EDT [facility] Last Menstrual Period 09/02/2022 10/04/2022 10:27 AM EDT [facility] Swab Vaginal and cervical cytologic material / Unknown Non-blood Collection / Unknown 09/17/2022 9:47 AM EDT 09/17/2022 1:10 PM EDT us Karma Gottlieb Graham POT RUNNER LAB CYTOLOGY ORDERABLES Final Result [facility] [address] [place] [address] from Last 3 Months or Most Recently Relevant to Health Maintenance Insurance Care Teams Professor Of Early Childhood Education Relationship Specialty Start Date End Date Mee Matt MD [address] [facility] [address] [place] [address] PCP - General 08/15/20
--- OUTSIDE RECORDS SUMMARY | 2024-12-03 13:07 | XMS_ITS | Patient Health Record ---
Author Organization [facility] Address [address] [place] [address] Care Team Providers Care Pasting Machine Offbearer Name Role Phone Mee García Unavailable [phone] Reason For Referral No Information Social History [...] No Encounters Encounter Location Date Provider Diagnosis [facility] [address] [place] [address] 05/04/2024 Mee García Early stage of Z34.90 [...] Insured Coverage Start Date Coverage End Date [facility] [id number] [place], [place] [id number] Sena Robles Self - patient is the insured
[2024-12-03 13:38] LABS: Microscopic, Urine URINE MICROSCOPIC (MICROSCOPIC)
[2024-12-03 13:55] LABS: Hematocrit 33.1 % (37.0-47.0); Hemoglobin 10.9 g/dL (12.2-16.2); Immature Granulocytes % 0.5 %; Mean Corpuscular HGB Conc 32.9 g/dL (31.8-35.4); Mean Corpuscular Hemoglobin 28.8 pg (27.0-31.2); Mean Corpuscular Volume 87.6 fl (81-99); Nucleated Red Blood Cells % 0 %; Platelet Count 217 K/mm3 (142-424); Red Blood Count 3.78 M/mm3 (4.20-5.40); Red Cell Distribution Width-SD 43.9 fL; White Blood Count 10.3 K/mm3 (4.8-10.8)
[2024-12-03 14:01] LABS: Bilirubin,Urine Negative (Negative); Color,Urine YELLOW (Yellow); Glucose,Urine (UA) Negative (Negative); Ketones,Urine Negative (Negative); Leukocyte Esterase,Urine 1+ (Negative); PH,Urine 6.5 (5.0-8.5); Protein,Urine Negative (Negative); Specific Gravity, Urine 1.025 (1.005-1.030); Urobilinogen,Urine 0.2 EU/dl (0.2)
[2024-12-03 14:02] LABS: WBC,Urine 50-100 #/hpf (0-3)
[2024-12-03 14:03] LABS: Bacteria,Urine 1+ /lpf
[2024-12-03 15:15] LABS: POC Glucose,Bedside 83 gm/dL (70-110)
[2024-12-03 15:21] VITALS: BP 127/72; PULSE 95; RESP 19; TEMP 36.8; O2SAT 97; BMI 39.6
[2024-12-03 20:38] VITALS: BP 118/61; PULSE 80; RESP 18; TEMP 36.4; O2SAT 98
--- NOTE | 2024-12-03 22:30 | PC.NURSE ---
Report received from Mayte in ED.
--- NOTE | 2024-12-03 22:40 | PC.NURSE ---
Patient arrived to the unit via wheelchair. Patient placed in room and VS obtained.
[2024-12-04 04:29] VITALS: BP 111/56; PULSE 69; RESP 17; TEMP 36.6; O2SAT 97
--- NOTE | 2024-12-04 07:32 | EXP.OB.APHP ---
OB - H&P: HPI Antepartum History of Present Illness Chief complaint: Scheduled induction of labor History of present illness: Mrs Sena Robles is a 29 at 39w4d who presents to [facility] for scheduled induction of labor. She has had good care. complicated by DM type vs GDM and maternal obesity. She started NPH 10 units at bedtime at 21 weeks. NPH reduced to 5 units at 27 weeks and increased to 6 units around 33-34 weeks the n increased to 7 units. She was following with PDC at [facility] for diabetes. Baby is active. History of Present Criteria for establishing EDC:: LMP confirmed by 1st trimester US care: good care Ultrasounds: normal mid trimester US Obstetrical complications: gestational diabetes Medical complications: none Labs Blood type: O (+) positive Rubella: immune RPR/VDRL: nonreactive GBS status: negative HBsAG: negative [facility] Disclaimer: The information contained in this section may have been updated after the patient was seen, as this information can be updated by other users. Medical History (Updated 12/04/24 @ 09:04 by Gabriella Daniels DO) Encounter for induction of labor Encounter for related examination in third trimester GDM (gestational diabetes mellitus) GDM, class A2 Maternal obesity affecting , antepartum History of prediabetes Surgical History History of placement of ear tubes History of tonsillectomy and adenoidectomy Family History (Updated 12/03/24 @ 15:21 by Brielle Peña RN) Other No significant family history Social History (Updated 12/03/24 @ 15:21 by Brielle Peña RN) Smoking Status: Never smoker alcohol intake: never current occupational status: employed Travel in the last 8 weeks?: None household members: family housing: house do you feel safe at home: Yes victim of physical abuse: No victim of emotional abuse: No victim of sexual abuse: No Have you lived/traveled outside US in past 30 days?: No Contact w/someone who lives/traveled outside US past 30 days?: No Exposure to someone with infectious disease in past 14 days?: No Do you have a fever (greater than 100.4 F or 38 C)?: No Have you tested positive for COVID-19?: No Exposed to someone with COVID-19 in past 14 days?: No Do you have a sore throat?: No Do you have a cough?: No Do you have any weakness?: No Are you experiencing any nausea/vomitting?: No Do you have any diarrhea?: No Are you experiencing any unusual bleeding?: No Do you have any muscle aches/pain?: No Do you have any abdominal pain?: No Are you experiencing loss of taste or smell?: No Other Medical History Have you received the Flu Vaccine for this season: Yes Have you received the Pneumonia Vaccine: No Review of Systems Review of Systems Review of systems:: pertinent systems reviewed and negative unless documented below Meds Home Medications and Allergies Home Medications ?Medication ?Instructions ?Recorded ?Confirmed ?Type vits no.126-ferrous fum 1 tab PO DAILY 06/22/24 12/03/24 History 28 mg iron-folic acid 800 mcg tablet (Classic ) lancing device with lancets kit #1 ea 08/03/24 11/27/24 Rx (Accu-Chek Softclix Lancing Device+Lancets kit) blood-glucose sensor (FreeStyle #1 ea 10/18/24 11/27/24 Rx Dania 3 Plus Sensor device) insulin NPH isoph U-100 human 100 7 unit SQ HS 11/19/24 12/03/24 History unit/mL subcutaneous suspension (Novolin N NPH U-100 Insulin isophane) New Prescriptions to Start Prescriptions: Allergies Allergy/AdvReac Type Severity Reaction Status Date / Time No Known Allergies Allergy Verified 11/27/24 15:28 OB - H&P: Exam Physical Exam Vital signs: Temp Pulse Resp BP Pulse Ox O2 Del Method 97.9 F 69 17 111/56 L 97 Room Air 12/04/24 04:29 12/04/24 04:29 12/04/24 04:29 12/04/24 04:29 12/04/24 04:29 12/04/24 04:29 Constitutional no acute distress and cooperative Routine HEENT Exam Head: Present normocephalic and atraumatic Eye: Absent conjunctivae pink ENT: Present mucous membranes moist Routine Neck Exam Present full ROM Routine Respiratory Exam Present CTA bilaterally and normal respiratory effort Routine Cardiovascular Exam Present RRR Routine Abdominal Exam Present soft (Gravid); Absent tenderness Routine Rectal Exam Patient deferred: visual exam Routine Exam External: Present normal urethra appearance; Absent erythema, swelling, tenderness, lesions or lacerations Routine Extremities Exam Present edema; Absent full ROM or calf tenderness Routine Neurological Exam Present alert, moving all extremities and normal speech Routine Psychiatric Exam Present normal affect and cooperative Detailed Labor and Delivery Exam Dilation (cm): 1 Effacement (%): 50 Cervix position: mid station: -3 Consistency: soft Membranes: intact Baseline heart rate: 125 monitor accelerations: Present monitor decelerations: None manager terminal variability: Moderate (11-25) Contraction frequency (min): 4 Tachysystole: No OB - Results Labs Labs: Short CBC 12/03/24 Range/Units 13:24 WBC 10.3 (4.8-10.8) K/mm3 Hgb 10.9 L (12.2-16.2) g/dL Hct 33.1 L (37.0-47.0) % Plt Count 217 (142-424) K/mm3 Urine 12/03/24 Range/Units Unknown Urine Color Yellow (Yellow) Urine Appearance Clear (Clear) Urine pH 6.5 (5.0-8.5) Ur Specific Pritchett 1.025 (1.005-1.030) Urine Protein Negative (Negative) Urine Glucose (UA) Negative (Negative) OB - A/P Antepartum (1) GDM, class A2: Problem details: GDM vs DM type. She has history of prediabetes Status: Acute (2) Maternal obesity affecting , antepartum: Status: Acute (3) Encounter for induction of labor: Status: Acute Additional Plan Additional Information:: Admit to L&D for scheduled induction of labor secondary to GDM on insulin. Induction of labor with Cytotec GBS negative Close monitoring
[2024-12-04 08:52] VITALS: BP 131/74; PULSE 68; RESP 18; TEMP 36.6; O2SAT 97
[2024-12-04 09:04] LABS: POC Glucose,Bedside 91 gm/dL (70-110)
[2024-12-04] MEDS: DINOPROSTONE 10MG VAG INSERT 10 MG VG (16:32)
[2024-12-04] MEDS: POLYETHYLENE GLYCOL 3350 17 GM PACKET PO (20:09)
[2024-12-04 20:16] VITALS: BP 118/56; PULSE 81; RESP 19; TEMP 36.8; O2SAT 97
[2024-12-05] MEDS: ACETAMINOPHEN 500MG TAB 1000 MG PO ×2 (03:09→21:19)
[2024-12-05] MEDS: DEXTROSE 5%-LACTATED RINGERS 1,000 ML 125 ML IV ×2 (04:10→11:55)
[2024-12-05] MEDS: OXYTOCIN/RINGERS LACTATE 30 UNITS/500 ML BAG IV (04:11)
[2024-12-05] MEDS: BUTORPHANOL TARTRATE 1 MG/ML VIAL IV (06:49)
[2024-12-05] MEDS: OXYTOCIN/RINGERS LACTATE 30 UNITS/500 ML BAG 10 UNITS IV (07:36)
[2024-12-05] MEDS: ONDANSETRON 4MG/2ML VIAL 4 MG IV (09:22)
--- NOTE | 2024-12-05 12:40 | EXP.LABOR.NO ---
Labor Note Subjective: Date: 12/05/24 Time: 12:40 Comment:: Uncomfortable, without epidural. Objective: Contractions:: every 2-3 minutes Cervical Dilation:: 4 Effacement:: 70% Station: -1 Membranes: artificially ruptured Fetus: Monitoring?: Yes monitoring type:: Internal Assessment: Labor progressing?: Yes Problems: (1) GDM, class A2: Problem Comment: GDM vs DM type. She has history of prediabetes Category: Medical Code(s): O24.419 - Gestational diabetes mellitus in , unspecified control (2) Maternal obesity affecting , antepartum: Qualifiers: Obesity type affecting : unspecified obesity Qualified Code(s): O99.210 - Obesity complicating , unspecified trimester Category: Medical Code(s): O99.210 - Obesity complicating , unspecified trimester (3) Encounter for induction of labor: Category: Medical Code(s): Z34.90 - Encounter for supervision of normal , unspecified, unspecified trimester Plan: Continue to monitor?: Yes Comment:: Undergoing two day induction of labor. She had Cervidil inserted yesterday, 12/05/23 at 1633 and removed ~ 0300 this morning. Pitocin was started ~ 0400 and is currently at 14. AROM performed at 0845 with amnihook. Clear fluid noted. Cervix is currently 4/70/-1, midposition and soft. NST is reactive, category 1. IUPC and FSE placed without difficulty. Discussed epidural Continue to monitor
[2024-12-05] MEDS: LACTATED RINGERS 1000ML 1,000 ML 999 ML IV (12:54)
[2024-12-05 13:35] LABS: RPR W/RFX Titers Nonreactive (Nonreactive)
--- NOTE | 2024-12-05 13:54 | EXP.ANES.CKL ---
[facility] Disclaimer: The information contained in this section may have been updated after the patient was seen, as this information can be updated by other users. Medical History (Updated 12/04/24 @ 09:04 by Gabriella Daniels DO) Encounter for induction of labor Encounter for related examination in third trimester GDM (gestational diabetes mellitus) GDM, class A2 Maternal obesity affecting , antepartum History of prediabetes Surgical History History of placement of ear tubes History of tonsillectomy and adenoidectomy Family History (Updated 12/03/24 @ 15:21 by Brielle Peña RN) Other No significant family history Social History (Updated 12/03/24 @ 15:21 by Brielle Peña RN) Smoking Status: Never smoker alcohol intake: never substance use type: denies use current occupational status: employed Travel in the last 8 weeks?: None household members: family housing: house do you feel safe at home: Yes victim of physical abuse: No victim of emotional abuse: No victim of sexual abuse: No [facility] Anesthesia Checklist Patient Identification Patient Identification: Arm Band Structural Data Admitted From: Inpatient Planned Operative Procedure/s: Labor Epidural Consent for Planned Operative Procedure(s) Verified: Yes Verified Documents: Surgical Consent and History and Physical Additional verifications Anesthesia Reactions: No Neurological Assessment Level of Consciousness: Awake, Alert and Appropriate Anesthesia Plan Anesthesia Risk discussed: Yes Anesthesia Plan: Verified ASA Class: II Anesthesia Type: Epidural
[2024-12-05] MEDS: CALCIUM CARBONATE 500MG CHEWTAB 1000 MG PO (16:04)
--- NOTE | 2024-12-05 17:10 | P.PN_ITS ---
Labor Note Subjective: Date: 12/05/24 Time: 17:10 Comment:: Comfortable with epidural. She was having irregular contractions on 16 of Pitocin. Objective: NST:: Reactive Cervical Dilation:: 5 Effacement:: 70% Station: -1 Membranes: artificially ruptured Fetus: Monitoring?: Yes monitoring type:: External Assessment: Labor progressing?: No Cephalopelvic disproportion?: Yes Problems: (1) GDM, class A2: Problem Comment: GDM vs DM type. She has history of prediabetes Category: Medical Code(s): O24.419 - Gestational diabetes mellitus in , unspecified control (2) Maternal obesity affecting , antepartum: Qualifiers: Obesity type affecting : unspecified obesity Qualified Code(s): O99.210 - Obesity complicating , unspecified trimester Category: Medical Code(s): O99.210 - Obesity complicating , unspecified trimester (3) Encounter for induction of labor: Category: Medical Code(s): Z34.90 - Encounter for supervision of normal , unspecified, unspecified trimester (4) Cephalopelvic disproportion: Category: Medical Code(s): O33.9 - Maternal care for disproportion, unspecified (5) Failure to progress in labor: Category: Medical Code(s): O62.2 - Other uterine inertia Plan: Plan for ?: Yes Comment:: Pitocin increased to 16 units with irregular contraction pattern. Baby with category 2 strips, occasional variable and late decelerations. IUPC and FSE was in place. Cervical exam with minimal drying rack changer the past 5 hours. On cervical exam there is space between baby's head and cervix. Moulding was noted. Suspected CPD. Pitocin stopped. Discussed exam findings with Sena and her fa amanda. Decision was made to proceed with primary secondary to failure to progress and CPD. Risks, benefits, alternatives, expectations and possible complications discussed. All questions addressed and answered. She voiced understanding of risks and possible complications. Consent form signed. Proceed with PLTCS.
[2024-12-05 17:21] VITALS: BP 131/66; PULSE 81; RESP 19; TEMP 36.4; O2SAT 98
[2024-12-05] MEDS: AZITHROMYCIN 500 MG in 0.9 % SODIUM CHLORIDE 250 ML 250 MG IV (18:13)
--- NOTE | 2024-12-05 19:02 | P.OP_ITS ---
Date of procedure: 12/05/24 Pre-op Diagnosis:: 1. IUP at 39w5d 2. GDMA2 3. Maternal obesity 4. Failure to progress 5. Cephalopelvic disproportion Post-op Diagnosis:: 1. IUP at 39w5d 2. GDMA2 3. Maternal obesity 4. Failure to progress 5. Cephalopelvic disproportion 6. Occiput posterior and asynclitic Procedure performed:: Primary Low Transverse Section Surgeon:: Gabriella Daniels DO Functional Support Analyst(s):: Kamille Bui DO [employer] DI[employer] SERVICE MANAGER:: Lexi Conner Anesthesia: epidural Estimated blood loss (mL): 1,300 Clinical Note:: Mrs Sena Robles is a 29 at 39w4d who presents to [facility] for scheduled induction of labor. She has had good care. complicated by DM type vs GDM and maternal obesity. She started NPH 10 units at bedtime at 21 weeks. NPH reduced to 5 units at 27 weeks and increased to 6 units around 33-34 weeks the n increased to 7 units. She was following with PDC at [facility] for diabetes. Baby is active. She underwent a two day induction of labor. She had Cervidil inserted 12/05/23 at 1633 and removed ~ 0300 on 12/05/24. Pitocin was started ~ 0400. AROM performed at 0845 with amnihook. Clear fluid noted. Pitocin increased to 16 units with irregular contraction pattern. Baby with category 2 strips, occasional variable and late decelerations. IUPC and FSE was in place. Cervical exam with minimal exchange clerk the past 5 hours. On cervical exam there is space between baby's head and cervix. Moulding was noted. Suspected CPD. Pitocin stopped. Discussed exam findings with Sena and her family. Decision was made to proceed with primary secondary to failure to progress and CPD. Risks, benefits, alternatives, expectations and possible complications discussed. All questions addressed and answered. She voiced understanding of risks and possible complications. Consent form signed. Operative findings:: 1. Live male baby, Wilfred, weighing 8 lb 12 oz, Apgars 7 (1 min), 9 (5 min) 2. Occiput posterior and asynclitic presentation 3. Grossly normal appearing uterus, bilateral fallopian tubes and ovaries Operative note:: The risks, benefits and alternatives of the procedure were reviewed with the patient. Informed consent was obtained. Patient was taken to the operating room where epidural was bolused. The patient received 2 grams of Ancef and Azithromycin 500 mg IV preoperatively. Patient was placed in dorsal supine position with a leftward tilt. SCDs in place. Christopher catheter had been placed and was draining clear urine prior to the start of the procedure. heart tones were obtained. Vagina was prepped with Betadine swabs x 3. Patient was then prepped and draped in normal sterile fashion. Allis clamp test was performed to ensure adequate anesthesia. A Pfannenstiel skin incision was made 2 cm above pubic symphysis. This was carried through to underlying layer of fascia. Fascia was incised in midline, extended laterally with Ledesma scissors. Superior aspect of fascial incision was grasped with two Stephanie clamps, elevated up, and rectus muscle dissected off bluntly and sharply with Ledesma scissors. The retcus muscle was then in the midline and the peritoneum was entered bluntly with a digit. Peritoneal incision was then extended superiorly and inferiorly with good visualization of the bladder. Wilton retractor was inserted. The lower uterine segment was incised in a transverse fashion. Clear amniotic fluid was noted. Head was delivered without difficulty. Remainder of body was delivered without difficulty. Mouth and nares were bulb suctioned. Spontaneous cry was noted. Delayed cord clamping was performed for 60 seconds. The umbilical cord was clamped and cut. The was handed to awaiting pediatric staff in stable condition. Dr. Singer was present. Apgars were 7(1 min), 9(5 min). Cord blood was obtained. Gentle traction on the umbilical cord and uterine fundal massage delivered the placenta. Placenta was intact. Placenta will be sent to pathology for review. Uterus was cleared of all clots and debris with a moist laparotomy sponge. Corners of the uterine incision were grasped with Allis clamps. The uterine incision was reapproximated with # 1 Vicryl suture in a running, locked stitch. Second layer of the same stitch was used to imbricate the incision. Vesicouterine peritoneum was reapproximated in a running locked stitch with 2-0 Vicryl suture. Hemostasis was noted. Posterior cul-de-sac was cleaned with moist laparotomy sponge. Gutters cleared of all clots and debris with a moist laparotomy sponge. Reinspection of the lower uterine segment demonstrated hemostasis. At this point all instruments and sponges were removed from the pelvis.? The peritoneum was grasped with Maryann clamps x 3. The peritoneum was reapproximated with 0 Vicryl suture in a running stitch. The corners of the fascia were grasped with Stephanie clamps, and the fascia was reapproximated with two # 1 Vicryl suture overlapped to the right of midline. Subcutaneous tissue was irrigated with clear return of fluids. The subcutaneous tissue was reapproximated with 3-0 Vicryl. The skin was reapproximated with Insorb monse. Telfa was placed over closed Pfannenstiel skin incision. At the end of the procedure, the uterus was firm with minimal vaginal bleeding. Patient tolerated the procedure well. Instrument, sponges and needle counts were correct x 2. Mom and baby were transported to recovery room in stable condition. Condition: stable Disposition: floor Specimens:: 1. Placenta and umbilical cord 2. Cord blood Complications:: None
[2024-12-05 19:26] VITALS: BP 124/67; PULSE 79; RESP 18; TEMP 36.8; O2SAT 100
--- NOTE | 2024-12-05 19:34 | P.PNANES_ITS ---
[facility] Anesthesia Record Part I Anesthesia Record I Intake, IV Amount: 1,500 Hydration: Adequate Estimated blood loss (mL): 1,300 Urine output (mL): 200 Blood Pressure: 124/67 SaO2: 100 Pulse Rate: 80 Airway Patency: Patent Respiratory Rate: 18 Temperature: 98.2 F Patient is:: Awake and Stable Stable to PACU at:: 19:36
[2024-12-05 19:35] VITALS: BP 124/67; PULSE 80; RESP 18; TEMP 36.8; O2SAT 100
[2024-12-05 19:36] VITALS: BP 120/62; PULSE 76; RESP 18; TEMP 36.8; O2SAT 100
[2024-12-05 19:46] VITALS: BP 119/58; PULSE 88; RESP 18; TEMP 36.8; O2SAT 96
[2024-12-05 19:56] VITALS: BP 115/71; PULSE 78; RESP 18; TEMP 36.8; O2SAT 96
--- NOTE | 2024-12-05 20:19 | SUR.PREOP ---
1740- patient transport via bed by OB staff to OR. Patient arrived in room at 1740.
[2024-12-05] MEDS: LACTATED RINGERS 1000ML 1,000 ML 125 ML IV (21:18)
[2024-12-05] MEDS: OXYTOCIN/RINGERS LACTATE 30 UNITS/500 ML BAG 40 UNITS IV (21:20)
[2024-12-05] MEDS: HYDROMORPHONE 2MG/ML SYRINGE 1 MG IV (22:21)
[2024-12-06] MEDS: KETOROLAC 30MG/ML VIAL 30 MG IV ×2 (01:54→07:30)
[2024-12-06] MEDS: HYDROMORPHONE 2MG/ML SYRINGE 1 MG IV (03:28)
[2024-12-06] MEDS: ACETAMINOPHEN 500MG TAB 1000 MG PO ×4 (03:32→20:30)
[2024-12-06] MEDS: OXYCODONE 5MG IMMEDIATE RELEASE TABLET 5 MG PO ×2 (05:30→11:53)
[2024-12-06 05:37] VITALS: BP 127/61; PULSE 74; RESP 18; TEMP 36.5; O2SAT 98
[2024-12-06 06:06] LABS: Hematocrit 30.0 % (37.0-47.0); Hemoglobin 9.6 g/dL (12.2-16.2); Immature Granulocytes % 0.7 %; Mean Corpuscular HGB Conc 32.0 g/dL (31.8-35.4); Mean Corpuscular Hemoglobin 28.5 pg (27.0-31.2); Mean Corpuscular Volume 89.0 fl (81-99); Nucleated Red Blood Cells % 0 %; Platelet Count 171 K/mm3 (142-424); Red Blood Count 3.37 M/mm3 (4.20-5.40); Red Cell Distribution Width-SD 44.8 fL; White Blood Count 17.4 K/mm3 (4.8-10.8)
[2024-12-06 08:21] LABS: Alanine Aminotransferase 15 U/L (12-78); Albumin Level 3.0 g/dl (3.5-5.0); Albumin/Globulin Ratio 1.2 (1.1-1.8); Alkaline Phosphatase 130 U/L (38-126); Anion Gap 11.1 mEq/L (5-15); Aspartate Amino Transferase 31 U/L (14-36); Bilirubin,Total 0.4 mg/dl (0.2-1.3); Blood Urea Nitrogen 9 mg/dl (7-17); Calcium 8.9 mg/dl (8.4-10.2); Carbon Dioxide 22 mmol/L (22.0-30.0); Chloride 107 mmol/L (98-107); Creatinine Clearance Estimated 253 mL/min (50-200); Creatinine,Serum 0.60 mg/dl (0.52-1.04); Estimated Glomerular Filt Rate 119 ml/min (>60); GFR (African American) 144 ML/MIN (>60); Globulin 2.6 g/dL (1.3-3.2); Glucose 87 mg/dl (74-100); Potassium 4.1 mmoL/L (3.5-5.1); Sodium 136 mmol/L (136-145); Total Protein,Serum 5.6 g/dl (6.3-8.2)
[2024-12-06 08:30] VITALS: BP 104/56; PULSE 82; RESP 16; TEMP 36.8; O2SAT 98
--- NOTE | 2024-12-06 09:52 | P.PN_ITS ---
Subjective *Date: 12/06/24 *Time: 09:52 Interval history: POD # 1 s/p PLTCS Feeling well. Pain somewhat controlled. Breast feeding. Lochia is appropriate. Voiding without difficulty and passing flatus. Tolerating regular diet. Denies fever/chills, chest pain and shortness of breath. No headaches, vision changes, lightheadedness/dizziness. Ambulating well ad mallorie. Medical Exam Vital signs and Labs for Last 24 Hours: Vital Signs Temp Pulse Pulse Resp BP BP Pulse Ox 12/06/24 05:37 97.7 F 74 18 127/61 98 12/05/24 19:56 98.2 F 78 18 115/71 96 12/05/24 19:46 98.2 F 88 18 119/58 L 96 12/05/24 19:36 98.2 F 76 18 120/62 100 12/05/24 19:35 98.2 F 80 18 124/67 12/05/24 19:26 98.2 F 79 18 124/67 100 12/05/24 17:21 97.5 F L 81 19 131/66 98 O2 Del Method 12/06/24 05:37 Room Air 12/05/24 19:56 Room Air 12/05/24 19:46 Room Air 12/05/24 19:36 Room Air 12/05/24 19:35 12/05/24 19:26 Room Air 12/05/24 17:21 Room Air Intake and Output 12/05/24 12/06/24 12/06/24 23:59 07:59 15:59 Intake Total 2750 / 4810.784 1600 / 1600 Output Total 750 / 750 1100 / 1100 Balance 2000 / 4060.784 500 / 500 Intake: Intake, Total IV Amount 2750 / 4810.784 1600 / 1600 Azithromycin 500 mg In 0.9 % 250 / 250 Sodium Chloride 250 ml @ 250 mls/hr IV ONCE ONE Rx#:[id number] Cefazolin Sodium 2 gm In 0.9 % 100 / 100 Sodium Chloride 100 ml @ 200 mls/hr IV Q8H COUNT INCLUDES THE [facility] Rx#:[id number] Dextrose 5%-Lactated Ringers 1, 1000 / 1968.75 000 ml @ 125 mls/hr IV .Q8H COUNT INCLUDES THE [facility] Rx#:[id number] Lactated Ringers 1000ML 1,000 1000 / 1000 ml @ 125 mls/hr IV .Q8H COUNT INCLUDES THE [facility] Rx# :[id number] Oxytocin/Ringers Lactate 30 500 / 500 units In 500 ml @ 40 mls/hr IV .[id number] ONE Rx#:[id number] Output: Output, Urine Amount 750 / 750 1100 / 1100 Laboratory Results - last 24 hr 12/03/24 13:24: RPR w/Rflx to Titer Nonreactive 12/06/24 05:24: WBC 17.4 H D, RBC 3.37 L, Hgb 9.6 L, Hct 30.0 L, MCV 89.0, MCH 28.5, MCHC 32.0, RDW 13.8, Plt Count 171, MPV 12.8 H, Neut % (Auto) 82.3 H, Lymph % (Auto) 10.2, Scott % (Auto) 6.7, Eos % (Auto) 0.0 L, Baso % (Auto) 0.1, Neut # (Auto) 14.3 H, Lymph # (Auto) 1.8, Scott # (Auto) 1.2 H, Eos # (Auto) 0.0, Baso # (Auto) 0.0, Sodium 136, Potassium 4.1, Chloride 107, Carbon Dioxide 22, Anion Gap 11.1, BUN 9, Creatinine 0.60, Estimated Creat Clear 253, Estimated GFR 119, Est GFR ( Amer) 144, Glucose 87, Calcium 8.9, Total Bilirubin 0.4, AST 31, ALT 15, Alkaline Phosphatase 130 H, Total Protein 5.6 L, Albumin 3.0 L, Globulin 2.6, Albumin/Globulin Ratio 1.2 I & O for Labs for Last 24 Hours: Intake & Output 12/03/24 12/04/24 12/05/24 12/06/24 23:59 23:59 23:59 23:59 Intake Total 4810.784 / 4810.784 1600 / 1600 Output Total 750 / 750 1100 / 1100 Balance 4060.784 / 4060.784 500 / 500 Weight 253 lb Microbiology Reports for the Last 24 Hours: Microbiology 12/03/24 Unknown Urine,Clean Catch Urine Culture - Final Multiple organisms, suggests contamination. Head: Present atraumatic and normocephalic ENT: Present normal exam and mucous membranes moist Neck: Present normal inspection and full ROM Respiratory: Present CTA bilaterally and normal respiratory effort Cardiac: Present Reg Rate and Rhythm GI: Present soft and tenderness (appropriate mild tenderness to palpation); Absent distention Rectal (female): Present deferred (female): Present deferred Extremities: Present normal inspection and full ROM Neuro: Present alert, awake and moves all extremities Assessment and Plan *Assessment and plan (1) S/P : Status: Acute Category: Surgical Code(s): Z98.891 - History of uterine scar from previous surgery (2) GDM, class A2: Problem Comment: GDM vs DM type. She has history of prediabetes Status: Acute Category: Medical Code(s): O24.419 - Gestational diabetes mellitus in , unspecified control (3) Maternal obesity affecting , antepartum: Status: Acute Qualifiers: Obesity type affecting : unspecified obesity Qualified Code(s): O99.210 - Obesity complicating , unspecified trimester Category: Medical Code(s): O99.210 - Obesity complicating , unspecified trimester (4) Failure to progress in labor: Status: Acute Category: Medical Code(s): O62.2 - Other uterine inertia (5) Cephalopelvic disproportion: Status: Acute Qualifiers: Cephalopelvic disproportion type: due to other factors Qualified Code(s): O33.8 - Maternal care for disproportion of other origin Category: Medical Code(s): O33.9 - Maternal care for disproportion, unspecified (6) Acute blood loss anemia: Status: Acute Category: Medical Code(s): D62 - Acute posthemorrhagic anemia Plan Continue routine care Encouraged increased ambulation AM Hgb 9.6 (10.9 on admission) -- Venofer 200 mg IV x 1 dose Plan d/c home tomorrow
[2024-12-06] MEDS: IRON SUCROSE COMPLEX 200 MG in 0.9 % SODIUM CHLORIDE 100 ML 220 MG IV (10:57)
[2024-12-06] MEDS: IBUPROFEN 400 MG TABLET 800 MG PO ×2 (14:02→22:23)
[2024-12-06] MEDS: OXYCODONE 5MG IMMEDIATE RELEASE TABLET 10 MG PO ×3 (14:48→23:32)
[2024-12-06 16:00] VITALS: BP 124/72; PULSE 76; RESP 18; TEMP 36.6; O2SAT 98
[2024-12-06] MEDS: PRENATAL MULTIVITAMIN W/IRON 1 EACH PO (17:23)
[2024-12-06] MEDS: SENNA 8.6MG TABLET 8.6 MG PO (17:23)
[2024-12-06] MEDS: ONDANSETRON 4MG ODT 4 MG SL (18:45)
[2024-12-06 20:26] VITALS: BP 106/50; PULSE 82; RESP 19; TEMP 36.6; O2SAT 97
[2024-12-06] MEDS: SIMETHICONE 80MG CHEWABLE TABLET 160 MG PO (20:30)
[2024-12-07] MEDS: ACETAMINOPHEN 500MG TAB 1000 MG PO ×4 (02:25→22:36)
[2024-12-07 04:21] VITALS: BP 100/50; PULSE 71; RESP 18; TEMP 36.7; O2SAT 98
[2024-12-07] MEDS: OXYCODONE 5MG IMMEDIATE RELEASE TABLET 10 MG PO ×4 (04:26→19:57)
[2024-12-07] MEDS: IBUPROFEN 400 MG TABLET 800 MG PO ×3 (05:54→23:52)
[2024-12-07] MEDS: SENNA 8.6MG TABLET 8.6 MG PO ×2 (05:54→18:10)
[2024-12-07 08:20] VITALS: BP 132/59; PULSE 86; RESP 19; TEMP 36.8
--- NOTE | 2024-12-07 10:01 | EXP.ACUTE.PN ---
Subjective *Date: 12/07/24 *Time: 10:01 Interval history: She is day 2 post section. She is doing very well. She does have some lower abdominal pain especially when she stands up but otherwise is doing well. She is breast-feeding. Her lochia is normal. Medical Exam Vital signs and Labs for Last 24 Hours: Vital Signs Temp Pulse Resp BP Pulse Ox O2 Del Method 12/07/24 08:20 98.3 F 86 19 132/59 L 12/07/24 04:21 98.0 F 71 18 100/50 L 98 Room Air 12/06/24 20:26 97.9 F 82 19 106/50 L 97 Room Air 12/06/24 16:00 97.8 F 76 18 124/72 98 Room Air Laboratory Results - last 24 hr 12/03/24 13:24: Crossmatch (AHG) See Detail I & O for Labs for Last 24 Hours: Intake & Output 12/04/24 12/05/24 12/06/24 12/07/24 11:59 11:59 11:59 11:59 Intake Total 1024.650 / 1492.158 6432.367 / 5614.367 Output Total 1850 / 1850 Balance 1024.650 / 7093.130 5962.367 / 3764.367 Weight 253 lb Head: Present normocephalic Neck: Present normal inspection Respiratory: Present normal respiratory effort; Absent accessory muscle use GI: Present scar Comments:: Her incision is clean and dry and there is no evidence of infection. Rectal (female): Present deferred (female): Present deferred Assessment and Plan *Assessment and plan (1) S/P : Status: Acute Category: Surgical Code(s): Z98.891 - History of uterine scar from previous surgery (2) delivery delivered: Status: Acute Category: Medical Code(s): O82 - Encounter for delivery without indication (3) Failure to progress in labor: Status: Acute Category: Medical Code(s): O62.2 - Other uterine inertia (4) Cephalopelvic disproportion: Status: Acute Qualifiers: Cephalopelvic disproportion type: due to other factors Qualified Code(s): O33.8 - Maternal care for disproportion of other origin Category: Medical Code(s): O33.9 - Maternal care for disproportion, unspecified (5) GDM (gestational diabetes mellitus): Status: Acute Qualifiers: Gestational diabetes mellitus control: insulin-controlled Trimester: third trimester Qualified Code(s): O24.414 - Gestational diabetes mellitus in , insulin controlled Category: Medical Code(s): O24.419 - Gestational diabetes mellitus in , unspecified control Plan She is doing well this morning but she continues to have some lower abdominal pain. She is having some difficulty with breast-feeding and she has not had a bowel movement yet. She would like to stay another day and we will plan to send her home tomorrow. She has not had a bowel movement so we will go ahead and start Dulcolax suppositories for her.
[2024-12-07] MEDS: BISACODYL 10MG SUPP 10 MG RC (10:27)
[2024-12-07] MEDS: PRENATAL MULTIVITAMIN W/IRON 1 EACH PO (18:11)
[2024-12-08] MEDS: OXYCODONE 5MG IMMEDIATE RELEASE TABLET 10 MG PO ×2 (01:38→06:14)
[2024-12-08] MEDS: ACETAMINOPHEN 500MG TAB 1000 MG PO (06:14)
[2024-12-08 08:13] VITALS: BP 152/67; PULSE 106; RESP 18; TEMP 36.8; O2SAT 97
[2024-12-08] MEDS: IBUPROFEN 400 MG TABLET 800 MG PO (08:18)
--- NOTE | 2024-12-08 10:15 | EXP.DC.SUM ---
General Admission date:: 12/03/24 Discharge date: 12/08/24 HPI HPI HPI: Mrs Sena Robles is a 29 at 39w4d who presents to [facility] for scheduled induction of labor. She has had good care. complicated by DM type vs GDM and maternal obesity. She started NPH 10 units at bedtime at 21 weeks. NPH reduced to 5 units at 27 weeks and increased to 6 units around 33-34 weeks then increased to 7 units. She was following with [facility] at [facility] for diabetes. Baby is active. Hospital Course Hospital Course Hospital Course: She was brought in for induction of labor on the evening of December 03, 2024 and over the next 2 days she subsequently failed to progress. As a result of that she was offered section. She delivered by section a liveborn male child at 1817 in the evening of December 05, 2024. The baby had Apgars of 7 at 1 minute and 9 at 5 minutes. She has done well postoperatively and has remained afebrile throughout her hospitalization. She is eating and drinking and ambulating. She is breast-feeding. Her lochia is normal. On the day of discharge her blood pressure is slightly elevated at 150s over 80s but she is completely asymptomatic. She will be discharged home to follow-up in the next couple of days for a blood pressure check. She will continue with her vitamins and iron. She will continue with breast-feeding. She was given a prescription for Percocet 5/325 #14 tablets. She was given the usual instructions with respect to limiting her activity, driving and sexual activity. She was given instructions with respect to wound care. Her condition on discharge is stable and improved. Exam Data for Last 24 hours Vital signs and Labs for Last 24 Hours: Temp Pulse Resp BP Pulse Ox O2 Del Method 98.3 F 86 19 132/59 L 98 Room Air 12/07/24 08:20 12/07/24 08:20 12/07/24 08:20 12/07/24 08:20 12/07/24 04:21 12/07/24 04:21 I & O for Last 24 hours: Intake & Output 12/05/24 12/06/24 12/07/24 12/08/24 11:59 11:59 11:59 11:59 Intake Total 1024.650 / 3106.456 4268.367 / 5614.367 Output Total 1850 / 1850 Balance 1024.650 / 3457.565 3756.367 / 3764.367 Constitutional Constitutional: no acute distress *Routine Neck Exam Neck: Present full ROM *Routine Respiratory Exam Respiratory: Present normal respiratory effort; Absent accessory muscle use *Routine Abdominal Exam Abdominal: Present soft; Absent tenderness Comments: Her incision is clean and dry. DS: Diagnosis Discharge Diagnosis (1) S/P : Status: Acute Code(s): Z98.891 - History of uterine scar from previous surgery (2) delivery delivered: Status: Acute Code(s): O82 - Encounter for delivery without indication (3) Failure to progress in labor: Status: Acute Code(s): O62.2 - Other uterine inertia (4) Cephalopelvic disproportion: Status: Acute Code(s): O33.9 - Maternal care for disproportion, unspecified Qualifiers: Cephalopelvic disproportion type: due to other factors Qualified Code(s): O33.8 - Maternal care for disproportion of other origin (5) GDM (gestational diabetes mellitus): Status: Acute Code(s): O24.419 - Gestational diabetes mellitus in , unspecified control Qualifiers: Gestational diabetes mellitus control: insulin-controlled Trimester: third trimester Qualified Code(s): O24.414 - Gestational diabetes mellitus in , insulin controlled Meds Home Medications and Allergies Home Medications ?Medication ?Instructions ?Recorded ?Confirmed ?Type vits no.126-ferrous fum 1 tab PO DAILY 06/22/24 12/03/24 History 28 mg iron-folic acid 800 mcg tablet (Classic ) ibuprofen 800 mg tablet 800 mg PO Q8H PRN pain #20 tabs 12/06/24 Rx oxycodone 5 mg tablet 5 mg PO Q4HP PRN Moderate Pain 12/06/24 Rx (4-6) #20 tabs New Prescriptions to Start Prescriptions: ibuprofen Gabriella Daniels oxycodone Gabriella Daniels Allergies Allergy/AdvReac Type Severity Reaction Status Date / Time No Known Allergies Allergy Verified 11/27/24 15:28 Discharge Plan Disposition Patient Disposition: Home, Self-Care Condition: Good Discharge Order Discharge Orders: Discharge Order (Routine); Ordered 12/08/24 Ordered By: Crispin Marks Follow up Plan Follow up with: Gabriella Daniels DO [Staff Physician, WIRE WRAPPING MACHINE OPERATOR] - 2 weeks Prescriptions/Medication Reconciliation: New oxycodone 5 mg Tablet 5 mg PO Q4HP PRN (Reason: Moderate Pain (4-6)) Qty: 20 0RF ibuprofen 800 mg tablet 800 mg PO Q8H PRN (Reason: pain) Qty: 20 0RF Continued Classic 28 mg iron- 800 mcg tablet 1 tab PO DAILY Discontinued (DME) lancing device with lancets [Accu-Chek Soft Dev Lancets] Kit See Rx Instructions .ROUTE .MEDSUPPLY Qty: 1 0RF Rx Instructions: 4x daily Novolin N NPH U-100 Insulin 100 unit/mL suspension 7 unit SQ HS (DME) FreeStyle Dania 3 Plus Sensor Device See Rx Instructions .Route Qty: 1 2RF Rx Instructions: As directed Problem Reconciliation Problems Reviewed?: Yes Patient Discharge Instructions ACTIVITY: Limited activity DIET: continue same diet and regular diet Additional Instructions: Congratulations!! Discharge: 1. Take 800 mg Ibuprofen every 8 hours as needed for pain. You can also take 500-1000 mg of Tylenol in between doses, every 6-8 hours. If pain persists you can take Oxycodone 5 mg, 1 tablet every 4-6 hours or longer as needed. 2. Nothing in the vagina for 6 weeks - no intercourse, douching or tampons. No tub baths/hot tubs or swimming pools 3. No lifting anything heavier than baby in pumpkin seat for 6 weeks 4. Reasons to return to L&D or call On-Call doctor - fever (greater than 100.4) - heavy vaginal bleeding (soaking through 1 pad in less than 2 hours) - vaginal discharge (malodorous and/or purulent) - severe headaches not resolved by medication or rest and leg swelling/calf pain 4. depression/blues - Normal to feel anxious/overwhelmed for first 2 weeks - Talk to your doctor if: severe anxiety, trouble bonding with baby, withdrawing from other family members, thoughts of harming yourself or others Gabriella Daniels DO [facility] [phone] Patient Instructions: Depression, Hemorrhage, DI for , DI for Pre-eclampsia, [facility] Post Discharge Instructions Print Language: Ecuadorean Providers Primary Care Provider: Elisa Valdes Provider: Kamille Bui Attending Provider: Kamille Bui
== END 2024-12-08 11:52 | disposition home or self-care (01) | DRG 787 ==
LOC: OB 12-04 10:08
PROVIDERS: Obstetrics & Gynecology; Admitting Provider Obstetrics & Gynecology; PCP Family Medicine; Visit Provider Obstetrics & Gynecology
PROC: 10D00Z1 Extraction of Products of Conception, Low, Open Approach (ICD-10-PCS; CPT 59514; principal; 2024-12-05 15:30)
DX: O24.424 Gestational diabetes mellitus in childbirth, insulin controlled (principal); D62 Acute posthemorrhagic anemia; O34.211 Maternal care for low transverse scar from previous cesarean delivery; O62.2 Other uterine inertia; O61.0 Failed medical induction of labor; O33.8 Maternal care for disproportion of other origin; Z3A.39 39 weeks gestation of pregnancy; Z37.0 Single live birth; O99.214 Obesity complicating childbirth; O76 Abnormality in fetal heart rate and rhythm complicating labor and delivery; O32.8XX0 Maternal care for other malpresentation of fetus, not applicable or unspecified; O90.81 Anemia of the puerperium; Z86.39 Personal history of other endocrine, nutritional and metabolic disease; Z23 Encounter for immunization
CPT/HCPCS: 36415; 51702; 59025; 80053; 81001; 82962; 85025; 86592; 86850; 87086; 88307; 94761; C1758; J0456; J0595; J0665; J0666; J1100; J1171; J1756; J1885; J2003; J2004; J2210; J2371; J2405; J2590; J2795; J3010; J7050; J7120; J7121; Q0162

== ENCOUNTER 2025-01-22 07:30 | Outpatient (CLI) | payer OTHER, SELFPAY ==
--- OUTSIDE RECORDS SUMMARY | 2024-05-17 10:11 | XMS_ITS | Encounter Summary ---
Author Organization [facility] Address [address] [place] [address] Care Team Providers Care Paymaster Of Purses Name Role Phone Elisa Valdes DO Primary Care Provider +1- [phone] Reason for Referral * Diagnostic Imaging (Routine) - Closed Specialty Diagnoses / Procedures Referred By Contac t Referred To Contact Radiology Diagnoses Encounter to determine viability of , single or unspecified fetus Procedures US Ob Transvaginal Napoleon Mcginnis MD [address] [facility] [address] [place] [address] Phone: tel: fax: [facility] [address] [facility] [address] [place] [address] Phone: tel: fax: Referral ID Status Reason Start Date Expiration Date Visits Re quested Visits Authorized [id number] Closed 05/10/2024 05/10/2025 1 1 Reason for Visit * Consultation (Routine) - Closed Specialty Diagnoses / Procedures Referred By Contact Referred To Contact Obstetrics and Gynecology Diagnoses Referring, Self [address] [facility] [address] [facility] [address] [place] [address] Phone: tel: fax: Referral ID Status Reason Start Date Expiration Date Visits Re quested Visits Authorized [id number] Closed 04/25/2024 04/25/2025 1 1 Encounter Details Date Type Department Care Team (Latest Contact Info) Description 05/17/2024 9:11 AM EST Hospital Encounter [facility] [address] [facility] [address] [place] [address] Encounter to determine viability of , single [...] EST PAT NAME: SENA BENOIT MED REC#: [id number] DA: [id number] PAT GEND: F PAT TYPE: O EXAM ANIRUDH: [id number] REF PHYS NAPOLEON MCGINNIS Indication ======== viability [...] in the menstrual and sonographic dating criteria Santa'S Helper: Ekaterina Gaston RDMS Physician: Napoleon Mcginnis MD Electronically signed by: Napoleon Mcginnis MD at: 14:08 Procedure Note Napoleon Mcginnis MD - 05/17/2024 PAT NAME: SENA BENOIT [facility] REC#: [id number] DA: 1995 PAT GEND: F PAT TYPE: O EXAM ANIRUDH: [id number] REF PHYS NAPOLEON MCGINNIS Indication ======== viability [...] GA10 w + 6 d Assigned VINICIUS:12/07/2024 [id number] d Assessment Gestational sac:visualized Location:intrauterine Yolk sac:visualized Embryo:visualized CRL39.0 mm 10w 6d 22% Hadlock Cardiac activity:present [id number] bpm 93% Nicolaides Placenta:Too early to evaluate [...] discrepancy in the menstrual andsonographic dating criteria Santa'S Helper: Ekaterina Gaston RDMS Physician: Napoleon Mcginnis MD Electronically signed by: Napoleon Mcginnis MD at: 14:08 Napoleon Mcginnis MD [facility] ORDERABLES Final Result documented in this encounter Visit Diagnoses Diagnosis Encounter to determine viability of , single or unspecified fetus documented in this encounter Care Teams Paymaster Of Purses Relationship Specialty Start Date End Date Elisa Valdes DO [address] [place] [address] PCP - General Family Medicine 01/09/21 documented as of this encounter
--- OUTSIDE RECORDS SUMMARY | 2025-01-22 07:33 | XMS_ITS | Clinical Summary ---
Author Organization Healthcare Address [address] [place] [address] Care Team Providers Care Medical Technologist Hematology Name Role Phone Mee Matt MD Primary Care Provider [phone] Allergies No known active allergies Medications * [...] Additional history exists [facility]-Depression Screening 09/18/2023 09/17/2022 [id number] Vaccine ( - season) 2024 [facility]-Influenza Vaccine (#1) 12/03/202402/21, 01/12/2018, 06/14/2017, Additional [...] Screen (09/17/2022 10:22 AM EDT) Pathologist [facility] HIV 1 & 2 Antibody/Antigen Screen Non Reactive Non Reactive 09/17/2022 11:53 AM EDT [facility] Comment:Screening for HIV 1 & 2 antibodies, and P24 antigen is NONREACTIVE. No confirmatory testing is required. Blood Venous blood specimen / Unknown Venipuncture / Unknown 09/17/2022 10:22 AM EDT 09/17/2022 10:22 AM EDT Karma Stevenson APRN LAB BLOOD ORDERABLES Final Re sult Performing Organization Address [facility] Co de Phone Number [facility] [address] [place] [address] * Acute Hepatitis Panel (09/17/2022 10:22 AM EDT) [facility] Hepatitis B Surf Antigen Negative Negative 09/17/2022 2:38 PM EDT [facility] Hepatitis C Antibody Negative Negative 09/17/2022 2:38 PM EDT [facility] Hepatitis A Antibody IgM Negative Negative 09/17/2022 2:38 PM EDT [facility] Hepatitis B Core Antibody IgM Negative Negative 09/17/2022 2:38 PM EDT [facility] Blood Venous blood specimen / Unknown Venipuncture / Unknown 09/17/2022 10:22 AM EDT 09/17/2022 10:22 AM EDT Karma Stevenson APRN LAB BLOOD ORDERABLES Final Re sult Performing Organization Address [facility] Co de Phone Number [facility] [address] [place] [address] * Pap Test (09/17/2022 9:47 AM EDT) [facility] Case Report Cytology Case: [id number] Authorizing Provider: Karma Stevenson APRN Collected: 09/17/2022 0947 Ordering Location: Medical Office Building Received: 09/17/2022 1310 Obstetrics and Gynecology First Screen: Oh Squires Rescreen: So Yang Specimen: ThinPrep Pap Test, Liquid-Based Cervical/Vaginal 10/04/2022 10:27 AM EDT [facility] Interpretation NEGATIVE FOR INTRAEPITHELIAL LESION OR MALIGNANCY 10/04/2022 10:27 AM EDT [facility] at 1026 EDT Other Findings Shift in reji suggestive of bacterial vaginosis. 10/04/2022 10:27 AM EDT [facility] Specimen Adequacy Satisfactory for evaluation; endocervical/chin sformation zone component present. Slide imaged by the ThinPrep Imaging system and selected 22 arango reviewed then full manual screening. 10/04/2022 10:27 AM EDT [facility] Cervical cytology is a screening [...] results is suggested (please call Microbiology at [phone] for results). 10/04/2022 10:27 AM EDT [facility] Menstrual Status Cyclic 10/05/19 10:27 AM EDT [facility] History of Hysterectomy Not Applicable 10/04/2022 10:27 AM EDT [facility] Contraceptive History Not Applicable 10/04/2022 10:27 AM EDT [facility] Screening Type Previous or Suspected Abnormality 10/04/2022 10:27 AM EDT [facility] HPV Testing Requested? Request HPV Testing Regardless of Pap Test Findings 10/04/2022 10:27 AM EDT [facility] Infection History Human Papillomavirus 10/04/2022 10:27 AM EDT [facility] Previous Cancer History No 10/04/2022 10:27 AM EDT [facility] Previous or Suspected Abnormality Previous Abnormal Pap 10/04/2022 10:27 AM EDT [facility] Clinical Information Z01.419 - Well woman exam [ICD-10-CM] N87.0 - Mild dysplasia of cervix (THOR I) [ICD-10-CM] 10/04/2022 10:27 AM EDT [facility] Last Menstrual Period 09/02/2022 10/04/2022 10:27 AM EDT [facility] Swab Vaginal and cervical cytologic material / Unknown Non-blood Collection / Unknown 09/17/2022 9:47 AM EDT 09/17/2022 1:10 PM EDT us Karma Gottlieb Graham [facility] CYTOLOGY ORDERABLES Final Result [facility] [address] [place] [address] from Last 3 Months or Most Recently Relevant to Health Maintenance Insurance Care Teams Medical Technologist Hematology Relationship Specialty Start Date End Date Mee Matt MD [address] [facility] [address] [place] [address] PCP - General 08/15/20
--- OUTSIDE RECORDS SUMMARY | 2025-01-22 07:33 | XMS_ITS | Clinical Summary ---
Author Organization [facility] Address [address] [place] [address] Care Team Providers Care Pecan Sheller Name Role Phone Keisha Elisa Linette MONGE Primary Care Provider [phone] Allergies No known active allergies Medications Vit-Fe [...] directed Every Night. 10 mL 5 Active Active Problems Problem Noted Date [...] NPH at night previously prescribed by primary DYE STAND LOADER. Will continue NPH at this time [...] Care Team Description 11/08/2024 Medication Therapy Management [facility] [address] [facility] [address] [place] [address] Abiola Awad MD 10/26/2024 8:00 AM EDT - 10/26/2024 11:59 PM EDT Hospital Encounter [facility] [address] [place] [address] Tye Leung MD Insulin controlled gestational diabetes mellitus (GDM) in third trimester Discharge Disposition: Home or Self Care 10/26/2024 8:00 AM EDT Office Visit [facility] [address] [facility] [address] [place] [address] Tye Leung MD Insulin controlled gestational diabetes mellitus (GDM) in third trimester (Primary Dx) 10/26/2024 Travel 10/25/2024 Medication Therapy Management [facility] [address] [facility] [address] [place] [address] Abiola Awad MD from Last 3 Months Immunizations Immunization Administration [...] and Breast Exam 1996 PAP SMEAR 02/15/2017 ANNUAL PHYSICAL 07/07/2024 07/08/2023, 06/22/2022 INFLUENZA VACCINE 11/02/2024 02/21/2019, , 06/14/2017, Additional history exists TDAP/TD [...] Priority Date/Time Associated Diagnosis Comments SCANNED - LABS 12/03/2024 SCANNED - LABS 12/03/2024 SCANNED - LABS 12/03/2024 SCANNED - LABS 12/03/2024 SCANNED - LABS 12/03/2024 SCANNED - LABS 12/03/2024 SCANNED - LABS 12/03/2024 SCANNED - LABS 12/03/2024 SCANNED - LABS 12/03/2024 SCANNED - IMAGING 11/23/2024 SCANNED - IMAGING 11/16/2024 SCANNED - IMAGING 11/09/2024 SCANNED - IMAGING 11/02/2024 [facility] Routine 10/26/2024 8:24 AM EDT Insulin controlled gestational diabetes mellitus (GDM) in third trimester HEPATITIS C ANTIBODY Routine 05/17/2024 11:41 AM EST Encounter for supervision of low-risk , antepartum ONESWAB Routine 05/17/2024 Encounter for supervision of low-risk , antepartum from Last 3 Months or Most Recently Relevant to Health Maintenance Results * LABS SCANNED (12/03/2024) Only the most recent of9 resultswithin the time period is included. Elisa Valdes DO LAB BLOOD ORDERABLES Final Result * IMAGING SCANNED (11/23/2024) Only the most recent of4 resultswithin the time period is included. Anatomical Region Laterality Modality Radiographic Donna ging Elisa Valdes DO IMG DIAGNOSTIC IMAGING ORDE NAZARIO Final Result * US [facility] (10/26/2024 8:24 AM EDT) Anatomical Region Laterality Modality Ultrasound 10/26/2024 8:09 AM EDT Narrative 10/26/2024 8:36 AM EDT PAT NAME: SENA BENOIT MED REC#: [id number] DA: [id number] PAT GEND: F PAT TYPE: O EXAM ANIRUDH: [id number] REF PHYS KAROLINA ORTIZ Comparison Studies The [...] EFW (oz) 2 oz EFW by: Hadlock ([id number]-[id number]-FL) Extended Cav. septi pel. tr 5.6 mm [...] delivery. Twice weekly testing. Coding ======= Description: 63798-69 Follow Up Ultrasound Description: BPP without NST Yarding And Folding Machine Operator: Arin Pryor RDMS Physician: Tye Leung MD, FACOG Electronically signed by: Tye Leung MD, FACOG at: 08:36 Procedure Note Tye Leung MD - 10/26/2024 PAT NAME: SENA BENOIT MED REC#: [id number] DA: [id number] PAT GEND: F PAT TYPE: O EXAM ANIRUDH: [id number] REF PHYS KAROLINA ORTIZ Comparison Studies The findings of this study are compared to the prior ultrasound studydated 09/27/24 Patient Status Outpatient Indication ======== Gestational diabetes. Obesity BMI 36. Maternal Assessment Msfnlq090 cm Height (ft)5 ft Height (in)8 in Zptiej081 kg Weight (lb)239 lb BMI36.64 kg/m Method [...] GA34 w + 0 d Assigned VINICIUS:12/07/2024 [id number] d Biometry Standard BPD85.5 mm 34w 3d 61% Hadlock OAS396.8 mm 38w 3d 98% Rut HC321.9 mm 36w 2d 74% Hadlock Cerebellum tr46.0 mm 35w 0d 50% Hill AC291.8 mm 33w 1d 29% Hadlock Femur66.9 mm 34w 3d 52% Hadlock Bjqogvz16.5 mm 34w 4d 73% Rut HC / AC1.10 EFW2,320 g 33w 5d 43% Hadlock EFW (lb)5 lb EFW (oz)2 oz EFW by:Hadlock (UDY-AS-ST-FL) Extended Cav. septi pel. tr5.6 mm CM8.9 mm 85% Nicolaides Head / Face / Neck Cephalic index0.76 9% Nicolaides Extremities / Bony Struc FL / BPD0.78 FL / HC0.21 FL / AC0.23 Other Structures CJY750 bpm General Evaluation Cardiac activity present. FHR [...] week delivery. Twice weekly testing. Coding ======= Description:05970-69 Follow Up Ultrasound Description:63483-23 BPP without NST Yarding And Folding Machine Operator: Arin Pryor RDMS Physician: Tye Leung MD, FACOG Electronically signed by: Tye Leung MD, FACOG at: 08:36 us Tye Leung MD [facility] ORDERABLES Final Result * Hepatitis C Antibody (05/17/2024 11:41 AM EST) Hepatitis C Ab Non-Reacti ve Non-Reacti ve 05/17/2024 2:42 PM EST [facility] Blood Venipuncture / Unknown 05/17/2024 11:41 AM EST 05/17/2024 11:44 AM EST Melody Ordonez MD LAB BLOOD ORDERABLES Final Resul t [facility]
[address] [place] [address], * OneSwab - Kit, Vagina (05/17/2024) Kit Vaginal structure / Unknown Melody Ordonez MD MICROBIOLOGY - GENERAL ORDERABLE S Final Result Performing Organization Address City/[facility]/ZIP Co de Phone Number [facility] [address] [place] [address] from Last 3 Months or Most Recently Relevant to Health Maintenance Insurance [facility] Care Teams Pecan Sheller Relationship Specialty Start Date End Date Elisa Valdes DO [address] [place] [address] PCP - General Family Medicine 01/09/21
--- OUTSIDE RECORDS SUMMARY | 2025-01-22 07:33 | XMS_ITS | Patient Health Record ---
Author Organization [facility] Address [address] [place] [address] Care Team Providers Care Cotton Tier Name Role Phone Mee García Unavailable [phone] Reason For Referral No Information Social History [...] No Encounters Encounter Location Date Provider Diagnosis [facility] [address] [place] [address] 05/04/2024 Mee García Early stage of Z34.90 [...] Insured Coverage Start Date Coverage End Date [facility] [address] [place], [place] [id number] Sena Robles Self - patient is the insured
[2025-01-22 08:44] LABS: Glucose,Fasting 91 mg/dl (74-100)
[2025-01-22 09:18] LABS: Glucose 1 Hour 116 mg/dL (74-100)
[2025-01-22 10:52] LABS: Glucose 2 Hour 99 mg/dL (74-100)
== END 2025-01-22 23:59 | disposition home or self-care (01) ==
LOC: LAB 07:31
PROVIDERS: PCP Family Medicine; Visit Provider Obstetrics & Gynecology
DX: O24.419 Gestational diabetes mellitus in pregnancy, unspecified control (principal); Z3A.00 Weeks of gestation of pregnancy not specified
CPT/HCPCS: 36415; 82951

== ENCOUNTER 2025-03-21 08:38 | Outpatient (CLI) | payer OTHER, SELFPAY ==
--- OUTSIDE RECORDS SUMMARY | 2024-05-17 09:11 | XMS_ITS | Encounter Summary ---
Author Organization [facility] Address [address] [place] [address] Care Team Providers Care Pilot Plant Operator Helper Name Role Phone Elisa Valdes DO Primary Care Provider [phone] Reason for Referral * Diagnostic Imaging (Routine) - Closed Specialty Diagnoses / Procedures Referred By Contac t Referred To Contact Radiology Diagnoses Encounter to determine viability of , single or unspecified fetus Procedures US Ob Transvaginal Napoleon Mcginnis MD [address] [facility] [address] [place] [phone] Phone: tel: fax: [facility] [address] [facility] [address] [place] [phone] Phone: tel: fax: Referral ID Status Reason Start Date Expiration Date Visits Re quested Visits Authorized [id number] Closed 05/10/2024 05/10/2025 1 1 Reason for Visit * Consultation (Routine) - Closed Specialty Diagnoses / Procedures Referred By Contact Referred To Contact Obstetrics and Gynecology Diagnoses Referring, Self [address] [facility] [address] [facility] [address] [place] [phone] Phone: tel: fax: Referral ID Status Reason Start Date Expiration Date Visits Re quested Visits Authorized [id number] Closed 04/25/2024 04/25/2025 1 1 Encounter Details Date Type Department Care Team (Latest Contact Info) Description 05/17/2024 9:11 AM EST Hospital Encounter [facility] [address] [facility] [address] [place] [address] Encounter to determine viability of , single or unspecified fetus Social History Tobacco Use Types Packs/Day Years Used Date Smoking Tobacco: Never Smokeless Tobacco: Never Alcohol Use Standard Drinks/Week Comments Not Currently 0 (1 standard drink = 0.6 oz pur e alcohol) PHQ-2 Answer Date Recorded Retired PHQ-9: Brief Depression Severity Measure Score 0 06/22/2022 PHQ-2 Answer Date Recorded Patient Health Questionnaire-2 Score 0 07/03/2024 Comments No Sex and Gender Information Value Date Recorded Sex Assigned at Not on file Legal Sex Female 10:58 AM EDT Gender Identity Not on file Sexual Orientation Not on file documented as of this encounter Plan of Treatment Not on file documented as of this encounter Procedures Procedure Name Priority Date/Time Associated Diagnosis Comments US OB TRANSVAGINAL Routine 05/17/2024 10 :13 AM EST Encounter to determine viability of , single or unspecified fetus documented in this encounter Results * US Ob Transvaginal (05/17/2024 10:13 AM EST) Anatomical Region Laterality Modality Body Ultrasound 05/17/2024 10:1 3 AM EST Narrative 05/17/2024 2:08 PM EST PAT NAME: SENA BENOIT MED REC#: [id number] DA: [id number] PAT GEND: F PAT TYPE: O EXAM ANIRUDH: [id number] REF PHYS NAPOLEON MCGINNIS Indication ======== viability Comparison Studies There are no relevant prior studies to which this study is being compared History ====== Previous Outcomes 1 Method ======= Transvaginal ultrasound examination, Vol[place]on E6. View: Adequate view ========= Almodovar . Number of fetuses: 1 Single intrauterine present Dating ====== LMP on: 03/13/2024 GA by LMP 9 w + 2 d VINICIUS by LMP: 12/18/2024 Method of dating: based on ultrasound Ultrasound examination on: 05/17/2024 GA by U/S based upon: CRL GA by U/S 10 w + 6 d VINICIUS by U/S: 12/07/2024 Assigned: based on ultrasound (CRL), selected on 05/17/2024 Assigned GA 10 w + 6 d Assigned VINICIUS: 12/07/2024 length 280 d Assessment Gestational sac: visualized Location: intrauterine Yolk sac: visualized Embryo: visualized CRL 39.0 mm 10w 6d 22% Hadlock Cardiac activity: present FHR 178 bpm 93% Nicolaides Placenta: Too early to evaluate Maternal Structures Uterus / Cervix Uterus: Visualized Cervix: Visualized Ovaries / Tubes / Adnexa Rt ovary: Visualized Rt ovary D1 32.4 mm Rt ovary D2 29.7 mm Rt ovary D3 14.9 mm Rt ovary Vol 7.5 cm Lt ovary: Visualized Lt ovary D1 35.8 mm Lt ovary D2 18.4 mm Lt ovary D3 31.00 mm Lt ovary Vol 10.7 cm Impression ========= Single viable intrauterine with normal cardiac activity and biometry not consistent with clinical dates. There is some fluid in the pelvic cul-de-sac. Bilateral ovaries appear normal. Recommendation Would select U/S derived EDC due to the discrepancy in the menstrual and sonographic dating criteria Utility Specialist: Ekaterina Gaston RDMS Physician: Napoleon Mcginnis MD Electronically signed by: Napoleon Mcginnis MD at: 14:08 Procedure Note Napoleon Mcginnis MD - 05/17/2024 PAT NAME: SENA BENOIT MED REC#: [id number] DA: 1995 PAT GEND: F PAT TYPE: O EXAM ANIRUDH: [id number] REF PHYS NAPOLEON MCGINNIS Indication ======== viability Comparison Studies There are no relevant prior studies to which this study is beingcompared History ====== Previous Outcomes Gravida1 Method ======= Transvaginal ultrasound examination, [place] E6. View: Adequate view ========= Almodovar . Number of fetuses: 1 Single intrauterine present Dating ====== LMP on:03/13/2024 GA by LMP9 w + 2 d VINICIUS by LMP:12/18/2024 Method of dating:based on ultrasound Ultrasound examination on:05/17/2024 GA by U/S based upon:CRL GA by U/S10 w + 6 d VINICIUS by U/S:12/07/2024 Assigned:based on ultrasound (CRL), selected on 05/17/2024 Assigned GA10 w + 6 d Assigned VINICIUS:12/07/2024 [id number] d Assessment Gestational sac:visualized Location:intrauterine Yolk sac:visualized Embryo:visualized CRL39.0 mm 10w 6d 22% Hadlock Cardiac activity:present [id number] bpm 93% Nicolaides Placenta:Too early to evaluate Maternal Structures Uterus / Cervix Uterus:Visualized Cervix:Visualized Ovaries / Tubes / Adnexa Rt ovary:Visualized Rt ovary D132.4 mm Rt ovary D229.7 mm Rt ovary D314.9 mm Rt ovary Vol7.5 cm Lt ovary:Visualized Lt ovary D135.8 mm Lt ovary D218.4 mm Lt ovary D331.00 mm Lt ovary Vol10.7 cm Impression ========= Single viable intrauterine with normal cardiac activity andbiometry not consistent with clinical dates. There is some fluid in thepelvic cul-de-sac. Bilateral ovaries appear normal. Recommendation Would select U/S derived EDC due to the discrepancy in the menstrual andsonographic dating criteria Utility Specialist: Ekaterina Gaston RDFL Physician: Napoleon Mcginnis MD Electronically signed by: Napoleon Mcginnis MD at: 14:08 Napoleon Mcginnis MD [facility] ORDERABLES Final Result documented in this encounter Visit Diagnoses Diagnosis Encounter to determine viability of , single or unspecified fetus documented in this encounter Care Teams Pilot Plant Operator Helper Relationship Specialty Start Date End Date Elisa Valdes DO [address] [place], [place] [id number] PCP - General Family Medicine 01/09/21 documented as of this encounter
--- OUTSIDE RECORDS SUMMARY | 2025-03-21 08:41 | XMS_ITS | Patient Health Record ---
Author Organization [facility] [place] Address [address] [place] [address] Care Team Providers Care Miller Supervisor Name Role Phone Mee García Unavailable [phone] Reason For Referral No Information Social History [...] No Encounters Encounter Location Date Provider Diagnosis [facility] [address] [place] [address] 05/04/2024 Mee García Early stage of Z34.90 [...] Insured Coverage Start Date Coverage End Date [facility] [address] [place], [place] [id number] Sena Robles Self - patient is the insured
--- OUTSIDE RECORDS SUMMARY | 2025-03-21 08:41 | XMS_ITS | Clinical Summary ---
Author Organization [facility] Address [address] [place] [address] Care Team Providers Care Nursing Unit Clerk Name Role Phone Keisha Elisasalome Sue DO [...] NPH at night previously prescribed by primary DIALYSIS REGISTERED NURSE. Will continue NPH at this time though [...] 05/17/2024 Periodic headache syndrome, not intractable 05/05 Immunizations Immunization Administration Dates Next Due DTaP, [...] Date/Time Associated Diagnosis Comments SCANNED - LABS 01/22/2025 HEPATITIS C ANTIBODY Routine 05/17/2024 11:41 AM EST Encounter for supervision of low-risk , antepartum ONESWAB Routine 05/17/2024 Encounter for supervision of low-risk , antepartum from Last 3 Months or Most Recently Relevant to Health Maintenance Results * LABS SCANNED (01/22/2025) Elisa Valdes DO LAB BLOOD ORDERABLES Final Result * Hepatitis C Antibody (05/17/2024 11:41 AM EST) Hepatitis C Ab Non-Reacti ve Non-Reacti ve 05/17/2024 2:42 PM EST LABORATORY Blood Venipuncture / Unknown 05/17/2024 11:41 AM EST 05/17/2024 11:44 AM EST Melody Ordonez MD LAB BLOOD ORDERABLES Final Resul t LABORATORY
[address] [place] [address], * OneSwab - Kit, Vagina (05/17/2024) Kit Vaginal structure / Unknown Melody Ordonez MD MICROBIOLOGY - GENERAL ORDERABLE S Final Result [facility] [address] [place] [address] from Last 3 Months or Most Recently Relevant to Health Maintenance Insurance [facility] Care Teams Nursing Unit Clerk Relationship Specialty Start Date End Date Elisa Valdes DO [address] [place] [address] PCP - General Family Medicine 01/09/21
--- OUTSIDE RECORDS SUMMARY | 2025-03-21 08:42 | XMS_ITS | Clinical Summary ---
Author Organization Healthcare Address [address] [place] [address] Care Team Providers Care [employer] Tech Name Role Phone Mee Matt MD Primary Care Provider [phone] Allergies No known active allergies Medications * [...] Additional history exists [facility]-Depression Screening 09/18/2023 09/17/2022 [id number] Vaccine ( - season) 2024 [facility]-Influenza Vaccine [...] Screen (09/17/2022 10:22 AM EDT) Pathologist [facility] HIV 1 & 2 Antibody/Antigen Screen Non Reactive Non Reactive 09/17/2022 11:53 AM EDT [facility] Comment:Screening for HIV 1 & 2 antibodies, and P24 antigen is NONREACTIVE. No confirmatory testing is required. Blood Venous blood specimen / Unknown Venipuncture / Unknown 09/17/2022 10:22 AM EDT 09/17/2022 10:22 AM EDT Karma Stevenson APRN LAB BLOOD ORDERABLES Final Re sult Performing Organization Address [facility] Co de Phone Number [facility] [address] [place] [address] * Acute Hepatitis Panel (09/17/2022 10:22 AM EDT) [facility] Hepatitis B Surf Antigen Negative Negative 09/17/2022 2:38 PM EDT [facility] Hepatitis C Antibody Negative Negative 09/17/2022 2:38 PM EDT [facility] Hepatitis A Antibody IgM Negative Negative 09/17/2022 2:38 PM EDT [facility] Hepatitis B Core Antibody IgM Negative Negative 09/17/2022 2:38 PM EDT [facility] Blood Venous blood specimen / Unknown Venipuncture / Unknown 09/17/2022 10:22 AM EDT 09/17/2022 10:22 AM EDT Karma Stevenson APRN LAB BLOOD ORDERABLES Final Re sult Performing Organization Address [facility] Co de Phone Number [facility] [address] [place] [address] * Pap Test (09/17/2022 9:47 AM EDT) [facility] Case Report Cytology Case: [id number] Authorizing Provider: Karma Stevenson APRN Collected: 09/17/2022 0947 Ordering Location: Medical Office Building Received: 09/17/2022 1310 Obstetrics and Gynecology First Screen: Oh Squires Rescreen: So Yang Specimen: ThinPrep Pap Test, Liquid-Based Cervical/Vaginal 10/04/2022 10:27 AM EDT [facility] Interpretation NEGATIVE FOR INTRAEPITHELIAL LESION OR MALIGNANCY 10/04/2022 10:27 AM EDT [facility] at 1026 EDT Other Findings Shift in reji suggestive of bacterial vaginosis. 10/04/2022 10:27 AM EDT [facility] Specimen Adequacy Satisfactory for evaluation; endocervical/chin sformation zone component present. Slide imaged by the ThinPrep Imaging system and selected 22 arango reviewed then full manual screening. 10/04/2022 10:27 AM EDT [facility] Cervical cytology is a [...] results is suggested (please call Microbiology at [phone] for results). 10/04/2022 10:27 AM EDT [facility] Menstrual Status Cyclic 10/05/19 10:27 AM EDT [facility] History of Hysterectomy Not Applicable 10/04/2022 10:27 AM EDT [facility] Contraceptive History Not Applicable 10/04/2022 10:27 AM EDT [facility] Screening Type Previous or Suspected Abnormality 10/04/2022 10:27 AM EDT [facility] HPV Testing Requested? Request HPV Testing Regardless of Pap Test Findings 10/04/2022 10:27 AM EDT [facility] Infection History Human Papillomavirus 10/04/2022 10:27 AM EDT [facility] Previous Cancer History No 10/04/2022 10:27 AM EDT [facility] Previous or Suspected Abnormality Previous Abnormal Pap 10/04/2022 10:27 AM EDT [facility] Clinical Information Z01.419 - Well woman exam [ICD-10-CM] N87.0 - Mild dysplasia of cervix (THOR I) [ICD-10-CM] 10/04/2022 10:27 AM EDT [facility] Last Menstrual Period 09/02/2022 10/04/2022 10:27 AM EDT [facility] Swab Vaginal and cervical cytologic material / Unknown Non-blood Collection / Unknown 09/17/2022 9:47 AM EDT 09/17/2022 1:10 PM EDT us Karma Gottlieb Graham [employer] LAB CYTOLOGY ORDERABLES Final Result [facility] [address] [place] [address] from Last 3 Months or Most Recently Relevant to Health Maintenance Insurance Care Teams [employer] Tech Relationship Specialty Start Date End Date Mee Matt MD [address] [place] [address] PCP - General 08/15/20
[2025-03-21 09:33] LABS: Hematocrit 42.6 % (37.0-47.0); Hemoglobin 13.4 g/dL (12.2-16.2); Immature Granulocytes % 0.2 %; Mean Corpuscular HGB Conc 31.5 g/dL (31.8-35.4); Mean Corpuscular Hemoglobin 26.9 pg (27.0-31.2); Mean Corpuscular Volume 85.4 fl (81-99); Nucleated Red Blood Cells % 0 %; Platelet Count 261 K/mm3 (142-424); Red Blood Count 4.99 M/mm3 (4.20-5.40); Red Cell Distribution Width-SD 47.9 fL; White Blood Count 8.1 K/mm3 (4.8-10.8)
[2025-03-21 09:53] LABS: Hemoglobin A1C 5.5 % (4.0-6.0)
[2025-03-21 10:01] LABS: Alanine Aminotransferase 28 U/L (12-78); Albumin Level 4.6 g/dl (3.5-5.0); Albumin/Globulin Ratio 1.8 (1.1-1.8); Alkaline Phosphatase 91 U/L (38-126); Anion Gap 11.5 mEq/L (5-15); Aspartate Amino Transferase 27 U/L (14-36); Bilirubin,Total 0.8 mg/dl (0.2-1.3); Blood Urea Nitrogen 14 mg/dl (7-17); Calcium 9.9 mg/dl (8.4-10.2); Carbon Dioxide 27 mmol/L (22.0-30.0); Chloride 106 mmol/L (98-107); Creatinine,Serum 0.90 mg/dl (0.52-1.04); Estimated Glomerular Filt Rate 74 ml/min (>60); GFR (African American) 90 ML/MIN (>60); Globulin 2.6 g/dL (1.3-3.2); Glucose 90 mg/dl (74-100); Glucose,Fasting 90 mg/dl (74-100); Potassium 4.5 mmoL/L (3.5-5.1); Sodium 140 mmol/L (136-145); Total Protein,Serum 7.2 g/dl (6.3-8.2)
[2025-03-21 10:17] LABS: 25-OH Vitamin D, Total 27.1 ng/mL (30-100)
[2025-03-21 11:04] LABS: Ferritin 14.5 ng/ml (6.24-137)
[2025-03-22 12:26] LABS: FSH 3.7 mIU/mL (.); Insulin Level Total 9.4 uIU/mL (2.6-24.9); LH 4.4 mIU/mL (.)
== END 2025-03-21 23:59 | disposition home or self-care (01) ==
LOC: LAB 08:39
PROVIDERS: PCP Family Medicine; Visit Provider Obstetrics & Gynecology
DX: O24.419 Gestational diabetes mellitus in pregnancy, unspecified control (principal); D62 Acute posthemorrhagic anemia; Z3A.00 Weeks of gestation of pregnancy not specified; Z87.898 Personal history of other specified conditions
CPT/HCPCS: 36415; 80053; 82306; 82728; 82947; 83001; 83002; 83036; 83525; 85025